=== PATIENT | male | born 1970 | race Caucasian/White ===

== ENCOUNTER 2019-03-11 12:55 | Emergency (ER) | payer SELFPAY ==
[2019-03-11 13:14] VITALS: BP 99/64; RESP 16; TEMP 36.5; O2SAT 99; BMI 22.0
--- NOTE | 2019-03-11 14:22 | ED_ITS ---
Entered by Madelyn Banegas, acting as scribe for Toyin Hernandez MD, [facility] [place] - Extremity Problem General: Chief complaint: Extremity Injury, Lower Stated complaint: leg infection Time Seen by Provider: 03/11/19 14:22 Source: patient Mode of arrival: ambulatory Limitations: no limitations History of Present Illness: HPI Narrative: 48 yo Male presents to ED with complaint of leg infection. Pt states that he has been treated with antibiotics for multiple infections including staph. Pt states that these wounds just keep popping up. Pt states that he was sent to [place] for treatment but he didn't get along with them too well and he ripped out all of his lines and left. Pt states that the staff in [place] was really receptive with him initially but when he told the staff that he had a drug history they stopped coming in to treat him and he wouldn't see anyone for 10 hours. Pt states that his wounds started out as dog bites from a Doberman. Complaint: other (multiple wounds to lower extremities) Onset (ago): month(s) (5) Location: lower extremity Severity scale (1-10): 10 Quality: constant Radiation: none Relieving factors: nothing Exacerbating factors: nothing Associated symptoms: Reports other (multiple wounds to lower extremities) Review of Systems General: Reports: 10 or more systems reviewed and unremarkable except in HPI and below Musc: Reports: extremity pain (multiple wounds to lower extremities) Skin/Breast: Reports: sores and non-healing lesion PFSH ED PFSH: Statuses (acute, chronic, etc) shown below reflect problem list status as previously entered and may not be historically accurate Social History Smoking and tobacco status: current every day smoker Physical Exam Const: COMMON NORMALS: no apparent distress, average body habitus, oriented x3, no limitations, healthy appearing, alert and well nourished HENMT: COMMON NORMALS: normocephalic, head/scalp atraumatic, hearing grossly normal bilaterally, external ears normal, EAC's normal, TM's normal bilaterally, external nose normal, nasal mucous membranes and turbinates normal, moist oral mucous membranes, oropharynx normal, dentition normal and gingiva normal HEAD & SCALP: normocephalic and atraumatic NOSE: external nose normal and nasal mucous membranes and turbinates normal EXTERNAL EAR: Yes external ears normal EXTERNAL AUDITORY CANAL: EAC's normal TYMPANIC MEMBRANE: TM's normal bilaterally Eye: COMMON NORMALS: PERRL, EOMs intact bilaterally, conjunctivae normal, no scleral icterus, no papilledema, normal visual gonzales by confrontation and fundi normal bilaterally CONJUNCTIVA: Yes conjunctivae normal PUPIL: Yes PERRL DIRECT OPHTHALMOSCOPY: Yes no papilledema and Yes fundi normal bilaterally Neck/C-Spine: COMMON NORMALS: full ROM, supple, no meningeal signs, no JVD and no carotid bruits Chest: COMMONS NORMALS: inspection of chest normal and palpation of chest normal Resp: COMMON NORMALS: normal respiratory effort, no retractions, no use of accessory muscles, clear to auscultation bilaterally and percussion normal AUSCULTATION: clear to auscultation bilaterally PERCUSSION: percussion normal Cardio: COMMON NORMALS: no JVD, regular rate, regular rhythm, S1 normal heart sound, S2 normal heart sound, no gallops, no clicks, no murmurs, no rub and peripheral pulses 2+ throughout RATE: regular rate RHYTHM: regular rhythm HEART SOUNDS: S1 normal and S2 normal PERIPHERAL PULSES: pulses 2+ throughout GI: COMMON NORMALS: normal to inspection, nondistended, normoactive bowel sounds, soft to palpation, non-tender, no hepatosplenomegaly, no masses and no bruits PALPATION: Yes soft and Yes no hepatosplenomegaly : COMMON NORMALS: Yes no CVA tenderness BLADDER/KIDNEY EXAM: Yes no CVA tenderness Back/Pelvis: COMMON NORMALS: no CVA tenderness Extremity: COMMON NORMALS: normal to inspection, full ROM, normal capillary refill, no joint enlargement, no clubbing, cyanosis or edema, no calf tenderness and no pedal edema OTHER: Patient has multiple skin ulcers in various stages of healing and of varying sizes. No drainage from any of the wounds. Some of the wounds are scabbed over. Mild erythema surrounding some of the wounds. There is tenderness around some of the wounds. Some wounds are shallow and some a little deeper. Wounds are located in both lower extremities. Neuro: COMMON NORMALS: oriented x3 SENSORIUM/ORIENTATION: Yes alert MENINGEAL SIGNS: Yes no meningeal signs Skin: COMMON NORMALS: no rashes or lesions noted, no wounds, skin turgor normal, no jaundice, no petechiae and no mottling GENERAL SKIN EXAM: no rashes or lesions noted and turgor normal Course Vital Signs: Vital signs: Vital Signs Temperature 97.7 F 03/11/19 13:14 Pulse Rate 90 03/11/19 18:50 Respiratory Rate 18 03/11/19 18:50 Blood Pressure 124/81 03/11/19 18:50 Pulse Oximetry 100 03/11/19 18:50 MDM - Extremity (Nontraumatic) MDM Narrative: Medical decision making narrative: 48-year-old male with chronic nonhealing skin wounds. Wound culture done a couple of weeks ago showed MSSA and he is currently on Bactrim which I believe is appropriate based on the sensitivity report. Evaluation in the emergency department today does not reveal any acute findings with no drainage or discharge from the wound. White c ell count is normal. He is not febrile. He is therefore going to be discharged home to continue his current antibiotics and to follow-up at the wound care clinic. A referral will be made for him to [facility] scheduled to see the wound care providers. The patient voiced understanding and is in agreement with the plan. Lab Data: Labs: Lab Results 03/11/19 03/11/19 03/11/19 Range/Units 16:35 16:35 16:35 WBC 7.2 (4.0-10.0) 10^3/ uL RBC 4.34 (4.1-5.3) 10^6/u L Hgb 12.1 (11.7-16.6) g/dL Hct 38.8 L (42.0-52.0) % MCV 89.4 (80-94) fL MCH 27.9 L (28.0-34.0) pg MCHC 31.2 (30.0-36.0) g/dL RDW 14.4 (12.1-15.1) % Plt Count 190 (130-400) 10^3/c mm MPV 10.1 (7.4-10.4) fL Neut % (Auto) 59.3 % Lymph % (Auto) 29.0 % Merrick % (Auto) 8.2 % Eos % (Auto) 2.8 % Baso % (Auto) 0.4 % Neut # (Auto) 4.3 (1.8-7.7) 10^3/u L Lymph # (Auto) 2.1 (0.8-4.8) 10^3/u L Merrick # (Auto) 0.6 (0.2-0.9) 10^3/u L Eos # (Auto) 0.2 (0.0-0.8) 10^3/u L Baso # (Auto) 0.0 (0.0-0.1) 10^3/u L Nucleated RBC % (a uto) 0 % Nucleated RBCs # 0.0 /100WBC Sodium 138 (136-145) mmol/L Potassium 4.5 (3.5-5.1) mmol/L Chloride 100 (98-107) mmol/L Carbon Dioxide 26 (22-29) mmol/L Anion Gap 16.5 (5-19) BUN 18 (6-20) mg/dL Creatinine 0.8 (0.7-1.2) mg/dL GFR Calculation 104.1 (90-130) mL/min Glucose 95 (74-109) mg/dL Lactate 1.7 (0.5-2.2) mmol/L Calcium 9.7 (8.6-10.0) mg/Dl Total Bilirubin 0.3 (0.15-1.2) mg/dL AST 15 (0-40) U/L ALT 9 (0-41) U/L Alkaline Phosphata se 49 (40-130) IU/L Troponin T Baselin e (0-15) ng/mL C-Reactive Protein 3.5 (0.0-4.9) mg/L Total Protein 8.9 H (6.6-8.7) g/dL Albumin 4.5 (3.5-5.2) g/dL Globulin 4.4 (1.3-4.6) g/dL 03/11/19 Range/Units 16:35 WBC (4.0-10.0) 10^3/ uL RBC (4.1-5.3) 10^6/u L Hgb (11.7-16.6) g/dL Hct (42.0-52.0) % MCV (80-94) fL MCH (28.0-34.0) pg MCHC (30.0-36.0) g/dL RDW (12.1-15.1) % Plt Count (130-400) 10^3/c mm MPV (7.4-10.4) fL Neut % (Auto) % Lymph % (Auto) % Merrick % (Auto) % Eos % (Auto) % Baso % (Auto) % Neut # (Auto) (1.8-7.7) 10^3/u L Lymph # (Auto) (0.8-4.8) 10^3/u L Merrick # (Auto) (0.2-0.9) 10^3/u L Eos # (Auto) (0.0-0.8) 10^3/u L Baso # (Auto) (0.0-0.1) 10^3/u L Nucleated RBC % (a uto) % Nucleated RBCs # /100WBC Sodium (136-145) mmol/L Potassium (3.5-5.1) mmol/L Chloride (98-107) mmol/L Carbon Dioxide (22-29) mmol/L Anion Gap (5-19) BUN (6-20) mg/dL Creatinine (0.7-1.2) mg/dL GFR Calculation (90-130) mL/min Glucose (74-109) mg/dL Lactate (0.5-2.2) mmol/L Calcium (8.6-10.0) mg/Dl Total Bilirubin (0.15-1.2) mg/dL AST (0-40) U/L ALT (0-41) U/L Alkaline Phosphata se (40-130) IU/L Troponin T Baselin e 10 (0-15) ng/mL C-Reactive Protein (0.0-4.9) mg/L Total Protein (6.6-8.7) g/dL Albumin (3.5-5.2) g/dL Globulin (1.3-4.6) g/dL Discharge Plan Discharge Patient Disposition: Home, Self-Care Clinical Impression: Non-healing wound Cellulitis Qualifiers: Site of cellulitis: extremity Site of cellulitis of extremity: lower extremity Laterality: unspecified laterality Qualified Code(s): L03.119 - Cellulitis of unspecified part of limb Condition: Stable Prescriptions: Continued Bactrim DS 800-160 mg Tablet 1 tab PO BID RF: 0 Discharge Orders: Discharge Order (Routine); Ordered 03/11/19 Ordered By: Toyin Hernandez Referrals: WOUND CARE CLINIC, [Staff Physician] - 1-3 days (non healing wounds) Discharge Diet: Usual diet Discharge Activity: Resume usual activity Activity Restrictions/Additional Instructions: Return for any new or worsening symptoms. Continue to take the Bactrim as prescribed by Dr. Munoz. Follow-up with Dr. Munoz on Saturday. You will be contacted by the special education case manager to schedule an appointment with the wound care clinic so you can be evaluated for your nonhealing wounds. Coding Level of Care Code ED Strike On Machine Operator for Chg Fwd Exam Problem Focused The documentation recorded by the Bassam bacon Carmen, accurately reflects the service I personally performed and the decisions made by , Toyin Hernandez MD, [facility] [place] Mar 11, 2019 12:55
[2019-03-11 16:56] LABS: Basophils % 0.4 %; Eosinophils # 0.2 10^3/uL (0.0-0.8); Eosinophils % 2.8 %; Hematocrit 38.8 % (42.0-52.0); Hemoglobin 12.1 g/dL (11.7-16.6); Lymphocytes # 2.1 10^3/uL (0.8-4.8); Mean Corpuscular HGB Conc 31.2 g/dL (30.0-36.0); Mean Corpuscular Hemoglobin 27.9 pg (28.0-34.0); Mean Corpuscular Volume 89.4 fL (80-94); Mean Platelet Volume 10.1 fL (7.4-10.4); Monocytes # 0.6 10^3/uL (0.2-0.9); Monocytes % 8.2 %; Neutrophils # 4.3 10^3/uL (1.8-7.7); Neutrophils % 59.3 %; Nucleated Red Blood Cells % 0 %; Platelet Count 190 10^3/cmm (130-400); Red Blood Count 4.34 10^6/uL (4.1-5.3); Red Cell Distribution Width 14.4 % (12.1-15.1); White Blood Count 7.2 10^3/uL (4.0-10.0)
[2019-03-11 17:02] LABS: Lactate (Lactic Acid level) 1.7 mmol/L (0.5-2.2)
[2019-03-11 17:04] LABS: Alanine Aminotransferase 9 U/L (0-41); Albumin Level 4.5 g/dL (3.5-5.2); Alkaline Phosphatase 49 IU/L (40-130); Anion Gap 16.5 (5-19); Aspartate Amino Transferase 15 U/L (0-40); Blood Urea Nitrogen 18 mg/dL (6-20); C Reactive Protein 3.5 mg/L (0.0-4.9); Calcium 9.7 mg/Dl (8.6-10.0); Carbon Dioxide 26 mmol/L (22-29); Chloride 100 mmol/L (98-107); Globulin 4.4 g/dL (1.3-4.6); Glomerular Filtration Rate 104.1 mL/min (90-130); Glucose 95 mg/dL (74-109); Potassium 4.5 mmol/L (3.5-5.1); Sodium 138 mmol/L (136-145); Total Bilirubin 0.3 mg/dL (0.15-1.2); Total Protein 8.9 g/dL (6.6-8.7)
[2019-03-11 18:25] LABS: Troponin(5th) Baseline 10 ng/mL (0-15)
[2019-03-11] MEDS: cefTRIAXone 1,000 MG in sodium chloride 0.9% (plus) 50 ML 100 MG IV (18:48)
[2019-03-11 18:50] VITALS: BP 124/81; PULSE 90; RESP 18; O2SAT 100
[2019-03-11 20:00] LABS: Amphetamines Screen Urine Negative (Negative); Barbiturates Screen Urine Negative (Negative); Benzodiazepines Screen Urine Negative (Negative); Cocaine Screen Urine Negative (Negative); Opiate Screen Urine Negative (Negative); PCP Screen Urine Negative (Negative); THC Screen Urine Negative (Negative)
[2019-03-11 20:13] VITALS: BP 98/68; PULSE 83; RESP 18; O2SAT 98
--- NOTE | 2019-03-11 20:33 | W.ED.EXTPRO ---
HPI - Extremity Problem General: Chief complaint: Extremity Injury, Lower Stated complaint: leg infection Time Seen by Provider: 03/11/19 14:22 Mode of arrival: ambulatory History of Present Illness: Location: lower extremity Severity scale (1-10): 10 Quality: constant Relieving factors: nothing Exacerbating factors: nothing PFSH ED PFSH: Statuses (acute, chronic, etc) shown below reflect problem list status as previously entered and may not be historically accurate Social History Smoking and tobacco status: current every day smoker Course Vital Signs: Vital signs: Vital Signs Temperature 97.7 F 03/11/19 13:14 Pulse Rate 83 03/11/19 20:13 Respiratory Rate 18 03/11/19 20:13 Blood Pressure 98/68 03/11/19 20:13 Pulse Oximetry 98 03/11/19 20:13 MDM - Extremity (Nontraumatic) Lab Data: Labs: Lab Results 03/11/19 03/11/19 03/11/19 Range/Units 16:35 16:35 16:35 WBC 7.2 (4.0-10.0) 10^3/ uL RBC 4.34 (4.1-5.3) 10^6/u L Hgb 12.1 (11.7-16.6) g/dL Hct 38.8 L (42.0-52.0) % MCV 89.4 (80-94) fL MCH 27.9 L (28.0-34.0) pg MCHC 31.2 (30.0-36.0) g/dL RDW 14.4 (12.1-15.1) % Plt Count 190 (130-400) 10^3/c mm MPV 10.1 (7.4-10.4) fL Neut % (Auto) 59.3 % Lymph % (Auto) 29.0 % Fallon % (Auto) 8.2 % Eos % (Auto) 2.8 % Baso % (Auto) 0.4 % Neut # (Auto) 4.3 (1.8-7.7) 10^3/u L Lymph # (Auto) 2.1 (0.8-4.8) 10^3/u L Fallon # (Auto) 0.6 (0.2-0.9) 10^3/u L Eos # (Auto) 0.2 (0.0-0.8) 10^3/u L Baso # (Auto) 0.0 (0.0-0.1) 10^3/u L Nucleated RBC % (a uto) 0 % Nucleated RBCs # 0.0 /100WBC Sodium 138 (136-145) mmol/L Potassium 4.5 (3.5-5.1) mmol/L Chloride 100 (98-107) mmol/L Carbon Dioxide 26 (22-29) mmol/L Anion Gap 16.5 (5-19) BUN 18 (6-20) mg/dL Creatinine 0.8 (0.7-1.2) mg/dL GFR Calculation 104.1 (90-130) mL/min Glucose 95 (74-109) mg/dL Lactate 1.7 (0.5-2.2) mmol/L Calcium 9.7 (8.6-10.0) mg/Dl Total Bilirubin 0.3 (0.15-1.2) mg/dL AST 15 (0-40) U/L ALT 9 (0-41) U/L Alkaline Phosphata se 49 (40-130) IU/L Troponin T Baselin e (0-15) ng/mL C-Reactive Protein 3.5 (0.0-4.9) mg/L Total Protein 8.9 H (6.6-8.7) g/dL Albumin 4.5 (3.5-5.2) g/dL Globulin 4.4 (1.3-4.6) g/dL Urine Opiates Scre en (Negative) ng/mL Ur Barbiturates Sc reen (Negative) ng/mL Ur Phencyclidine S crn (Negative) ng/mL Ur Amphetamines Sc reen (Negative) ng/mL U Benzodiazepines Scrn (Negative) ng/mL Urine Cocaine Scre en (Negative) ng/mL U Marijuana (THC) Screen (Negative) ng/mL 03/11/19 03/11/19 Range/Units 16:35 18:33 WBC (4.0-10.0) 10^3/ uL RBC (4.1-5.3) 10^6/u L Hgb (11.7-16.6) g/dL Hct (42.0-52.0) % MCV (80-94) fL MCH (28.0-34.0) pg MCHC (30.0-36.0) g/dL RDW (12.1-15.1) % Plt Count (130-400) 10^3/c mm MPV (7.4-10.4) fL Neut % (Auto) % Lymph % (Auto) % Fallon % (Auto) % Eos % (Auto) % Baso % (Auto) % Neut # (Auto) (1.8-7.7) 10^3/u L Lymph # (Auto) (0.8-4.8) 10^3/u L Fallon # (Auto) (0.2-0.9) 10^3/u L Eos # (Auto) (0.0-0.8) 10^3/u L Baso # (Auto) (0.0-0.1) 10^3/u L Nucleated RBC % (a uto) % Nucleated RBCs # /100WBC Sodium (136-145) mmol/L Potassium (3.5-5.1) mmol/L Chloride (98-107) mmol/L Carbon Dioxide (22-29) mmol/L Anion Gap (5-19) BUN (6-20) mg/dL Creatinine (0.7-1.2) mg/dL GFR Calculation (90-130) mL/min Glucose (74-109) mg/dL Lactate (0.5-2.2) mmol/L Calcium (8.6-10.0) mg/Dl Total Bilirubin (0.15-1.2) mg/dL AST (0-40) U/L ALT (0-41) U/L Alkaline Phosphata se (40-130) IU/L Troponin T Baselin e 10 (0-15) ng/mL C-Reactive Protein (0.0-4.9) mg/L Total Protein (6.6-8.7) g/dL Albumin (3.5-5.2) g/dL Globulin (1.3-4.6) g/dL Urine Opiates Scre en Negative (Negative) ng/mL Ur Barbiturates Sc reen Negative (Negative) ng/mL Ur Phencyclidine S crn Negative (Negative) ng/mL Ur Amphetamines Sc reen Negative (Negative) ng/mL U Benzodiazepines Scrn Negative (Negative) ng/mL Urine Cocaine Scre en Negative (Negative) ng/mL U Marijuana (THC) Screen Negative (Negative) ng/mL Discharge Plan Discharge Patient Disposition: Home, Self-Care Clinical Impression: Non-healing wound Cellulitis Qualifiers: Site of cellulitis: extremity Site of cellulitis of extremity: lower extremity Laterality: unspecified laterality Qualified Code(s): L03.119 - Cellulitis of unspecified part of limb Condition: Stable Prescriptions: Continued Bactrim DS 800-160 mg Tablet 1 tab PO BID RF: 0 Discharge Orders: Discharge Order (Routine); Ordered 03/11/19 Ordered By: Toyin Hernandez Referrals: WOUND CARE CLINIC, [Staff Physician] - 1-3 days (non healing wounds) Discharge Diet: Usual diet Discharge Activity: Resume usual activity Activity Restrictions/Additional Instructions: Return for any new or worsening symptoms. Continue to take the Bactrim as prescribed by Dr. Munoz. Follow-up with Dr. Munoz on Saturday. You will be contacted by the telephonic nurse case manager to schedule an appointment with the wound care clinic so you can be evaluated for your nonhealing wounds. Discharge Date/Time: 03/11/19 20:10 Coding Level of Care Code ED Round Cutter Operator for Babatunde Alcantar
--- NOTE | 2019-03-12 10:57 | DCPLANNER ---
route manager had message to schedule a follow up appointment for patient with Wound Care. route manager called Wound Care, spoke with Susan, gave clinic patients information. A follow up appointment is scheduled for Sunday, March 17, 2019 at 10:[address] Saini. route manager called patient and informed patent of the scheduled appointment. Patient stated that he would attend the appointment.
--- NOTE | 2019-03-24 14:17 | DCPLANNER ---
Patient did attend appointment scheduled for 03.17.19 with Wound Care.
== END 2019-03-11 20:10 | disposition home or self-care (01) ==
PROVIDERS: Emergency Provider Family Medicine
DX: L03.119 Cellulitis of unspecified part of limb (principal)
CPT/HCPCS: 36415; 80053; 80307; 83605; 84484; 85025; 86140; 87040; 96365; 99282; A9270; J0696

== ENCOUNTER 2019-03-17 09:53 | Outpatient (RCR) | payer SELFPAY | END 2019-04-03 23:59 | disposition home or self-care (01) | LOC: WOUND 09:53 | PROVIDERS: Visit Provider Thoracic Surgery (Cardiothoracic Vascular Surgery) | DX: I96 Gangrene, not elsewhere classified (principal); L97.522 Non-pressure chronic ulcer of other part of left foot with fat layer exposed; L97.822 Non-pressure chronic ulcer of other part of left lower leg with fat layer exposed; L97.812 Non-pressure chronic ulcer of other part of right lower leg with fat layer exposed | CPT/HCPCS: 11042; 11045; 99203; G0463 ==

== ENCOUNTER 2020-01-11 16:51 | Emergency (ER) | payer MEDICAID, SELFPAY ==
[2020-01-11 16:53] VITALS: BP 144/98; PULSE 96; RESP 18; TEMP 36.7; O2SAT 98; BMI 22.9
--- NOTE | 2020-01-11 17:02 | XR_ITS ---
WS: [id number] XR foot RT min 3V* [id number] REASON FOR EXAM: necrotic toes FINDINGS: Significant decreased bone density for age. 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 No focal bony abnormality in the toes. No significant midfoot or hindfoot abnormality. XR/XR foot RT min 3V* [id number] IMPRESSION: Decreased bony density for age. No focal bony abnormality.
[2020-01-11 21:25] VITALS: BP 149/99; PULSE 95; O2SAT 96
[2020-01-11 21:54] VITALS: BP 125/81; PULSE 89; O2SAT 94
--- NOTE | 2020-01-11 21:54 | CTR_ITS ---
PROCEDURE INFORMATION: Exam: CT Left Lower Extremity Without Contrast, Foot Exam date and time: 01/11/2020 10:56 PM Age: 49 years old Clinical indication: Condition or disease; Other: Open wound with necrotic tissue TECHNIQUE: Imaging protocol: CT of the Left lower extremity without contrast was performed. Exam focused on the foot. Radiation optimization: All CT scans at this facility use at least one of these dose optimization techniques: automated exposure control; mA and/or kV adjustment per patient size (includes targeted exams where dose is matched to clinical indication); or iterative reconstruction. COMPARISON: No relevant prior studies available. RADIATION DOSE METRICS: Total DLP (mGy-cm): 475.93 FINDINGS: Bones/joints: There is no specific bone lesion to suggest active osteomyelitis. Radionuclide bone imaging or MRI would be more sensitive for the detection of early osteomyelitis. There is some oblique lucency through the distal fibula which appears represent old healed injury. Soft tissues: There is a large wound or ulcer in the lateral aspect of the left foot measuring approximately 28 x 35 mm with a depth of approximately 4 mm. There is skin thickening and edema along the lateral aspect of the left foot consistent with cellulitis. No abscess is identified. CT/CT foot LT wo con* [id number] IMPRESSION: 1. Cellulitis and soft tissue ulcer. 2. No abscess is identified. Radiation Dose CTDIVOL = (mGy): DLP = 475.93 (mGy-cm)
--- NOTE | 2020-01-11 21:54 | USCV_ITS ---
Deandra Olivares Age: 49 Gender: M : 1970 Exam Date: 01/11/2020 22:58 Ordering Phys: Sebastian De Jesus Technologist: Exam Location: [facility] [place]_ Indication: DECREASED PULSES RIGHT LEFT Brachial 129.00 mmHg Brachial 127.00 mmHg Pressure (mmHg) Waveform Pressure (mmHg) Waveform 146.00 Above Knee 140.00 154.00 Below Knee 139.00 155.00 QUAL RESEARCH MANAGER 135.00 111.00 DPA 100.00 1.20 Ankle/Brachial Index 1.05 72.00 Pre-Exercise Toe Pressure 62.00 0.56 Pre-Exercise Toe/Brachial Index 0.48 FINDINGS Normal resting ABIs bilaterally Abnormal resting TBI's bilaterally PVR waveforms showing some blunting of the dicrotic notch bilaterally CONCLUSIONS Features suggestive of mild to moderate peripheral artery disease, involving the distal vessels bilaterally Dr Pola Germain MD FACC (Electronically Signed) Final Date: 12 January 2020 17:26 S
--- NOTE | 2020-01-11 21:54 | CTR_ITS ---
PROCEDURE INFORMATION: Exam: CT Right Lower Extremity Without Contrast, Foot Exam date and time: 01/11/2020 10:56 PM Age: 49 years old Clinical indication: Condition or disease; Other: Open wound/necrotic; Additional info: Open wound with necrotic tissue TECHNIQUE: Imaging protocol: CT of the Right lower extremity without contrast was performed. Exam focused on the foot. Radiation optimization: All CT scans at this facility use at least one of these dose optimization techniques: automated exposure control; mA and/or kV adjustment per patient size (includes targeted exams where dose is matched to clinical indication); or iterative reconstruction. COMPARISON: No relevant prior studies available. RADIATION DOSE METRICS: Total DLP (mGy-cm): 267.18 FINDINGS: Bones/joints: There is no evidence of fracture or dislocation. Soft tissues: There is a focal soft tissue ulcer on the dorsum of the midfoot overlying the medial cuneiform. No abscess is identified. The soft tissues overlying the dorsal aspect of the cuneiform or very thin but there is no specific bony lesion to suggest active osteomyelitis. Radionuclide bone imaging or MRI would be more sensitive for the detection of early osteomyelitis. CT/CT foot RT wo con* [id number] IMPRESSION: Soft tissue ulcer. No abscess is identified. Radiation Dose CTDIVOL = (mGy): DLP = 267.18 (mGy-cm)
--- NOTE | 2020-01-11 21:57 | ED_ITS ---
HPI - Skin/Abscess/Foreign Bdy General: Chief complaint: Skin/Abscess/Foreign Body Stated complaint: Toes on Right Foot turning black Time Seen by Provider: 01/11/20 21:30 History of Present Illness: HPI narrative: Patient is a 49-year-old male comes to the ED with wounds on right and left feet. Patient says he has been seen a year ago for same issue and was discharged to wound care clinic, but due to not having insurance he was not able to go to the wound care clinic. He says he has been taking some antibiotics but is not been seen by a doctor for wounds on feet for about a year. He now has necrotic tissue on right foot distal end of the first and second digit. He also has an open wound with necrotic tissue on midfoot as well. Patient's left foot has a wound with necrotic tissue on it around midfoot and ankle region as well. He says feet are painful when touched. Denies any previous history with MRSA or staph. Patient states he currently has insurance now and can go to wound care now. Patient admits that he has a history of IV drug use and nurses have trouble getting blood from him. Associated symptoms: Deny chills, fever(s), nausea or vomiting Review of Systems Const: Denies: fever(s), chills or fatigue Eyes: Denies: change in vision or eye discomfort ENMT: Denies: throat pain, odynophagia, nasal discharge or nasal congestion Card: Denies: chest pain, palpitations, edema, swelling of feet/ankles, dyspnea on exertion or orthopnea Resp: Denies: dyspnea, productive cough or non-productive cough GI: Denies: abdominal pain, nausea, vomiting, diarrhea, constipation or hematochezia : Denies: flank pain, difficulty urinating, dysuria or hematuria Musc: Denies: neck pain, back pain or extremity swelling Skin/Breast: Reports: sores (on left and right foot.) and other (Necrotic skin tissue on first and second digit of right foot.); Denies: rash or new lesions Neuro: Denies: headache(s), numbness in extremities or weakness in extremities PFS ED PFSH: Social History Smoking and tobacco status: current every day smoker Physical Exam Const: COMMON NORMALS: no acute distress, patient oriented x3 and alert GENERAL APPEARANCE: cooperative and comfortable HENMT: COMMON NORMALS: normocephalic HEAD & SCALP: normocephalic MOUTH: Normal oral and palatal mucosa present THROAT: posterior oropharynx normal and uvula midline Neck/C-Spine: COMMON NORMALS: supple GENERAL: Yes normal visual inspection Resp: COMMON NORMALS: normal respiratory effort, No retractions, No use of accessory muscles and clear to auscultation bilaterally AUSCULTATION: clear to auscultation bilaterally Cardio: COMMON NORMALS: regular rate, regular rhythm, S1 normal heart sound present, S2 normal heart sound present, No gallops present (Cardio), No clicks present (Cardio) and No murmurs present (Cardio) RATE: regular rate RHYTHM: regular rhythm HEART SOUNDS: S1 normal heart sound present and S2 normal heart sound present PERIPHERAL PULSES: dorsalis pedis present positive bilateral diminished GI: COMMON NORMALS: Normal to inspection, nondistended, normoactive bowel sounds present, Soft to palpation, non-tender and no masses PALPATION: Yes Soft to palpation : COMMON NORMALS: Yes no CVA tenderness BLADDER/KIDNEY EXAM: Yes no CVA tenderness Back/Pelvis: COMMON NORMALS: no CVA tenderness Extremity: NARRATIVE EXTREMITY EXAM: Right foot?necrotic tissue on tip of first and second digit. Ulcerated sore on midfoot with some necrotic tissue present. Diminished pedal pulses. Full range of motion Left foot-ulcerated sore on foot near ankle. Necrotic tissue present. Diminished pedal pulses. Full range of motion. Neuro: COMMON NORMALS: patient oriented x3 and moves all extremities SENSORIUM/ORIENTATION: Yes alert Skin: NARRATIVE SKIN EXAM: Patient has necrotic skin on first and second digit of right foot. Course Vital Signs: Vital signs: Vital Signs Temperature 98.1 F 01/11/20 16:53 Pulse Rate 87 01/12/20 01:29 Respiratory Rate 16 01/12/20 01:29 Blood Pressure 142/85 01/12/20 01:29 Pulse Oximetry 99 01/12/20 01:29 MDM - Skin/Abscess/Foreign Bdy MDM Narrative: Medical decision making narrative: Patient is a 49-year-old male who comes to the ED with chronic wound. Patient says his wounds been present for about a year now. Labs were ordered but nobody was able to get blood after multiple attempts. X-ray of right foot showed no acute fractures. CT of both right and left lower leg showed no signs of osteomyelitis but did indicate cellulitis without any abscess present. Told patient we would like to have him admitted but there is no beds available throughout all hospitals in the area. Patient was given a dose of IM Rocephin and discharged with Bactrim and [place] 8 tabs. I placed an order with case management to refer patient to wound care clinic and logistics operations director. Patient says he will follow up this time with wound care and logistics operations director as directed. I stressed with patient the importance of following up with wound care help improve wounds. Return to ED precautions given. Patient understood and agreed with plan. Imaging Data^: Xray Ortho: Attestation: I personally reviewed and interpreted this imaging study as follows: My impression: Right foot x-ray?no acute fracture seen. Other CT: Attestation: I personally reviewed and interpreted this imaging study as follows: Radiologist's impression: [place] [address] CT Scan Report Signed Patient: Deandra Olivares Unit #: [id number] : 1970 Age/Sex: 49 / M ADM Date: 01/11/20 Loc: ER Room/Bed: Attending Dr: Ordering Provider/Ordering MD: Sebastian De Jesus Date of Service: 01/11/20 Procedure(s): CT foot LT wo con* [id number] Accession Number(s): [id number] Report Number: [id number] PROCEDURE INFORMATION: Exam: CT Left Lower Extremity Without Contrast, Foot Exam date and time: 01/11/2020 10:56 PM Age: 49 years old Clinical indication: Condition or disease; Other: Open wound with necrotic tissue TECHNIQUE: Imaging protocol: CT of the Left lower extremity without contrast was performed. Exam focused on the foot. Radiation optimization: All CT scans at this facility use at least one of these dose optimization techniques: automated exposure control; mA and/or kV adjustment per patient size (includes targeted exams where dose is matched to clinical indication); or iterative reconstruction. COMPARISON: No relevant prior studies available. RADIATION DOSE METRICS: Total DLP (mGy-cm): 475.93 FINDINGS: Bones/joints: There is no specific bone lesion to suggest active osteomyelitis. Radionuclide bone imaging or MRI would be more sensitive for the detection of early osteomyelitis. There is some oblique lucency through the distal fibula which appears represent old healed injury. Soft tissues: There is a large wound or ulcer in the lateral aspect of the left foot measuring approximately 28 x 35 mm with a depth of approximately 4 mm. There is skin thickening and edema along the lateral aspect of the left foot consistent with cellulitis. No abscess is identified. CT/CT foot LT wo con* [id number] IMPRESSION: 1. Cellulitis and soft tissue ulcer. 2. No abscess is identified. Radiation Dose CTDIVOL = (mGy): DLP = 475.93 (mGy-cm) Dictated By: Gus Shah Signed By: Gus Shah Signed Date/Time: 01/12/2016 DD/ [place] [address] CT Scan Report Signed Patient: Deandra Olivares Unit #: [id number] : 1970 Age/Sex: 49 / M ADM Date: 01/11/20 Loc: ER Room/Bed: Attending Dr: Ordering Provider/Ordering MD: Sebastian De Jesus Date of Service: 01/11/20 Procedure(s): CT foot RT wo con* [id number] Accession Number(s): [id number] Report Number: [id number] PROCEDURE INFORMATION: Exam: CT Right Lower Extremity Without Contrast, Foot Exam date and time: 01/11/2020 10:56 PM Age: 49 years old Clinical indication: Condition or disease; Other: Open wound/necrotic; Additional info: Open wound with necrotic tissue TECHNIQUE: Imaging protocol: CT of the Right lower extremity without contrast was performed. Exam focused on the foot. Radiation optimization: All CT scans at this facility use at least one of these dose optimization techniques: automated exposure control; mA and/or kV adjustment per patient size (includes targeted exams where dose is matched to clinical indication); or iterative reconstruction. COMPARISON: No relevant prior studies available. RADIATION DOSE METRICS: Total DLP (mGy-cm): 267.18 FINDINGS: Bones/joints: There is no evidence of fracture or dislocation. Soft tissues: There is a focal soft tissue ulcer on the dorsum of the midfoot overlying the medial cuneiform. No abscess is identified. The soft tissues overlying the dorsal aspect of the cuneiform or very thin but there is no specific bony lesion to suggest active osteomyelitis. Radionuclide bone imaging or MRI would be more sensitive for the detection of early osteomyelitis. CT/CT foot RT wo con* [id number] IMPRESSION: Soft tissue ulcer. No abscess is identified. Radiation Dose CTDIVOL = (mGy): DLP = 267.18 (mGy-cm) Dictated By: Gus Shah Signed By: Gus Shah Signed Date/Time: 01/12/2010 DD/ Vascular: Attestation: I personally reviewed and interpreted this imaging study as follows: Radiologist's impression: Ultrasound arterial Doppler-bilateral lower extremities. salvage engineering technician said that on right foot first and second digit there was no blood flow seen. The rest of digits on right foot and on the left foot had good arterial flow. Right ankle PT 1.2, ankle DP 0.86 Left ankle PT 1.05, ankle DP 0.78 Discharge Plan Discharge Patient Disposition: Home Clinical Impression: Cellulitis Qualifiers: Site of cellulitis: extremity Site of cellulitis of extremity: lower extremity Laterality: unspecified laterality Qualified Code(s): L03.119 - Cellulitis of unspecified part of limb Ulcer of foot Qualifiers: Laterality: bilateral Non-pressure ulcer stage: unspecified non-pressure ulcer stage Qualified Code(s): L97.519 - Non-pressure chronic ulcer of other part of right foot with unspecified severity Condition: Stable Prescriptions: New Bactrim DS 800-160 mg tablet 1 tab PO BID 10 Days Qty: 20 RF: 0 No Action methadone See Rx Instructions .ROUTE .COMPLEX RF: 0 Discharge Orders: Discharge Order (Routine); Ordered 01/12/20 Ordered By: Sebastian De Jesus Discharge Diet: Regular Discharge Activity: Increase activity as tolerated Patient Instructions: Cellulitis (ED), Chronic Wound Care (ED) Activity Restrictions/Additional Instructions: Follow-up with medical provider as directed. Case management should be contacting you in the next several days to set up an appointment with wound care and podiatry. Take medications as prescribed. Return to the ER or your medical provider if condition worsens. Please read and understand discharge instructions. If any questions, please ask. Coding Level of Care Code ED Ice Bag Assembler for Chg Fwd Exam Comprehensive
[2020-01-11 22:55] VITALS: BP 141/90; PULSE 84; RESP 16; O2SAT 92
[2020-01-12 00:17] VITALS: BP 123/84; PULSE 80; O2SAT 93
[2020-01-12 01:29] VITALS: BP 142/85; PULSE 87; RESP 16; O2SAT 99
--- NOTE | 2020-01-12 10:34 | DCPLANNER ---
territory sales manager medical had message to schedule a follow up appointment for patient with podiatry and wound care. territory sales manager medical called the Wound Care clinic, spoke with Susan, a follow up appointment is scheduled for Wednesday, January 15, 2020 at 8:[address] Davis. territory sales manager medical called patient and gave him the appointment information, he stated that he would attend the appointment. territory sales manager medical also called the ortho clinic, spoke with Ryann, gave clinic patients information. territory sales manager medical was told that patients information would be printed and reviewed. Clinic will call patient with appointment information.
--- NOTE | 2020-01-14 14:34 | DCPLANNER ---
Patient had a follow up appointment scheduled for 01.14.20 with ortho - patient did attend appointment.
--- NOTE | 2020-02-03 13:48 | DCPLANNER ---
Patient had a follow up appointment scheduled for 01.15.20 with Wound Care - patient did attend the appointment.
== END 2020-01-12 01:30 | disposition home or self-care (01) ==
PROVIDERS: Emergency Provider Physician Assistant
DX: L03.116 Cellulitis of left lower limb (principal); L97.521 Non-pressure chronic ulcer of other part of left foot limited to breakdown of skin; L97.511 Non-pressure chronic ulcer of other part of right foot limited to breakdown of skin; Z79.891 Long term (current) use of opiate analgesic; L03.115 Cellulitis of right lower limb; F17.200 Nicotine dependence, unspecified, uncomplicated
CPT/HCPCS: 12345; 73630; 73700; 93923; 96372; 99281; 99283; J0696

== ENCOUNTER 2020-01-15 08:43 | Outpatient (CLI) | payer MEDICAID, SELFPAY | END 2020-01-15 08:44 | disposition home or self-care (01) | LOC: WOUND 08:44 | PROVIDERS: Visit Provider Surgery | DX: I73.9 Peripheral vascular disease, unspecified (principal); L97.522 Non-pressure chronic ulcer of other part of left foot with fat layer exposed; L97.512 Non-pressure chronic ulcer of other part of right foot with fat layer exposed | CPT/HCPCS: 11042; G0463; L3260 ==

== ENCOUNTER 2020-01-20 13:03 | Outpatient (CLI) | payer MEDICAID, SELFPAY ==
[2020-01-20 13:41] LABS: Basophils % 0.4 %; Eosinophils # 0.1 10^3/uL (0.0-0.8); Eosinophils % 0.8 %; Hematocrit 43.5 % (42.0-52.0); Hemoglobin 13.7 g/dL (11.7-16.6); Lymphocytes # 1.9 10^3/uL (0.8-4.8); Lymphocytes % 17.8 %; Mean Corpuscular HGB Conc 31.5 g/dL (30.0-36.0); Mean Corpuscular Hemoglobin 28.4 pg (28.0-34.0); Mean Corpuscular Volume 90.1 fL (80-94); Mean Platelet Volume 10.4 fL (7.4-10.4); Monocytes # 0.7 10^3/uL (0.2-0.9); Monocytes % 6.7 %; Neutrophils # 8.06 10^3/uL (1.8-7.7); Neutrophils % 73.9 %; Nucleated Red Blood Cells % 0 %; Platelet Count 97 10^3/cmm (130-400); Red Blood Count 4.83 10^6/uL (4.1-5.3); Red Cell Distribution Width 12.8 % (12.1-15.1); White Blood Count 10.9 10^3/uL (4.0-10.0)
[2020-01-20 14:10] LABS: Alanine Aminotransferase 11 U/L (0-41); Albumin Level 3.9 g/dL (3.5-5.2); Alkaline Phosphatase 38 IU/L (40-130); Aspartate Amino Transferase 16 U/L (0-40); Blood Urea Nitrogen 16 mg/dL (6-20); Calcium 9.4 mg/dL (8.5-10.5); Carbon Dioxide 21 mmol/L (22-29); Chloride 97 mmol/L (98-107); Chol HDL Ratio 5.91 mg/dL (1.0-5.00); Cholesterol 207 mg/dL (0-200); Globulin 3.9 g/dL (1.3-4.6); Glomerular Filtration Rate 71.8 mL/min (90-130); Glucose 115 mg/dL (65-115); HDL Cholesterol 35 mg/dL (60-100); LDL Cholesterol Calculated 132 mg/dL (50-129); LDL HDL Ratio 3.77 RATIO (0.00-3.22); Osmolality Calculated 276 mOsm/kg (285-295); Sodium 132 mmol/L (136-145); Total Bilirubin 0.3 mg/dL (0.15-1.2); Total Protein 7.8 g/dL (6.6-8.7); Triglycerides 198 mg/dL (0-150)
[2020-01-20 14:50] LABS: Estmated Average Glucose 97
== END 2020-01-20 13:04 | disposition home or self-care (01) ==
LOC: LAB 13:07
PROVIDERS: Visit Provider Surgery
DX: R52 Pain, unspecified (principal); L53.9 Erythematous condition, unspecified; L98.499 Non-pressure chronic ulcer of skin of other sites with unspecified severity
CPT/HCPCS: 36415; 80053; 80061; 83036; 85025

== ENCOUNTER 2020-01-22 10:56 | Outpatient (CLI) | payer MEDICAID, SELFPAY | END 2020-01-22 10:57 | disposition home or self-care (01) | LOC: WOUND 10:57 | PROVIDERS: Visit Provider Surgery | DX: I70.203 Unspecified atherosclerosis of native arteries of extremities, bilateral legs (principal); F17.210 Nicotine dependence, cigarettes, uncomplicated | CPT/HCPCS: 99215 ==

== ENCOUNTER → 2020-02-23 07:48 | Day surgery (SDC) | payer MEDICAID, SELFPAY ==
--- NOTE | 2020-02-23 09:00 | CT_ITS ---
WS: [id number] CT ANGIOGRAPHY OF THE ABDOMINAL AORTA WITH RUNOFF TO THE ANKLES HISTORY: non-pressure chronic ulcer TECHNIQUE: Arterial injection is performed during imaging to evaluate the aorta and runoff vessels to the ankles. MIP and volume rendering imaging has also been performed. All images are reviewed. All C T scans at [facility] use at least one of these dose optimization techniques: automated ex posure control; mA and/or kV adjustment per patient size (includes targeted exams where dose is match ed to clinical indication); or iterative reconstruction. Contrast: Omnipaque 350; 95 mL IV. DLP: 1785.45 mGy.cm COMPARISON: None available. Abdominal aorta: Mild atherosclerotic plaque. Asymmetric intimal thickening along the posterior RIGHT lateral infrarenal aorta measures 4.7 mm. Lumen of the aorta is still patent. Celiac axis and SMA ar e well-opacified. Bilateral renal arteries are well-opacified. Accessory renal artery on the LEFT. IM A still opacified. RIGHT lower extremity arterial system: Mild plaque within the RIGHT common iliac artery. More dense p laque in the internal iliac artery. External iliac artery is patent. Superficial femoral artery and p opliteal artery demonstrate only mild atherosclerotic plaque. Three-vessel runoff to the foot althoug h the vessels are small caliber. LEFT lower extremity arterial system: Intimal thickening and calcified plaque with stenosis less than 40%. More heavily calcified plaque in the internal iliac. External iliac artery is normal. Superfici al femoral artery and the deep profunda are well-opacified. Popliteal artery is mildly compromised by plaque. Three-vessel runoff to the ankle. Emphysema at the lung bases. Small hiatal hernia. Normal size heart. Mild hepatomegaly and hepatic steatosis. Spleen is top normal size at 13 cm in length. Negative gallb ladder and adrenal glands. No bile duct dilatation in the pancreas is negative. Mild thinning of the renal cortex bilaterally, RIGHT greater than LEFT. No obstruction or mass identified. No adenopathy o r ascites. Mild constipation. Urinary bladder is normal. CT/CT angio abd aorta runof 32577 IMPRESSION: 1. No high-grade stenosis or occlusions. 2. Plaque and intimal thickening in the infrarenal aorta but no high-grade rand nosis. 3. Less than 50% stenosis at the LEFT common iliac artery bifurcation. 4. Soft tissue edema below the knees. There is still three-vessel runoff to th e ankles but small caliber vessels.
[2020-02-23] MEDS: iohexol 350 mg/mL 100 mL Btl IV (09:09)
[2020-02-23 09:30] VITALS: BP 134/86; PULSE 94; RESP 16; O2SAT 100
== END ==
PROVIDERS: PCP Family Medicine Adult Medicine; Visit Provider Podiatrist Foot & Ankle Surgery
DX: L97.522 Non-pressure chronic ulcer of other part of left foot with fat layer exposed (principal)
CPT/HCPCS: 36569; 75635; Q9967

== ENCOUNTER 2020-03-01 14:29 | Outpatient (CLI) | payer MEDICAID, SELFPAY | END 2020-03-01 14:30 | disposition home or self-care (01) | LOC: WOUND 14:30 | PROVIDERS: PCP Family Medicine Adult Medicine; Visit Provider Nurse Practitioner Family | DX: L97.322 Non-pressure chronic ulcer of left ankle with fat layer exposed (principal); L97.512 Non-pressure chronic ulcer of other part of right foot with fat layer exposed | CPT/HCPCS: 11042; G0463 ==

== ENCOUNTER 2020-03-07 14:35 | Outpatient (CLI) | payer MEDICAID, SELFPAY | END 2020-03-07 14:36 | disposition home or self-care (01) | LOC: WOUND 14:36 | PROVIDERS: PCP Family Medicine Adult Medicine; Visit Provider Thoracic Surgery (Cardiothoracic Vascular Surgery) | DX: M25.872 Other specified joint disorders, left ankle and foot (principal); M25.871 Other specified joint disorders, right ankle and foot | CPT/HCPCS: 11042 ==

== ENCOUNTER 2020-03-14 13:51 | Outpatient (CLI) | payer MEDICAID, SELFPAY | END 2020-03-14 13:52 | disposition home or self-care (01) | LOC: WOUND 13:52 | PROVIDERS: PCP Family Medicine Adult Medicine; Visit Provider Thoracic Surgery (Cardiothoracic Vascular Surgery) | DX: M25.872 Other specified joint disorders, left ankle and foot (principal); M25.871 Other specified joint disorders, right ankle and foot | CPT/HCPCS: 11042 ==

== ENCOUNTER 2020-03-21 13:06 | Outpatient (CLI) | payer MEDICAID, SELFPAY | END 2020-03-21 13:07 | disposition home or self-care (01) | LOC: WOUND 13:07 | PROVIDERS: PCP Family Medicine Adult Medicine; Visit Provider Nurse Practitioner Family | DX: M25.872 Other specified joint disorders, left ankle and foot (principal); M25.871 Other specified joint disorders, right ankle and foot | CPT/HCPCS: 11042; 11045 ==

== ENCOUNTER → 2020-03-24 15:23 | Outpatient (BNVA) | payer MEDICAID, SELFPAY | PROVIDERS: PCP Family Medicine Adult Medicine; Visit Provider Thoracic Surgery (Cardiothoracic Vascular Surgery) | DX: Z01.812 Encounter for preprocedural laboratory examination (principal) | CPT/HCPCS: 87635 ==

== ENCOUNTER 2020-03-28 05:37 | Day surgery (SDC) | payer MEDICAID, SELFPAY ==
[2020-03-25 11:14] VITALS: BMI 29.0
--- NOTE | 2020-03-25 11:25 | ANES.PREANE2 ---
Pre-Anesthetic Assessment Pre-Anesthetic Assessment: Height/Weight: Height 1.78 m Weight 91.626 kg Preop Diagnosis: necrosis Proposed Procedure: Operation Date: 03/28/20 07:00 Proposed Procedures p right great toe and right second toe amputation 68287 I96(Right) - Mickey Saini MD Familial anesthetic complications: None Social: Social History: No alcohol Comment: nicotine patches now Exam: Pre-Anes Outpt Exam: alert, oriented x 3, clear to auscultation bilaterally and regular rate & rhythm Airway: Cervical ROM: WNL MP: 3 Dentition: Other (no teeth) CV/HEM: Comments: Buerger's disease affecting feet, on plavix, but stopped 2 weeks ago becaues he ran out. He was told by surgeon not to keep holding this before surgery. GI: GI: GERD Anesthetic Plan: ASA status: 3 Anesthesia: MAC Other: Former IVDA, so states he's difficult IV access PFSH Anesthesia PFSH: Medical History Atherosclerotic PVD with ulceration Buerger's disease Chronic foot ulcer, limited to breakdown of skin Smoker unmotivated to quit Surgical History History of surgical amputation of finger of left hand Family History Other CAD (coronary artery disease) Cancer Diabetes Social History (Updated 03/01/20 @ 10:39 by KIRIT Locke) Smoking and tobacco status: current every day smoker cigarettes Packs smoked per day: 1 Alcohol intake: never Household members: family Marital status: Number of children: 1 Current occupational status: unemployed Data Anesthesia Cardiac Studies: No Data to Display
--- NOTE | 2020-03-25 11:54 | SUR.PREOP ---
rx for augmentin 500mg po tid for 1 week called to [facility] to start marcie per dr yousif
[2020-03-25 12:17] LABS: Add Urine Microscopic? NO
[2020-03-25 12:20] LABS: Urine Appearance Clear (CLEAR); Urine Color Yellow (Yellow)
[2020-03-25 12:21] LABS: Bilirubin Urine Neg (Negative); Blood Urine Neg (Negative); Glucose Urine UA Norm (Normal); Ketones Urine Negative (Negative); Leukocyte Esterase Urine Negative (Negative); Nitrate Urine Negative (Negative); Protein Urine Neg (Negative); Urobilinogen Urine Norm (Negative); pH Urine 5 (5-7)
[2020-03-28] VITALS (11 sets, daily range): BP systolic 105–136; BP diastolic 62–97; PULSE 92–103; RESP 12–18; TEMP 36.3–36.6; O2SAT 92–98
--- NOTE | 2020-03-28 06:13 | W.PM.OPSUD ---
Surgery/Procedure H&P Update DATE OF PROCEDURE: March 28, 2020 DATE H&P PERFORMED: 03/21/20 H&P UPDATE INFORMATION: I have reviewed H&P completed within last 30 days, I have examined patient prior to procedure and Changes to prior documentation as noted here CHANGES TO PREVIOUS DOCUMENTATION: There are now some early wound changes to the right calcaneus. This appears to be a progression of his Buerger's disease. He reports he has not smoked since I last visit with him earlier this month. Dry gangrenous changes to the right great toe distal one half and distal one third of the right second toe remain. Given the proximal skin changes, I think a right great toe amputation will be required and at least one half of the second toe. Further debridement surgically will be performed to the other wounds, particular the dorsum of the right foot. He states he has a follow-up woman in wound care services in 2 weeks. I would like to move this to at least no further than 1 week out, perhaps sooner. I will confirm this today. Potential need for further procedures were very frankly discussed with Mr. Espino and his mother. Unfortunately, his microvascular disease appears to have progressed. I again relayed to him the imperative that he avoid all tobacco. Apparently, he has also been on a nicotine supplement, which I think will also need to be discontinued. He did appear to be quite anxious this morning prior to his procedure though he is clearly aware of the extent that certainly may be required. I have asked her anesthesia colleagues to assist with his preop anxiety. PREOP DIAGNOSIS: Nonhealing right foot ulcer PRIMARY INDICATION FOR PROCEDURE: Gangrenous changes right foot PLANNED PROCEDURE: Operation Date: 03/28/20 07:00 Proposed Procedures p right great toe and right second toe amputation 38664 I96(Right) - Mickey Saini MD
[2020-03-28] MEDS: vancomycin 1,000 MG in sodium chloride 0.9% 250 ML 250 MG IV (06:32)
[2020-03-28] MEDS: sodium chloride 0.9% 1,000 ML 30 ML IV (06:32)
[2020-03-28 06:39] LABS: Basophils % 0.4 %; Eosinophils # 0.1 10^3/uL (0.0-0.8); Eosinophils % 1.2 %; Hematocrit 38.5 % (42.0-52.0); Hemoglobin 11.8 g/dL (11.7-16.6); Lymphocytes # 1.5 10^3/uL (0.8-4.8); Lymphocytes % 19.8 %; Mean Corpuscular HGB Conc 30.6 g/dL (30.0-36.0); Mean Corpuscular Hemoglobin 28.1 pg (28.0-34.0); Mean Corpuscular Volume 91.7 fL (80-94); Mean Platelet Volume 10.8 fL (7.4-10.4); Monocytes # 0.6 10^3/uL (0.2-0.9); Monocytes % 7.9 %; Neutrophils # 5.35 10^3/uL (1.8-7.7); Neutrophils % 70.4 %; Nucleated Red Blood Cells % 0 %; Platelet Count 122 10^3/cmm (130-400); Red Cell Distribution Width 13.4 % (12.1-15.1); White Blood Count 7.6 10^3/uL (4.0-10.0)
--- NOTE | 2020-03-28 06:43 | P.ANESUD_ITS ---
Pre-Anesthetic Update Pre-Anesthetic Assessment: Date of Surgery/Procedure: 03/28/20 Preop Iraida gnosis: Nonhealing right foot ulcer Proposed Procedure: Operation Date: 03/28/20 07:00 Proposed Procedures p right great toe and right second toe amputation 22682 I96(Right) - Mickey Saini MD Any changes to Pre-Anesthetic Assessment?: No Last Intake: Intake Last Liquid Date 03/27/20 Last Liquid Time 20:00 Last Solid Date 03/27/20 Last Solid Time 20:00 Labs Last 48hrs: Laboratory Results - last 48 hr 03/28/20 03/28/20 06:24 06:24 WBC 7.6 RBC 4.20 Hgb 11.8 Hct 38.5 L MCV 91.7 MCH 28.1 MCHC 30.6 RDW 13.4 Plt Count 122 L MPV 10.8 H Neut % (Auto) 70.4 Lymph % (Auto) 19.8 [place] % (Auto) 7.9 Eos % (Auto) 1.2 Baso % (Auto) 0.4 Neut # (Auto) 5.35 Lymph # (Auto) 1.5 [place] # (Auto) 0.6 Eos # (Auto) 0.1 Baso # (Auto) 0.0 Nucleated RBC % (a uto) 0 Nucleated RBCs # 0.0 Sodium Cancelled Potassium Cancelled Chloride Cancelled Carbon Dioxide Cancelled Anion Gap Cancelled BUN Cancelled Creatinine Cancelled GFR Calculation Cancelled Glucose Cancelled Calculated Osmolal ity Cancelled Calcium Cancelled Vitals: Temperature 97.3 F L 03/28/20 06:04 Temperature Source Temporal Artery S can 03/28/20 06:04 Pulse Rate 99 03/28/20 06:04 Respiratory Rate 18 03/28/20 06:04 Blood Pressure 131/84 03/28/20 06:04 Blood Pressure Marcela n 99 03/28/20 06:04 Pulse Oximetry 97 03/28/20 06:04 Oxygen Delivery Me thod 03/28/20 06:04 Exam: Pre-Anes Outpt Exam: alert, oriented x 3, clear to auscultation bilaterally and regular rate & rhythm Cardiac Studies: No Data to Display
[2020-03-28] MEDS: ceFAZolin 1,000 mg SDV 1000 MG IRRIGATION (07:32)
--- NOTE | 2020-03-28 08:41 | SUR.PHASEI ---
PT SLEEPS MOSTLY , WITH GOOD RESP EFFORT, VSS RT FOOT WITH LARGE SOFT DRESSING D/I DISTAL TOES PINK WARM, PT ON RA TRIAL.
--- NOTE | 2020-03-28 08:56 | PM.OP ---
Operative Report Date of procedure: March 28, 2020 Pre-op Diagnosis: Nonhealing right foot ulcer/gangrenous right great and second toe Post-op diagnosis: same Procedure Done: 1. Right great toe amputation 2. Amputation of the distal one half of the right second toe 3. Surgical debridement of right foot dorsal wound and right lateral foot wound with placement of wet-to-dry dressings. Implants: None Specimens removed/disposition: Right great toe and right second toe Surgeon: Mickey Saini Anesthesia: Other (Laryngeal mask anesthesia) Complications: None Findings: Bone at amputation levels appeared to be viable Condition: stable Disposition: PACU Brief History: 49-year-old gentleman with Buerger's disease and punctate lesions of the right foot which have progressed since last year. He now has frankly gangrenous distal one half of the right great toe with erythema proximally. Haseeb gangrenous changes to the distal portion of the right second toe. He has nonhealing wounds of the dorsal lateral aspect of the right foot. While he has mostly quit smoking, he is also on nicotine supplementation through transdermal patch. He has longstanding narcotic difficulties and currently is on methadone 130 mg daily. He has been followed in wound care services but due to failure of his wounds and the progressive granular changes of the previously mentioned toes, amputation of these areas and surgical debridement was recommended. Rationale for this was carefully discussed. Potential need for future procedures or possible major potation were also frankly discussed. Proper consents have been reviewed and signed. Procedure: Mr. Olivares was taken to the operating room theater and underwent general laryngeal mask anesthesia after being carefully position. His entire right leg from the knee down was sterilely prepped and draped. Initially, circumferential incision was made just distal to the base of the right great toe and carried down to the proximal phalanx and then dissection further to the metatarsal tarsal phalangeal joint where the toe was amputated at this level. Articular surface of the first metatarsal head was removed with bone rongeur with this bone appeared to be viable. Wound was irrigated with antibiotic solution hemostasis controlled the wound closed with interrupted 3-0 nylon suture. Next, in a similar fashion the distal one half of the right second toe was removed as there was no erythema proximal to the frankly gangrenous areas. This was done at the interphalangeal joint. Again, the articular surface was removed. This wound was then also irrigated with antibiotic solution and closed with interrupted 3-0 nylon suture. Next, #10 scalpel blade was utilized to surgically debride the right lateral foot wound and right dorsal foot wound. Moderate bleeding was controlled with cautery and with pressure. This did extend down to the subtendinous and adipose layer but did not reveal exposed ligament, tendon, or fascia. Once completed, wet-to-dry dressings were applied. And a surgical dressing was then secured. He tolerated procedure well and was awakened from laryngeal mask anesthesia and taken to the postoperative care unit with stable vital signs. I did funeral pre arrangement counselor with his family by phone. We have confirmed follow-up appointment in wound care services in 1 week. He will be discharged on hydrocodone 7.5 mg every 6 hours as needed pain. He will also be adding pentoxifylline. He is already on Plavix. He will also be prescribed Augmentin 500 mg every 8 hours for the next 10 days. Contact information is been provided and he will notify us of any concerns.
--- NOTE | 2020-03-28 08:57 | SUR.PHASEI ---
UNABLE TO AWAKE PT , PT SLEEPS WITH GOOD RESP BUT REMAINS UNRESPONSIVE TO TOUCH, OR VOICE, RT FOOT ELEVATED WITH DISTAL TOES PINK WARM
[2020-03-28] MEDS: HYDROcodone-acetaminophen 7.5-325 mg Tablet 1 TAB PO (09:57)
--- NOTE | 2020-03-28 13:20 | ANE.PACU2 ---
Inpatient post-anesthesia follow up: Airway intact: Yes Vital signs: Temperature 97.9 F Pulse Rate 92 Respiratory Rate 18 Blood Pressure 136/90 Pulse Oximetry 95 Oxygen Delivery Me thod Room Air Oxygen Flow Rate 8 Fraction of Inspir ed Oxygen Hydration adequate: Yes Nausea and vomiting: No Pain level: 1 Mental status: Baseline
== END 2020-03-28 10:29 | disposition home or self-care (01) ==
PROVIDERS: PCP Family Medicine Adult Medicine; Visit Provider Thoracic Surgery (Cardiothoracic Vascular Surgery)
PROC: (CPT 11043; principal; 2020-03-28 07:00)
DX: I96 Gangrene, not elsewhere classified (principal); L97.511 Non-pressure chronic ulcer of other part of right foot limited to breakdown of skin; Z79.02 Long term (current) use of antithrombotics/antiplatelets; K21.9 Gastro-esophageal reflux disease without esophagitis; F17.210 Nicotine dependence, cigarettes, uncomplicated; Z82.49 Family history of ischemic heart disease and other diseases of the circulatory system; Z83.3 Family history of diabetes mellitus
CPT/HCPCS: 11043; 28820 ×2; 12345; 36415; 81003; 85025; 88305; 88307; 96365; J0690; J1100; J1170; J2250; J2704; J2710; J2720; J3010; J3370; J3490; J7030; J7050

== ENCOUNTER 2020-04-04 13:19 | Outpatient (CLI) | payer MEDICAID, SELFPAY | END 2020-04-04 13:20 | disposition home or self-care (01) | LOC: WOUND 13:19 | PROVIDERS: PCP Family Medicine Adult Medicine; Visit Provider Thoracic Surgery (Cardiothoracic Vascular Surgery) | DX: M25.872 Other specified joint disorders, left ankle and foot (principal); M25.871 Other specified joint disorders, right ankle and foot | CPT/HCPCS: 11042; 11045 ==

== ENCOUNTER 2020-05-02 13:34 | Outpatient (CLI) | payer MEDICAID, SELFPAY | END 2020-05-02 13:35 | disposition home or self-care (01) | LOC: WOUND 13:35 | PROVIDERS: PCP Family Medicine Adult Medicine; Visit Provider Nurse Practitioner Family | DX: I73.9 Peripheral vascular disease, unspecified (principal); L97.322 Non-pressure chronic ulcer of left ankle with fat layer exposed; L97.512 Non-pressure chronic ulcer of other part of right foot with fat layer exposed | CPT/HCPCS: 11042; 11045 ==

== ENCOUNTER 2020-05-09 12:58 | Outpatient (CLI) | payer MEDICAID, SELFPAY | END 2020-05-09 12:59 | disposition home or self-care (01) | LOC: WOUND 12:58 | PROVIDERS: PCP Family Medicine Adult Medicine; Visit Provider Thoracic Surgery (Cardiothoracic Vascular Surgery) | DX: I73.9 Peripheral vascular disease, unspecified (principal); L97.422 Non-pressure chronic ulcer of left heel and midfoot with fat layer exposed; L97.512 Non-pressure chronic ulcer of other part of right foot with fat layer exposed | CPT/HCPCS: G0463 ==

== ENCOUNTER → 2020-05-12 14:48 | Outpatient (BNVA) | payer MEDICAID, SELFPAY | PROVIDERS: PCP Family Medicine Adult Medicine; Visit Provider Thoracic Surgery (Cardiothoracic Vascular Surgery) | DX: Z01.818 Encounter for other preprocedural examination (principal) | CPT/HCPCS: 87635 ==

== ENCOUNTER 2020-05-16 14:07 | Day surgery (SDC) | payer MEDICAID, SELFPAY ==
[2020-05-13 10:30] VITALS: BMI 31.5
[2020-05-16] VITALS (8 sets, daily range): BP systolic 109–146; BP diastolic 74–101; PULSE 91–105; RESP 12–18; TEMP 36.3–36.5; O2SAT 93–99
[2020-05-16] MEDS: sodium chloride 0.9% 1,000 ML 30 ML IV (14:53)
[2020-05-16 15:01] LABS: Basophils % 0.3 %; Eosinophils # 0.1 10^3/uL (0.0-0.8); Eosinophils % 0.6 %; Hematocrit 37.9 % (42.0-52.0); Hemoglobin 12.2 g/dL (11.7-16.6); Lymphocytes # 1.6 10^3/uL (0.8-4.8); Lymphocytes % 17.6 %; Mean Corpuscular HGB Conc 32.2 g/dL (30.0-36.0); Mean Corpuscular Hemoglobin 27.7 pg (28.0-34.0); Mean Corpuscular Volume 85.9 fL (80-94); Mean Platelet Volume 10.8 fL (7.4-10.4); Monocytes # 0.6 10^3/uL (0.2-0.9); Monocytes % 6.1 %; Neutrophils # 6.76 10^3/uL (1.8-7.7); Neutrophils % 75.1 %; Nucleated Red Blood Cells % 0 %; Platelet Count 134 10^3/cmm (130-400); Red Blood Count 4.41 10^6/uL (4.1-5.3); Red Cell Distribution Width 12.6 % (12.1-15.1)
[2020-05-16 15:10] LABS: INR 1.23 (0.8-1.2)
[2020-05-16 15:16] LABS: Alanine Aminotransferase 12 U/L (0-41); Albumin Level 3.5 g/dL (3.5-5.2); Alkaline Phosphatase 42 IU/L (40-130); Anion Gap 14.8 (5-19); Aspartate Amino Transferase 18 U/L (0-40); Blood Urea Nitrogen 14 mg/dL (6-20); Calcium 8.5 mg/dL (8.5-10.5); Carbon Dioxide 23 mmol/L (22-29); Chloride 102 mmol/L (98-107); Globulin 4.4 g/dL (1.3-4.6); Glomerular Filtration Rate 71.8 mL/min (90-130); Glucose 78 mg/dL (65-115); Osmolality Calculated 279 mOsm/kg (285-295); Potassium 4.8 mmol/L (3.5-5.1); Sodium 135 mmol/L (136-145); Total Bilirubin 0.4 mg/dL (0.15-1.2); Total Protein 7.9 g/dL (6.6-8.7)
--- NOTE | 2020-05-16 15:56 | W.PM.OPSUD ---
Surgery/Procedure H&P Update DATE OF PROCEDURE: May 16, 2020 DATE H&P PERFORMED: 05/09/20 H&P UPDATE INFORMATION: I have reviewed H&P completed within last 30 days, I have examined patient prior to procedure and No changes to prior documentation PREOP DIAGNOSIS: Gangrene Feet bilaterally PRIMARY INDICATION FOR PROCEDURE: Gangrenous changes to both right and left foot PLANNED PROCEDURE: Operation Date: 05/16/20 15:40 Proposed Procedures p Wound debridement of bilateral feet and amputation of third right toe 53475 [id number] L97.322 L97.512(Bilateral) - Mickey Saini MD s Wound debridement of bilateral feet and amputation of third right toe 33202 [id number] 59698 L97.322 L97.512(Right) - Mickey Saini MD
--- NOTE | 2020-05-16 15:57 | ANES.PREANE2 ---
Pre-Anesthetic Assessment Pre-Anesthetic Assessment: Height/Weight: Height 1.78 m Weight 99.79 kg Temp Pulse Resp BP Pulse Ox 97.3 F L 95 18 141/101 99 05/16/20 14:38 05/16/20 14:38 05/16/20 14:38 05/16/20 14:38 05/16/20 14:38 Preop Diagnosis: Gangrene Feet bilaterally Proposed Procedure: Operation Date: 05/16/20 15:40 Proposed Procedures p Wound debridement of bilateral feet and amputation of third right toe 10241 38526 44759 L97.322 L97.512(Bilateral) - Mickey Saini MD s Wound debridement of bilateral feet and amputation of third right toe 40454 [id number] 05347 L97.322 L97.512(Right) - Mickey Saini MD Was Beta Arthur taken within 24 hours: N/A Was Clonidine taken within 24 hours: N/A Last intake: Intake Last Liquid Date 05/15/20 Last Liquid Time 22:00 Last Solid Date 05/15/20 Last Solid Time 22:00 Social: Social History: Tobacco and No alcohol Exam: Pre-Anes Outpt Exam: alert, oriented x 3 and regular rate & rhythm Airway: Submandibular: WNL Cervical ROM: WNL MP: 2 Dentition: False Pulmonary: Pulmonary: COPD CV/HEM: CV/HEM: HTN and PVD Comments: [place]'s [place] [facility] [place] Comments: Chronic pain/opioid Anesthetic Plan: ASA status: 3 Anesthesia: General Risk of > 500 ml blood loss (7ml/kg in children): No Meds/Allergies Current Medications: Current Medications Generic Name Dose Route Start Last Admin Trade Name Freq PRN Reason Stop Dose Admin Sodium Chloride 1,000 mls @ 30 ml s/hr 05/16/20 14:30 05/16/20 14:53 Sodium Chloride 0.9% IV 05/17/20 14:29 30 mls/hr .Q24H EDGAR Administration PFSH Anesthesia PFSH: Medical History Atherosclerotic PVD with ulceration Buerger's disease Chronic foot ulcer, limited to breakdown of skin Smoker unmotivated to quit Surgical History History of surgical amputation of finger of left hand Family History Other CAD (coronary artery disease) Cancer Diabetes Social History Smoking and tobacco status: current every day smoker cigarettes Packs smoked per day: 1 Alcohol intake: never Household members: family Marital status: Number of children: 1 Current occupational status: unemployed Data Anesthesia CBC & Chem 7: 05/16/20 14:51 05/16/20 14:51 Other Labs: Laboratory Results - last 48 hr 05/16/20 05/16/20 05/16/20 14:51 14:51 14:51 WBC 9.0 RBC 4.41 Hgb 12.2 Hct 37.9 L MCV 85.9 MCH 27.7 L MCHC 32.2 RDW 12.6 Plt Count 134 MPV 10.8 H Neut % (Auto) 75.1 Lymph % (Auto) 17.6 [place] % (Auto) 6.1 Eos % (Auto) 0.6 Baso % (Auto) 0.3 Neut # (Auto) 6.76 Lymph # (Auto) 1.6 [place] # (Auto) 0.6 Eos # (Auto) 0.1 Baso # (Auto) 0.0 Nucleated RBC % (auto) 0 Nucleated RBCs # 0.0 PT 15.90 H INR 1.23 H Sodium 135 L Potassium 4.8 Chloride 102 Carbon Dioxide 23 Anion Gap 14.8 BUN 14 Creatinine 1.1 GFR Calculation 71.8 L Glucose 78 Calculated Osmolality 279 L Calcium 8.5 Total Bilirubin 0.4 AST 18 ALT 12 Alkaline Phosphatase 42 Total Protein 7.9 Albumin 3.5 Globulin 4.4 Cardiac Studies: No Data to Display
[2020-05-16] MEDS: vancomycin 1,000 MG SDV 1000 MG IRRIGATION (16:40)
--- NOTE | 2020-05-16 17:21 | PM.OP ---
Operative Report Date of procedure: May 16, 2020 Pre-op Diagnosis: Nonhealing wounds of feet bilaterally with gangrenous distal right third to Post-op diagnosis: same Procedure Done: Surgical debridement of all wounds of feet bilaterally and amputation of the distal one half of the right third toe Specimens removed/disposition: Distal one half right third toe Surgeon: Mickey Saini Anesthesia: General Condition: stable Disposition: PACU Brief History: 49-year-old gentleman with Buerger's disease and continued tobacco use with poorly healing wounds of the feet bilaterally status post prior debridements and follow-up the wound care services. He is status post right great toe and distal one half of the right second toe amputation back in March. Continues to have further degradation of his wounds and now gangrenous distal right third toe. Prior CTA reveals nonobstructive large vessel disease. Recommendation for surgical debridement and amputation of the distal half of the right third toe was discussed. Proper consents have been reviewed and signed. Procedure: Mr. Olivares was taken operating room theater And positioned in the OR table where he underwent general trach anesthesia by laryngeal mask. Bilateral lower extremities from the knees through the feet were sterilely prepped and draped bilaterally. Initially I performed sharp debridement with a #10 scalpel blade to all the devitalized tissue from the open wounds. There actually was fairly clean bed once all this devitalized material had been removed and peripheral epithelialization with several wounds. Cautery was utilized barely to control bleeding points. Once completed, #15 scalpel was utilized to excise the distal one half of the right third toe through the interphalangeal joint. Articular surfaces were removed with cautery. Flexor tendons were placed on tension and transected. We was carefully irrigated and closed loosely with interrupted 3-0 nylon suture. All the other wounds will be cleaned irrigated and dressed wet-to-dry. Intolerant procedure well waking from original mask anesthesia and talking to postoperative care unit. The following are the wound descriptions and dimensions Right malleolus posterior wound measures 1.5 x 1.5 x 0.3 cm. Right malleolus lateral wound measures 3 x 1.7 x 0.3 cm Right dorsal foot wound measures 6.4 x 3.4 x 0.2 cm Right great toe wound measures 2.5 x 1 x 0.2 cm Right second toe wound measures 1 x 0.5 x 0.1 cm Left great toe wound measures 0.5 x 1 x 0.1 cm Left dorsal foot wound measures 7 x 6.5 x 0.3 cm Surgeon received scalpel laceration to the dorsal distal aspect of the right long finger just proximal to the nail Request to obtain exposure panel will be discussed with patient.
--- NOTE | 2020-05-16 17:41 | P.PCN_ITS ---
PACU note PACU note: VSS, Good respiratory effort, report to DRY PASTE SUPERVISOR Post-Anesthesia Exam: awake
--- NOTE | 2020-05-16 17:41 | PM.PACU ---
PACU note PACU note: VSS, Good respiratory effort, report to SALES AND MARKETING PROFESSIONAL Post-Anesthesia Exam: awake
--- NOTE | 2020-05-16 18:23 | ANE.PACU2 ---
Inpatient post-anesthesia follow up: Airway intact: Yes Vital signs: Temperature 97.7 F Pulse Rate 96 Respiratory Rate 18 Blood Pressure 132/91 Pulse Oximetry 96 Oxygen Delivery Me thod Room Air Oxygen Flow Rate 8 Fraction of Inspir ed Oxygen Hydration adequate: Yes Nausea and vomiting: No Pain level: 5 Mental status: Baseline
[2020-05-16] MEDS: HYDROmorphone 1 mg/mL INJ 1 mL 0.5 MG IVP ×2 (18:29→18:50)
[2020-05-16 20:07] LABS: HIV 1 & 2 Antibody Non-Reactive (Non-Reactiv); HIV 1 & 2 Antigen Non-Reactive (Non-Reactiv)
[2020-05-16 20:18] LABS: Hepatitis A Antibody IgM Non-Reactive (Nonreactive); Hepatitis B Surface AB 3.5 (0-8.5); Hepatitis B Surface Antigen Non-Reactive (Nonreactive)
[2020-05-16 21:03] LABS: Hepatitis B Core AB, Total Reactive (Nonreactive); Hepatitis C Virus Antibody Reactive (Nonreactive)
== END 2020-05-16 19:48 | disposition home or self-care (01) ==
PROVIDERS: PCP Family Medicine Adult Medicine; Visit Provider Thoracic Surgery (Cardiothoracic Vascular Surgery)
PROC: (CPT 11042; principal; 2020-05-16 15:40)
DX: I96 Gangrene, not elsewhere classified (principal); S91.302A Unspecified open wound, left foot, initial encounter; S91.301A Unspecified open wound, right foot, initial encounter; S91.001A Unspecified open wound, right ankle, initial encounter; S91.101A Unspecified open wound of right great toe without damage to nail, initial encounter; S91.104A Unspecified open wound of right lesser toe(s) without damage to nail, initial encounter; S91.102A Unspecified open wound of left great toe without damage to nail, initial encounter; X58.XXXA Exposure to other specified factors, initial encounter; J44.9 Chronic obstructive pulmonary disease, unspecified; I10 Essential (primary) hypertension; G89.29 Other chronic pain; Z79.891 Long term (current) use of opiate analgesic; I73.1 Thromboangiitis obliterans [Buerger's disease]; F17.210 Nicotine dependence, cigarettes, uncomplicated; Z82.49 Family history of ischemic heart disease and other diseases of the circulatory system; Z83.3 Family history of diabetes mellitus
CPT/HCPCS: 11042; 11045 ×3; 28820; 36415; 80053; 85025; 85610; 86705; 86706; 86709; 86803; 87340; 87806; 88305; 96374; 96375; J1100; J1170; J2250; J2405; J2704; J3010; J3370; J3490; J7030

== ENCOUNTER 2020-05-19 15:43 | Outpatient (CLI) | payer MEDICAID, SELFPAY | END 2020-05-19 15:44 | disposition home or self-care (01) | LOC: WOUND 15:44 | PROVIDERS: PCP Family Medicine Adult Medicine; Visit Provider Thoracic Surgery (Cardiothoracic Vascular Surgery) | DX: I73.9 Peripheral vascular disease, unspecified (principal); L97.322 Non-pressure chronic ulcer of left ankle with fat layer exposed; L97.512 Non-pressure chronic ulcer of other part of right foot with fat layer exposed | CPT/HCPCS: 11042; 11045 ==

== ENCOUNTER 2020-05-30 15:16 | Outpatient (CLI) | payer MEDICAID, SELFPAY | END 2020-05-30 15:17 | disposition home or self-care (01) | LOC: WOUND 15:17 | PROVIDERS: PCP Family Medicine Adult Medicine; Visit Provider Thoracic Surgery (Cardiothoracic Vascular Surgery) | DX: I73.9 Peripheral vascular disease, unspecified (principal); L97.322 Non-pressure chronic ulcer of left ankle with fat layer exposed; L97.512 Non-pressure chronic ulcer of other part of right foot with fat layer exposed | CPT/HCPCS: 11042; 11045 ==

== ENCOUNTER 2020-06-06 14:13 | Outpatient (CLI) | payer MEDICAID, SELFPAY | END 2020-06-06 14:14 | disposition home or self-care (01) | LOC: WOUND 14:14 | PROVIDERS: PCP Family Medicine Adult Medicine; Visit Provider Nurse Practitioner Family | DX: I73.9 Peripheral vascular disease, unspecified (principal); L97.322 Non-pressure chronic ulcer of left ankle with fat layer exposed; L97.512 Non-pressure chronic ulcer of other part of right foot with fat layer exposed | CPT/HCPCS: 11042 ==

== ENCOUNTER 2020-06-13 13:41 | Outpatient (CLI) | payer MEDICAID, SELFPAY | END 2020-06-13 13:42 | disposition home or self-care (01) | LOC: WOUND 13:52 | PROVIDERS: PCP Family Medicine Adult Medicine; Visit Provider Nurse Practitioner Family | DX: I73.9 Peripheral vascular disease, unspecified (principal); L97.322 Non-pressure chronic ulcer of left ankle with fat layer exposed; L97.512 Non-pressure chronic ulcer of other part of right foot with fat layer exposed | CPT/HCPCS: 11042; 11045 ==

== ENCOUNTER 2020-06-20 10:53 | Outpatient (CLI) | payer MEDICAID, SELFPAY | END 2020-06-20 10:54 | disposition home or self-care (01) | LOC: WOUND 10:54 | PROVIDERS: PCP Family Medicine Adult Medicine; Visit Provider Nurse Practitioner Family | DX: I73.9 Peripheral vascular disease, unspecified (principal); L97.322 Non-pressure chronic ulcer of left ankle with fat layer exposed; L97.512 Non-pressure chronic ulcer of other part of right foot with fat layer exposed; L97.312 Non-pressure chronic ulcer of right ankle with fat layer exposed | CPT/HCPCS: 11042; 11045 ==

== ENCOUNTER 2020-06-27 13:01 | Outpatient (CLI) | payer MEDICAID, SELFPAY | END 2020-06-27 13:02 | disposition home or self-care (01) | LOC: WOUND 13:02 | PROVIDERS: PCP Family Medicine Adult Medicine; Visit Provider Thoracic Surgery (Cardiothoracic Vascular Surgery) | DX: I73.9 Peripheral vascular disease, unspecified (principal); L97.322 Non-pressure chronic ulcer of left ankle with fat layer exposed; L97.512 Non-pressure chronic ulcer of other part of right foot with fat layer exposed; L97.312 Non-pressure chronic ulcer of right ankle with fat layer exposed | CPT/HCPCS: 11042; 11045 ==

== ENCOUNTER 2020-07-04 13:16 | Outpatient (CLI) | payer MEDICAID, SELFPAY | END 2020-07-04 13:17 | disposition home or self-care (01) | LOC: WOUND 13:16 | PROVIDERS: PCP Family Medicine Adult Medicine; Visit Provider Thoracic Surgery (Cardiothoracic Vascular Surgery) | DX: I73.9 Peripheral vascular disease, unspecified (principal); L97.322 Non-pressure chronic ulcer of left ankle with fat layer exposed; L97.512 Non-pressure chronic ulcer of other part of right foot with fat layer exposed; L97.312 Non-pressure chronic ulcer of right ankle with fat layer exposed | CPT/HCPCS: 11042; 11045 ==

== ENCOUNTER 2020-07-11 13:10 | Outpatient (CLI) | payer MEDICAID, SELFPAY | END 2020-07-11 13:11 | disposition home or self-care (01) | LOC: WOUND 13:10 | PROVIDERS: PCP Family Medicine Adult Medicine; Visit Provider Thoracic Surgery (Cardiothoracic Vascular Surgery) | DX: I73.9 Peripheral vascular disease, unspecified (principal); L97.322 Non-pressure chronic ulcer of left ankle with fat layer exposed; L97.512 Non-pressure chronic ulcer of other part of right foot with fat layer exposed; L97.312 Non-pressure chronic ulcer of right ankle with fat layer exposed | CPT/HCPCS: 11042; 11045 ==

== ENCOUNTER 2020-07-18 13:27 | Outpatient (CLI) | payer MEDICAID, SELFPAY | END 2020-07-18 13:28 | disposition home or self-care (01) | LOC: WOUND 13:28 | PROVIDERS: PCP Family Medicine Adult Medicine; Visit Provider Thoracic Surgery (Cardiothoracic Vascular Surgery) | DX: I73.9 Peripheral vascular disease, unspecified (principal); L97.322 Non-pressure chronic ulcer of left ankle with fat layer exposed; L97.512 Non-pressure chronic ulcer of other part of right foot with fat layer exposed; L97.412 Non-pressure chronic ulcer of right heel and midfoot with fat layer exposed; L97.812 Non-pressure chronic ulcer of other part of right lower leg with fat layer exposed | CPT/HCPCS: 11042; 11045 ==

== ENCOUNTER 2020-07-28 14:47 | Outpatient (CLI) | payer MEDICAID, SELFPAY | END 2020-07-28 14:48 | disposition home or self-care (01) | LOC: WOUND 14:48 | PROVIDERS: PCP Family Medicine Adult Medicine; Visit Provider Thoracic Surgery (Cardiothoracic Vascular Surgery) | DX: I73.9 Peripheral vascular disease, unspecified (principal); L97.322 Non-pressure chronic ulcer of left ankle with fat layer exposed; L97.512 Non-pressure chronic ulcer of other part of right foot with fat layer exposed; L97.312 Non-pressure chronic ulcer of right ankle with fat layer exposed | CPT/HCPCS: 11042; 11045 ==

== ENCOUNTER 2020-08-03 15:14 | Outpatient (CLI) | payer MEDICAID, SELFPAY | END 2020-08-03 15:15 | disposition home or self-care (01) | LOC: WOUND 15:15 | PROVIDERS: PCP Family Medicine Adult Medicine; Visit Provider Thoracic Surgery (Cardiothoracic Vascular Surgery) | DX: I73.9 Peripheral vascular disease, unspecified (principal); L97.322 Non-pressure chronic ulcer of left ankle with fat layer exposed; L97.512 Non-pressure chronic ulcer of other part of right foot with fat layer exposed; L97.312 Non-pressure chronic ulcer of right ankle with fat layer exposed | CPT/HCPCS: 11042; 11045 ==

== ENCOUNTER 2020-08-08 14:14 | Outpatient (CLI) | payer MEDICAID, SELFPAY | END 2020-08-08 14:15 | disposition home or self-care (01) | LOC: WOUND 14:15 | PROVIDERS: PCP Family Medicine Adult Medicine; Visit Provider Thoracic Surgery (Cardiothoracic Vascular Surgery) | DX: I73.9 Peripheral vascular disease, unspecified (principal); L97.322 Non-pressure chronic ulcer of left ankle with fat layer exposed; L97.512 Non-pressure chronic ulcer of other part of right foot with fat layer exposed; L97.312 Non-pressure chronic ulcer of right ankle with fat layer exposed | CPT/HCPCS: 11042; 11045 ==

== ENCOUNTER 2020-08-22 09:04 | Inpatient (IN) | payer MEDICAID, SELFPAY ==
--- NOTE | 2020-08-22 09:13 | USCV_ITS ---
Deandra Olivares Age: 50 Gender: M : 1970 Exam Date: 08/22/2020 09:35 Ordering Phys: Manoj Hernandez DO Technologist: Eri Kuhn [place] [facility] [place]: Swelling HISTORY: Lower extremity swelling. PROCEDURES: Venous duplex imaging was performed in only the right lower extremity.the following venous structures were evaluated: common femoral vein, profunda vein, proximal portion of the greater saphenous vein, superficial femoral vein, and the popliteal vein. In addition, the posterior tibial and peroneal trunk were evaluated. FINDINGS: Normal 2-D Doppler and augmentation and compressibility throughout the lower extremity venous structures. Additional imaging through the proximal calf veins also reveals no thrombus. Limited evaluation of the greater saphenous vein is patent with no thrombus. CONCLUSIONS No DVT right lower extremity. Dr. Jodi Waite DO (Electronically Signed) Final Date: 22 August 2020 10:18 S
[2020-08-22 09:16] VITALS: BP 118/81; PULSE 100; RESP 15; TEMP 36.8; O2SAT 95; BMI 28.7
--- NOTE | 2020-08-22 09:26 | XRR_ITS ---
PROCEDURE INFORMATION: Exam: XR Left Foot Exam date and time: 08/22/2020 9:26 AM Age: 50 years old Clinical indication: Foot; Bilateral; Prior surgery; Surgery type: Toe; Patient HX: Chronic wounds in feet, acutely infected pain, redness; Additional info: Pain selling, open wounds TECHNIQUE: Imaging protocol: XR Left foot. Views: 3 or more views. COMPARISON: CT foot LT w con [id number] 08/22/2020 10:15 AM FINDINGS: Bones/joints: CT detected osteomyelitis involving the 5th metatarsal head is poorly visualized on radiography. Mild degenerative change. Anatomic alignment. Soft tissues: Soft tissue swelling. XR/XR foot LT min 3V* [id number] IMPRESSION: Soft tissue swelling.
--- NOTE | 2020-08-22 09:26 | CT_ITS ---
WS: [id number] CT FOOT WITH CONTRAST. HISTORY: pain open wounds Technique: All CT scans at [facility] use at least one of these dose optimization techniq ues: automated exposure control; mA and/or kV adjustment per patient size (includes targeted exams wh ere dose is matched to clinical indication); or iterative reconstruction. DLP: 241.77 mGy.cm COMPARISON: 01/11/2020 Moderate amount of soft tissue edema surrounding the foot. Mild irregularity over the dorsal surface of foot near the mid to distal first metatarsal. No underlying abscess identified. There is an additi onal soft tissue ulceration measuring 2.2 x 2.0 cm over the dorsal surface of the distal first metata rsal. This soft tissue ulceration extends to the metatarsal head. Cannot confirm osteomyelitis. CT/CT foot RT w con [id number] IMPRESSION: 1. No focal abscess. 2. Moderate diffuse cellulitis. 3. Soft tissue ulceration along the dorsal surface of the distal first metatar tracy measures 2.2 x 2.0 cm and does extend to the first metatarsal head. No defi nite osteomyelitis.
--- NOTE | 2020-08-22 09:26 | XRR_ITS ---
PROCEDURE INFORMATION: Exam: XR Right Foot Exam date and time: 08/22/2020 9:26 AM Age: 50 years old Clinical indication: Pain and condition or disease; Other: Wounds; Foot; Bilateral; Prior surgery; Surgery type: Toe; Additional info: Pain, chronic wounds, acutely infected TECHNIQUE: Imaging protocol: XR Right foot. Views: 3 or more views. COMPARISON: CT foot RT w con [id number] 08/22/2020 10:19 AM FINDINGS: Bones/joints: Osteopenia. Cortical irregularity and osteolysis about the distal aspect of the 1st metatarsal head and phalanges of the 2nd and 3rd toes, suspicious for osteomyelitis. Soft tissues: Soft tissue swelling. XR/XR foot RT min 3V* [id number] IMPRESSION: Cortical irregularity and osteolysis about the distal aspect of the 1st metatarsal head and phalanges of the 2nd and 3rd toes, suspicious for osteomyelitis. The aforementioned findings initiated a critical results communication pathway. An addendum will be issued at the time of clincian notification.
--- NOTE | 2020-08-22 09:26 | CT_ITS ---
WS: [id number] CT LEFT FOOT WITH CONTRAST HISTORY: pain, open wounds Technique: All CT scans at [facility] use at least one of these dose optimization techniq ues: automated exposure control; mA and/or kV adjustment per patient size (includes targeted exams wh ere dose is matched to clinical indication); or iterative reconstruction. DLP: 474.7 mGy.cm COMPARISON: 01/11/2020 Large amount of soft tissue edema surrounding the entire foot and extending into the ankle. Superfici al soft tissue defect extending over a width of 4.9 cm along the lateral foot. This is the area the l argest amount of soft tissue edema. No soft tissue abscess is identified. There is very slight loss o f the cortex involving the fifth metatarsal head. No fractures. IMPRESSION: 1. Large amount of soft tissue edema and cellulitis with no abscess. 2. Possible early changes of osteomyelitis involving the fifth metatarsal head. The extent of cellul itis has progressed since 01/11/2020. The soft tissue ulceration along the lateral foot is actually sl ightly improved.
--- NOTE | 2020-08-22 09:27 | ECG_ITS ---
[facility] Test Date: 2020-08-22 Pat Name: Deandra Olivares Department: Room: Gender: Male Lion Hunter: : 1970 Requested By: Maonj Ford Order Number: [id number] Tyler MD: Pola Germain M.D. Measurements Intervals [place] Rate: 90 P: 44 NJ: 133 QRS: 57 QRSD: 98 T: 1 QT: 399 QTc: 490 Interpretive Statements SINUS RHYTHM No previous ECG available for comparison Electronically Signed On 08-22-2020 18:49:17 CDT by Pola Germain M.D. [email or web address]
--- NOTE | 2020-08-22 09:27 | XRR_ITS ---
PROCEDURE INFORMATION: Exam: XR Chest Exam date and time: 08/22/2020 9:27 AM Age: 50 years old Clinical indication: Cough and dyspnea; Patient HX: Chronic wounds in feet, acutely infected , pain, redness; Additional info: Dyspnea/cough TECHNIQUE: Imaging protocol: XR of the chest. Views: 1 view. COMPARISON: CT angio abd aorta runof [id number] 02/23/2020 8:56 AM FINDINGS: Lungs: Hyperinflation and interstitial prominence. Pleural spaces: No pleural effusion. Heart/Mediastinum: Normal configuration of the heart. Bones/joints: Unremarkable. XR/XR chest 1V portable [id number] IMPRESSION: Hyperinflation and interstitial prominence.
--- NOTE | 2020-08-22 09:30 | W.ED.EXTPRO ---
HPI - Extremity Problem General: Chief complaint: Extremity Problem,Nontraumatic Stated complaint: Poss Blood Clot/R. Thigh Swelling/Trouble Walking Time Seen by Provider: 08/22/20 09:11 History of Present Illness: HPI Narrative: Behavior male presents emergency room with swelling bilaterally of his lower extremities. He states that he got bitten by dog several years ago since and has had problems with chronic ulcers on his legs. He tells me he is not diabetic to the best of his knowledge. He is on methadone. He is also on Plavix. He has a history of peripheral artery disease and continues to smoke. He has a gangrenous fourth right toe which he states began last week he has several full-thickness ulcers on the dorsum of the feet bilaterally. Is been having trouble walking he denies fever. MD Complaint: extremity pain and extremity swelling Onset (ago): month(s) Pain Consistency: constant Location: left, right and lower extremity Quality: aching Radiation: none Relieving factors: nothing Exacerbating factors: nothing Associated symptoms: Reports arthralgias and myalgias; Deny chest pain, fever(s), rash or short of breath Context: other (Chronic ulcers feet and legs) Review of Systems Const: Denies: fever(s) ENMT: Denies: throat pain, ear or mastoid pain, nasal discharge or nasal congestion Card: Denies: chest pain Resp: Denies: dyspnea, productive cough or non-productive cough GI: Denies: abdominal pain, nausea, vomiting, hematemesis, coffee ground emesis, diarrhea, constipation, bloating, hematochezia or melena : Denies: flank pain, dysuria, urinary frequency or urinary urgency Skin/Breast: Denies: rash PFSH ED PFSH: Medical History Atherosclerotic PVD with ulceration Buerger's disease Chronic foot ulcer, limited to breakdown of skin Chronic GERD Hepatitis C antibody test positive Smoker unmotivated to quit Surgical History History of surgical amputation of finger of left hand Family History Other CAD (coronary artery disease) Cancer Diabetes Social History Smoking and tobacco status: current every day smoker cigarettes Packs smoked per day: 1 Alcohol intake: never Household members: family Marital status: Number of children: 1 Current occupational status: unemployed Physical Exam Const: COMMON NORMALS: no acute distress GENERAL APPEARANCE: cooperative and comfortable ORIENTATION/CONSCIOUSNESS: Yes awake, Yes oriented to person, Yes oriented to place and Yes oriented to time HENMT: COMMON NORMALS: normocephalic, atraumatic and hearing grossly normal bilaterally HEAD & SCALP: normocephalic and atraumatic Eye: COMMON NORMALS: Equal, round and reactive pupils present, EOMs intact bilaterally, conjunctivae normal and no scleral icterus CONJUNCTIVA: Yes conjunctivae normal PUPIL: Yes Equal, round and reactive pupils present Neck/C-Spine: COMMON NORMALS: no JVD Resp: COMMON NORMALS: normal respiratory effort, No retractions, No use of accessory muscles and clear to auscultation bilaterally AUSCULTATION: clear to auscultation bilaterally Cardio: COMMON NORMALS: no JVD, regular rate, regular rhythm and No murmurs present (Cardio) RATE: regular rate RHYTHM: regular rhythm GI: COMMON NORMALS: Soft to palpation and No hepatosplenomegaly present AUSCULTATION: Yes normoactive bowel sounds PALPATION: Yes Soft to palpation, No Tenderness to palpation present (GI), No Guarding due to palpation present (GI) and Yes No hepatosplenomegaly present Extremity: NARRATIVE EXTREMITY EXAM: Gangrenous fourth toe with sharp demarcation. There is a full-thickness ulcerations with dry eschars bilaterally on the dorsum of the feet the one on the left spreads a little bit more laterally across the fifth metatarsal head there is a generalized erythema with slight induration and swelling in lower extremities extending proximally to the mid calves. There are old scars extending further up of small what appear to be almost punctate-like lesions patient states these were all dog bites however they do not have a pattern consistent with that. His calves bilaterally are tender to palpation and compression, with a positive Homans' sign. Exam bilaterally consistent with a low-grade cellulitis the right great toe was previously amputated. Neuro: SENSORIUM/ORIENTATION: Yes oriented to person, Yes oriented to place and Yes oriented to time Skin: COMMON NORMALS: no rashes or lesions noted GENERAL SKIN EXAM: no rashes or lesions noted Course Vital Signs: Vital signs: Vital Signs Temperature 98.2 F 08/23/20 04:00 Pulse Rate 88 08/23/20 04:00 Respiratory Rate 16 08/23/20 05:36 Blood Pressure 113/76 08/23/20 04:00 Pulse Oximetry 92 08/23/20 04:00 MDM - Extremity (Nontraumatic) MDM Narrative: Medical decision making narrative: Patient will need to be admitted. CT likely osteomyelitis bilaterally. Clinically appears also to have a cellulitis. His white count is not significantly elevated however. Looking back at his old cultures we will go ahead and start him on linezolid. Discussed with Dr. Gan of also discussed with Dr. Albert will be consulted for the toe. Lab Data: Labs: Lab Results 08/22/20 08/22/20 08/22/20 Range/Units 09:55 09:55 09:55 WBC 9.3 (4.0-10.0) 10^3/ uL RBC 3.56 L (4.1-5.3) 10^6/u L Hgb 9.9 L (11.7-16.6) g/dL Hct 31.2 L (42.0-52.0) % MCV 87.6 (80-94) fL MCH 27.8 L (28.0-34.0) pg MCHC 31.7 (30.0-36.0) g/dL RDW 13.1 (12.1-15.1) % Plt Count 174 (130-400) 10^3/c mm MPV 10.2 (7.4-10.4) fL Neut % (Auto) 80.0 % Lymph % (Auto) 10.2 % [place] % (Auto) 7.8 % Eos % (Auto) 1.2 % Baso % (Auto) 0.3 % Neut # (Auto) 7.47 (1.8-7.7) 10^3/u L Lymph # (Auto) 1.0 (0.8-4.8) 10^3/u L [place] # (Auto) 0.7 (0.2-0.9) 10^3/u L Eos # (Auto) 0.1 (0.0-0.8) 10^3/u L Baso # (Auto) 0.0 (0.0-0.1) 10^3/u L Nucleated RBC % (a uto) 0 % Nucleated RBCs # 0.0 /100WBC Sodium 136 (136-145) mmol/L Potassium 4.0 (3.5-5.1) mmol/L Chloride 98 (98-107) mmol/L Carbon Dioxide 26 (22-29) mmol/L Anion Gap 16.0 (5-19) BUN 11 (6-20) mg/dL Creatinine 1.0 (0.7-1.2) mg/dL GFR Calculation 79.8 L (90-130) mL/min Glucose 106 (65-115) mg/dL Calculated Osmolal ity 282 L (285-295) mOsm/k g Lactic Acid 0.9 (0.5-2.2) mmol/L Calcium 8.6 (8.5-10.5) mg/dL Iron (59-158) ug/dL TIBC mcg/dl % Saturation (20-50) % Unsat Iron Binding (112-347) ug/dL Ferritin (30-400) ng/mL Total Bilirubin 0.5 (0.15-1.2) mg/dL AST 32 (0-40) U/L ALT 26 (0-41) U/L Alkaline Phosphata se 50 (40-130) IU/L C-Reactive Protein 184.2 H (0.0-4.9) mg/L Total Protein 7.6 (6.6-8.7) g/dL Albumin 3.5 (3.5-5.2) g/dL Globulin 4.1 (1.3-4.6) g/dL Urine Color (Yellow) Urine Appearance (CLEAR) Urine pH (5-7) Ur Specific Gravit y (1.005-1.030) Urine Protein (Negative) Urine Glucose (UA) (Normal) Urine Ketones (Negative) Urine Blood (Negative) Urine Nitrate (Negative) Urine Bilirubin (Negative) Urine Urobilinogen (Negative) mg/dL Ur Leukocyte Brianna ase (Negative) Urine RBC (0-2) /hpf Urine WBC (0-5) /hpf Ur Squamous Epith Cells (0-5) /hpf Amorphous Sediment Urine Bacteria (NONE) /hpf 08/22/20 08/22/20 Range/Units 09:55 11:48 WBC (4.0-10.0) 10^3/ uL RBC (4.1-5.3) 10^6/u L Hgb (11.7-16.6) g/dL Hct (42.0-52.0) % MCV (80-94) fL MCH (28.0-34.0) pg MCHC (30.0-36.0) g/dL RDW (12.1-15.1) % Plt Count (130-400) 10^3/c mm MPV (7.4-10.4) fL Neut % (Auto) % Lymph % (Auto) % [place] % (Auto) % Eos % (Auto) % Baso % (Auto) % Neut # (Auto) (1.8-7.7) 10^3/u L Lymph # (Auto) (0.8-4.8) 10^3/u L [place] # (Auto) (0.2-0.9) 10^3/u L Eos # (Auto) (0.0-0.8) 10^3/u L Baso # (Auto) (0.0-0.1) 10^3/u L Nucleated RBC % (a uto) % Nucleated RBCs # /100WBC Sodium (136-145) mmol/L Potassium (3.5-5.1) mmol/L Chloride (98-107) mmol/L Carbon Dioxide (22-29) mmol/L Anion Gap (5-19) BUN (6-20) mg/dL Creatinine (0.7-1.2) mg/dL GFR Calculation (90-130) mL/min Glucose (65-115) mg/dL Calculated Osmolal ity (285-295) mOsm/k g Lactic Acid (0.5-2.2) mmol/L Calcium (8.5-10.5) mg/dL Iron 15 L (59-158) ug/dL TIBC 186 mcg/dl % Saturation 8.0 L (20-50) % Unsat Iron Binding 171 (112-347) ug/dL Ferritin 313 (30-400) ng/mL Total Bilirubin (0.15-1.2) mg/dL AST (0-40) U/L ALT (0-41) U/L Alkaline Phosphata se (40-130) IU/L C-Reactive Protein (0.0-4.9) mg/L Total Protein (6.6-8.7) g/dL Albumin (3.5-5.2) g/dL Globulin (1.3-4.6) g/dL Urine Color Yellow (Yellow) Urine Appearance Clear (CLEAR) Urine pH 6.5 (5-7) Ur Specific Gravit y 1.010 (1.005-1.030) Urine Protein Trace (Negative) Urine Glucose (UA) Norm (Normal) Urine Ketones Negative (Negative) Urine Blood Neg (Negative) Urine Nitrate Negative (Negative) Urine Bilirubin 1+ H (Negative) Urine Urobilinogen 8 H (Negative) mg/dL Ur Leukocyte Brianna ase Negative (Negative) Urine RBC Rare (0-2) /hpf Urine WBC Rare (0-5) /hpf Ur Squamous Epith Cells Rare (0-5) /hpf Amorphous Sediment Not Reportable Urine Bacteria Trace (NONE) /hpf Discharge Plan Discharge Patient Disposition: Admitted As Inpatient Admit Provider: Rosales Carr Clinical Impression: Atherosclerotic PVD with ulceration, Anemia, Dry gangrene, Chronic foot ulcer, limited to breakdown of skin, Smoker unmotivated to quit, Cellulitis and abscess of lower extremity Condition: Stable Coding Level of Care Code ED Critical Power Install Technician for Babatunde Alcantar
[2020-08-22 10:06] LABS: Basophils % 0.3 %; Eosinophils # 0.1 10^3/uL (0.0-0.8); Eosinophils % 1.2 %; Hematocrit 31.2 % (42.0-52.0); Hemoglobin 9.9 g/dL (11.7-16.6); Lymphocytes % 10.2 %; Mean Corpuscular HGB Conc 31.7 g/dL (30.0-36.0); Mean Corpuscular Hemoglobin 27.8 pg (28.0-34.0); Mean Corpuscular Volume 87.6 fL (80-94); Mean Platelet Volume 10.2 fL (7.4-10.4); Monocytes # 0.7 10^3/uL (0.2-0.9); Monocytes % 7.8 %; Neutrophils # 7.47 10^3/uL (1.8-7.7); Nucleated Red Blood Cells % 0 %; Platelet Count 174 10^3/cmm (130-400); Red Blood Count 3.56 10^6/uL (4.1-5.3); Red Cell Distribution Width 13.1 % (12.1-15.1); White Blood Count 9.3 10^3/uL (4.0-10.0)
[2020-08-22] MEDS: iohexol 300 mg/mL 100 mL Btl IV ×2 (10:19→10:21)
[2020-08-22 10:40] LABS: Lactic Sepsis W/Reflex 0.9 mmol/L (0.5-2.2)
[2020-08-22 11:05] LABS: Alanine Aminotransferase 26 U/L (0-41); Albumin Level 3.5 g/dL (3.5-5.2); Alkaline Phosphatase 50 IU/L (40-130); Aspartate Amino Transferase 32 U/L (0-40); Blood Urea Nitrogen 11 mg/dL (6-20); C Reactive Protein 184.2 mg/L (0.0-4.9); Calcium 8.6 mg/dL (8.5-10.5); Carbon Dioxide 26 mmol/L (22-29); Chloride 98 mmol/L (98-107); Creatinine Clr Calc Pharmacy 102.3336; Globulin 4.1 g/dL (1.3-4.6); Glomerular Filtration Rate 79.8 mL/min (90-130); Glucose 106 mg/dL (65-115); Osmolality Calculated 282 mOsm/kg (285-295); Sodium 136 mmol/L (136-145); Total Bilirubin 0.5 mg/dL (0.15-1.2); Total Protein 7.6 g/dL (6.6-8.7)
[2020-08-22 11:41] VITALS: BP 114/72
[2020-08-22] MEDS: levofloxacin-dextrose 5 % 750 MG/150 ML PREMIX 100 MG IV (12:02)
--- NOTE | 2020-08-22 12:30 | PM.HP ---
Providers/Chief Complaint Primary Care Provider: Rogelio Reinoso MD Chief Complaint: Poss Blood Clot/R. Thigh Swelling/Trouble Walking History of Present Illness Deandra Olivares is a 50 year old male with history of Buerger's disease who presents to the hospital with complaints of increased discomfort in his right thigh for about a week. He reports he was concerned he could have a blood clot in that leg. He notes for the last 3 days or so black discoloration on his lower extremity wounds that are being followed in wound clinic. He also has noted that his partially amputated right third toe has turned black. There is been increased pain, and increased erythema. He notes most recently he has been using some type of lidocaine spray to the area after he has boiled off the alcohol in it. He reports wound clinic recommended saline dressings and what sounds like wet to dry at his chronic ulcerative sites. He denies any fevers, or chills. He reports he just has not felt great the last 3 days. No vomiting. He reports no history of Covid, vaccine for Covid, or exposure to it. Review of Systems General: Reports: 10 or more systems reviewed and unremarkable except in HPI and below Const: Denies: fever(s) or chills Eyes: Denies: change in vision ENMT: Denies: throat pain Card: Denies: chest pain Resp: Denies: dyspnea GI: Reports: heartburn; Denies: abdominal pain, nausea, hematochezia or melena : Denies: flank pain Musc: Reports: extremity pain and extremity swelling; Denies: neck pain Skin/Breast: Reports: erythema Neuro: Denies: headache(s) Psych: Denies: anxiety or depression Jose/Lymph: Denies: easy bruising All/Imm: Denies: urticaria Medications/Allergies Home Medications Medication Instructions Recorded Confirmed Last Taken Type methadone 130 mg PO DAILY 01/11/20 06/14/20 05/13/20 History acetaminophen 500 mg capsule 1,500 mg PO QID PRN cap 02/03/20 06/14/20 05/10/20 History Plavix 75 mg PO QAM 08/22/20 08/22/20 08/22/20 08:30 History Protonix 40 mg PO QAM 08/22/20 08/22/20 08/22/20 08:30 History aspirin 81 mg PO QAM 08/22/20 08/22/20 08/21/20 History multivitamin 1 tab PO DAILY 08/22/20 08/22/20 Unknown History nifedipine 30 mg PO QAM 08/22/20 08/22/20 08/22/20 08:30 History pentoxifylline 400 mg PO TID 08/22/20 08/22/20 08/22/20 08:30 History Allergies Allergy/AdvReac Type Severity Reaction Status Date / Time No Known Allergies Allergy Verified 08/22/20 13:08 PFSH Acute PFSH: Medical History Atherosclerotic PVD with ulceration Buerger's disease Chronic foot ulcer, limited to breakdown of skin Chronic GERD Hepatitis C antibody test positive Smoker unmotivated to quit Surgical History History of surgical amputation of finger of left hand Family History Other CAD (coronary artery disease) Cancer Diabetes Social History Smoking and tobacco status: current every day smoker cigarettes Packs smoked per day: 1 Alcohol intake: never Household members: family Marital status: Number of children: 1 Current occupational status: unemployed Vitals/I&O/Wt Last Vital Signs Temp 98.3 F 08/22/20 09:16 Pulse 100 08/22/20 09:16 Resp 15 08/22/20 09:16 BP 114/72 08/22/20 11:41 Pulse Ox 95 08/22/20 09:16 Weight last 48 hrs Weight 90.718 kg Physical Exam Narrative: EXAM NARRATIVE: General exam is a white male, no obvious distress HEENT: Pupils equally round. Oropharynx clear. Neck is supple no lymphadenopathy or thyromegaly Cardiovascular regular rate and rhythm without murmur, no S3 or S4 Lungs clear no wheezing or crackles Abdomen is soft, positive bowel sounds. No obvious organomegaly is deferred Extremities bilateral lower extremities with about 1+ edema. Left demonstrates black eschar dorsum of foot. Cap refill is brisk. Surrounding erythema is noted. Right looks the same with erythema, dorsal eschar that is black. In addition, there is some discoloration at the right great toe amputation site, and significant appearance of necrosis to the right third toe which has been partially amputated in the past. Again cap refill is brisk. Skin multiple punctate scars are noted bilateral lower extremities. Neurologic: No focal deficits Data : 08/22/20 09:55 08/22/20 09:55 Micro: Microbiology 08/22/20 09:55 Blood Culture - Preliminary Blood SPECIMEN COLLECTED 08/22/20 09:55 Blood Culture - Preliminary Blood SPECIMEN COLLECTED Other data: Appointment 3LFTs are within normal limits. Calcium 8.6. Lactic acid 0.9. 0.5. MCV 87.6 Urinalysis negative Chest x-ray no infiltrate Right foot x-ray with question of osteomyelitis first metatarsal head, phalanx of second and third toes. Right foot CT demonstrated no focal abscess, moderate cellulitis, ulceration of the distal first metatarsal with no definite osteomyelitis. Left foot x-ray with soft tissue swelling. CT demonstrates swelling, likely osteomyelitis, possible early changes osteomyelitis fifth metatarsal head Venous duplex right lower extremity negative for DVT CTA with runoff February 2020 demonstrated no high-grade stenosis or occlusion, left common iliac bifurcation 50% stenosis, three-vessel runoff to the ankles EKG demonstrates sinus rhythm, normal axis, no acute changes CRP is 184 A&P Assessment and plan (1) Cellulitis: Initiate vancomycin Close follow-up clinically Status: Acute (2) Gangrene: Orthopedic consult. He may need an amputation of his gangrenous digit. There is also concern of osteomyelitis on CT of left fifth metatarsal head. Multiple areas of skin breakdown noted on dorsal surface of feet which may require aggressive wound care or debridement. Status: Acute (3) Tobacco abuse: Encourage abstinence Status: Acute (4) Buerger's disease: Discussed importance of stopping tobacco products considering his diagnosis and likelihood for more amputations if he continues to smoke. Status: Acute (5) Chronic GERD: Continue Protonix Status: Acute (6) Anemia: Patient denies blood in his stool or black or tarry stools but does has have history of reflux. Continue Protonix. Anemia panel. Stool Hemoccult. Recheck tomorrow. Status: Acute (7) Hepatitis C antibody test positive: Will need to determine if he has had treatment in the past. If not will need to be referred for further testing with viral load to determine need of treatment. Status: Acute Additional A&P Information Full code Heparin for DVT prophylaxis Attestations Medical Necessity Statement*: Will need greater than 2 midnight stay for evaluation and treatment of cellulitis and gangrene Time Spent in Patient Care: Greater than 35 minutes Coding Level of Care Code Acute Metallographic Technician for g [facility] Diagnoses Cellulitis L03.90 Gangrene I96 Tobacco abuse Z72.0 Buerger's disease I73.1 Chronic GERD K21.9 Anemia D64.9 Hepatitis C antibody test positive R76.8
[2020-08-22 12:32] LABS: Urine Appearance Clear (CLEAR); Urine Color Yellow (Yellow)
[2020-08-22 12:33] LABS: Add Urine Microscopic? YES; Bacteria Urine TRACE /hpf; Bilirubin Urine 1+ (Negative); Blood Urine Neg (Negative); Glucose Urine UA Norm (Normal); Ketones Urine Negative (Negative); Leukocyte Esterase Urine Negative (Negative); Nitrate Urine Negative (Negative); Protein Urine Trace (Negative); RBC Urine RARE /hpf (0-2); Squamous Epithelial Cell Urine RARE /hpf (0-5); Urobilinogen Urine 8 mg/dL (Negative); WBC Urine RARE /hpf (0-5); pH Urine 6.5 (5-7)
[2020-08-22 13:27] LABS: Ferritin 313 ng/mL (30-400); Iron 15 ug/dL (59-158); Total Iron Binding Capacity 186 mcg/dl; Unsaturated Iron Binding 171 ug/dL (112-347)
[2020-08-22] MEDS: vancomycin 1,000 MG in sodium chloride 0.9% 250 ML 250 MG IV (13:50)
[2020-08-22 14:58] VITALS: BP 111/74; PULSE 80; RESP 17; TEMP 36.6; O2SAT 96
--- NOTE | 2020-08-22 16:26 | P.CONIM_ITS ---
Providers/Reason For Consult Consulting Physician/Specialty*: Dustin Albert MD orthopedic surgery Reason for Consult*: Gangrene bilateral lower extremities Attending Physician: Rosales Carr MD Primary Care Provider: Rogelio Reinoso MD History of Present Illness History of Present Illness Deandra Olivares is a 50 year old male with a history of Buerger's disease and tobacco use who has been under the care of wound clinic since January. At that time he was noted to have spotty areas of necrosis and of both the feet. He underwent an amputation of his left big toe in March 2020. He described stable wounds over the dorsum of both feet up until this past . He alleges that he covered them with lidocaine gel and had large areas of subsequent necrosis developed over the dorsums of both feet as well as the tip of the right third toe. He states the pain became significant to the point where he is unable to bear weight. He was seen in our emergency room today and is admitted to medicine with presumptive diagnoses of cellulitis and gangrene of the right third toe. I have asked to see the patient possible amputation of the third toe Meds/Allergies Home Medications and Allergies Home Medications Medication Instructions Recorded Confirmed Last Taken Type methadone 130 mg PO QAM 01/11/20 08/22/20 08/22/20 08:30 History acetaminophen 500 mg capsule 1,000 mg PO PRN cap 02/03/20 08/22/20 05/10/20 History Plavix 75 mg PO QAM 08/22/20 08/22/20 08/22/20 08:30 History Protonix 40 mg PO QAM 08/22/20 08/22/20 08/22/20 08:30 History aspirin 81 mg PO QAM 08/22/20 08/22/20 08/21/20 History multivitamin 1 tab PO DAILY 08/22/20 08/22/20 Unknown History nifedipine 30 mg PO QAM 08/22/20 08/22/20 08/22/20 08:30 History pentoxifylline 400 mg PO TID 08/22/20 08/22/20 08/22/20 08:30 History Allergies Allergy/AdvReac Type Severity Reaction Status Date / Time No Known Allergies Allergy Verified 08/22/20 13:08 PFSH Acute PFSH: Medical History Atherosclerotic PVD with ulceration Buerger's disease Chronic foot ulcer, limited to breakdown of skin Chronic GERD Hepatitis C antibody test positive Smoker unmotivated to quit Surgical History History of surgical amputation of finger of left hand Family History Other CAD (coronary artery disease) Cancer Diabetes Social History Smoking and tobacco status: current every day smoker cigarettes Packs smoked per day: 1 Alcohol intake: never Household members: family Marital status: Number of children: 1 Current occupational status: unemployed Vitals/I&O/Wt Last Vital Signs Temp 97.9 F 08/22/20 14:58 Pulse 80 08/22/20 14:58 Resp 17 08/22/20 14:58 BP 111/74 08/22/20 14:58 Pulse Ox 96 08/22/20 14:58 08/22/20 08/22/20 08/22/20 06:59 14:59 22:59 Intake Total 150 / 150 250 / 400 Balance 150 / 150 250 / 400 Weight last 48 hrs Weight 200 lb Physical Exam Narrative: EXAM NARRATIVE: On examination the patient's right lower extremity he has an absent right big toe. There is necrotic tissue over the distal skin overlying it would likely be the metatarsal head as well as necrosis of the third toe. Over the dorsum of the foot there appears to be a large area of full-thickness necrosis extending from forefoot the hindfoot at least 8 or 9 cm in diameter. The right foot reveals tenderness to touch over the toes forefoot and midfoot. On examination the patient's left lower extremity similar area of necrosis on the dorsum of the foot exist over the dorsum of the left forefoot to midfoot. No gangrene is seen of those toes. There is no tenderness over the left foot. Sensation is grossly intact to light touch over the volar aspect of both feet Data Micro: Micro: Microbiology 08/22/20 09:55 Blood Culture - Pr eliminary Blood SPECIMEN [facility] 08/22/20 09:55 Blood Culture - Pr eliminary Blood SPECIMEN [facility] Imaging^: Other CT: Radiologist's impression: CT of both feet are reviewed. Findings are thought to be consistent with early osteomyelitis of the left fifth metatarsal head but no left foot abscesses are identified. No destructive processes of bone are seen on the right foot however again a large soft tissue ulceration is seen dorsally there. Xray Ortho: Radiologist's impression: Radiographs of both feet are reviewed. Radiographs reveal cortical irregularities and osteolysis about the metatarsal head and phalanges of the second and third toes suspicion for osteomyelitis. No destructive processes are identified about the left foot. A&P Assessment and plan (1) Gangrene: The patient has gangrene in both lower extremities he has extensive necrosis across the dorsum of the right foot and right third toe and right metatarsal head. I do not believe this foot is salvageable with simple debridement in my hands. I told him the only option I would really have for him would be below-knee amputation. He was not in favor of amputation. He would like another opinion from those and wound care to see if they feel this is salvageable. Gangrene appears stable and certainly there is nothing requiring emergent debridement at this time. The patient has a similar area of gangrene over the dorsum of his left foot that appears progressive. He does not have a great deal of pain in the foot. I am not optimistic that this foot is salvageable either but if he wishes to consider management and wound clinic for this, it could probably be attempted. Status: Acute Coding Level of Care Code Acute Top Polisher for [facility]at[facility] Diagnoses Gangrene I96
[2020-08-22] MEDS: heparin 5,000 unit/mL INJ 1 mL 5000 UNIT SUBCUT (17:13)
--- NOTE | 2020-08-22 17:15 | PM.CONSULT ---
Providers/Reason For Consult Consulting Physician/Specialty*: Dr. Saini/cardiothoracic surgery Reason for Consult*: Nonhealing wounds right and left lower extremities. Cellulitis. Attending Physician: Rosales Carr MD Primary Care Provider: Rogelio Reinoso MD History of Present Illness History of Present Illness Deandra Olivares is a 50 year old male who has been followed for quite some time in wound care services for bilateral lower extremity leg and foot wounds with skin necrosis. He is status post right great toe amputation and partial amputation of the right third toe which is also now become further gangrenous. He was admitted after presenting with progressive cellulitis and increasing pain. He has been followed in wound care services since weight last year and has been seen previously for the similar wounds. He has a history of Buerger's disease. He is followed by our pain management service for chronic pain. I last saw him August 08 at wound care services where he has been receiving wet-to-dry dressing changes to his wounds with slow peripheral epithelialization and granulation. He has a complaint of right thigh and leg pain and was worried about a blood clot . Venous ultrasound performed earlier today was negative for DVT of the right lower extremity.. Aortic root runoff CTA performed February 22 of last year revealed no high-grade stenosis or occlusions. There was plaque thickening in the infrarenal aorta. Less than 50% stenosis of the left common iliac artery at the bifurcation. He has three-vessel runoff to the ankles but the muscles are of small caliber. Right foot x-ray today reveals cortical irregularity and osteolysis about the distal aspect of the first metatarsal head and phalanges of the second and third toes, suspicious for osteomyelitis. Left foot x-ray revealed soft tissue swelling. CT scan of the left foot with contrast revealed possible early changes of osteomyelitis involving the fifth metatarsal head. Extent of cellulitis has progressed since late last year. Bruno has initiated vancomycin for his cellulitis. When I visited with Mr. Espino he was resting comfortably on the medical surgical brown did not appear to be under substantial distress or in substantial discomfort. I do note that he does have marked sensitivity and pain with the wound debridement when he is seen in our wound care services department. Review of Systems Const: Reports: fatigue; Denies: fever(s), chills, change in appetite or night sweats ENMT: Denies: throat pain Card: Denies: chest pain or palpitations Resp: Denies: dyspnea GI: Denies: abdominal pain Musc: Reports: neck pain, extremity pain and extremity swelling; Denies: muscle cramps Jose/Lymph: Denies: easy bruising Meds/Allergies Home Medications and Allergies Home Medications Medication Instructions Recorded Confirmed Last Taken Type methadone 130 mg PO QAM 01/11/20 08/22/20 08/22/20 08:30 History acetaminophen 500 mg capsule 1,000 mg PO PRN cap 02/03/20 08/22/20 05/10/20 History Plavix 75 mg PO QAM 08/22/20 08/22/20 08/22/20 08:30 History Protonix 40 mg PO QAM 08/22/20 08/22/20 08/22/20 08:30 History aspirin 81 mg PO QAM 08/22/20 08/22/20 08/21/20 History multivitamin 1 tab PO DAILY 08/22/20 08/22/20 Unknown History nifedipine 30 mg PO QAM 08/22/20 08/22/20 08/22/20 08:30 History pentoxifylline 400 mg PO TID 08/22/20 08/22/20 08/22/20 08:30 History Allergies Allergy/AdvReac Type Severity Reaction Status Date / Time No Known Allergies Allergy Verified 08/22/20 13:08 PFSH Acute PFSH: Medical History Atherosclerotic PVD with ulceration Buerger's disease Chronic foot ulcer, limited to breakdown of skin Chronic GERD Hepatitis C antibody test positive Smoker unmotivated to quit Surgical History History of surgical amputation of finger of left hand Family History Other CAD (coronary artery disease) Cancer Diabetes Social History Smoking and tobacco status: current every day smoker cigarettes Packs smoked per day: 1 Alcohol intake: never Household members: family Marital status: Number of children: 1 Current occupational status: unemployed Vitals/I&O/Wt Last Vital Signs Temp 97.9 F 08/22/20 14:58 Pulse 80 08/22/20 14:58 Resp 17 08/22/20 14:58 BP 111/74 08/22/20 14:58 Pulse Ox 96 08/22/20 14:58 08/22/20 08/22/20 08/22/20 06:59 14:59 22:59 Intake Total 150 / 150 250 / 400 Balance 150 / 150 250 / 400 Weight last 48 hrs Weight 200 lb Physical Exam HENMT: COMMON NORMALS: normocephalic, atraumatic and hearing grossly normal bilaterally HEAD & SCALP: normocephalic and atraumatic Neck/C-Spine: COMMON NORMALS: full ROM, no lymphadenopathy and No carotid bruits GENERAL: Yes trachea midline Chest: COMMONS NORMALS: normal palpation of entire chest wall CHEST: Yes Symmetrical chest wall rise Resp: COMMON NORMALS: normal respiratory effort, No use of accessory muscles, clear to auscultation bilaterally and percussion normal EFFORT & INSPECTION: Yes able to speak in complete sentences and Yes symmetric chest movement AUSCULTATION: clear to auscultation bilaterally PERCUSSION: percussion normal Cardio: COMMON NORMALS: regular rate, regular rhythm, S1 normal heart sound present and No murmurs present (Cardio) RATE: regular rate RHYTHM: regular rhythm HEART SOUNDS: S1 normal heart sound present BRUITS: no carotid bruits Extremity: GENERAL: Yes edema and No palpable cord OTHER: Prior right great toe amputation and partial right third toe amputation. Near complete gangrenous changes to the right third toe. I am not certain this is salvageable. He has large cell near full-thickness eschar to the dorsum of both the right foot as well as the right lateral left foot. There is edema up to mid calf region bilaterally. He does have good capillary refill. These eschars appear to be dried and I think would benefit from debridement. Data Micro: Micro: Microbiology 08/22/20 09:55 Blood Culture - Pr eliminary Blood SPECIMEN [facility] 08/22/20 09:55 Blood Culture - Pr eliminary Blood SPECIMEN [facility] A&P Assessment and plan (1) Cellulitis: Ongoing cellulitis with a near full-thickness eschars to the right and left foot as well as gangrenous changes to the right third toe. I believe that surgical debridement under anesthesia would be of substantial benefit and I have recommended that for tomorrow. I discussed this carefully with Mr. Olivares and he is in agreement. He realizes that further procedures may be required at that this may not be definitive in nature and could actually eventually lead to recommendations for major leg amputation. Risk of surgery carefully reviewed. Need for further operations discussed. Postop pain also discussed. Need for continued surveillance long-term follow-up. Need to absolutely stop all tobacco use was again carefully reviewed. He does wish to proceed with plans for surgery. Status: Acute Consult Attestations Medical Necessity Statement: Large wounds right and left leg and feet with gangrene right third toe Time Spent in Patient Care: 16 - 35 minutes Coding Level of Care Code Acute Orthopedic Nurse Practitioner for [facility] Diagnoses Cellulitis L03.90
[2020-08-22 19:21] VITALS: BP 119/78; PULSE 89; RESP 18; TEMP 37; O2SAT 93
[2020-08-22] MEDS: vancomycin 1,500 MG/300 ML PIGGYBACK 200 MG IV (22:05)
[2020-08-22] MEDS: acetaminophen 325 mg Tablet 650 MG PO (22:09)
[2020-08-22 23:47] VITALS: BP 105/70; PULSE 87; RESP 18; TEMP 36.8; O2SAT 93
[2020-08-23] VITALS (20 sets, daily range): BP systolic 93–114; BP diastolic 58–77; PULSE 70–93; RESP 12–20; TEMP 36.1–37.1; O2SAT 91–98
[2020-08-23] MEDS: heparin 5,000 unit/mL INJ 1 mL 5000 UNIT SUBCUT (00:36)
[2020-08-23] MEDS: acetaminophen 325 mg Tablet 650 MG PO ×2 (04:12→21:10)
[2020-08-23 06:41] LABS: Basophils % 0.3 %; Eosinophils # 0.1 10^3/uL (0.0-0.8); Eosinophils % 1.6 %; Hematocrit 29.9 % (42.0-52.0); Hemoglobin 9.1 g/dL (11.7-16.6); Lymphocytes % 12.7 %; Mean Corpuscular HGB Conc 30.4 g/dL (30.0-36.0); Mean Corpuscular Hemoglobin 27.3 pg (28.0-34.0); Mean Corpuscular Volume 89.8 fL (80-94); Mean Platelet Volume 10.9 fL (7.4-10.4); Monocytes # 0.6 10^3/uL (0.2-0.9); Monocytes % 7.2 %; Neutrophils % 77.6 %; Nucleated Red Blood Cells % 0 %; Platelet Count 147 10^3/cmm (130-400); Red Blood Count 3.33 10^6/uL (4.1-5.3); Red Cell Distribution Width 13.2 % (12.1-15.1); White Blood Count 7.7 10^3/uL (4.0-10.0)
--- NOTE | 2020-08-23 06:49 | PC.NURSE ---
SHIFT SUMMARY Has not slept much tonight. c/o burning/itching in both feet. Has received po Tylenol prn for pain. NPO after midnight for OR debridement scheduled for today. Eschar covered wounds to tops of both feet. 3rd toe on right foot is black. Pt was given his own Methadone this am. He had his pill pack of Methadone and it dissolved in water for him to drink. He prefers this to 13 pills would have to take of ours.
--- NOTE | 2020-08-23 07:00 | P.PN_ITS ---
Subjective Subjective: Interval history: Mr. Olivares rested reasonably well last night. No new complaints this morning. White blood cell count 7.7. Chemistries pending. There is been delusional drop in his hemoglobin from 9.9-9.1. He remains afebrile. Vitals/I&O/Wt Last Vital Signs Temp 98.2 F 08/23/20 04:00 Pulse 88 08/23/20 04:00 Resp 16 08/23/20 05:36 BP 113/76 08/23/20 04:00 Pulse Ox 92 08/23/20 04:00 08/22/20 08/23/20 08/23/20 22:59 06:59 14:59 Intake Total 450 / 600 300 / 900 Output Total 600 / 600 Balance 450 / 600 -300 / 300 Weight last 48 hrs Weight 200 lb Physical Exam Resp: COMMON NORMALS: normal respiratory effort, No use of accessory muscles and clear to auscultation bilaterally EFFORT & INSPECTION: Yes symmetric chest movement AUSCULTATION: clear to auscultation bilaterally Cardio: COMMON NORMALS: regular rate, regular rhythm, S1 normal heart sound present and No murmurs present (Cardio) RATE: regular rate RHYTHM: regular rhythm HEART SOUNDS: S1 normal heart sound present Extremity: OTHER: Bilateral feet wounds are essentially the same. He has been receiving vancomycin since admission. Data : 08/23/20 06:20 08/22/20 09:55 Micro: Microbiology 08/22/20 09:55 Blood Culture - Preliminary Blood SPECIMEN COLLECTED 08/22/20 09:55 Blood Culture - Preliminary Blood SPECIMEN COLLECTED A&P Assessment and plan (1) Cellulitis and abscess of lower extremity: We will plan for surgical debridement of his bilateral lower extremities leg and foot wounds later today. He said he may require further procedures in the near future related to what appears to be early osteomyelitis changes noted on radiographic studies. I do believe he would benefit from PICC line placement and consideration for 6-week course of IV antibiotic therapy. I will discuss with our hospitalist colleagues concerning this recommendation. We have generally plan for surgical debridement at around 12 noon today. Status: Acute Attestations Medical Necessity Statement*: Cellulitis of bilateral feet with chronic wounds and Buerger's disease Time Spent in Patient Care: less than 15 minutes Coding Level of Care Code Acute Power Saw Operator for [facility] Diagnoses Cellulitis and abscess of lower extremity L03.119; L02.419
[2020-08-23] MEDS: pantoprazole DR 40 mg Tablet PO (08:41)
[2020-08-23] MEDS: NIFEdipine ER (24 hr) 30 mg Tablet PO (08:41)
[2020-08-23] MEDS: aspirin 81 mg EC Tablet PO (08:41)
[2020-08-23] MEDS: vancomycin 1,500 MG/300 ML PIGGYBACK 200 MG IV ×2 (08:42→21:09)
--- NOTE | 2020-08-23 10:05 | ANES.PREANE2 ---
Pre-Anesthetic Assessment Pre-Anesthetic Assessment: Height/Weight: Height 1.78 m Weight 90.718 kg Temp Pulse Resp BP Pulse Ox 98.4 F 72 18 102/68 93 08/23/20 07:12 08/23/20 07:12 08/23/20 07:12 08/23/20 07:12 08/23/20 07:12 Preop Diagnosis: Nonhealing wounds of feet bilaterally with gangrenous distal right third to Proposed Procedure: Operation Date: 08/23/20 13:00 Proposed Procedures p debridement of bilateral lower extremity wounds(Bilateral) - Mickey Saini MD Familial anesthetic complications: none Was Beta Arthur taken within 24 hours: N/A Was Clonidine taken within 24 hours: N/A Last intake: Intake Last Liquid Date 08/22/20 Last Liquid Time 23:45 Last Solid Date 08/22/20 Last Solid Time 17:00 Social: Social History: Tobacco and No alcohol Exam: Pre-Anes Outpt Exam: alert, oriented x 3, clear to auscultation bilaterally and regular rate & rhythm Airway: Cervical ROM: WNL MP: 2 Dentition: Full CV/HEM: Comments: buerger's disease Hepatic: Hepatic: Hepatitis (C) GI: GI: GERD Metabolic: Metabolic: DM Anesthetic Plan: ASA status: 3 Anesthesia: General Risk of > 500 ml blood loss (7ml/kg in children): No Meds/Allergies Current Medications: Current Medications Generic Name Dose Route Start Last Admin Trade Name Freq PRN Reason Stop Dose Admin Acetaminophen 650 mg 08/22/20 12:25 08/23/20 04:12 Acetaminophen 32 5 Mg Tablet PO 650 mg Q6H PRN Administration Mild/Mod Pain Or Temp >/= 101 Aspirin 81 mg 08/23/20 09:00 08/23/20 08:41 Aspirin 81 Mg Ec Tablet PO 81 mg DAILY EDGAR Administration Heparin Sodium (Be ef Lung) 5,000 unit 08/22/20 12:45 08/23/20 00:36 Heparin 5,000 Un it/Ml Inj 1 Ml SUBCUT 5,000 unit Q12H EDGAR Administration Vancomycin/PEG/NAD A/Lysine/Water 1,500 mg in 300 m ls @ 200 mls/hr 08/22/20 21:00 08/23/20 08:42 Vancocin IV 200 mls/hr Q12H EDGAR Administration Methadone HCl 130 mg 08/23/20 06:00 08/23/20 05:36 Methadone 10 Mg Tablet PO Not Given QAM EDGAR Nifedipine 30 mg 08/23/20 09:00 08/23/20 08:41 Nifedipine Er (2 4 Hr) 30 Mg Tablet PO 30 mg DAILY EDGAR Administration Pantoprazole Sodiu m 40 mg 08/23/20 09:00 08/23/20 08:[address] 40 Mg Tablet PO 40 mg DAILY EDGAR Administration PFSH Anesthesia PFSH: Medical History Atherosclerotic PVD with ulceration Buerger's disease Chronic foot ulcer, limited to breakdown of skin Chronic GERD Hepatitis C antibody test positive Smoker unmotivated to quit Surgical History History of surgical amputation of finger of left hand Family History Other CAD (coronary artery disease) Cancer Diabetes Social History Smoking and tobacco status: current every day smoker cigarettes Packs smoked per day: 1 Alcohol intake: never Household members: family Marital status: Number of children: 1 Current occupational status: unemployed Data Anesthesia CBC & Chem 7: 08/23/20 06:20 08/22/20 09:55 Other Labs: Laboratory Results - last 48 hr 08/22/20 08/22/20 08/22/20 09:55 09:55 09:55 WBC 9.3 RBC 3.56 L Hgb 9.9 L Hct 31.2 L MCV 87.6 MCH 27.8 L MCHC 31.7 RDW 13.1 Plt Count 174 MPV 10.2 Neut % (Auto) 80.0 Lymph % (Auto) 10.2 Mcdonough % (Auto) 7.8 Eos % (Auto) 1.2 Baso % (Auto) 0.3 Neut # (Auto) 7.47 Lymph # (Auto) 1.0 Mcdonough # (Auto) 0.7 Eos # (Auto) 0.1 Baso # (Auto) 0.0 Nucleated RBC % (auto) 0 Nucleated RBCs # 0.0 Sodium 136 Potassium 4.0 Chloride 98 Carbon Dioxide 26 Anion Gap 16.0 BUN 11 Creatinine 1.0 GFR Calculation 79.8 L Glucose 106 Calculated Osmolality 282 L Lactic Acid 0.9 Calcium 8.6 Iron TIBC % Saturation Unsat Iron Binding Ferritin Total Bilirubin 0.5 AST 32 ALT 26 Alkaline Phosphatase 50 C-Reactive Protein 184.2 H Total Protein 7.6 Albumin 3.5 Globulin 4.1 Urine Color Urine Appearance Urine pH Ur Specific [place] Urine Protein Urine Glucose (UA) Urine Ketones Urine Blood Urine Nitrate Urine Bilirubin Urine Urobilinogen Ur Leukocyte Esterase Urine RBC Urine WBC Ur Squamous Epith Cells Amorphous Sediment Urine Bacteria 08/22/20 08/22/20 08/23/20 09:55 11:48 06:20 WBC 7.7 RBC 3.33 L Hgb 9.1 L Hct 29.9 L MCV 89.8 MCH 27.3 L MCHC 30.4 RDW 13.2 Plt Count 147 MPV 10.9 H Neut % (Auto) 77.6 Lymph % (Auto) 12.7 Mcdonough % (Auto) 7.2 Eos % (Auto) 1.6 Baso % (Auto) 0.3 Neut # (Auto) 6.00 Lymph # (Auto) 1.0 Mcdonough # (Auto) 0.6 Eos # (Auto) 0.1 Baso # (Auto) 0.0 Nucleated RBC % (auto) 0 Nucleated RBCs # 0.0 Sodium Potassium Chloride Carbon Dioxide Anion Gap BUN Creatinine GFR Calculation Glucose Calculated Osmolality Lactic Acid Calcium Iron 15 L TIBC 186 % Saturation 8.0 L Unsat Iron Binding 171 Ferritin 313 Total Bilirubin AST ALT Alkaline Phosphatase C-Reactive Protein Total Protein Albumin Globulin Urine Color Yellow Urine Appearance Clear Urine pH 6.5 Ur Specific [place] 1.010 Urine Protein Trace Urine Glucose (UA) Norm Urine Ketones Negative Urine Blood Neg Urine Nitrate Negative Urine Bilirubin 1+ H Urine Urobilinogen 8 H Ur Leukocyte Esterase Negative Urine RBC Rare Urine WBC Rare Ur Squamous Epith Cells Rare Amorphous Sediment Not Reportable Urine Bacteria Trace 08/23/20 08/23/20 06:20 08:00 WBC RBC Hgb Hct MCV MCH MCHC RDW Plt Count MPV Neut % (Auto) Lymph % (Auto) Mcdonough % (Auto) Eos % (Auto) Baso % (Auto) Neut # (Auto) Lymph # (Auto) Mcdonough # (Auto) Eos # (Auto) Baso # (Auto) Nucleated RBC % (auto) Nucleated RBCs # Sodium Cancelled Cancelled Potassium Cancelled Cancelled Chloride Cancelled Cancelled Carbon Dioxide Cancelled Cancelled Anion Gap Cancelled Cancelled BUN Cancelled Cancelled Creatinine Cancelled Cancelled GFR Calculation Cancelled Cancelled Glucose Cancelled Cancelled Calculated Osmolality Cancelled Cancelled Lactic Acid Calcium Cancelled Cancelled Iron TIBC % Saturation Unsat Iron Binding Ferritin Total Bilirubin Cancelled Cancelled AST Cancelled Cancelled ALT Cancelled Cancelled Alkaline Phosphatase Cancelled Cancelled C-Reactive Protein Total Protein Cancelled Cancelled Albumin Cancelled Cancelled Globulin Cancelled Cancelled Urine Color Urine Appearance Urine pH Ur Specific [place] Urine Protein Urine Glucose (UA) Urine Ketones Urine Blood Urine Nitrate Urine Bilirubin Urine Urobilinogen Ur Leukocyte Esterase Urine RBC Urine WBC Ur Squamous Epith Cells Amorphous Sediment Urine Bacteria Micro: Microbiology 08/22/20 09:55 Blood Culture - Preliminary Blood NEGATIVE TO DATE 08/22/20 09:55 Blood Culture - Preliminary Blood NEGATIVE TO DATE Cardiac Studies: No Data to Display
--- NOTE | 2020-08-23 10:22 | P.PN_ITS ---
Subjective Subjective: Interval history: Deandra reports some pain. He is ready to have his debridement today. Redness is better. Medications: Reviewed: Yes Vitals/I&O/Wt Last Vital Signs Temp 98.4 F 08/23/20 07:12 Pulse 72 08/23/20 07:12 Resp 18 08/23/20 07:12 BP 102/68 08/23/20 07:12 Pulse Ox 93 08/23/20 07:12 08/22/20 08/23/20 08/23/20 22:59 06:59 14:59 Intake Total 450 / 600 300 / 900 Output Total 600 / 600 Balance 450 / 600 -300 / 300 Weight last 48 hrs Weight 90.718 kg Physical Exam Narrative: EXAM NARRATIVE: General exam is a white male, no obvious distress. No fever overnight Neck is supple no lymphadenopathy or thyromegaly Cardiovascular regular rate and rhythm without murmur, no S3 or S4 Lungs clear no wheezing or crackles Abdomen is soft, positive bowel sounds. No obvious organomegaly Extremities bilateral lower extremities with about 1+ edema. Left demonstrates black eschar dorsum of foot. Cap refill is brisk. Surrounding erythema bilaterally is markedly better. Right dorsal eschar that is black as well with improved erythema. In addition, there is some discoloration at the right great toe amputation site, and significant appearance of necrosis to the right third toe which has been partially amputated in the past. Again cap refill is brisk. Skin multiple punctate scars are noted bilateral lower extremities. Data : 08/23/20 06:20 08/22/20 09:55 Micro: Microbiology 08/22/20 09:55 Blood Culture - Preliminary Blood NEGATIVE TO DATE 08/22/20 09:55 Blood Culture - Preliminary Blood NEGATIVE TO DATE A&P Assessment and plan (1) Cellulitis: Continue vancomycin Close follow-up clinically Status: Acute (2) Gangrene: Appreciate orthopedic consult. He may need an amputation of his gangrenous digit. There is also concern of osteomyelitis on CT of left fifth metatarsal head, however no skin breakdown is noted in this area and osteomyelitis is not confirmed. Vascular surgery has also been consulted/wound care and he will have a debridement today Status: Acute (3) Tobacco abuse: Encourage abstinence Status: Acute (4) Buerger's disease: Discussed importance of stopping tobacco products considering his diagnosis and likelihood for more amputations if he continues to smoke. Status: Acute (5) Chronic GERD: Continue Protonix Status: Acute (6) Anemia: Patient denies blood in his stool or black or tarry stools but does has have history of reflux. Continue Protonix. Laboratory indicates iron deficiency anemia. Stool Hemoccult pending. Hemoglobin essentially the same as yesterday.. Status: Acute (7) Hepatitis C antibody test positive: Will need to determine if he has had treatment in the past. If not will need to be referred for further testing with viral load to determine need of treatment. Status: Acute Additional A&P Information Full code Heparin for DVT prophylaxis Attestations Medical Necessity Statement*: Needs continued hospitalization for debridement of black eschar, possible amputation in this patient with lower extremity cellulitis. 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
--- NOTE | 2020-08-23 10:30 | PC.CHAP ---
Pastoral Care Encounter/Spiritual Assessment Type of Contact [] Declined rehab therapist visit [] Patient/Family/Request visit [] Outpatient visit [] Follow-up visit [] Physician referral [] Code/Alert [x] Routine visit [] Staff referral [] Actively dying [] Patient sleeping [] Family support [] [] Out of room [] Palliative care [] [] Receiving care in room [] Pre-surgical visit [] Trauma [] Long length of stay [] ICU visit [] Other: Relational/Emotional Strength [x] Patient feels connected with others/family/visitors/staff [] Distress [] Loneliness/isolation [] Abandonment Spirituality of Patient [x] Person of Jennifer [x] Attends Restorationist of their Jennifer []x Believes in Prayer [] Reads Bible or Baptism materials [] There are Spiritual issues to be addressed Compliance And Control Analyst Interventions [x] Prayer [x] Active listening [x] Non-anxious presence []x Spiritual/emotional support [] Crisis/trauma care [] Spiritual counseling [] Bereavement support [] Provided bereavement packet [] Provided Bible/devotional materials [] Provided toy/stuffed animal, coloring book to patient or family member [] Provided Communion [] Anointing/[place] [] Salvation [x] Completed spiritual assessment [] Other: Impact on Illness or Injury [] Angry [] Fearful [] Anxious [] Often cries [] Exhaustion [] Unable to work [] Unable to attend amish [] Unable to walk/stand [] Unable to read [] Unable to drive [] Unable to eat/drink [] Unable to sleep [] Unable to be with family [] Patient intubated [] Other: Summary patient feeling better Time spent with patient 10 min
[2020-08-23 10:38] LABS: Alanine Aminotransferase 19 U/L (0-41); Albumin Level 2.9 g/dL (3.5-5.2); Alkaline Phosphatase 41 IU/L (40-130); Anion Gap 13.7 (5-19); Aspartate Amino Transferase 25 U/L (0-40); Blood Urea Nitrogen 10 mg/dL (6-20); Calcium 8.1 mg/dL (8.5-10.5); Carbon Dioxide 24 mmol/L (22-29); Chloride 102 mmol/L (98-107); Globulin 3.7 g/dL (1.3-4.6); Glomerular Filtration Rate 90.1 mL/min (90-130); Glucose 87 mg/dL (65-115); Osmolality Calculated 280 mOsm/kg (285-295); Potassium 3.7 mmol/L (3.5-5.1); Sodium 136 mmol/L (136-145); Total Bilirubin 0.4 mg/dL (0.15-1.2); Total Protein 6.6 g/dL (6.6-8.7)
[2020-08-23 11:47] LABS: Glucose Point of Care 89 mg/dL (70-110)
[2020-08-23] MEDS: ceFAZolin 1,000 mg SDV 1000 MG IRRIGATION (14:15)
--- NOTE | 2020-08-23 14:31 | PM.OP ---
Operative Report Date of procedure: August 23, 2020 Pre-op Diagnosis: Nonhealing wounds of feet bilaterally with gangrenous distal right third to Post-op diagnosis: same Procedure Done: Debridement of wounds of right and left foot and amputation of right third toe Specimens removed/disposition: Culture of wound of right great toe amputation site. Right third toe to pathology Surgeon: Mickey Saini Anesthesia: General Complications: None Disposition: PACU Brief History: Mr. Olivares is a 50-year-old gentleman who is followed in wound care services for bilateral lower extremity slowly healing foot wounds. He has Buerger's disease and has had chronic wounds for some time. He said prior amputation to digit of his left hand and prior right great toe amputation and partial second toe amputation. He was recently admitted for cellulitis. He is on IV vancomycin. He has dried eschar over his wounds of the right and left foot and gangrenous right third toe. Surgical debridement and amputation of the right third toe were recommended. Details the risk of the procedure were carefully and frankly reviewed. Appropriate consents have been reviewed and signed. Procedure: Mr. Olivares was taken to the operating room theater carefully positioned on the OR table. After confirmation of appropriate IVs he underwent general anesthesia. He was then sterilely prepped and draped. Appropriate timeout was completed and confirmed. Curette debridement and debridement with a #10 scalpel blade was performed at all of the eschared wounds of both the right and left foot. Largest wounds were over the dorsum of the right foot and the dorsal lateral aspect of the left foot. This was taken down to bleeding tissue. Hemostasis was controlled with pressure. Once completed eschar over the amputation site of the right great toe was removed with curette and a small volume of purulent material was encountered. This was appropriately cultured and then cleared and irrigated. This did not appear to extend deep. Right third toe was gangrenous and was separately completely excised with a #15 scalpel blade down to the phalangeal metatarsal joint. Articular surface of the third metatarsal was then removed. Due to the proximity to the eschared wound, I elected not to attempt to close this amputation site. After confirmation of hemostasis with pressure, wet-to-dry dressing was then applied to all the wounds and secured with Kerlix and tape. He tolerated procedure well was awakened from anesthesia and taken to the postoperative care unit. We will continue IV antibiotics and plan for daily wet-to-dry dressing changes. After discharge, he will follow-up with wound care services.
--- NOTE | 2020-08-23 14:34 | PC.NURSE ---
left anterior foot wound measured 9cm x 7cm after debriding eschar
--- NOTE | 2020-08-23 14:41 | SUR.PHASEI ---
1440- ORAL AIRWAY REMOVED, SIMPLE MASK AT 6LPM SAT 95%
--- NOTE | 2020-08-23 15:55 | ANE.PACU2 ---
Inpatient post-anesthesia follow up: Airway intact: Yes Vital signs: Temperature 97.6 F Pulse Rate [Monito r] 100 Pulse Rate 79 Respiratory Rate 18 Blood Pressure [Le ft Arm] 118/81 Blood Pressure 102/68 Pulse Oximetry 92 Oxygen Delivery Me thod Nasal Cannula Oxygen Flow Rate 2 Fraction of Inspir ed Oxygen Hydration adequate: Yes Nausea and vomiting: No Pain level: 2 Mental status: Baseline
[2020-08-23 17:08] LABS: Glucose Point of Care 80 mg/dL (70-110)
[2020-08-24] VITALS (13 sets, daily range): BP systolic 94–148; BP diastolic 56–72; PULSE 78–86; RESP 16–20; TEMP 36.6–36.8; O2SAT 96–98
[2020-08-24] MEDS: heparin 5,000 unit/mL INJ 1 mL 5000 UNIT SUBCUT (00:36)
[2020-08-24] MEDS: ketorolac 30 mg/mL INJ IVP (01:22)
--- NOTE | 2020-08-24 05:53 | PC.NURSE ---
SHIFT NOTE patient rested with eyes closed at the beginning of shift, mostly since 0030. primary focus is roommate
[2020-08-24] MEDS: methadone 10 mg Tablet 130 MG PO (06:14)
--- NOTE | 2020-08-24 06:56 | PM.PN ---
Subjective Subjective: Interval history: POD #1 status post debridement of right and left feet and amputation of right third toe. Postoperative discomfort appears to be under good control this morning. No complaints expressed. Vitals/I&O/Wt Last Vital Signs Temp 98.1 F 08/24/20 04:00 Pulse 83 08/24/20 04:00 Resp 20 H 08/24/20 06:14 BP 148/62 08/24/20 05:36 Pulse Ox 96 08/24/20 04:00 08/23/20 08/23/20 08/24/20 14:59 22:59 06:59 Intake Total 300 / 300 240 / 540 440 / 980 Output Total 20 / 20 0 / 20 0 / 20 Balance 280 / 280 240 / 520 440 / 960 Weight last 48 hrs Weight 200 lb Physical Exam Extremity: OTHER: Surgical dressings remain in place. No strikethrough. Will recommend continuing wet-to-dry dressing changes daily. Data : 08/23/20 06:20 08/23/20 10:09 Micro: Microbiology 08/22/20 09:55 Blood Culture - Preliminary Blood NEGATIVE TO DATE 08/22/20 09:55 Blood Culture - Preliminary Blood NEGATIVE TO DATE A&P Assessment and plan (1) Cellulitis and abscess of lower extremity: POD #1 status post debridement of feet bilaterally along with amputation of right third toe. Plan: Recommend continuing daily wet-to-dry dressing changes. Upon discharge, confirm follow-up appointment in wound care services. Status: Acute Attestations Medical Necessity Statement*: Nonhealing wounds feet bilaterally Time Spent in Patient Care: less than 15 minutes Coding Level of Care Code Acute Manager Wellness for [facility] Diagnoses Cellulitis and abscess of lower extremity L03.119; L02.419
--- NOTE | 2020-08-24 08:36 | P.PN_ITS ---
Subjective Subjective: Interval history: Deandra reports he has some pain. He is glad he got debrided yesterday. Medications: Reviewed: Yes Vitals/I&O/Wt Last Vital Signs Temp 98.1 F 08/24/20 07:13 Pulse 78 08/24/20 07:13 Resp 18 08/24/20 07:13 BP 104/69 08/24/20 07:13 Pulse Ox 97 08/24/20 07:13 08/23/20 08/24/20 08/24/20 22:59 06:59 14:59 Intake Total 240 / 540 440 / 980 Output Total 0 0 20 Balance 240 / 520 440 / 960 Weight last 48 hrs Weight 90.718 kg Physical Exam Narrative: EXAM NARRATIVE: General exam is a white male, no obvious distress. Neck is supple no lymphadenopathy or thyromegaly Cardiovascular regular rate and rhythm without murmur, no S3 or S4 Lungs clear no wheezing or crackles Abdomen is soft, positive bowel sounds. No obvious organomegaly Extremities bilateral lower extremities right not visualized secondary to bulky dressing. Left distal area toes with excellent capillary refill. Data : 08/23/20 06:20 08/23/20 10:09 Micro: Microbiology 08/22/20 09:55 Blood Culture - Preliminary Blood NEGATIVE TO DATE 08/22/20 09:55 Blood Culture - Preliminary Blood NEGATIVE TO DATE Other data: Laboratory pending for today A&P Assessment and plan (1) Cellulitis: Continue vancomycin Cellulitis was improving yesterday Postop day #1 status post debridement Probable discharge tomorrow if continues to improve. Status: Acute (2) Gangrene: Appreciate orthopedic consult. He may need an amputation of his gangrenous digit. There is also concern of osteomyelitis on CT of left fifth metatarsal head, however no skin breakdown is not noted in this area and o steomyelitis is not confirmed. Vascular surgery has also been consulted, and took the patient for debridement and amputation of right third toe yesterday. No complications. Patient will need follow-up in the wound clinic. Dressings currently are wet to dry. Status: Acute (3) Tobacco abuse: Encourage abstinence Status: Acute (4) Buerger's disease: Discussed importance of stopping tobacco products considering his diagnosis and likelihood for more amputations if he continues to smoke. Status: Acute (5) Chronic GERD: Continue Protonix Status: Acute (6) Anemia: Patient denies blood in his stool or black or tarry stools but does has have history of reflux. Continue Protonix. Laboratory indicates iron deficiency anemia. Stool Hemoccult pending. Laboratory from today is pending Status: Acute (7) Hepatitis C antibody test positive: Will need to determine if he has had treatment in the past. If not will need to be referred for further testing with viral load to determine need of treatment. Status: Acute Additional A&P Information Full code Heparin for DVT prophylaxis Attestations Medical Necessity Statement*: Needs continued hospitalization for IV antibiotics secondary to cellulitis as well as close monitoring status post debridement. Possible discharge tomorrow. Coding Level of Care Code Acute Cloud Systems Administrator for [facility] Diagnoses Cellulitis L03.90 Gangrene I96 Tobacco abuse Z72.0 Buerger's disease I73.1 Chronic GERD K21.9 Anemia D64.9 Hepatitis C antibody test positive R76.8
[2020-08-24 09:10] LABS: Basophils % 0.5 %; Eosinophils # 0.2 10^3/uL (0.0-0.8); Eosinophils % 3.2 %; Hematocrit 27.2 % (42.0-52.0); Hemoglobin 8.4 g/dL (11.7-16.6); Lymphocytes # 1.3 10^3/uL (0.8-4.8); Lymphocytes % 20.3 %; Mean Corpuscular HGB Conc 30.9 g/dL (30.0-36.0); Mean Corpuscular Hemoglobin 27.5 pg (28.0-34.0); Mean Corpuscular Volume 89.2 fL (80-94); Mean Platelet Volume 10.9 fL (7.4-10.4); Monocytes # 0.5 10^3/uL (0.2-0.9); Neutrophils # 4.15 10^3/uL (1.8-7.7); Neutrophils % 67.4 %; Nucleated Red Blood Cells % 0 %; Platelet Count 184 10^3/cmm (130-400); Red Blood Count 3.05 10^6/uL (4.1-5.3); Red Cell Distribution Width 13.4 % (12.1-15.1); White Blood Count 6.2 10^3/uL (4.0-10.0)
[2020-08-24 09:29] LABS: Alanine Aminotransferase 17 U/L (0-41); Albumin Level 2.6 g/dL (3.5-5.2); Alkaline Phosphatase 39 IU/L (40-130); Blood Urea Nitrogen 11 mg/dL (6-20); C Reactive Protein 122.4 mg/L (0.0-4.9); Calcium 7.8 mg/dL (8.5-10.5); Carbon Dioxide 23 mmol/L (22-29); Chloride 104 mmol/L (98-107); Globulin 3.8 g/dL (1.3-4.6); Glomerular Filtration Rate 90.1 mL/min (90-130); Glucose 112 mg/dL (65-115); Osmolality Calculated 280 mOsm/kg (285-295); Sodium 135 mmol/L (136-145); Total Bilirubin 0.3 mg/dL (0.15-1.2); Total Protein 6.4 g/dL (6.6-8.7)
[2020-08-24 09:31] LABS: Anion Gap 12.1 (5-19); Aspartate Amino Transferase 25 U/L (0-40); Potassium 4.1 mmol/L (3.5-5.1)
[2020-08-24 09:41] LABS: Vancomycin Trough 17.2 ug/mL (10-15)
[2020-08-24] MEDS: aspirin 81 mg EC Tablet PO (10:09)
[2020-08-24] MEDS: vancomycin 1,500 MG/300 ML PIGGYBACK 200 MG IV ×2 (10:09→21:53)
[2020-08-24] MEDS: pantoprazole DR 40 mg Tablet PO (10:10)
[2020-08-24] MEDS: clopidogrel 75 mg Tablet PO (10:10)
[2020-08-24] MEDS: NIFEdipine ER (24 hr) 30 mg Tablet PO (10:11)
[2020-08-24] MEDS: oxyCODONE-APAP 10-325 mg Tablet PO (11:24)
[2020-08-24 16:40] LABS: Glucose Point of Care 101 mg/dL (70-110)
[2020-08-24] MEDS: iron sucrose 200 MG in sodium chloride 0.9% (100 ml) 100 ML 220 MG IV (18:06)
[2020-08-24] MEDS: acetaminophen 325 mg Tablet 650 MG PO (18:07)
--- NOTE | 2020-08-24 18:40 | PC.NURSE ---
AT APPROX. 1500 PTS DRESSING WAS CHANGED ON PTS R FOOT. HE REQUESTED TO WAIT ON HIS LEFT FOOT DRESSING CHANGE UNTIL LATER.
[2020-08-25] VITALS (8 sets, daily range): BP systolic 94–142; BP diastolic 60–74; PULSE 78–85; RESP 16–18; TEMP 36.3–36.8; O2SAT 93–96
[2020-08-25] MEDS: oxyCODONE-APAP 10-325 mg Tablet PO (01:42)
[2020-08-25] MEDS: heparin 5,000 unit/mL INJ 1 mL 5000 UNIT SUBCUT (01:42)
[2020-08-25] MEDS: methadone 10 mg Tablet 130 MG PO (06:40)
[2020-08-25] MEDS: pantoprazole DR 40 mg Tablet PO (08:17)
[2020-08-25] MEDS: clopidogrel 75 mg Tablet PO (08:17)
[2020-08-25] MEDS: aspirin 81 mg EC Tablet PO (08:17)
[2020-08-25] MEDS: NIFEdipine ER (24 hr) 30 mg Tablet PO (08:17)
[2020-08-25] MEDS: vancomycin 1,500 MG/300 ML PIGGYBACK 200 MG IV (08:18)
--- NOTE | 2020-08-25 09:38 | P.DS_ITS ---
Discharge Providers Date of Admission: 08/22/20 12:29 Date of Discharge: August 25, 2020 Attending Provider at Admission: Rosales Carr MD Attending Provider at Discharge: Rosales Carr MD Primary Care Provider: Rogelio Reinoso MD Diagnoses at Discharge Discharge Diagnosis (1) Cellulitis: Status: Acute (2) Gangrene: Status: Acute (3) Tobacco abuse: Status: Acute (4) Buerger's disease: Status: Acute (5) Chronic GERD: Status: Acute (6) Anemia: Status: Acute (7) Hepatitis C antibody test positive: Status: Acute Reason for Visit Reason for Visit: Poss Blood Clot/R. Thigh Swelling/Trouble Walking Hospital Course Hospital Course Deandra is a 50-year-old white male who presented to the hospital with complaints of worsening condition of his Buerger's disease and discoloration of the toes on his right foot. He was found to have some cellulitis surrounding black eschar on the dorsal surface of both feet and gangrene of the right third digit. He was placed on IV vancomycin. Orthopedic as well as wound care consultations were obtained. He underwent debridement, and amputation of the third toe on the right foot on August 23. He tolerated this well. He was monitored closely postoperatively, and he remained afebrile with resolving cellulitis noted of his lower extremities. It was thought he could be discharged home on Bactrim for 10 days with close follow-up and wound care early next week as well as his primary care provider. Anemia was found during his hospital stay, and he received an iron transfusion and was placed on iron at discharge. Stool Hemoccult will need to be done as an outpatient, and possible further evaluation. While in the hospital he received a CT scan of both lower extremities demonstrating no obvious osteomyelitis other than a possible osteomyelitis site right third toe metatarsal head. On this side there was no evidence of significant skin breakdown around this bone, and osteomyelitis was felt less likely. I did review the CT with radiology. It was read as possible osteomyelitis secondary to significant osteopenia present there increasing difficulty of read. He will follow-up with wound healing clinic regarding this and further evaluation and testing will be done as needed. On August 25 he was stable to be discharged. I discussed with him all the health conditions involved including his anemia, possible although unlikely osteomyelitis right fifth metatarsal head. I discussed with him not smoking and that he would likely continue to have loss of more tissue lower extremities if this continues. He was able to ask questions, and Hospital course was discussed with his mother as well. Physical Exam Narrative: EXAM NARRATIVE: General exam no apparent distress Cardiovascular regular rate and rhythm Lungs clear Abdomen is soft with positive bowel sounds Extremities postsurgical, resolving cellulitis Discharge Data Data Completed and Pending: Completed Studies During Hospitalization Category Date Time Status CT foot LT w con [id number] Stat Cat Scan 08/22/20 09:[address] foot RT w con [id number] Stat Cat Scan 08/22/20 09:26 Completed XR chest 1V arjun ble [id number] Stat Exams 08/22/20 09:27 Completed XR foot LT min 3V * [id number] Stat Exams 08/22/20 09:26 Completed XR foot RT min 3V * [id number] Stat Exams 08/22/20 09:26 [place] [id number] Stat Ultrasound 08/22/20 09:13 Completed Pending at discharge Category Date Time Status Anaerobic Culture Routine Lab 08/23/20 14:00 Results Blood Culture Sta t Lab 08/22/20 09:55 Results Immunochemical Fe suzanne OCB Routine Lab 08/22/20 13:06 Uncollected Wound Culture Rou maria elena Lab 08/23/20 14:00 Results Pathology: Surgic al [PTH] Routine Pth 08/23/20 14:33 Received Labs from last 24 hours 08/24/20 08/24/20 15:31 08:58 POC Glucose 101 Vancomycin Trough 17.2 H Vitals: Last Vital Signs Temp 97.6 F 08/25/20 07:29 Pulse 85 08/25/20 07:29 Resp 16 08/25/20 07:29 BP 113/74 08/25/20 07:29 Pulse Ox 94 08/25/20 07:29 Discharge Plan Discharge Patient Disposition: Home Health Service Condition: Stable Prescriptions: New oxycodone-acetaminophen 10-325 mg Tablet 1 - 2 tab PO Q4H PRN (Reason: Moderate To Severe Pain) Qty: 20 RF: 0 sulfamethoxazole-trimethoprim [Bactrim DS] 800-160 mg tablet 1 tab PO BID 10 Days Qty: 20 RF: 0 ferrous sulfate 325 mg (65 mg iron) tablet 325 mg PO BID Qty: 60 RF: 0 Continued acetaminophen 500 mg capsule 1,000 mg PO PRN RF: 0 multivitamin Tablet 1 tab PO DAILY RF: 0 nifedipine 30 mg tablet extended release 24hr 30 mg PO QAM RF: 0 pentoxifylline 400 mg tablet extended release 400 mg PO TID RF: 0 Plavix 75 mg tablet 75 mg PO QAM RF: 0 aspirin 81 mg tablet,delayed release (DR/EC) 81 mg PO QAM RF: 0 Protonix 40 mg tablet,delayed release (DR/EC) 40 mg PO QAM RF: 0 methadone 130 mg PO QAM RF: 0 Discharge Orders: Discharge Order (Routine); Ordered 08/25/20 Ordered By: Rosales Carr Referrals: Rogelio Reinoso MD [Primary Care Provider] - 4-7 days (CBC on follow-up. Potentially further work-up of anemia.) WOUND CARE CLINIC, [Staff Physician] - 1-3 days Discharge Diet: Regular Discharge Activity: Increase activity as tolerated Patient Instructions: Opioid Safety Activity Restrictions/Additional Instructions: Wet-to-dry dressing changes daily to both feet. Please visit with your primary care provider regarding potentially further work- up of anemia. Return for any concerns Discharge Attestations Time Spent in Discharge Care*: greater than 30 min Quality Metrics Clinical Quality Measures During this hospital stay, did patient experience: None Coding Level of Care Code Acute Chg FW PR note Diagnoses Cellulitis L03.90 Gangrene I96 Tobacco abuse Z72.0 Buerger's disease I73.1 Chronic GERD K21.9 Anemia D64.9 Hepatitis C antibody test positive R76.8
--- NOTE | 2020-08-25 11:26 | PC.RESP ---
SMOKING CESSATION INFORMATION SENT TO PATIENT.
--- NOTE | 2020-08-25 15:54 | PC.NURSE ---
pt verbalized understanding of discharge instructions, home medications, dressing change orders, and follow up appointments. patient refused dressing change on two occasions throughout the day. requested to change dressing to go over instructions and patient stated that he has lots of experience with caring for his wounds, and would change the dressings once he was home.
== END 2020-08-25 15:35 | disposition home health service (06) | DRG 572 ==
LOC: ER 09:12 → MEDSURG 14:15
PROVIDERS: Thoracic Surgery (Cardiothoracic Vascular Surgery); Admitting Provider Internal Medicine; Emergency Provider Family Medicine; PCP Family Medicine Adult Medicine; Visit Provider Internal Medicine
PROC: 0Y6T0Z0 Detachment at Right 3rd Toe, Complete, Open Approach (ICD-10-PCS; principal; 2020-08-23 13:00)
DX: L03.115 Cellulitis of right lower limb (principal); I73.1 Thromboangiitis obliterans [Buerger's disease]; L03.116 Cellulitis of left lower limb; K21.9 Gastro-esophageal reflux disease without esophagitis; D50.9 Iron deficiency anemia, unspecified; R76.8 Other specified abnormal immunological findings in serum; F17.218 Nicotine dependence, cigarettes, with other nicotine-induced disorders; S91.302A Unspecified open wound, left foot, initial encounter; S91.301A Unspecified open wound, right foot, initial encounter; X58.XXXA Exposure to other specified factors, initial encounter; Z79.02 Long term (current) use of antithrombotics/antiplatelets; Z79.82 Long term (current) use of aspirin; Z89.022 Acquired absence of left finger(s); Z89.411 Acquired absence of right great toe
CPT/HCPCS: 36415; 36416; 71045; 73630; 73701; 80053; 80202; 81001; 82728; 82962; 83540; 83550; 83605; 85025; 86140; 87040; 87070; 87075; 87077; 87186; 88305; 88311; 93005; 93971; 96372; 99285; J0690; J1644; J1756; J1885; J1956; J2250; J2405; J2704; J2710; J3010; J3370; J3490; J7050; Q9967

== ENCOUNTER 2020-08-31 10:16 | Emergency (ER) | payer MEDICAID, SELFPAY ==
[2020-08-31 10:30] VITALS: BP 126/84; PULSE 112; RESP 16; TEMP 36.5; O2SAT 99; BMI 28.7
--- NOTE | 2020-08-31 10:43 | W.ED.WOUNDLC ---
HPI - Wound/Laceration General: Chief Complaint: Wound/Laceration Stated Complaint: Foot pain, Post surgery Time Seen by Provider: 08/31/20 10:30 Source: patient Mode of arrival: ambulatory Limitations: no limitations History of Present Illness: HPI narrative: 50 yo male patient presents to ER for dressing change. Pt had a wound debridement and amputation to right foot on 24th of this month. Home health came to his house today for dressing change and it was belligerent with them and would not allow them to do this without pain meds. Pt c/o paint o post surigcal site. pt denies any fever or wound drainage. Extremity Location: Right: foot Associated symptoms: Denies chills, fever(s), nausea or vomiting Review of Systems Const: Denies: fever(s), chills or body aches Card: Denies: chest pain Resp: Denies: dyspnea GI: Denies: abdominal pain, nausea or vomiting : Denies: flank pain or difficulty urinating Musc: Reports: other (post surigcal dressing to right foot/toes. ); Denies: back pain Skin/Breast: Denies: rash or pruritus Neuro: Denies: headache(s), numbness in extremities or weakness in extremities Psych: Denies: anxiety or depression PFSH ED PFSH: Medical History Atherosclerotic PVD with ulceration Buerger's disease Chronic foot ulcer, limited to breakdown of skin Chronic GERD Hepatitis C antibody test positive Smoker unmotivated to quit Surgical History History of surgical amputation of finger of left hand Family History Other CAD (coronary artery disease) Cancer Diabetes Social History Smoking and tobacco status: current every day smoker cigarettes Packs smoked per day: 1 Alcohol intake: never Household members: family Marital status: Number of children: 1 Current occupational status: unemployed Physical Exam Const: COMMON NORMALS: no acute distress HENMT: COMMON NORMALS: normocephalic and atraumatic HEAD & SCALP: normocephalic and atraumatic Eye: COMMON NORMALS: Equal, round and reactive pupils present PUPIL: Yes Equal, round and reactive pupils present Neck/C-Spine: COMMON NORMALS: no JVD Chest: COMMONS NORMALS: normal inspection of the chest Resp: COMMON NORMALS: normal respiratory effort Cardio: COMMON NORMALS: no JVD, regular rate and regular rhythm RATE: regular rate RHYTHM: regular rhythm Extremity: RIGHT LOWER EXTREMITY: Yes foot & digits (post surgical dressing to right foot patient refuses to have removed withou) Course Vital Signs: Vital signs: Vital Signs Temperature 97.7 F 08/31/20 10:30 Pulse Rate 112 H 08/31/20 10:30 Respiratory Rate 16 08/31/20 10:30 Blood Pressure 126/84 08/31/20 10:30 Pulse Oximetry 99 08/31/20 10:30 MDM - Wound/Laceration MDM Narrative: Medical decision making narrative: Pt is well appearing non toxic and in no acute distress. 50 yo male patient presents to ER for dressing change. Pt had a wound debridement and amputation to right foot on 24th of this month. Home health came to his house today for dressing change and it was beligerent with them and would not allow them to do this without pain meds. Pt c/o paint o post surigcal site. pt denies any fever or wound drainage. Pt refuses to allow us to remove dressing without sedation. I called and spoke with wound nurse and Julia Saini who states they will see patient in office for dressing change and wound assessment at 11AM today. They will agree to local lidocaine to wound prior to dressing change I discussed this plan with patient and he agrees. Pt discharged and states he will head straight there. Discharge Plan Discharge Patient Disposition: Home Clinical Impression: Change of dressing Condition: Stable Prescriptions: No Action acetaminophen 500 mg capsule 1,000 mg PO PRN RF: 0 multivitamin Tablet 1 tab PO DAILY RF: 0 nifedipine 30 mg tablet extended release 24hr 30 mg PO QAM RF: 0 pentoxifylline 400 mg tablet extended release 400 mg PO TID RF: 0 Plavix 75 mg tablet 75 mg PO QAM RF: 0 aspirin 81 mg tablet,delayed release (DR/EC) 81 mg PO QAM RF: 0 Protonix 40 mg tablet,delayed release (DR/EC) 40 mg PO QAM RF: 0 oxycodone-acetaminophen 10-325 mg Tablet 1 - 2 tab PO Q4H PRN (Reason: Moderate To Severe Pain) Qty: 20 RF: 0 Bactrim DS 800-160 mg tablet 1 tab PO BID 10 Days Qty: 20 RF: 0 ferrous sulfate 325 mg (65 mg iron) tablet 325 mg PO BID Qty: 60 RF: 0 methadone 130 mg PO QAM RF: 0 Discharge Orders: Discharge ED (Routine); Ordered 08/31/20 Ordered By: Charmaine Beyer Referrals: Rogelio Reinoso MD [Primary Care Provider] - Discharge Diet: Advance as tolerated Discharge Activity: Increase activity as tolerated Patient Instructions: Opioid Safety Activity Restrictions/Additional Instructions: Please go to Dr. Saini's office at 3pm for dressing change and wound assessment Coding Level of Care Code ED Coding Compliance Auditor for Babatunde Alcantar
== END 2020-08-31 10:52 | disposition home or self-care (01) ==
LOC: ER 10:44
PROVIDERS: Emergency Provider Registered Nurse; PCP Family Medicine Adult Medicine
DX: Z48.01 Encounter for change or removal of surgical wound dressing (principal); Z89.431 Acquired absence of right foot; Z79.02 Long term (current) use of antithrombotics/antiplatelets; Z79.82 Long term (current) use of aspirin; Z86.19 Personal history of other infectious and parasitic diseases; F17.210 Nicotine dependence, cigarettes, uncomplicated
CPT/HCPCS: 99281

== ENCOUNTER 2020-08-31 11:03 | Outpatient (CLI) | payer MEDICAID, SELFPAY | END 2020-08-31 11:04 | disposition home or self-care (01) | LOC: WOUND 11:04 | PROVIDERS: PCP Family Medicine Adult Medicine; Visit Provider Thoracic Surgery (Cardiothoracic Vascular Surgery) | DX: I73.9 Peripheral vascular disease, unspecified (principal); L97.322 Non-pressure chronic ulcer of left ankle with fat layer exposed; L97.512 Non-pressure chronic ulcer of other part of right foot with fat layer exposed; L97.312 Non-pressure chronic ulcer of right ankle with fat layer exposed; Z89.421 Acquired absence of other right toe(s) | CPT/HCPCS: 99215 ==

== ENCOUNTER 2020-09-08 14:06 | Outpatient (CLI) | payer MEDICAID, SELFPAY | END 2020-09-08 14:07 | disposition home or self-care (01) | LOC: WOUND 14:07 | PROVIDERS: PCP Family Medicine Adult Medicine; Visit Provider Thoracic Surgery (Cardiothoracic Vascular Surgery) | DX: I73.9 Peripheral vascular disease, unspecified (principal); L97.322 Non-pressure chronic ulcer of left ankle with fat layer exposed; L97.512 Non-pressure chronic ulcer of other part of right foot with fat layer exposed; L97.312 Non-pressure chronic ulcer of right ankle with fat layer exposed; Z89.421 Acquired absence of other right toe(s) | CPT/HCPCS: 11042; 11045 ==

== ENCOUNTER 2020-09-22 14:54 | Outpatient (RCR) | payer MEDICAID, SELFPAY | END 2020-10-01 23:59 | disposition home or self-care (01) | LOC: WOUND 14:54 | PROVIDERS: PCP Family Medicine Adult Medicine; Visit Provider Thoracic Surgery (Cardiothoracic Vascular Surgery) | DX: I73.9 Peripheral vascular disease, unspecified (principal); L97.322 Non-pressure chronic ulcer of left ankle with fat layer exposed; L97.512 Non-pressure chronic ulcer of other part of right foot with fat layer exposed; L97.312 Non-pressure chronic ulcer of right ankle with fat layer exposed; Z89.421 Acquired absence of other right toe(s) | CPT/HCPCS: 99215 ==

== ENCOUNTER 2020-09-29 14:06 | Outpatient (CLI) | payer MEDICAID, SELFPAY | END 2020-09-29 14:07 | disposition home or self-care (01) | LOC: WOUND 14:06 | PROVIDERS: PCP Family Medicine Adult Medicine; Visit Provider Nurse Practitioner Family | DX: I73.9 Peripheral vascular disease, unspecified (principal); L97.322 Non-pressure chronic ulcer of left ankle with fat layer exposed; L97.512 Non-pressure chronic ulcer of other part of right foot with fat layer exposed; L97.312 Non-pressure chronic ulcer of right ankle with fat layer exposed; Z89.421 Acquired absence of other right toe(s) | CPT/HCPCS: 99215 ==

== ENCOUNTER 2020-10-03 08:02 | Emergency (ER) | payer MEDICAID, SELFPAY ==
[2020-10-03 08:30] VITALS: BP 133/90; PULSE 99; RESP 16; TEMP 36.9; O2SAT 98; BMI 28.7
--- NOTE | 2020-10-03 08:40 | ED_ITS ---
HPI - Extremity Problem General: Chief complaint: Extremity Problem,Nontraumatic Stated complaint: L and R foot pain Time Seen by Provider: 10/03/20 08:25 Source: patient Mode of arrival: wheelchair Limitations: no limitations History of Present Illness: HPI Narrative: Patient is a 50-year-old male with a history of Buerger's disease here for concerns of infection to his bilateral feet. Patient has battled with lower extremity cellulitis, osteomyelitis, and multiple toe amputations secondary to his disease. He follows up routinely with Dr. Saini and MAGDA Huang at wound care. He states over the past 3-4 days he has noticed redness and burning to the dorsums of his feet. No fevers. Has appointment with Dr. Saini on . Of note he does state he recently s tarted using Medihoney and wonders if this could have caused the redness/burning. Associated symptoms: Deny fever(s) Review of Systems Const: Denies: fever(s), chills, body aches, fatigue or malaise Musc: Reports: extremity pain (bilateral feet) Skin/Breast: Reports: other (redness bilateral feet) Neuro: Denies: numbness in extremities or sensory changes PFSH ED PFSH: Medical History Atherosclerotic PVD with ulceration Buerger's disease Chronic foot ulcer, limited to breakdown of skin Chronic GERD Hepatitis C antibody test positive Smoker unmotivated to quit Surgical History History of surgical amputation of finger of left hand Family History Other CAD (coronary artery disease) Cancer Diabetes Social History Smoking and tobacco status: current every day smoker cigarettes Packs smoked per day: 1 Alcohol intake: never Household members: family Marital status: Number of children: 1 Current occupational status: unemployed Physical Exam Const: COMMON NORMALS: no acute distress, patient oriented x3, no limitations and alert GENERAL APPEARANCE: cooperative ORIENTATION/CONSCIOUSNESS: Yes awake, Yes oriented to person, Yes oriented to place and Yes oriented to time Extremity: NARRATIVE EXTREMITY EXAM: pt with multiple toe amputations; he has chronic dorsal feet ulcers stage II-III with eschar tissue present; no drainage to any of his wounds; no foul odor; he does have redness/warmth to L lateral foot and mild redness/warmth to dorsal surface of R foot; no lymphangitic streaking Neuro: COMMON NORMALS: patient oriented x3 SENSORIUM/ORIENTATION: Yes alert, Yes oriented to person, Yes oriented to place and Yes oriented to time Course Vital Signs: Vital signs: Vital Signs Temperature 98.5 F 10/03/20 08:30 Pulse Rate 83 10/03/20 10:00 Respiratory Rate 19 H 10/03/20 10:00 Blood Pressure 91/60 10/03/20 10:00 Pulse Oximetry 95 10/03/20 10:00 MDM - Extremity (Nontraumatic) MDM Narrative: Medical decision making narrative: Patient is not tachycardic or febrile. He has normal white count. Patient was given Vancomycin/Zosyn. He will be discharged home on Bactrim as his most recent wound cultures grew MRSA sensitive to Bactrim. He has an appointment with Dr. Saini on for follow-up. Return to ED precautions given. Lab Data: Labs: Lab Results 10/03/20 10/03/20 Range/Units 09:38 09:38 WBC 7.0 (4.0-10.0) 10^3/ uL RBC 4.13 (4.1-5.3) 10^6/u L Hgb 11.3 L (11.7-16.6) g/dL Hct 36.4 L (42.0-52.0) % MCV 88.1 (80-94) fL MCH 27.4 L (28.0-34.0) pg MCHC 31.0 (30.0-36.0) g/dL RDW 14.0 (12.1-15.1) % Plt Count 262 (130-400) 10^3/c mm MPV 10.4 (7.4-10.4) fL Neut % (Auto) 70.0 % Lymph % (Auto) 20.5 % [place] % (Auto) 7.1 % Eos % (Auto) 1.7 % Baso % (Auto) 0.4 % Neut # (Auto) 4.93 (1.8-7.7) 10^3/u L Lymph # (Auto) 1.4 (0.8-4.8) 10^3/u L [place] # (Auto) 0.5 (0.2-0.9) 10^3/u L Eos # (Auto) 0.1 (0.0-0.8) 10^3/u L Baso # (Auto) 0.0 (0.0-0.1) 10^3/u L Nucleated RBC % (a uto) 0 % Nucleated RBCs # 0.0 /100WBC Sodium 140 (136-145) mmol/L Potassium 4.7 (3.5-5.1) mmol/L Chloride 105 (98-107) mmol/L Carbon Dioxide 27 (22-29) mmol/L Anion Gap 13.5 (5-19) BUN 11 (6-20) mg/dL Creatinine 0.9 (0.7-1.2) mg/dL GFR Calculation 90.1 (90-130) mL/min Glucose 93 (65-115) mg/dL Calculated Osmolal ity 287 (285-295) mOsm/k g Calcium 8.9 (8.5-10.5) mg/dL Total Bilirubin 0.4 (0.15-1.2) mg/dL AST 12 (0-40) U/L ALT 7 (0-41) U/L Alkaline Phosphata se 60 (40-130) IU/L C-Reactive Protein 24.3 H (0.0-4.9) mg/L Total Protein 7.9 (6.6-8.7) g/dL Albumin 3.9 (3.5-5.2) g/dL Globulin 4.1 (1.3-4.6) g/dL Discharge Plan Discharge Patient Disposition: Home Clinical Impression: Cellulitis of foot Chronic foot ulcer, limited to breakdown of skin Qualifiers: Laterality: unspecified laterality Qualified Code(s): L97.501 - Non-pressure chronic ulcer of other part of unspecified foot limited to breakdown of skin Condition: Stable Prescriptions: New Bactrim DS 800-160 mg tablet 2 tab PO BID 7 Days Qty: 28 RF: 0 No Action acetaminophen 500 mg capsule 1,000 mg PO PRN RF: 0 multivitamin Tablet 1 tab PO DAILY RF: 0 nifedipine 30 mg tablet extended release 24hr 30 mg PO QAM RF: 0 pentoxifylline 400 mg tablet extended release 400 mg PO TID RF: 0 Plavix 75 mg tablet 75 mg PO QAM RF: 0 aspirin 81 mg tablet,delayed release (DR/EC) 81 mg PO QAM RF: 0 Protonix 40 mg tablet,delayed release (DR/EC) 40 mg PO QAM RF: 0 oxycodone-acetaminophen 10-325 mg Tablet 1 - 2 tab PO Q4H PRN (Reason: Moderate To Severe Pain) Qty: 20 RF: 0 ferrous sulfate 325 mg (65 mg iron) tablet 325 mg PO BID Qty: 60 RF: 0 methadone 130 mg PO QAM RF: 0 Discharge Orders: Discharge ED (Routine); Ordered 10/03/20 Ordered By: Brigitte Marion Referrals: Rogelio Reinoso MD [Primary Care Provider] - Activity Restrictions/Additional Instructions: Please follow up with Dr. Saini on as scheduled. Return to the emergency department sooner for worsening symptoms, fevers of greater than 100.4, red streaking up your leg, or any other concerns you may have. Fill antibiotics and start them immediately. Coding Level of Care Code ED Asset Protection Detective for Babatunde Alcantar
[2020-10-03 09:00] VITALS: PULSE 89
--- NOTE | 2020-10-03 09:05 | PC.NURSE ---
Both feet tight with edema. Open draining necrotic sores on both feet. Tender, throbbing and sharp pains.
[2020-10-03 09:07] VITALS: BP 108/85; PULSE 78; RESP 19; O2SAT 97
[2020-10-03 09:30] VITALS: BP 108/85; PULSE 80; O2SAT 94
[2020-10-03] MEDS: vancomycin 1,000 MG in sodium chloride 0.9% 250 ML 250 MG IV (09:48)
[2020-10-03] MEDS: piperacillin-tazobactam 3.375 GM in sodium chloride 0.9% (plus) 50 ML IV (09:49)
[2020-10-03 09:51] LABS: Basophils % 0.4 %; Eosinophils # 0.1 10^3/uL (0.0-0.8); Eosinophils % 1.7 %; Hematocrit 36.4 % (42.0-52.0); Hemoglobin 11.3 g/dL (11.7-16.6); Lymphocytes # 1.4 10^3/uL (0.8-4.8); Lymphocytes % 20.5 %; Mean Corpuscular Hemoglobin 27.4 pg (28.0-34.0); Mean Corpuscular Volume 88.1 fL (80-94); Mean Platelet Volume 10.4 fL (7.4-10.4); Monocytes # 0.5 10^3/uL (0.2-0.9); Monocytes % 7.1 %; Neutrophils # 4.93 10^3/uL (1.8-7.7); Nucleated Red Blood Cells % 0 %; Platelet Count 262 10^3/cmm (130-400); Red Blood Count 4.13 10^6/uL (4.1-5.3)
[2020-10-03 10:00] VITALS: BP 91/60; PULSE 83; RESP 19; O2SAT 95
[2020-10-03 10:09] LABS: Albumin Level 3.9 g/dL (3.5-5.2); Alkaline Phosphatase 60 IU/L (40-130); Chloride 105 mmol/L (98-107); Potassium 4.7 mmol/L (3.5-5.1); Sodium 140 mmol/L (136-145)
[2020-10-03 10:22] LABS: Alanine Aminotransferase 7 U/L (0-41); Anion Gap 13.5 (5-19); Aspartate Amino Transferase 12 U/L (0-40); Blood Urea Nitrogen 11 mg/dL (6-20); C Reactive Protein 24.3 mg/L (0.0-4.9); Calcium 8.9 mg/dL (8.5-10.5); Carbon Dioxide 27 mmol/L (22-29); Globulin 4.1 g/dL (1.3-4.6); Glomerular Filtration Rate 90.1 mL/min (90-130); Glucose 93 mg/dL (65-115); Osmolality Calculated 287 mOsm/kg (285-295); Total Bilirubin 0.4 mg/dL (0.15-1.2); Total Protein 7.9 g/dL (6.6-8.7)
[2020-10-03 11:57] VITALS: BP 100/68; PULSE 82; O2SAT 97
== END 2020-10-03 12:01 | disposition home or self-care (01) ==
PROVIDERS: Emergency Provider Physician Assistant; PCP Family Medicine Adult Medicine
DX: L97.501 Non-pressure chronic ulcer of other part of unspecified foot limited to breakdown of skin (principal); L03.119 Cellulitis of unspecified part of limb; Z79.82 Long term (current) use of aspirin; Z79.02 Long term (current) use of antithrombotics/antiplatelets; Z86.19 Personal history of other infectious and parasitic diseases; F17.210 Nicotine dependence, cigarettes, uncomplicated
CPT/HCPCS: 80053; 85025; 86140; 87040; 96365; 96367; 99284; A6446; J2543; J3370; J7050

== ENCOUNTER 2020-10-12 10:45 | Outpatient (CLI) | payer MEDICAID, SELFPAY | END 2020-10-12 10:46 | disposition home or self-care (01) | LOC: WOUND 10:45 | PROVIDERS: PCP Family Medicine Adult Medicine; Visit Provider Thoracic Surgery (Cardiothoracic Vascular Surgery) | DX: I73.9 Peripheral vascular disease, unspecified (principal); L97.322 Non-pressure chronic ulcer of left ankle with fat layer exposed; L97.312 Non-pressure chronic ulcer of right ankle with fat layer exposed; L97.512 Non-pressure chronic ulcer of other part of right foot with fat layer exposed; F17.210 Nicotine dependence, cigarettes, uncomplicated; Z89.421 Acquired absence of other right toe(s) | CPT/HCPCS: 11042; 11045 ==

== ENCOUNTER 2020-11-12 09:53 | Inpatient (IN) | payer MEDICAID, SELFPAY ==
[2020-11-12] VITALS (8 sets, daily range): BP systolic 115–131; BP diastolic 76–82; PULSE 75–111; RESP 16–18; TEMP 36.7–37.2; O2SAT 91–97; BMI 28.7
--- NOTE | 2020-11-12 09:55 | W.ED.LOWEXIN ---
HPI - Extremity Injury (Lower) General: Chief Complaint: Extremity Problem,Nontraumatic Stated Complaint: OPEN WOUNDS BILATERAL FEET, PAINFUL Time Seen by Provider: 11/12/20 09:54 History of Present Illness: HPI Narrative: 50-year-old male presents emergency room complaining of painful bilateral open wounds on the lower extremities. Patient presumably has a history of peripheral artery disease he has had several digits amputated from both toes has a traumatic amputation of his left fourth finger from work. He has been seen at wound care for the wounds on his feet but not for a couple of months that progressively worsened he is having increasing pain. Is a foul-smelling odor and significant discoloration particularly of the stumps of the right forefoot. Patient is continuing to smoke. He denies any history of diabetes. MD complaint: foot injury Onset (ago): month(s) Place: home Severity: severe Relieving factors: nothing Exacerbating factors: weight bearing, movement and palpation Associated symptoms: Reports inability to bear weight and swelling; Deny numbness Other symptoms: loss of consciousness, chest pain, diaphoresis, SOB, nausea/vomiting, seizure, syncope and confusion Review of Systems Const: Denies: fever(s), chills, body aches, change in appetite, fatigue or malaise ENMT: Denies: throat pain, ear or mastoid pain, nasal discharge or nasal congestion Card: Denies: chest pain, edema, dyspnea on exertion or orthopnea Resp: Denies: dyspnea, productive cough or non-productive cough GI: Denies: abdominal pain, nausea, vomiting, hematemesis, coffee ground emesis, diarrhea, constipation, bloating, hematochezia or melena : Denies: flank pain, dysuria, urinary frequency or urinary urgency Skin/Breast: Denies: rash or pruritus PFSH ED PFSH: Medical History Amputated toe of right foot Atherosclerotic PVD with ulceration Buerger's disease Chronic foot ulcer, limited to breakdown of skin Chronic GERD Hepatitis C antibody test positive Hypertension Smoker unmotivated to quit Surgical History History of surgical amputation of finger of left hand Family History Other CAD (coronary artery disease) Cancer Diabetes Social History Smoking and tobacco status: current every day smoker cigarettes Packs smoked per day: 1 Alcohol intake: never Household members: family Marital status: Number of children: 1 Current occupational status: unemployed Physical Exam Const: COMMON NORMALS: no acute distress GENERAL APPEARANCE: cooperative and comfortable ORIENTATION/CONSCIOUSNESS: Yes awake, Yes oriented to person, Yes oriented to place and Yes oriented to time HENMT: COMMON NORMALS: normocephalic and atraumatic HEAD & SCALP: normocephalic and atraumatic Neck/C-Spine: COMMON NORMALS: no JVD Resp: COMMON NORMALS: normal respiratory effort, No retractions, No use of accessory muscles and clear to auscultation bilaterally AUSCULTATION: clear to auscultation bilaterally Cardio: COMMON NORMALS: no JVD, regular rate, regular rhythm and No murmurs present (Cardio) RATE: regular rate RHYTHM: regular rhythm GI: COMMON NORMALS: Soft to palpation and No hepatosplenomegaly present AUSCULTATION: Yes normoactive bowel sounds PALPATION: Yes Soft to palpation, No Tenderness to palpation present (GI), No Guarding due to palpation present (GI) and Yes No hepatosplenomegaly present Extremity: OTHER: Significant discoloration and gangrenous changes at the previous incision lines from amputations of toes on the right foot. On the dorsum of the foot there is significant superficial ulceration. Unable to palpate pulses in either lower extremity. Left foot also has superficial ulcerations on the dorsum of the foot as well as some laterally. There is some mild discoloration at the tips of the toes no active drainage. Neuro: SENSORIUM/ORIENTATION: Yes oriented to person, Yes oriented to place and Yes oriented to time Skin: COMMON NORMALS: no rashes or lesions noted GENERAL SKIN EXAM: no rashes or lesions noted Procedures Central Line Placement Right SC: Time Out Performed: Yes Patient Placed on Monitor/Pulse Ox: Yes MD Prep: mask, gown and gloves Central Line Prep: Chlorhexidine scrub Local Anesthetic: lidocaine 1% Amount of anesthesia used (mL): 4 Ultrasound Used for Placement: Yes Central Line Lumen Inserted: triple Post Procedure: sutured in place, good blood return, all ports aspirated, flushed, capped and sterile dressing applied Post Procedure X-Ray: other (See notes below initially catheter is malpositioned into the right IJ) Patient Tolerated Procedure: well Complications: catheter malposition Additional Comments: On initial chest x-ray the catheter is in the right IJ. Several attempts were made using chest x-ray to verify to reposition it. Are unable to get a reposition to continue to track up the IJ we abandon that catheter and swapped out for a new catheter over a guidewire that catheter as well continue to track into the IJ. We attempted to secure the catheter within the left subclavian however the proximal port did not seem to be working well. There seemed to be soft tissue swelling when flushed. The other 2 more distal ports were both drawing blood and flushing. Decision was made to remove the central line and replaced with a right IJ see the note below Right IJ: Time Out Performed: Yes Patient Placed on Monitor/Pulse Ox: Yes MD Prep: mask, gown and gloves Central Line Prep: Chlorhexidine scrub Local Anesthetic: lidocaine 1% Amount of anesthesia used (mL): 5 Ultrasound Used for Placement: Yes Central Line Lumen Inserted: triple Post Procedure: sutured in place, good blood return, all ports aspirated, flushed, capped and sterile dressing applied Post Procedure X-Ray: tip of catheter in good position Patient Tolerated Procedure: well Complications: none Course Vital Signs: Vital signs: Vital Signs Temperature 98.2 F 11/12/20 10:05 Pulse Rate 75 11/12/20 15:14 Respiratory Rate 16 11/12/20 15:14 Blood Pressure 131/81 11/12/20 15:14 Pulse Oximetry 95 11/12/20 15:14 MDM - Extremity Injury (Lower) MDM Narrative: Medical decision making narrative: Significant difficulty with position of the first attempted central line multiple attempts were made including flopping over the new catheter over a guidewire regardless of any interventions the line Tracking into the internal jugular. We was secured in the subclavian however there is concern that it was infiltrating. That line was abandoned and removed and a second central line placed in the right IJ. Patient tolerated well. Discussed with Dr. Arteaga as well as Dr. Davis. Patient admitted for osteomyelitis and initiation of IV antibiotics and surgical evaluation of the wound. Orders written. Lab Data: Labs: Lab Results 11/12/20 11/12/20 11/12/20 Range/Units 11:54 11:54 11:54 WBC 8.6 (4.0-10.0) 10^3/ uL RBC 3.94 L (4.1-5.3) 10^6/u L Hgb 10.7 L (11.7-16.6) g/dL Hct 33.4 L (42.0-52.0) % MCV 84.8 (80-94) fl MCH 27.2 L (28.0-34.0) pg MCHC 32.0 (30.0-36.0) g/dL RDW 13.4 (12.1-15.1) % Plt Count 213 (130-400) 10^3/c mm MPV 10.3 (7.4-10.4) fL Neut % (Auto) 73.0 % Lymph % (Auto) 15.4 % Stephenson % (Auto) 9.3 % Eos % (Auto) 1.4 % Baso % (Auto) 0.3 % Neut # (Auto) 6.29 (1.8-7.7) 10^3/u L Lymph # (Auto) 1.3 (0.8-4.8) 10^3/u L Stephenson # (Auto) 0.8 (0.2-0.9) 10^3/u L Eos # (Auto) 0.1 (0.0-0.8) 10^3/u L Baso # (Auto) 0.0 (0.0-0.1) 10^3/u L Nucleated RBC % (a uto) 0 % Nucleated RBCs # 0.0 /100WBC Sodium 133 L (136-145) mmol/L Potassium 3.8 (3.5-5.1) mmol/L Chloride 98 (98-107) mmol/L Carbon Dioxide 22 (22-29) mmol/L Anion Gap 16.8 (5-19) BUN 7 (6-20) mg/dL Creatinine 0.8 (0.7-1.2) mg/dL GFR Calculation 103.2 (90-130) mL/min Glucose 95 (65-115) mg/dL Calculated Osmolal ity 274 L (285-295) mOsm/k g Lactic Acid 1.1 (0.5-2.2) mmol/L Calcium 8.3 L (8.5-10.5) mg/dL Total Bilirubin 0.4 (0.15-1.2) mg/dL AST 21 (0-40) U/L ALT 14 (0-41) U/L Alkaline Phosphata se 40 (40-130) IU/L Creatine Kinase 124 (39-308) U/L Total Protein 8.0 (6.6-8.7) g/dL Albumin 3.0 L (3.5-5.2) g/dL Globulin 5.0 H (1.3-4.6) g/dL Discharge Plan Discharge Patient Disposition: Admitted As Inpatient Admit Provider: Darian Issa Clinical Impression: Cellulitis, Atherosclerotic PVD with ulceration, Tobacco abuse, Anemia, Cellulitis and abscess of lower extremity, Osteomyelitis of ankle or foot, right, acute Condition: Stable Coding Level of Care Code ED [employer] for g Fwd Exam Detailed
--- NOTE | 2020-11-12 10:22 | CTR_ITS ---
PROCEDURE INFORMATION: Exam: CT Right Lower Extremity With Contrast, Foot Exam date and time: 11/12/2020 10:22 AM Age: 50 years old Clinical indication: Cellulitis. Prior toe amputation. History of Buergers disease and hepatitis C with bilateral foot infections/ulcers. Osteomyelitis. TECHNIQUE: Imaging protocol: CT of the Right lower extremity with intravenous contrast was performed. Exam focused on the foot. Radiation optimization: All CT scans at this facility use at least one of these dose optimization techniques: automated exposure control; mA and/or kV adjustment per patient size (includes targeted exams where dose is matched to clinical indication); or iterative reconstruction. Contrast material: OMNI 300; Contrast volume: 75 ml; Contrast route: INTRAVENOUS (IV); COMPARISON: CT foot RT w con [id number] 08/22/2020 10:19 AM RADIATION DOSE METRICS: Total DLP (mGy-cm): 428.56 FINDINGS: There has been prior disarticulation of the great toe at the metatarsophalangeal joint. There has been prior transphalangeal amputation of the 2nd and 3rd toes. There is possible avascular necrosis involving the distal 2nd and 4th metatarsals. The 5th ray is not included on the current study. There are shallow ulcers involving the visualized foot and ankle with extensive subcutaneous edema/fluid compatible with cellulitis. No tracking soft tissue gas is seen to suggest necrotizing fasciitis. No acute osseous destruction is seen to suggest osteomyelitis. CT/CT foot RT w con [id number] IMPRESSION: 1. There are shallow ulcers involving the visualized foot and ankle with extensive subcutaneous edema/fluid compatible with cellulitis. No tracking soft tissue gas is seen to suggest necrotizing fasciitis. No acute osseous destruction is seen to suggest osteomyelitis. 2. Possible avascular necrosis involving the distal 2nd and 4th metatarsals. 3. The 5th ray is not included on the current study. Radiation Dose CTDIVOL = (mGy): DLP = 428.56 (mGy-cm)
--- NOTE | 2020-11-12 10:22 | XRR_ITS ---
PROCEDURE INFORMATION: Exam: XR Left Foot Exam date and time: 11/12/2020 10:22 AM Age: 50 years old Clinical indication: Pain; Foot; Left; Additional info: Osteomyelitis TECHNIQUE: Imaging protocol: XR Left foot. Views: 3 or more views. COMPARISON: CT foot LT w con [id number] 08/22/2020 10:15 AM FINDINGS: Bones/joints: No significant bone or joint abnormalities are seen. Soft tissues: There is soft tissue swelling around the foot. There is soft tissue irregularity along the lateral aspect of the hindfoot which may represent ulceration. XR/XR foot LT min 3V* [id number] IMPRESSION: No significant bony abnormality.
--- NOTE | 2020-11-12 10:22 | CTR_ITS ---
PROCEDURE INFORMATION: Exam: CT Left Lower Extremity With Contrast, Foot Exam date and time: 11/12/2020 10:22 AM Age: 50 years old Clinical indication: Cellulitis on the left. History of Buergers disease and hepatitis C with bilateral foot infections/ulcers. Osteomyelitis. TECHNIQUE: Imaging protocol: CT of the Left lower extremity with intravenous contrast was performed. Exam focused on the foot. Radiation optimization: All CT scans at this facility use at least one of these dose optimization techniques: automated exposure control; mA and/or kV adjustment per patient size (includes targeted exams where dose is matched to clinical indication); or iterative reconstruction. Contrast material: OMNI 300; Contrast volume: 75 ml; Contrast route: INTRAVENOUS (IV); COMPARISON: CT foot LT w con [id number] 08/22/2020 10:15 AM RADIATION DOSE METRICS: Total DLP (mGy-cm): 219.11 FINDINGS: Age-indeterminate fracture involving the distal and dorsal aspect of the talus. Motion artifact compromises the examination. Cortical surface step-off involving the distal phalanx of the great toe is likely artifactual; correlate for tenderness. There are shallow ulcerations involving the ankle and foot. There is subcutaneous edema compatible with cellulitis. No tracking soft tissue gas is seen to suggest necrotizing fasciitis. No acute osseous destruction is seen to suggest osteomyelitis. CT/CT foot LT w con [id number] IMPRESSION: 1. There are shallow ulcerations involving the ankle and foot. There is subcutaneous edema compatible with cellulitis. No tracking soft tissue gas is seen to suggest necrotizing fasciitis. No acute osseous destruction is seen to suggest osteomyelitis. 2. Motion artifact compromises the examination. Cortical surface step-off involving the distal phalanx of the great toe is likely artifactual; correlate for tenderness. 3. Age-indeterminate fracture involving the distal and dorsal aspect of the talus; correlate for tenderness. Radiation Dose CTDIVOL = (mGy): DLP = 219.11 (mGy-cm)
--- NOTE | 2020-11-12 10:22 | USR_ITS ---
PROCEDURE INFORMATION: Exam: US Duplex Lower Extremity Arteries Exam date and time: 11/12/2020 10:22 AM Age: 50 years old Clinical indication: Other: Non healing ulcers; Additional info: Non-healing ulcers/infection TECHNIQUE: Imaging protocol: Real-time ultrasound scan of the arteries of the bilateral lower extremities with 2-D honeycutt scale, color Doppler flow and spectral waveform analysis. Images documented and saved. COMPARISON: CT foot RT w con [id number] 08/22/2020 10:19 AM FINDINGS: Right common femoral artery: No occlusion or significant stenosis. Normal waveform. Right superficial femoral artery: No occlusion or significant stenosis. Normal waveform. Right popliteal artery: No occlusion or significant stenosis. Normal waveform. Right calf/foot arteries: No occlusion or significant stenosis in the visualized arteries. Normal waveforms. Dorsalis pedis artery is patent. The right ankle brachial index equals 0.89. Left common femoral artery: No occlusion or significant stenosis. Normal waveform. Left superficial femoral artery: No occlusion or significant stenosis. Normal waveform. Left popliteal artery: No occlusion or significant stenosis. Normal waveform. Left calf/foot arteries: No occlusion or significant stenosis in the visualized arteries. Normal waveforms. Dorsalis pedis artery is patent. The left ankle brachial index equals 0.85. US/[place] [id number] IMPRESSION: No stenosis or occlusion.
--- NOTE | 2020-11-12 10:22 | XRR_ITS ---
PROCEDURE INFORMATION: Exam: XR Right Foot Exam date and time: 11/12/2020 10:22 AM Age: 50 years old Clinical indication: Pain; Foot; Right; Prior surgery; Surgery type: Toes; Additional info: Osteomyelitis TECHNIQUE: Imaging protocol: XR Right foot. Views: 3 or more views. COMPARISON: CT foot RT w con [id number] 08/22/2020 10:19 AM FINDINGS: Bones/joints: The right 1st toe has been amputated at the metatarsophalangeal joint. The 2nd and 3rd toes have been amputated through the proximal ends of the proximal phalanxes. There is mild osteolysis along the head of the 1st metatarsal bone along the remaining portion of the proximal phalanx of the 3rd toe. This may represent erosion from osteomyelitis. Soft tissues: There is prominent soft tissue swelling around the foot. XR/XR foot RT min 3V* [id number] IMPRESSION: There is mild osteolysis along the head of the 1st metatarsal bone and the remaining portion of the proximal phalanx of the 3rd toe which may represent osteomyelitis.
--- NOTE | 2020-11-12 10:23 | XRR_ITS ---
PROCEDURE INFORMATION: Exam: XR Chest Exam date and time: 11/12/2020 10:23 AM Age: 50 years old Clinical indication: Cough and dyspnea; Additional info: Dyspnea/cough TECHNIQUE: Imaging protocol: XR of the chest. Views: 1 view. COMPARISON: CR XR chest 1V portable [id number] 08/22/2020 10:33 AM FINDINGS: Lungs: Unremarkable. No consolidation. Pleural spaces: Unremarkable. No pleural effusion. No pneumothorax. Heart/Mediastinum: Unremarkable. No cardiomegaly. Bones/joints: Unremarkable. XR/XR chest 1V portable [id number] IMPRESSION: No acute findings.
[2020-11-12 12:07] LABS: Basophils % 0.3 %; Eosinophils # 0.1 10^3/uL (0.0-0.8); Eosinophils % 1.4 %; Hematocrit 33.4 % (42.0-52.0); Hemoglobin 10.7 g/dL (11.7-16.6); Lymphocytes # 1.3 10^3/uL (0.8-4.8); Lymphocytes % 15.4 %; Mean Corpuscular Hemoglobin 27.2 pg (28.0-34.0); Mean Corpuscular Volume 84.8 fl (80-94); Mean Platelet Volume 10.3 fL (7.4-10.4); Monocytes # 0.8 10^3/uL (0.2-0.9); Monocytes % 9.3 %; Neutrophils # 6.29 10^3/uL (1.8-7.7); Nucleated Red Blood Cells % 0 %; Platelet Count 213 10^3/cmm (130-400); Red Blood Count 3.94 10^6/uL (4.1-5.3); Red Cell Distribution Width 13.4 % (12.1-15.1); White Blood Count 8.6 10^3/uL (4.0-10.0)
[2020-11-12] MEDS: ondansetron 2 mg/ML SDV 2 mL 4 MG IM (12:11)
[2020-11-12] MEDS: LORazepam 2 mg/mL INJ 1 mL IM (12:11)
[2020-11-12 12:24] LABS: Lactic Sepsis W/Reflex 1.1 mmol/L (0.5-2.2)
[2020-11-12 12:25] LABS: Alanine Aminotransferase 14 U/L (0-41); Alkaline Phosphatase 40 IU/L (40-130); Aspartate Amino Transferase 21 U/L (0-40); Blood Urea Nitrogen 7 mg/dL (6-20); Calcium 8.3 mg/dL (8.5-10.5); Carbon Dioxide 22 mmol/L (22-29); Chloride 98 mmol/L (98-107); Creatine Phosphokinase 124 U/L (39-308); Creatinine Clr Calc Pharmacy 127.9171; Glomerular Filtration Rate 103.2 mL/min (90-130); Glucose 95 mg/dL (65-115); Osmolality Calculated 274 mOsm/kg (285-295); Sodium 133 mmol/L (136-145); Total Bilirubin 0.4 mg/dL (0.15-1.2)
[2020-11-12 12:37] LABS: Anion Gap 16.8 (5-19); Potassium 3.8 mmol/L (3.5-5.1)
--- NOTE | 2020-11-12 12:38 | XRR_ITS ---
PROCEDURE INFORMATION: Exam: XR Chest Exam date and time: 11/12/2020 12:38 PM Age: 50 years old Clinical indication: Other vascular access device placement or adjustment; Central line, non-tunnelled; Patient HX: R subclavian triple limen placement; Additional info: Cvc placement TECHNIQUE: Imaging protocol: XR of the chest. Views: 1 view. COMPARISON: CR (CHEST, ) 11/12/2020 11:09 AM FINDINGS: Tubes, catheters and devices: A right subclavian catheter is present with the tip projecting in the right subclavian vein. Lungs: Unremarkable. No consolidation. Pleural spaces: Unremarkable. No pleural effusion. No pneumothorax. Heart/Mediastinum: Unremarkable. No cardiomegaly. Bones/joints: Unremarkable. XR/XR chest 1V portable [id number] IMPRESSION: 1. Tip of a right subclavian catheter projects on the right subclavian vein. 2. No acute cardiopulmonary abnormality.
--- NOTE | 2020-11-12 13:28 | PM.HP ---
Providers/Chief Complaint Primary Care Provider: Rogelio Reinoso MD Chief Complaint: OPEN WOUNDS BILATERAL FEET, PAINFUL History of Present Illness Deandra Olivares is a 50 year old male with past medical history of both breast disease, prophylactic peripheral vascular disease with ulceration, multiple amputations, hepatitis C, chronic smoker who presented to the ER today with his mother. Most of the history taken with chart review and mother at bedside. Patient had received pain medication so was groggy. As per the mother patient follows up with Dr. Saini as an outpatient in wound care clinic for his lower limb wounds and has frequent debridement in the office. As per the mother patient lives by himself but mother helps him with his ADLs. Patient has been having pain in his legs which has been getting worse over last 1 week along with nausea but no vomiting. Mother has also noticed redness of both legs which is been getting worse hence they decided to come to the ER. Blood work in the ER showed a white of 8.6, hemoglobin of 10.7, INR of 1.4, sodium of 133, creatinine of 0.8, lower limb imaging as shown below. Review of Systems General: Reports: ROS unobtainable due to mental status Medications/Allergies Home Medications Medication Instructions Recorded Confirmed Last Taken Type methadone 130 mg PO DAILY #0 01/11/20 11/12/20 11/11/20 History acetaminophen 500 mg capsule 1,000 mg PO DAILY PRN cap 02/03/20 11/12/20 05/10/20 History aspirin 81 mg PO QAM 08/22/20 11/12/20 11/11/20 History clopidogrel [Plavix] 75 mg PO QAM 08/22/20 11/12/20 11/11/20 History nifedipine 30 mg PO QAM 08/22/20 11/12/20 11/11/20 History pentoxifylline 400 mg PO TID 08/22/20 11/12/20 11/11/20 History pantoprazole 40 mg tablet,delayed 40 mg PO QAM 90 Days #90 tab 11/02/20 11/12/20 11/11/20 Rx release Allergies Allergy/AdvReac Type Severity Reaction Status Date / Time No Known Allergies Allergy Verified 11/12/20 14:13 PFSH Acute PFSH: Medical History Amputated toe of right foot Atherosclerotic PVD with ulceration Buerger's disease Chronic foot ulcer, limited to breakdown of skin Chronic GERD Hepatitis C antibody test positive Hypertension Smoker unmotivated to quit Surgical History History of surgical amputation of finger of left hand Family History Other CAD (coronary artery disease) Cancer Diabetes Social History Smoking and tobacco status: current every day smoker cigarettes Packs smoked per day: 1 Alcohol intake: never Household members: family Marital status: Number of children: 1 Current occupational status: unemployed Vitals/I&O/Wt Last Vital Signs Temp 98.2 F 11/12/20 10:05 Pulse 103 H 11/12/20 10:18 Resp 18 11/12/20 10:18 BP 123/77 11/12/20 10:18 Pulse Ox 97 11/12/20 10:18 Weight last 48 hrs Weight 90.718 kg Physical Exam Narrative: EXAM NARRATIVE: General: No acute distress, AO x 1-2, drowsy HEENT: PERRLA, pupils bilaterally equal and reactive Chest: Normal vesicular breath sounds, no added sounds, equal good air entry bilaterally CVS: S1-S2 regular, no murmurs, no tachycardia, no gallops, no rubs Abdomen: Soft, nontender, no organomegaly, bowel sounds present Neuro: No focal deficits, no facial deformity, AO x3, power 5/5 in all limbs Extremities: Bilateral feet multiple amputations present, black eschar present on bilateral dorsal feet, mild fluctuation present below the eschar on the right foot Data : 11/12/20 11:54 11/12/20 11:54 Other Labs: Laboratory Results WBC 8.6 10^3/uL (4.0-10.0) 11/12/20 11:54 RBC 3.94 10^6/uL (4.1-5.3) L 11/12/20 11:54 Hgb 10.7 g/dL (11.7-16.6) L 11/12/20 11:54 Hct 33.4 % (42.0-52.0) L 11/12/20 11:54 MCV 84.8 fl (80-94) 11/12/20 11:54 MCH 27.2 pg (28.0-34.0) L 11/12/20 11:54 MCHC 32.0 g/dL (30.0-36.0) 11/12/20 11:54 RDW 13.4 % (12.1-15.1) 11/12/20 11:54 Plt Count 213 10^3/cmm (130-400) 11/12/20 11:54 MPV 10.3 fL (7.4-10.4) 11/12/20 11:54 Neut % (Auto) 73.0 % 11/12/20 11:54 Lymph % (Auto) 15.4 % 11/12/20 11:54 [place] % (Auto) 9.3 % 11/12/20 11:54 Eos % (Auto) 1.4 % 11/12/20 11:54 Baso % (Auto) 0.3 % 11/12/20 11:54 Neut # (Auto) 6.29 10^3/uL (1.8-7.7) 11/12/20 11:54 Lymph # (Auto) 1.3 10^3/uL (0.8-4.8) 11/12/20 11:54 [place] # (Auto) 0.8 10^3/uL (0.2-0.9) 11/12/20 11:54 Eos # (Auto) 0.1 10^3/uL (0.0-0.8) 11/12/20 11:54 Baso # (Auto) 0.0 10^3/uL (0.0-0.1) 11/12/20 11:54 Nucleated RBC % (auto) 0 % 11/12/20 11:54 Nucleated RBCs # 0.0 /100WBC 11/12/20 11:54 ESR 109 mm/hr (0-10) H 11/12/20 14:09 PT 17.60 SECONDS (12.1-14.9) H 11/12/20 14:09 INR 1.41 (0.8-1.2) H 11/12/20 14:09 D-Dimer 0.81 ug/mIFEU (0-0.59) H 11/12/20 14:09 Sodium 133 mmol/L (136-145) L 11/12/20 11:54 Potassium 3.8 mmol/L (3.5-5.1) 11/12/20 11:54 Chloride 98 mmol/L (98-107) 11/12/20 11:54 Carbon Dioxide 22 mmol/L (22-29) 11/12/20 11:54 Anion Gap 16.8 (5-19) 11/12/20 11:54 BUN 7 mg/dL (6-20) 11/12/20 11:54 Creatinine 0.8 mg/dL (0.7-1.2) 11/12/20 11:54 GFR Calculation 103.2 mL/min (90-130) 11/12/20 11:54 Glucose 95 mg/dL (65-115) 11/12/20 11:54 Calculated Osmolality 274 mOsm/kg (285-295) L 11/12/20 11:54 Lactic Acid 1.1 mmol/L (0.5-2.2) 11/12/20 11:54 Calcium 8.3 mg/dL (8.5-10.5) L 11/12/20 11:54 Iron 11 ug/dL (59-158) L 11/12/20 14:09 TIBC 157 mcg/dl 11/12/20 14:09 % Saturation 7.0 % (20-50) L 11/12/20 14:09 Unsat Iron Binding 146 ug/dL (112-347) 11/12/20 14:09 Ferritin 201 ng/mL (30-400) 11/12/20 14:09 Total Bilirubin 0.4 mg/dL (0.15-1.2) 11/12/20 11:54 AST 21 U/L (0-40) 11/12/20 11:54 ALT 14 U/L (0-41) 11/12/20 11:54 Alkaline Phosphatase 40 IU/L (40-130) 11/12/20 11:54 Creatine Kinase 124 U/L (39-308) 11/12/20 11:54 C-Reactive Protein 117.7 mg/L (0.0-4.9) H 11/12/20 14:09 NT-Pro-B Natriuret Pep 115 pg/mL (0-125) 11/12/20 14:09 Total Protein 8.0 g/dL (6.6-8.7) 11/12/20 11:54 Albumin 3.0 g/dL (3.5-5.2) L 11/12/20 11:54 Globulin 5.0 g/dL (1.3-4.6) H 11/12/20 11:54 Procalcitonin 0.07 ng/mL (0-0.5) 11/12/20 14:09 TSH 4.31 uIU/mL (0.27-4.20) H 11/12/20 14:09 Impressions Duplex Scan Lower Extremity Artery 11/12/20 10:22 IMPRESSION: No stenosis or occlusion. Foot CT 11/12/20 10:22 IMPRESSION: 1. There are shallow ulcers involving the visualized foot and ankle with extensive subcutaneous edema/fluid compatible with cellulitis. No tracking soft tissue gas is seen to suggest necrotizing fasciitis. No acute osseous destruction is seen to suggest osteomyelitis. 2. Possible avascular necrosis involving the distal 2nd and 4th metatarsals. 3. The 5th ray is not included on the current study. Radiation Dose CTDIVOL = (mGy): DLP = 428.56 (mGy-cm) Foot X-Ray 11/12/20 10:22 IMPRESSION: No significant bony abnormality. Chest X-Ray 11/12/20 12:38 IMPRESSION: 1. Tip of a right subclavian catheter projects on the right subclavian vein. 2. No acute cardiopulmonary abnormality. Micro: Microbiology 11/12/20 11:45 Blood Culture - Preliminary Blood SPECIMEN COLLECTED 11/12/20 11:54 Blood Culture - Preliminary Blood SPECIMEN COLLECTED A&P Assessment and plan (1) Cellulitis: Status: Acute (2) Osteomyelitis: Status: Suspected (3) Buerger's disease: Status: Acute (4) Atherosclerotic PVD with ulceration: Status: Acute (5) Hepatitis C antibody test positive: Status: Acute (6) Anemia: Status: Acute (7) Hypertension: Status: Acute Additional A&P Information Cellulitis with possible osteomyelitis: X-ray feet results appreciated. CT foot awaited. No signs of sepsis for now. Patient does not have leukocytosis, normal lactate, no fever on presentation. Surgery consulted for possible debridement or amputation if osteomyelitis present. Dr. Saini and podiatry not available today. Check blood culture, urinalysis, urine drug screen, urine culture, wound culture with debridement, MRSA swab, procalcitonin, ESR, CRP. Bilateral arterial duplex results appreciated. Aortic root runoff CTA performed February 23, 2020 of last year revealed no high-grade stenosis or occlusions. There was plaque thickening in the infrarenal aorta. Less than 50% stenosis of the left common iliac artery at the bifurcation. He has three-vessel runoff to the ankles but the muscles are of small caliber. Methadone at home dose Of 130 mg daily. Continue with home dose of pentoxifylline 3 times daily. Continue with home dose of aspirin, Plavix. Check HbA1c, lipid panel. Discussed in detail regarding smoking cessation. Check Covid rapid antigen. Chest x-ray negative for any signs of infection. Patient currently on room air. Severe Buerger's disease: As above. Anemia:Baseline hemoglobin before May was more than 12. Since then has been ranging 9-10. Check iron panel, vitamin B12, folate, reticulocyte count. Hypertension: Continue with home dose of nifedipine. Goal blood pressure less than 140/90 mmHg. His history of hepatitis C. Full code. Protonix for PUD prophylaxis Heparin for DVT prophylaxis Attestations Medical Necessity Statement*: Admission for more than 2 midnights for management of cellulitis, possible osteomyelitis in setting of severe Buerger's disease Time Spent in Patient Care: Greater than 35 minutes (>than 50% of time spent in counselling and/or direct pt care on unit). Coding Level of Care Code Acute Inspector Outside [employer] for [facility] Diagnoses Cellulitis L03.90 Osteomyelitis M86.9 Buerger's disease I73.1 Atherosclerotic PVD with ulceration I70.209; L98.499 Hepatitis C antibody test positive R76.8 Anemia D64.9 Hypertension I10
[2020-11-12] MEDS: iohexol 300 mg/mL 100 mL Btl IV ×2 (13:46→13:47)
--- NOTE | 2020-11-12 14:10 | PM.CONSULT ---
Providers/Reason For Consult Consulting Physician/Specialty*: Salazar Davis MD Reason for Consult*: Lower extremity wounds Requesting Physician: Dr Hernandez Attending Physician: Dr Barragan Primary Care Provider: Rogelio Reinoso MD History of Present Illness History of Present Illness Chief complaint Feet hurtS HPI Mr. Deandra Olivares is a 50 year old male with well-known history of Buerger's disease with previous right foot toe amputations, hepatitis C, chronic smoker has been seen and evaluated for quite some time at the wound care center and continues to follow the ER with Dr. Saini. Patient presents to the emergency department today because of pain in his legs that has been getting worse associated with nausea but no vomiting.Blood work in the ER showed a WBC of 8.6, hemoglobin of 10.7, INR of 1.4, sodium of 133, creatinine of 0.8, lower limbS imaging as shown below. Unfortunately patient continues to smoke and most of the history was obtained from patient's mother bedside. They have been trying Medihoney gel and according to mom it has not been helping much. Right Foot x ray There is mild osteolysis along the head of the 1st metatarsal bone and the remaining portion of the proximal phalanx of the 3rd toe which may represent osteomyelitis. Left Foot x Ray No significant bony abnormality. Arterial Dupplex 11/12/20 Right common femoral artery: No occlusion or significant stenosis. Normal waveform. Right superficial femoral artery: No occlusion or significant stenosis. Normal waveform. Right popliteal artery: No occlusion or significant stenosis. Normal waveform. Right calf/foot arteries: No occlusion or significant stenosis in the visualized arteries. Normal waveforms. Dorsalis pedis artery is patent. The right ankle brachial index equals 0.89. Left common femoral artery: No occlusion or significant stenosis. Normal waveform. Left superficial femoral artery: No occlusion or significant stenosis. Normal waveform. Left popliteal artery: No occlusion or significant stenosis. Normal waveform. Left calf/foot arteries: No occlusion or significant stenosis in the visualized arteries. Normal waveforms. Dorsalis pedis artery is patent. The left ankle brachial index equals 0.85. US/[place] [id number] IMPRESSION: No stenosis or occlusion. CT scan of the left foot; 1. There are shallow ulcerations involving the ankle and foot. There is subcutaneous edema compatible with cellulitis. No tracking soft tissue gas is seen to suggest necrotizing fasciitis. No acute osseous destruction is seen to suggest osteomyelitis. 2. Motion artifact compromises the examination. Cortical surface step-off involving the distal phalanx of the great toe is likely artifactual; correlate for tenderness. 3. Age-indeterminate fracture involving the distal and dorsal aspect of the talus; correlate for tenderness. CT scan of the right foot 1. There are shallow ulcers involving the visualized foot and ankle with extensive subcutaneous edema/fluid compatible with cellulitis. No tracking soft tissue gas is seen to suggest necrotizing fasciitis. No acute osseous destruction is seen to suggest osteomyelitis. 2. Possible avascular necrosis involving the distal 2nd and 4th metatarsals. 3. The 5th ray is not included on the current study. General surgery was consulted for further evaluation of patient's feet for potential intervention Review of Systems General: Reports: 10 or more systems reviewed and unremarkable except in HPI and below Meds/Allergies Home Medications and Allergies Home Medications Medication Instructions Recorded Confirmed Last Taken Type methadone 130 mg PO DAILY #0 01/11/20 11/12/20 11/11/20 History acetaminophen 500 mg capsule 1,000 mg PO DAILY PRN cap 02/03/20 11/12/20 05/10/20 History aspirin 81 mg PO QAM 08/22/20 11/12/20 11/11/20 History clopidogrel [Plavix] 75 mg PO QAM 08/22/20 11/12/20 11/11/20 History nifedipine 30 mg PO QAM 08/22/20 11/12/20 11/11/20 History pentoxifylline 400 mg PO TID 08/22/20 11/12/20 11/11/20 History pantoprazole 40 mg tablet,delayed 40 mg PO QAM 90 Days #90 tab 11/02/20 11/12/20 11/11/20 Rx release Allergies Allergy/AdvReac Type Severity Reaction Status Date / Time No Known Allergies Allergy Verified 11/12/20 14:13 PFSH Acute PFSH: Medical History Amputated toe of right foot Atherosclerotic PVD with ulceration Buerger's disease Chronic foot ulcer, limited to breakdown of skin Chronic GERD Hepatitis C antibody test positive Hypertension Smoker unmotivated to quit Surgical History History of surgical amputation of finger of left hand Family History Other CAD (coronary artery disease) Cancer Diabetes Social History Smoking and tobacco status: current every day smoker cigarettes Packs smoked per day: 1 Alcohol intake: never Household members: family Marital status: Number of children: 1 Current occupational status: unemployed Vitals/I&O/Wt Last Vital Signs Temp 98.2 F 11/12/20 10:05 Pulse 103 H 11/12/20 10:18 Resp 18 11/12/20 10:18 BP 123/77 11/12/20 10:18 Pulse Ox 97 11/12/20 10:18 Weight last 48 hrs Weight 200 lb Physical Exam Narrative: EXAM NARRATIVE: Patient is conscious alert, nonverbal and in mild distress BMI 28.7 Head and neck examination PERRLA no masses no cervical lymphadenopathy no jaundice Right internal jugular vein central line in place Cardiac examination audible S1-S2 no murmurs no gallops no arrhythmias Chest is clear bilateral,abscence of Rhonchi or wheezes,no surgical emphysema Abdomen nontender nondistended soft no organomegaly guarding or rigidity/no signs of peritonitis Bilateral feet shows eschars occupying different areas on the medial and lateral aspects of both feet with multiple amputee of right foot toes, cellulitic changes are appreciated particularly on the dorsal aspects of both feet more on the right than on the left with appreciated tenderness as well. No evidence of abscess formation or crepitus, clinically I was not able to palpate any of the pedal arteries or posterior tibials. Data Micro: Micro: Microbiology 11/12/20 11:45 Blood Culture - Pr eliminary Blood SPECIMEN [facility] 11/12/20 11:54 Blood Culture - Pr eliminary Blood SPECIMEN [facility] A&P Assessment and plan (1) Cellulitis: After history taking physical examination and reviewing the chart and images with my personal interpretation.Presence of soft tissue infection involving the dorsal aspects of both feet in the form of cellulitis that should require antimicrobial therapy in the form of parenteral form. 1-nutrition optimization with focusing on protein supplements 2-wound care in the form of Betadine paint twice a day and leave eschars open to air 3-management of medical comorbidities 4-physical therapy consultation when needed 5-cessation of smoking 6-assurance and education No acute surgical intervention required at this time All questions have been answered and all concerns have been addressed to patient's satisfaction. Thank you for consulting general surgery to participate taking care of Mr. Olivares Status: Acute Consult Attestations Medical Necessity Statement: Per admitting service Time Spent in Patient Care: (>than 50% of time spent in counselling and/or direct pt care on unit). Coding Level of Care Code Acute Criminal Records Technician for [facility] Diagnoses Cellulitis L03.90
[2020-11-12] MEDS: vancomycin 1,000 MG in sodium chloride 0.9% 250 ML 250 MG IV (14:12)
[2020-11-12 14:46] LABS: INR 1.41 (0.8-1.2)
[2020-11-12 14:50] LABS: NT Pro B Type Natriuretic Pept 115 pg/mL (0-125); Procalcitonin 0.07 ng/mL (0-0.5); Thyroid Stimulating Hormone 4.31 uIU/mL (0.27-4.20)
[2020-11-12 14:52] LABS: D Dimer 0.81 ug/mIFEU (0-0.59)
[2020-11-12 15:01] LABS: C Reactive Protein 117.7 mg/L (0.0-4.9); Ferritin 201 ng/mL (30-400); Iron 11 ug/dL (59-158); Total Iron Binding Capacity 157 mcg/dl; Unsaturated Iron Binding 146 ug/dL (112-347)
[2020-11-12 15:10] LABS: Erythrocyte Sedimentation Rate 109 mm/hr (0-10)
--- NOTE | 2020-11-12 15:55 | XRR_ITS ---
PROCEDURE INFORMATION: Exam: XR Chest Exam date and time: 11/12/2020 3:55 PM Age: 50 years old Clinical indication: Placement of central line TECHNIQUE: Imaging protocol: XR of the chest. Views: 1 view. COMPARISON: CR XR chest 1V portable [id number] 11/12/2020 12:40 PM FINDINGS: Tubes, catheters and devices: Right internal jugular central venous access device with tip high in the right atrium. Lungs: Subsegmental atelectasis or scarring at the left base. Pleural spaces: No pleural effusion.; No pneumothorax. Heart/Mediastinum: Cardiac silhouette is unchanged. No gross evidence of pneumomediastinum. Bones/joints: No gross fracture. XR/XR chest 1V portable [id number] IMPRESSION: Right internal jugular central venous access device with tip high in the right atrium.
[2020-11-12 16:54] LABS: SARS Covid-2 Antigen Negative (Negative)
[2020-11-12] MEDS: piperacillin-tazobactam 3.375 GM in sodium chloride 0.9% (plus) 50 ML IV (18:19)
[2020-11-12] MEDS: heparin 5,000 unit/mL INJ 1 mL 5000 UNIT SUBCUT (18:49)
[2020-11-12] MEDS: sodium chloride 0.9% 1,000 ML 75 ML IV (18:49)
[2020-11-12] MEDS: ferrous gluconate 324 mg Tablet PO (18:50)
[2020-11-12] MEDS: vancomycin 1,250 MG/250 ML PIGGYBACK 250 MG IV (20:25)
[2020-11-13] VITALS (8 sets, daily range): BP systolic 96–117; BP diastolic 59–89; PULSE 86–111; RESP 16–18; TEMP 36.6–37.2; O2SAT 92–98
[2020-11-13] MEDS: vancomycin 1,250 MG/250 ML PIGGYBACK 250 MG IV ×3 (03:36→20:55)
[2020-11-13] MEDS: piperacillin-tazobactam 3.375 GM in sodium chloride 0.9% (plus) 50 ML IV ×3 (03:36→17:52)
--- NOTE | 2020-11-13 04:54 | PC.NURSE ---
Patient vital signs were WNL throughout the night, pt was afebrile and 02 remained in the mid to high 90s on RA, Pt made no complaints of pain during the shift. PT had 1 BM and voided in bedside commode 300 mls urine. PT was able to state his name, , place, and time. Foot wounds left open to air per Dr. Davis.
[2020-11-13] MEDS: heparin 5,000 unit/mL INJ 1 mL 5000 UNIT SUBCUT ×2 (05:16→16:45)
[2020-11-13] MEDS: NIFEdipine ER (24 hr) 30 mg Tablet PO (05:16)
[2020-11-13] MEDS: clopidogrel 75 mg Tablet PO (05:16)
[2020-11-13] MEDS: aspirin 81 mg EC Tablet PO (05:16)
[2020-11-13] MEDS: pantoprazole DR 40 mg Tablet PO (05:17)
[2020-11-13 06:11] LABS: Basophils % 0.2 %; Eosinophils # 0.1 10^3/uL (0.0-0.8); Eosinophils % 0.8 %; Hematocrit 29.9 % (42.0-52.0); Hemoglobin 9.3 g/dL (11.7-16.6); Lymphocytes % 10.7 %; Mean Corpuscular HGB Conc 31.1 g/dL (30.0-36.0); Mean Corpuscular Hemoglobin 27.2 pg (28.0-34.0); Mean Corpuscular Volume 87.4 fl (80-94); Mean Platelet Volume 10.8 fL (7.4-10.4); Monocytes # 0.6 10^3/uL (0.2-0.9); Neutrophils # 7.82 10^3/uL (1.8-7.7); Neutrophils % 81.9 %; Nucleated Red Blood Cells % 0 %; Platelet Count 209 10^3/cmm (130-400); Red Blood Count 3.42 10^6/uL (4.1-5.3); Red Cell Distribution Width 13.5 % (12.1-15.1); White Blood Count 9.6 10^3/uL (4.0-10.0)
[2020-11-13 06:38] LABS: Alanine Aminotransferase 11 U/L (0-41); Albumin Level 2.9 g/dL (3.5-5.2); Alkaline Phosphatase 35 IU/L (40-130); Anion Gap 14.8 (5-19); Aspartate Amino Transferase 17 U/L (0-40); Blood Urea Nitrogen 8 mg/dL (6-20); Calcium 7.9 mg/dL (8.5-10.5); Carbon Dioxide 23 mmol/L (22-29); Chloride 100 mmol/L (98-107); Chol HDL Ratio 5.11 mg/dL (1.0-5.00); Cholesterol 138 mg/dL (0-200); Globulin 3.9 g/dL (1.3-4.6); Glomerular Filtration Rate 120.4 mL/min (90-130); Glucose 85 mg/dL (65-115); HDL Cholesterol 27 mg/dL (60-100); LDL Cholesterol Calculated 94 mg/dL (50-129); Magnesium 1.8 mg/dL (1.7-2.3); Osmolality Calculated 276 mOsm/kg (285-295); Phosphorus 3.2 mg/dL (2.5-4.5); Potassium 3.8 mmol/L (3.5-5.1); Sodium 134 mmol/L (136-145); Total Bilirubin 0.3 mg/dL (0.15-1.2); Total Protein 6.8 g/dL (6.6-8.7); Triglycerides 84 mg/dL (0-150); VLDL Cholestrol Calculation 17 mg/dL (0-30)
[2020-11-13 06:44] LABS: Estmated Average Glucose 91; Hemoglobin A1C 4.8 % (4.0-6.0)
[2020-11-13] MEDS: ferrous gluconate 324 mg Tablet PO ×2 (08:47→17:52)
[2020-11-13] MEDS: sodium chloride 0.9% 1,000 ML 75 ML IV ×2 (08:47→22:35)
[2020-11-13 08:49] LABS: Creatine Phosphokinase 148 U/L (39-308)
[2020-11-13] MEDS: methadone 10 mg Tablet 130 MG PO (10:57)
[2020-11-13 12:16] LABS: Free T4 Free Thyroxine 1.09 ng/dL (0.82-1.77)
[2020-11-13 12:44] LABS: Add Urine Microscopic? NO; Charge for UA Resulting for Rev
[2020-11-13 12:47] LABS: Vancomycin Trough 15.5 ug/mL (10-15)
[2020-11-13 13:10] LABS: Blood Urine Neg (Negative); Glucose Urine UA Norm (Normal); Protein Urine Neg (Negative); Urine Appearance Clear (CLEAR); Urine Color Yellow (Yellow); pH Urine 5 (5-7)
[2020-11-13 13:11] LABS: Bilirubin Urine Neg (Negative); Ketones Urine 1+ (Negative); Leukocyte Esterase Urine Negative (Negative); Nitrate Urine Negative (Negative); Urobilinogen Urine 1 mg/dL (Negative)
[2020-11-13 13:12] LABS: Amphetamines Screen Urine Negative (Negative); Barbiturates Screen Urine Negative (Negative); Benzodiazepines Screen Urine Positive (Negative); Cocaine Screen Urine Negative (Negative); Opiate Screen Urine Negative (Negative); PCP Screen Urine Negative (Negative); THC Screen Urine Negative (Negative)
[2020-11-13 13:22] LABS: Potassium, Radom Urine 45 mmol/L; Urine Random Chloride 70 mmol/L; Urine Random Sodium 111 mmol/L
--- NOTE | 2020-11-13 14:50 | P.PN_ITS ---
Subjective Subjective: Interval history: No acute events overnight. Patient has remained hemodynamically stable and afebrile. Today morning on examination lying comfortably in bed, sleeping but wakes up to physical and verbal stimulus. Denies any nausea, vomiting, headache. Asking to go back to sleep. States still bothered by pain in the leg. Mother reportedly has been asking from the nurse for more pain medications. Vitals/I&O/Wt Last Vital Signs Temp 98.9 F 11/13/20 12:00 Pulse 87 11/13/20 12:00 Resp 18 11/13/20 12:00 BP 108/73 11/13/20 12:00 Pulse Ox 94 11/13/20 12:00 11/12/20 11/13/20 11/13/20 22:59 06:59 14:59 Intake Total 550 / 550 250 / 800 1325.833 / 1325.833 Output Total 0 / 0 302 / 302 Balance 550 / 550 -52 / 498 1325.833 / 1325.833 Weight last 48 hrs Weight 76.612 kg Weight 90.718 kg Physical Exam Narrative: EXAM NARRATIVE: General: No acute distress, AO x 1-2, drowsy HEENT: PERRLA, pupils bilaterally equal and reactive Chest: Normal vesicular breath sounds, no added sounds, equal good air entry bilaterally CVS: S1-S2 regular, no murmurs, no tachycardia, no gallops, no rubs Abdomen: Soft, nontender, no organomegaly, bowel sounds present Neuro: No focal deficits, no facial deformity, AO x3, power 5/5 in all limbs Extremities: Bilateral feet multiple amputations present, black eschar present on bilateral dorsal feet, mild fluctuation present below the eschar on the right foot Data : 11/13/20 05:12 11/13/20 05:12 Micro: Microbiology 11/12/20 18:09 MRSA Culture - Final Nose 11/12/20 11:45 Blood Culture - Preliminary Blood NEGATIVE TO DATE 11/12/20 11:54 Blood Culture - Preliminary Blood NEGATIVE TO DATE A&P Assessment and plan (1) Cellulitis: Status: Acute (2) Osteomyelitis: Status: Ruled-out (3) Buerger's disease: Status: Acute (4) Atherosclerotic PVD with ulceration: Status: Acute (5) Hepatitis C antibody test positive: Status: Acute (6) Anemia: Status: Acute (7) Hypertension: Status: Acute Additional A&P Information Cellulitis: Osteomyelitis ruled out from CT scan. No signs of sepsis for now. Patient does not have leukocytosis, normal lactate, no fever on presentation. Surgical recommendations appreciated. Plan for conservative medical treatment for now. MRSA positive. ESR, CRP elevated, urine drug screen, urinalysis negative for any signs of infection, procalcitonin negative. Bilateral arterial duplex results appreciated. Aortic root runoff CTA performed February 23, 2020 of last year revealed no high-grade stenosis or occlusions. There was plaque thickening in the infrarenal aorta. Less than 50% stenosis of the left common iliac artery at the bifurcation. He has three-vessel runoff to the ankles but the muscles are of small caliber. Methadone at home dose Of 130 mg daily. Continue with home dose of pentoxifylline 3 times daily. Continue with home dose of aspirin, Plavix. For now continue with vancomycin and Zosyn. Discussed in detail regarding smoking cessation. Severe Buerger's disease: As above. Anemia:Baseline hemoglobin before May was more than 12. Since then has been ranging 9-10. Severe iron deficiency. B12, folate, reticulocyte counts awaited. Check stool for occult blood. Most likely secondary to chronic disease. Hypertension: Continue with home dose of nifedipine. Goal blood pressure less than 140/90 mmHg. H/o of hepatitis C. Full code. Protonix for PUD prophylaxis Heparin for DVT prophylaxis Attestations Medical Necessity Statement*: Requires further hospitalization for management of cellulitis in setting of severe Buerger's disease Time Spent in Patient Care: Greater than 35 minutes (>than 50% of time spent in counselling and/or direct pt care on unit) . Coding Level of Care Code Acute Inspector Hot Forgings for [facility] Fwd Diagnoses Cellulitis L03.90 Osteomyelitis M86.9 Buerger's disease I73.1 Atherosclerotic PVD with ulceration I70.209; L98.499 Hepatitis C antibody test positive R76.8 Anemia D64.9 Hypertension I10
[2020-11-13 15:57] LABS: Reticulocyte % 1.3 % (0.5-2.0)
--- NOTE | 2020-11-13 16:06 | USCV_ITS ---
Deandra Olivares Age: 50 Gender: M : 1970 Exam Date: 11/13/2020 10:42 Ordering Phys: Darian Issa MD Technologist: Gena Best [place] [facility] [place] Indication: Beurger's disease, possible CHF BP: 110 / 68 HR: 94 Rhythm: Sinus Technical Quality: Adequate MEASUREMENTS (Male / Female) Normal Values 2D ECHO LV Diastolic Diameter PLAX 4.3 cm 4.2 - 5.9 / 3.9 - 5.3 cm LV Systolic Diameter PLAX 3.5 cm LV Chamber Size 3.7 cm IVS Diastolic Thickness 0.9 cm 0.6 - 1.0 / 0.6 - 0.9 cm IVS Systolic Thickness 1.2 cm LVPW Diastolic Thickness 0.9 cm 0.6 - 1.0 / 0.6 - 0.9 cm LVPW Systolic Thickness 0.9 cm RV Chamber Size 2.4 cm LVOT Diameter 1.8 cm LV Ejection Fraction 2D Teich 39.6 % LV Ejection Fraction MOD 2C 76.9 % LV Ejection Fraction 2C AL 77.6 % LA Diameter 3.2 cm LA Width 2.2 cm LA Height 2.6 cm RA Width 2.4 cm RA Height 3.4 cm Aorta at Sinotubular Diameter 2.9 cm M-MODE LV Diastolic Diameter MM 6.0 cm 4.2 - 5.9 / 3.9 - 5.3 cm LV Systolic Diameter MM 4.4 cm LV Ejection Fraction MM Teich 50.6 % IVS Diastolic Thickness MM 0.8 cm 0.6 - 1.0 / 0.6 - 0.9 cm IVS Systolic Thickness MM 1.1 cm LVPW Diastolic Thickness MM 1.3 cm 0.6 - 1.0 / 0.6 - 0.9 cm LVPW Systolic Thickness MM 1.1 cm Aortic Annulus Diameter 3.8 cm LA Ao Ratio MM 1.0 DOPPLER AV Peak Velocity 123.0 cm/s LVOT Peak Velocity 119.0 cm/s AV Area Cont Eq vti 2.7 cm squared AV Area Cont Eq pk 2.6 cm squared MV Area PHT 5.0 cm squared Mitral E to A Ratio 0.8 MV E' Velocity 60.0 cm/s Mitral E to MV E' Ratio 9.5 Mitral E to LV E' Lateral Ratio 10.1 Mitral E to LV E' Septal Ratio 9.0 TR Peak Velocity 144.0 cm/s TR Peak Gradient 8.3 mmHg TV Peak E Velocity 58.0 cm/s Right Atrial Pressure 8.0 mmHg Pulmonary Artery Systolic Pressu 16.3 mmHg RV Acceleration Time 0.1 s RV Ejection Time 0.2 s RV AcT/ET 0.4 FINDINGS Left Ventricle Normal left ventricular size, systolic function and wall thickness, with no regional wall motion abnormalities. Left ventricular ejection fraction is estimated at 65 %. Normal diastolic function. Right Ventricle Normal right ventricular size and systolic function. Right ventricular systolic pressure 16.3 mmHg. Right Atrium Normal right atrial size. Right atrial pressure estimated at 8 mm Hg. Left Atrium Normal diastolic function. Mitral Valve Milldy thickened mitral valve. Mild prolapse of anterior mitral valve leaflet. No mitral valve stenosis. Mild-moderate somewhat posteriorly directed mitral valve regurgitation. Aortic Valve Aortic valve not well visualized. Probably trileaflet aortic valve. No aortic valve stenosis. No aortic valve regurgitation. Tricuspid Valve Structurally normal tricuspid valve. No tricuspid valve stenosis. Trace to mild tricuspid valve regurgitation. Pulmonic Valve Pulmonic valve not well visualized. Pericardium No pericardial effusion. Aorta Normal sized aortic root. Normal sized inferior vena cava with decreased respiratory variation. CONCLUSIONS 1. Normal left ventricular size, systolic function and wall thickness, with no regional wall motion abnormalities. Left ventricular ejection fraction is estimated at 65 %. Normal diastolic function. 2. Milldy thickened mitral valve. Mild prolapse of anterior mitral valve leaflet. No mitral valve stenosis. Mild-moderate somewhat posteriorly directed mitral valve regurgitation. 3. Normal pulmonary artery pressure. 4. No prior similar studies to compare. Amanda Lee MD (Electronically Signed) Final Date: 13 November 2020 15:29 S
[2020-11-13 17:10] LABS: Folate Level 5.5 ng/mL (4.5-32.2)
[2020-11-13 17:20] LABS: Vitamin B12 473 pg/mL (232-1245)
[2020-11-13 18:36] LABS: Cortisol Random 17.38 ug/dL (2.47-19.5)
[2020-11-14] MEDS: piperacillin-tazobactam 3.375 GM in sodium chloride 0.9% (plus) 50 ML IV ×3 (02:48→17:14)
[2020-11-14 04:00] VITALS: BP 130/81; PULSE 100; RESP 17; TEMP 36.5; O2SAT 94
[2020-11-14] MEDS: vancomycin 1,250 MG/250 ML PIGGYBACK 250 MG IV ×3 (04:21→20:23)
[2020-11-14] MEDS: NIFEdipine ER (24 hr) 30 mg Tablet PO (05:39)
[2020-11-14] MEDS: pantoprazole DR 40 mg Tablet PO (05:39)
[2020-11-14] MEDS: aspirin 81 mg EC Tablet PO (05:39)
[2020-11-14] MEDS: heparin 5,000 unit/mL INJ 1 mL 5000 UNIT SUBCUT ×2 (05:39→17:14)
[2020-11-14] MEDS: clopidogrel 75 mg Tablet PO (05:39)
[2020-11-14 07:36] LABS: Basophils % 0.5 %; Eosinophils # 0.1 10^3/uL (0.0-0.8); Eosinophils % 2.2 %; Hematocrit 27.9 % (42.0-52.0); Hemoglobin 8.4 g/dL (11.7-16.6); Mean Corpuscular HGB Conc 30.1 g/dL (30.0-36.0); Mean Corpuscular Hemoglobin 26.3 pg (28.0-34.0); Mean Corpuscular Volume 87.5 fl (80-94); Mean Platelet Volume 10.7 fL (7.4-10.4); Monocytes # 0.5 10^3/uL (0.2-0.9); Monocytes % 8.2 %; Neutrophils # 4.27 10^3/uL (1.8-7.7); Neutrophils % 71.8 %; Nucleated Red Blood Cells % 0 %; Platelet Count 188 10^3/cmm (130-400); Red Blood Count 3.19 10^6/uL (4.1-5.3); Red Cell Distribution Width 13.4 % (12.1-15.1)
[2020-11-14 07:58] LABS: Alanine Aminotransferase 13 U/L (0-41); Albumin Level 2.6 g/dL (3.5-5.2); Alkaline Phosphatase 34 IU/L (40-130); Anion Gap 13.9 (5-19); Aspartate Amino Transferase 22 U/L (0-40); Blood Urea Nitrogen 7 mg/dL (6-20); Calcium 7.6 mg/dL (8.5-10.5); Carbon Dioxide 23 mmol/L (22-29); Chloride 104 mmol/L (98-107); Globulin 3.7 g/dL (1.3-4.6); Glomerular Filtration Rate 120.4 mL/min (90-130); Glucose 80 mg/dL (65-115); Osmolality Calculated 281 mOsm/kg (285-295); Potassium 3.9 mmol/L (3.5-5.1); Sodium 137 mmol/L (136-145); Total Bilirubin 0.3 mg/dL (0.15-1.2); Total Protein 6.3 g/dL (6.6-8.7)
[2020-11-14 08:00] VITALS: BP 115/71; PULSE 95; RESP 17; TEMP 37; O2SAT 94
[2020-11-14] MEDS: ferrous gluconate 324 mg Tablet PO ×2 (08:16→17:17)
[2020-11-14] MEDS: methadone 10 mg Tablet 130 MG PO (08:20)
[2020-11-14 11:35] VITALS: BP 116/71; PULSE 88; RESP 16; TEMP 36.3; O2SAT 94
[2020-11-14] MEDS: sodium chloride 0.9% 1,000 ML 75 ML IV (12:25)
--- NOTE | 2020-11-14 13:34 | P.PN_ITS ---
Documented by User: Haley Albert, MEGHAN STDNT 11/14/20 13:58 Subjective Subjective: Interval history: Deandra reports that he is feeling okay. He does have some pain greater in his right foot than left. Complains of constant nausea. Denies vomiting and fever. We discussed smoking cessation in detail. Medications: Reviewed: Yes Vitals/I&O/Wt Last Vital Signs Temp 97.4 F L 11/14/20 11:35 Pulse 88 11/14/20 11:35 Resp 16 11/14/20 11:35 BP 116/71 11/14/20 11:35 Pulse Ox 94 11/14/20 11:35 11/13/20 11/14/20 11/14/20 22:59 06:59 14:59 Intake Total 1804.167 / 3250.000 250 / 3500.000 1290 / 1290 Output Total 1150 / 1650 1300 / 1300 Balance 1804.167 / 2750.000 -900 / 1850.000 -10 / -10 Weight last 48 hrs Weight 78.046 kg Weight 76.612 kg Physical Exam Narrative: EXAM NARRATIVE: General: Male no acute distress, AO x3 HEENT: PERRLA, oropharynx clear. Neck supple no JVD or lymphadenopathy. Chest: Normal vesicular breath sounds bilaterally. No wheezes rales or rhonchi. CVS: S1-S2 regular rate and rhythm. No murmurs, gallops, or rubs. Abdomen: Soft, nontender, no organomegaly, bowel sounds present Neuro: No focal deficits, no facial deformity, AO x3, strength 5/5 in all limbs Extremities: Bilateral feet multiple amputations present, black eschar present on bilateral dorsal feet, mild fluctuation present below the eschar on the right foot deferred Data : 11/14/20 06:47 11/14/20 06:47 Micro: Microbiology 11/12/20 18:09 MRSA Culture - Final Nose 11/12/20 11:45 Blood Culture - Preliminary Blood NEGATIVE TO DATE 11/12/20 11:54 Blood Culture - Preliminary Blood NEGATIVE TO DATE Other data: Echo ejection fraction 65%. No regional wall abnormalities. Mildly thickened mitral valve. No mitral valve stenosis. MRSA culture positive. Blood culture negative to date A&P Assessment and plan (1) Cellulitis: Status: Acute (2) Osteomyelitis: Status: Ruled-out (3) Buerger's disease: Status: Acute (4) Atherosclerotic PVD with ulceration: Status: Acute (5) Hepatitis C antibody test positive: Status: Acute (6) Anemia: Status: Acute (7) Hypertension: Status: Acute Additional A&P Information Cellulitis: Osteomyelitis ruled out from CT scan. No signs of sepsis for now. Patient does not have leukocytosis, lactate normal, no fever on presentation. Surgery not recommended at this time. Continue vancomycin and Zosyn. MRSA positive. Blood cultures negative to date. Counseled in detail on smoking cessation. Nicotine patch and lozenges to help with cessation. Bilateral arterial duplex of Lower extremities showed no significant occlusion or stenosis with normal waveforms. Right CARLOS A 0.89. Left CARLOS A 0.85. Aortic root runoff CTA performed February 23, 2020 of last year revealed no high-grade stenosis or occlusions. There was plaque thickening in the infrarenal aorta. Less than 50% stenosis of the left common iliac artery at the bifurcation. He has three-vessel runoff to the ankles but the muscles are of small caliber. Methadone at home dose Of 130 mg daily. Continue with home dose of pentoxifylline 3 times daily. Continue with home dose of aspirin, Plavix. Severe Buerger's disease: As above. smoking cessation. Anemia: Baseline hemoglobin before May was more than 12. Since then has been ranging 9-10. Today 8.4. Severe iron deficiency. B12 and folate in normal range. Reticulocyte count 1.3. Most likely secondary to chronic disease. Hypertension: Continue with home dose of nifedipine. Goal blood pressure less than 140/90 mmHg. H/o of hepatitis C. We will consider discharging home tomorrow. Full code. Protonix for PUD prophylaxis Heparin for DVT prophylaxis Coding Level of Care Code Acute Investment Underwriter for [facility] Fwd Diagnoses Cellulitis L03.90 Osteomyelitis M86.9 Buerger's disease I73.1 Atherosclerotic PVD with ulceration I70.209; L98.499 Hepatitis C antibody test positive R76.8 Anemia D64.9 Hypertension I10 Documented by User: Dennis Gonzalez MD 11/14/20 21:36 Data : 11/14/20 06:47 11/14/20 06:47 Attestations Medical Necessity Statement*: Continue admission for assessment management of severe Buerger's disease, large ulcerations with large amount of eschar, subsiding surrounding cellulitis with multiple prior amputations. Other Attestations: Medical student findings reviewed independently. I have seen spoken to and examined the patient. He is accompanied by his mother at the bedside who was part discussion as well. Discussed with him results of vascular studies so far. Does not appear to have large vessel occlusion. Discussed with him utmost importance of smoking cessation with Buerger's disease otherwise risking loss of further tissue, limb, or complicated infections, and risk to life. He states he intends to quit. He is agreeable to prescription nicotine patches plus lozenges for cravings. States in the past that he has multiple patches and did not know which he used for cravings. Discussed with him also follow-up with primary provider to discuss additional pharmacotherapy to assist with cessation. Overall the wounds appear to be gradually improving. Surrounding erythema is declining. He had small amount of bloody drainage today from a wound on his toe. No drainage currently. At this time given gradual improvement, continue IV antibiotics, will reassess again tomorrow. If continues to improve, Consider continuation of therapy with oral antibiotics and follow-up with wound care. Discussed this with him and his mother, and they verbalized understanding of importance of close follow-up. PE GEN: Sitting up in bed, awake, alert, conversant. HEENT: Pupils round equal, reactive. NC, AT. Poor dentition. Card: RRR, no M/R/G Pulmonary: CTAB Abdo: Soft, NT, ND Ext: Dark eschar over large ulcerations, with partial loss of eschar and several areas over the left dorsal foot, larger area of ulceration and eschar on the right dorsal foot. Subsiding surrounding erythema. Some bruising, dark appearing eschar of amputation site of the first right toe. Previously reported some bloody discharge there, not currently. No fluctuance. Multiple bilateral toe amputations. Coding Level of Care Code Acute Investment Underwriter for [facility] Fwd Diagnoses Cellulitis L03.90 Osteomyelitis M86.9 Buerger's disease I73.1 Atherosclerotic PVD with ulceration I70.209; L98.499 Hepatitis C antibody test positive R76.8 Anemia D64.9 Hypertension I10
[2020-11-14 15:32] VITALS: BP 100/63; PULSE 85; RESP 16; TEMP 36.7; O2SAT 96
[2020-11-14 20:00] VITALS: BP 111/66; PULSE 94; RESP 17; TEMP 37; O2SAT 96
[2020-11-14 23:45] VITALS: BP 111/72; PULSE 99; RESP 16; TEMP 37; O2SAT 92
[2020-11-15] MEDS: sodium chloride 0.9% 1,000 ML 75 ML IV (01:44)
[2020-11-15] MEDS: piperacillin-tazobactam 3.375 GM in sodium chloride 0.9% (plus) 50 ML IV ×2 (01:45→09:17)
--- NOTE | 2020-11-15 01:50 | PC.NURSE ---
While hanging new IV fluids for the patient I noticed both feet were bleeding and the scabs had been pulled up. I asked the pateint if he had been picking at them. He stated They were stuck to the cher pad and when I pulled them off it was like that. There was noticeable blood under fingernails. I informed the patient that the wounds would not heal if he did not leave them alone.
[2020-11-15 03:30] VITALS: BP 100/68; PULSE 94; RESP 17; TEMP 37.1; O2SAT 92
[2020-11-15] MEDS: vancomycin 1,250 MG/250 ML PIGGYBACK 250 MG IV (05:10)
[2020-11-15] MEDS: heparin 5,000 unit/mL INJ 1 mL 5000 UNIT SUBCUT (05:11)
[2020-11-15] MEDS: pantoprazole DR 40 mg Tablet PO (05:11)
[2020-11-15] MEDS: aspirin 81 mg EC Tablet PO (05:11)
[2020-11-15] MEDS: NIFEdipine ER (24 hr) 30 mg Tablet PO (05:11)
[2020-11-15] MEDS: clopidogrel 75 mg Tablet PO (05:11)
[2020-11-15 06:42] LABS: Basophils % 0.7 %; Eosinophils # 0.2 10^3/uL (0.0-0.8); Eosinophils % 3.6 %; Hematocrit 28.3 % (42.0-52.0); Hemoglobin 8.7 g/dL (11.7-16.6); Lymphocytes % 17.8 %; Mean Corpuscular HGB Conc 30.7 g/dL (30.0-36.0); Mean Corpuscular Hemoglobin 26.8 pg (28.0-34.0); Mean Corpuscular Volume 87.1 fl (80-94); Mean Platelet Volume 10.5 fL (7.4-10.4); Monocytes # 0.4 10^3/uL (0.2-0.9); Monocytes % 7.4 %; Neutrophils # 4.07 10^3/uL (1.8-7.7); Neutrophils % 70.2 %; Nucleated Red Blood Cells % 0 %; Platelet Count 236 10^3/cmm (130-400); Red Blood Count 3.25 10^6/uL (4.1-5.3); Red Cell Distribution Width 13.5 % (12.1-15.1); White Blood Count 5.8 10^3/uL (4.0-10.0)
[2020-11-15 07:05] LABS: Anion Gap 12.6 (5-19); Blood Urea Nitrogen 6 mg/dL (6-20); Calcium 7.8 mg/dL (8.5-10.5); Carbon Dioxide 24 mmol/L (22-29); Chloride 102 mmol/L (98-107); Glomerular Filtration Rate 143.8 mL/min (90-130); Glucose 85 mg/dL (65-115); Osmolality Calculated 277 mOsm/kg (285-295); Potassium 3.6 mmol/L (3.5-5.1); Sodium 135 mmol/L (136-145)
[2020-11-15 08:00] VITALS: BP 105/69; PULSE 97; RESP 20; O2SAT 94
[2020-11-15] MEDS: ferrous gluconate 324 mg Tablet PO (09:16)
[2020-11-15] MEDS: nicotine 21 mg Patch 1 PATCH TRANSDERMA (09:17)
[2020-11-15] MEDS: methadone 10 mg Tablet 130 MG PO (09:17)
[2020-11-15 12:00] VITALS: BP 118/81; PULSE 97; RESP 20; TEMP 36.8; O2SAT 97
[2020-11-15 12:06] VITALS: BP 105/69; PULSE 97; RESP 20; O2SAT 94
--- NOTE | 2020-11-15 12:25 | P.DS_ITS ---
Discharge Providers Date of Admission: 11/12/20 13:33 Date of Discharge: November 15, 2020 Attending Provider at Admission: Darian Issa MD Attending Provider at Discharge: Dennis Gonzalez Primary Care Provider: Rogelio Reinoso MD Diagnoses at Discharge Discharge Diagnosis (1) Cellulitis: Status: Acute (2) Osteomyelitis: Status: Ruled-out (3) Buerger's disease: Status: Acute (4) Atherosclerotic PVD with ulceration: Status: Acute (5) Hepatitis C antibody test positive: Status: Acute (6) Anemia: Status: Acute (7) Hypertension: Status: Acute Reason for Visit Reason for Visit: OPEN WOUNDS BILATERAL FEET, PAINFUL Hospital Course Hospital Course Pleasant 50-year-old gentleman current smoker with severe Buerger's disease, with history of multiple digit amputations, other history of PVD, hepatitis C, GERD, HTN, was admitted to the hospital for assessment management of worsening ulcerations with necrotic appearing eschar, as well as surrounding cellulitis. He was treated in the hospital with IV antibiotics with vancomycin, Zosyn. Was counseled extensively on smoking cessation. He was assessed with arterial duplex which did not show any significant stenosis in lower extremities. [facility] aorta CTA with runoff in February 2020 showed no high-grade stenosis or occlusions, plaque and intimal thickening of infrarenal aorta but no high-grade stenosis, less than 50% stenosis in the left common iliac artery bifurcation. No osteomyelitis noted on CT of his feet. No abscess was noted. He was assessed by surgery, not found to be needing surgical debridement at this time. His cellulitis surrounding the ulcerations had resolved. Symptoms continue to improve. The importance of smoking cessation was revisited multiple times, and with concerns for microvascular disease as being the cause. Additionally he does have history of positive hepatitis C antibody. Hepatitis C RNA PCR had been sent during his hospitalization and is pending. We have also requested cryoglobulins to be assessed. Please follow-up both these studies to exclude present chronic otitis C which may need treatment, and exclude possibility of cryoglobulinemia as the cause of his symptoms. Physical Exam Const: COMMON NORMALS: no acute distress and patient oriented x3 OTHER: Reports he is feeling much better. Lower extremity wounds continue to improve. He wants to return home. HENMT: COMMON NORMALS: oropharynx normal Neck/C-Spine: COMMON NORMALS: no JVD Resp: COMMON NORMALS: normal respiratory effort and clear to auscultation bilaterally AUSCULTATION: clear to auscultation bilaterally Cardio: COMMON NORMALS: no JVD, regular rhythm, S1 normal heart sound present, S2 normal heart sound present and No murmurs present (Cardio) RHYTHM: regular rhythm HEART SOUNDS: S1 normal heart sound present and S2 normal heart sound present GI: COMMON NORMALS: Normal to inspection, nondistended, normoactive bowel sounds present, Soft to palpation and non-tender PALPATION: Yes Soft to palpation Extremity: COMMON NORMALS: no joint enlargement and no pedal edema Neuro: COMMON NORMALS: patient oriented x3 and moves all extremities Skin: OTHER: Dark eschar over large ulcerations, with partial loss of eschar and several areas over the left dorsal foot, larger area of ulceration and eschar on the right dorsal foot. Subsiding surrounding erythema. Some bruising, dark appearing eschar of amputation site of the first right toe. Previously reported some bloody discharge there, not currently. No fluctuance. Multiple bilateral toe amputations. Discharge Data Data Completed and Pending: Completed Studies During Hospitalization Category Date Time Status CT foot LT w con [id number] Stat Cat Scan 11/12/20 10:[address] foot RT w con [id number] Stat Cat Scan 11/12/20 10:22 Completed XR chest 1V arjun ble [id number] Routine Exams 11/12/20 15:55 Completed XR chest 1V arjun ble [id number] Stat Exams 11/12/20 10:23 Completed XR chest 1V arjun ble [id number] Stat Exams 11/12/20 12:38 Completed XR foot LT min 3V * [id number] Stat Exams 11/12/20 10:22 Completed XR foot RT min 3V * [id number] Stat Exams 11/12/20 10:22 [place] [id number] Stat Ultrasound 11/12/20 10:22 Completed CV. echo complete * [id number] Routine Ultrasound 11/13/20 16:06 Completed Pending at discharge Category Date Time Status Basic Metabolic P casandra AM LABS Lab 11/16/20 04:00 Ordered Basic Metabolic P casandra AM LABS Lab 11/17/20 04:00 Ordered Blood Culture Sta t Lab 11/12/20 11:45 Results Complete Blood Co unt w/Auto AM LABS Lab 11/16/20 04:00 Ordered Complete Blood Co unt w/Auto AM LABS Lab 11/17/20 04:00 Ordered Cryoglobulins Stef litative Routine Lab 11/15/20 12:02 Ordered Hepatitis C Genot ype RNA Routine Lab 11/13/20 14:50 Received Hepatitis C RNA V iral Load Qnt Rout ine Lab 11/13/20 14:50 Received Urinalysis Stat Lab 11/12/20 10:23 Uncollected Labs from last 24 hours 11/15/20 11/15/20 06:30 06:30 WBC 5.8 RBC 3.25 L Hgb 8.7 L Hct 28.3 L MCV 87.1 MCH 26.8 L MCHC 30.7 RDW 13.5 Plt Count 236 MPV 10.5 H Neut % (Auto) 70.2 Lymph % (Auto) 17.8 [place] % (Auto) 7.4 Eos % (Auto) 3.6 Baso % (Auto) 0.7 Neut # (Auto) 4.07 Lymph # (Auto) 1.0 [place] # (Auto) 0.4 Eos # (Auto) 0.2 Baso # (Auto) 0.0 Nucleated RBC % (a uto) 0 Nucleated RBCs # 0.0 Sodium 135 L Potassium 3.6 Chloride 102 Carbon Dioxide 24 Anion Gap 12.6 BUN 6 Creatinine 0.6 L GFR Calculation 143.8 H Glucose 85 Calculated Osmolal ity 277 L Calcium 7.8 L Vitals: Last Vital Signs Temp 98.8 F 11/15/20 03:30 Pulse 97 11/15/20 12:06 Resp 20 H 11/15/20 12:06 BP 105/69 11/15/20 12:06 Pulse Ox 94 11/15/20 12:06 Discharge Plan Discharge Patient Disposition: Home Condition: Stable Prescriptions: New nicotine (polacrilex) 4 mg Lozenge 4 mg mucous membrane Q15M PRN (Reason: Nicotine Cravings) Qty: 108 RF: 3 nicotine 21 mg/24 hr Patch 24 Hour 1 patch transdermal DAILY Qty: 90 RF: 0 ciprofloxacin HCl 500 mg tablet 500 mg PO BID Qty: 10 RF: 0 doxycycline hyclate 100 mg tablet 100 mg PO BID 5 Days Qty: 10 RF: 0 Betadine 10 % solution 1 applic topical BID Qty: 946 RF: 3 Continued acetaminophen 500 mg capsule 1,000 mg PO DAILY PRN (Reason: Pain) RF: 0 Protonix 40 mg tablet,delayed release (DR/EC) 40 mg PO QAM 90 Days Qty: 90 RF: 3 nifedipine 30 mg tablet extended release 24hr 30 mg PO QAM RF: 0 pentoxifylline 400 mg tablet extended release 400 mg PO TID RF: 0 clopidogrel [Plavix] 75 mg tablet 75 mg PO QAM RF: 0 aspirin 81 mg tablet,delayed release (DR/EC) 81 mg PO QAM RF: 0 methadone 10 mg Tablet 130 mg PO DAILY Qty: 0 RF: 0 Discharge Orders: Discharge Order (Routine); Ordered 11/15/20 Ordered By: Dennis Gonzalez Referrals: Rogelio Reinoso MD [Primary Care Provider] - 11/21/20 11:00 am WOUND CARE CLINIC, [Staff Physician] - Discharge Diet: Cardiac Discharge Activity: Increase activity as tolerated Patient Instructions: Ciprofloxacin (By mouth), Doxycycline (By mouth), How to Stop Smoking (GEN), Cellulitis (DC), Cigarette Smoking and Your Health (GEN), Anemia (DC), Opioid Safety Activity Restrictions/Additional Instructions: Please discuss with your primary doctor regarding severe Buerger's disease. As discussed, please stop smoking as continued smoking will lead to recurrence of tissue ischemia, continued loss of tissue, additional possible loss of digits, limb, or worsening or spreading infection. Please continue wound care as in the hospital, paint wounds with Betadine twice a day. Leave eschars open to air. Please follow-up with wound care clinic. Avoid walking barefoot. Please follow-up with your primary provider regarding helping him quit smoking. In addition to follow-up on your lower extremity wounds, follow-up with your prime provider. Regarding hepatitis C, follow-up regarding pending study of hepatitis C PCR. Please have your primary doctor follow up also the cryoglobulin levels which are pending to exclude hepatitis C related cryoglobulinemia as the cause of the necrotizing skin ulcerations. Discharge Attestations Time Spent in Discharge Care*: greater than 30 min Quality Metrics Clinical Quality Measures During this hospital stay, did patient experience: None Coding Level of Care Code Acute Chg FW DC note Diagnoses Cellulitis L03.90 Osteomyelitis M86.9 Buerger's disease I73.1 Atherosclerotic PVD with ulceration I70.209; L98.499 Hepatitis C antibody test positive R76.8 Anemia D64.9 Hypertension I10
[2020-11-16 01:33] LABS: HEP C RNA Viral Load Quant <1.18 NOT DETECTED Log IU/mL (NOT DETECTED); HEP C RNA Viral Load Quant <15 NOT DETECTED IU/mL (NOT DETECTED)
--- NOTE | 2020-11-16 11:56 | PC.SOCIAL ---
discharge follow up call made. spoke with patient he filled prescriptions new prescriptions and he is taking as prescribed. patient is aware of follow up appointment with Dr. Reinoso. Patients needs follow up with wound care. Farmworker called wound care and they will no longer being seeing patient due to patient being non compliant with appointments and care. patient went 30 plus days without being seen at wound care. Dr. Saini wants pt to get a second opinion at either [facility] or [facility]. Farmworker notified patient of this information. Farmworker let patient know that he will need to get a referral from his pcp for wound care to which ever place he decides to travel to. Farmworker will call Dr. Reinoso office and speak to his nurse.
--- NOTE | 2020-11-18 07:42 | PC.RESP ---
SMOKING CESSATION INFORMATION SENT TO PATIENT.
[2020-11-20 01:38] LABS: Hepatitis C Genotype RNA NOT DETECTED
== END 2020-11-15 13:55 | disposition home or self-care (01) | DRG 603 ==
LOC: ER 10:15 → MEDSURG 14:46
PROVIDERS: Admitting Provider Student in an Organized Health Care Education/Training Program; Emergency Provider Family Medicine; PCP Family Medicine Adult Medicine; Visit Provider Internal Medicine
DX: L03.116 Cellulitis of left lower limb (principal); M86.9 Osteomyelitis, unspecified; L03.115 Cellulitis of right lower limb; I70.202 Unspecified atherosclerosis of native arteries of extremities, left leg; K21.9 Gastro-esophageal reflux disease without esophagitis; I10 Essential (primary) hypertension; F17.210 Nicotine dependence, cigarettes, uncomplicated; I73.1 Thromboangiitis obliterans [Buerger's disease]; D63.8 Anemia in other chronic diseases classified elsewhere; L98.499 Non-pressure chronic ulcer of skin of other sites with unspecified severity; Z20.822 Contact with and (suspected) exposure to COVID-19; Z83.3 Family history of diabetes mellitus; Z80.9 Family history of malignant neoplasm, unspecified; Z82.49 Family history of ischemic heart disease and other diseases of the circulatory system; Z56.0 Unemployment, unspecified; Z89.9 Acquired absence of limb, unspecified; Z86.19 Personal history of other infectious and parasitic diseases
CPT/HCPCS: 36415; 36556; 36592; 71045; 73630; 73701; 80048; 80053; 80061; 80202; 80306; 81003; 82436; 82533; 82550; 82607; 82728; 82746; 83036; 83540; 83550; 83605; 83735; 83880; 84100; 84133; 84145; 84300; 84439; 84443; 84481; 85025; 85045; 85378; 85610; 85651; 86140; 87040; 87426; 87522; 87641; 87902; 93306; 93925; 94664; 96365; 96367; 96372; 99285; J1644; J2060; J2405; J2543; J3370; J7030; J7050; Q9967

== ENCOUNTER 2020-12-15 09:04 | Outpatient (CLI) | payer MEDICAID, SELFPAY ==
[2020-12-15 09:50] LABS: Basophils % 0.5 %; Eosinophils # 0.2 10^3/uL (0.0-0.8); Eosinophils % 2.3 %; Hematocrit 32.5 % (42.0-52.0); Hemoglobin 10.2 g/dL (11.7-16.6); Lymphocytes # 1.7 10^3/uL (0.8-4.8); Lymphocytes % 20.6 %; Mean Corpuscular HGB Conc 31.4 g/dL (30.0-36.0); Mean Corpuscular Volume 82.9 fl (80-94); Mean Platelet Volume 9.6 fL (7.4-10.4); Monocytes # 0.5 10^3/uL (0.2-0.9); Monocytes % 5.8 %; Neutrophils # 5.81 10^3/uL (1.8-7.7); Neutrophils % 70.6 %; Nucleated Red Blood Cells % 0 %; Platelet Count 342 10^3/cmm (130-400); Red Blood Count 3.92 10^6/uL (4.1-5.3); Red Cell Distribution Width 14.4 % (12.1-15.1); White Blood Count 8.2 10^3/uL (4.0-10.0)
[2020-12-15 10:26] LABS: Carbon Dioxide 26 mmol/L (22-29); Chloride 99 mmol/L (98-107); Potassium 4.2 mmol/L (3.5-5.1); Sodium 133 mmol/L (136-145)
[2020-12-15 10:27] LABS: Alanine Aminotransferase 9 U/L (0-41); Albumin Level 3.3 g/dL (3.5-5.2); Alkaline Phosphatase 45 IU/L (40-130); Anion Gap 12.2 (5-19); Aspartate Amino Transferase 13 U/L (0-40); Blood Urea Nitrogen 11 mg/dL (6-20); C Reactive Protein 26.1 mg/L (0.0-4.9); Calcium 8.6 mg/dL (8.5-10.5); Globulin 4.2 g/dL (1.3-4.6); Glomerular Filtration Rate 120.4 mL/min (90-130); Glucose 122 mg/dL (65-115); Osmolality Calculated 277 mOsm/kg (285-295); Total Bilirubin 0.2 mg/dL (0.15-1.2); Total Protein 7.5 g/dL (6.6-8.7)
[2020-12-15 11:17] LABS: Prealbumin 14.3 mg/dL (20-40)
[2020-12-16 13:36] LABS: Erythrocyte Sedimentation Rate 86 mm/hr (0-10)
== END 2020-12-15 09:05 | disposition home or self-care (01) ==
LOC: LAB 09:15
PROVIDERS: PCP Family Medicine Adult Medicine; Visit Provider Nurse Practitioner Family
DX: L97.812 Non-pressure chronic ulcer of other part of right lower leg with fat layer exposed (principal)
CPT/HCPCS: 36415; 80053; 84134; 85025; 85651; 86140

== ENCOUNTER 2021-03-21 11:44 | Outpatient (CLI) | payer MEDICAID, SELFPAY ==
[2021-03-21 12:30] LABS: Basophils % 0.2 %; Eosinophils # 0.1 10^3/uL (0.0-0.8); Eosinophils % 1.2 %; Hematocrit 34.3 % (42.0-52.0); Hemoglobin 10.7 g/dL (11.7-16.6); Lymphocytes # 0.5 10^3/uL (0.8-4.8); Lymphocytes % 7.7 %; Mean Corpuscular HGB Conc 31.2 g/dL (30.0-36.0); Mean Corpuscular Hemoglobin 26.1 pg (28.0-34.0); Mean Corpuscular Volume 83.7 fl (80-94); Monocytes # 0.5 10^3/uL (0.2-0.9); Monocytes % 7.2 %; Neutrophils # 5.54 10^3/uL (1.8-7.7); Neutrophils % 83.4 %; Nucleated Red Blood Cells % 0 %; Platelet Count 241 10^3/cmm (130-400); Red Cell Distribution Width 14.1 % (12.1-15.1); White Blood Count 6.6 10^3/uL (4.0-10.0)
[2021-03-21 12:53] LABS: Anion Gap 16.8 (5-19); Blood Urea Nitrogen 8 mg/dL (6-20); C Reactive Protein 46.2 mg/L (0.0-4.9); Calcium 8.1 mg/dL (8.5-10.5); Carbon Dioxide 23 mmol/L (22-29); Chloride 94 mmol/L (98-107); Glomerular Filtration Rate 103.2 mL/min (90-130); Glucose 88 mg/dL (65-115); Osmolality Calculated 268 mOsm/kg (285-295); Potassium 3.8 mmol/L (3.5-5.1); Sodium 130 mmol/L (136-145)
[2021-03-21 13:49] LABS: Hepatitis B Core AB, Total Reactive (Nonreactive); Hepatitis B Surface AB 4.8 (11.5-1000); Hepatitis B Surface Antigen Non-Reactive (Nonreactive); Hepatitis C Virus Antibody Reactive (Nonreactive)
[2021-03-22 21:31] LABS: HEP C RNA Viral Load Quant <1.18 NOT DETECTED Log IU/mL (NOT DETECTED); HEP C RNA Viral Load Quant <15 NOT DETECTED IU/mL (NOT DETECTED)
== END 2021-03-21 11:45 | disposition home or self-care (01) ==
PROVIDERS: PCP Family Medicine Adult Medicine; Visit Provider Nurse Practitioner Family
DX: L97.812 Non-pressure chronic ulcer of other part of right lower leg with fat layer exposed (principal)
CPT/HCPCS: 36415; 80048; 85025; 86140; 86705; 86706; 86803; 87340; 87522

== ENCOUNTER 2021-03-28 09:24 | Outpatient (CLI) | payer MEDICAID, SELFPAY ==
[2021-03-28 10:45] LABS: Basophils % 0.3 %; Eosinophils % 0.7 %; Hematocrit 36.6 % (42.0-52.0); Hemoglobin 11.5 g/dL (11.7-16.6); Lymphocytes # 1.2 10^3/uL (0.8-4.8); Lymphocytes % 19.3 %; Mean Corpuscular HGB Conc 31.4 g/dL (30.0-36.0); Mean Corpuscular Hemoglobin 26.4 pg (28.0-34.0); Mean Corpuscular Volume 83.9 fl (80-94); Mean Platelet Volume 9.7 fL (7.4-10.4); Monocytes # 0.4 10^3/uL (0.2-0.9); Monocytes % 6.2 %; Neutrophils # 4.41 10^3/uL (1.8-7.7); Neutrophils % 73.3 %; Nucleated Red Blood Cells % 0 %; Platelet Count 279 10^3/cmm (130-400); Red Blood Count 4.36 10^6/uL (4.1-5.3); Red Cell Distribution Width 14.2 % (12.1-15.1)
[2021-03-28 10:53] LABS: Erythrocyte Sedimentation Rate 78 mm/hr (0-10)
[2021-03-28 11:09] LABS: Anion Gap 17.2 (5-19); Blood Urea Nitrogen 8 mg/dL (6-20); Calcium 9.2 mg/dL (8.5-10.5); Carbon Dioxide 23 mmol/L (22-29); Chloride 100 mmol/L (98-107); Glomerular Filtration Rate 120.4 mL/min (90-130); Glucose 81 mg/dL (65-115); Osmolality Calculated 279 mOsm/kg (285-295); Potassium 4.2 mmol/L (3.5-5.1); Sodium 136 mmol/L (136-145)
== END 2021-03-28 09:25 | disposition home or self-care (01) ==
LOC: LAB 09:33
PROVIDERS: PCP Family Medicine Adult Medicine; Visit Provider Nurse Practitioner Family
DX: L97.812 Non-pressure chronic ulcer of other part of right lower leg with fat layer exposed (principal)
CPT/HCPCS: 80048; 85025; 85651; 86140

== ENCOUNTER 2021-05-15 08:32 | Outpatient (CLI) | payer MEDICAID, SELFPAY ==
[2021-05-15 09:06] LABS: Basophils % 0.3 %; Eosinophils # 0.1 10^3/uL (0.0-0.8); Eosinophils % 2.1 %; Hematocrit 36.5 % (42.0-52.0); Hemoglobin 11.3 g/dL (11.7-16.6); Lymphocytes # 1.3 10^3/uL (0.8-4.8); Lymphocytes % 19.4 %; Mean Corpuscular Hemoglobin 25.8 pg (28.0-34.0); Mean Corpuscular Volume 83.3 fl (80-94); Mean Platelet Volume 9.5 fL (7.4-10.4); Monocytes # 0.4 10^3/uL (0.2-0.9); Monocytes % 6.1 %; Neutrophils # 4.68 10^3/uL (1.8-7.7); Neutrophils % 71.8 %; Nucleated Red Blood Cells % 0 %; Platelet Count 187 10^3/cmm (130-400); Red Blood Count 4.38 10^6/uL (4.1-5.3); Red Cell Distribution Width 14.7 % (12.1-15.1); White Blood Count 6.5 10^3/uL (4.0-10.0)
[2021-05-15 09:23] LABS: Erythrocyte Sedimentation Rate 74 mm/hr (0-10)
[2021-05-15 09:31] LABS: Anion Gap 15.2 (5-19); Blood Urea Nitrogen 11 mg/dL (6-20); Calcium 8.8 mg/dL (8.5-10.5); Carbon Dioxide 27 mmol/L (22-29); Chloride 99 mmol/L (98-107); Glomerular Filtration Rate 103.2 mL/min (90-130); Glucose 97 mg/dL (65-115); Osmolality Calculated 283 mOsm/kg (285-295); Potassium 4.2 mmol/L (3.5-5.1); Sodium 137 mmol/L (136-145)
[2021-05-15 10:28] LABS: Prealbumin 16.6 mg/dL (20-40)
== END 2021-05-15 08:33 | disposition home or self-care (01) ==
LOC: LAB 08:39
PROVIDERS: PCP Family Medicine Adult Medicine; Visit Provider Nurse Practitioner Family
DX: L97.512 Non-pressure chronic ulcer of other part of right foot with fat layer exposed (principal)
CPT/HCPCS: 36415; 80048; 84134; 85025; 85651; 86140

== ENCOUNTER 2021-06-08 11:18 | Outpatient (CLI) | payer MEDICAID, SELFPAY ==
[2021-06-08 12:12] LABS: Basophils % 0.5 %; Eosinophils # 0.2 10^3/uL (0.0-0.8); Hematocrit 35.4 % (42.0-52.0); Hemoglobin 10.6 g/dL (11.7-16.6); Lymphocytes # 1.6 10^3/uL (0.8-4.8); Lymphocytes % 21.3 %; Mean Corpuscular HGB Conc 29.9 g/dL (30.0-36.0); Mean Corpuscular Hemoglobin 25.5 pg (28.0-34.0); Mean Corpuscular Volume 85.1 fl (80-94); Mean Platelet Volume 9.7 fL (7.4-10.4); Monocytes # 0.5 10^3/uL (0.2-0.9); Monocytes % 6.7 %; Neutrophils # 5.26 10^3/uL (1.8-7.7); Neutrophils % 69.2 %; Nucleated Red Blood Cells % 0 %; Platelet Count 254 10^3/cmm (130-400); Red Blood Count 4.16 10^6/uL (4.1-5.3); White Blood Count 7.6 10^3/uL (4.0-10.0)
[2021-06-08 12:30] LABS: Alanine Aminotransferase 11 U/L (0-41); Albumin Level 3.5 g/dL (3.5-5.2); Alkaline Phosphatase 66 IU/L (40-130); Anion Gap 14.1 (5-19); Aspartate Amino Transferase 15 U/L (0-40); Blood Urea Nitrogen 14 mg/dL (6-20); C Reactive Protein 6.6 mg/L (0.0-4.9); Calcium 9.3 mg/dL (8.5-10.5); Carbon Dioxide 23 mmol/L (22-29); Chloride 101 mmol/L (98-107); Globulin 4.4 g/dL (1.3-4.6); Glomerular Filtration Rate 103.2 mL/min (90-130); Glucose 91 mg/dL (65-115); Osmolality Calculated 278 mOsm/kg (285-295); Potassium 4.1 mmol/L (3.5-5.1); Sodium 134 mmol/L (136-145); Total Bilirubin 0.2 mg/dL (0.15-1.2); Total Protein 7.9 g/dL (6.6-8.7)
== END 2021-06-08 11:19 | disposition home or self-care (01) ==
LOC: LAB 11:39
PROVIDERS: PCP Family Medicine Adult Medicine; Visit Provider Internal Medicine
DX: Z79.899 Other long term (current) drug therapy (principal); Z79.2 Long term (current) use of antibiotics
CPT/HCPCS: 80053; 85025; 86140

== ENCOUNTER 2021-06-28 08:42 | Outpatient (CLI) | payer MEDICAID, SELFPAY ==
[2021-06-28 09:20] LABS: Basophils % 0.4 %; Eosinophils # 0.1 10^3/uL (0.0-0.8); Eosinophils % 2.8 %; Hematocrit 35.6 % (42.0-52.0); Hemoglobin 10.9 g/dL (11.7-16.6); Lymphocytes # 1.1 10^3/uL (0.8-4.8); Lymphocytes % 22.2 %; Mean Corpuscular HGB Conc 30.6 g/dL (30.0-36.0); Mean Corpuscular Hemoglobin 26.2 pg (28.0-34.0); Mean Corpuscular Volume 85.6 fl (80-94); Mean Platelet Volume 9.5 fL (7.4-10.4); Monocytes # 0.4 10^3/uL (0.2-0.9); Monocytes % 8.3 %; Neutrophils # 3.37 10^3/uL (1.8-7.7); Neutrophils % 66.1 %; Nucleated Red Blood Cells % 0 %; Platelet Count 196 10^3/cmm (130-400); Red Blood Count 4.16 10^6/uL (4.1-5.3); Red Cell Distribution Width 14.6 % (12.1-15.1); White Blood Count 5.1 10^3/uL (4.0-10.0)
[2021-06-28 09:31] LABS: Erythrocyte Sedimentation Rate 21 mm/hr (0-10)
[2021-06-28 09:48] LABS: Blood Urea Nitrogen 13 mg/dL (6-20); C Reactive Protein 11.3 mg/L (0.0-4.9); Calcium 8.2 mg/dL (8.5-10.5); Carbon Dioxide 29 mmol/L (22-29); Chloride 103 mmol/L (98-107); Glomerular Filtration Rate 90.1 mL/min (90-130); Glucose 90 mg/dL (65-115); Osmolality Calculated 288 mOsm/kg (285-295); Sodium 139 mmol/L (136-145)
== END 2021-06-28 08:43 | disposition home or self-care (01) ==
LOC: LAB 08:45
PROVIDERS: PCP Family Medicine Adult Medicine; Visit Provider Surgery Surgical Oncology
DX: L97.522 Non-pressure chronic ulcer of other part of left foot with fat layer exposed (principal); L97.512 Non-pressure chronic ulcer of other part of right foot with fat layer exposed; I73.1 Thromboangiitis obliterans [Buerger's disease]; L97.822 Non-pressure chronic ulcer of other part of left lower leg with fat layer exposed; M79.604 Pain in right leg; M79.605 Pain in left leg; L97.812 Non-pressure chronic ulcer of other part of right lower leg with fat layer exposed
CPT/HCPCS: 36415; 80048; 85025; 85651; 86140

== ENCOUNTER 2021-07-07 11:18 | Outpatient (CLI) | payer MEDICAID, SELFPAY ==
[2021-07-07 12:15] LABS: Basophils % 0.6 %; Eosinophils # 0.1 10^3/uL (0.0-0.8); Eosinophils % 0.9 %; Hematocrit 39.7 % (42.0-52.0); Hemoglobin 12.4 g/dL (11.7-16.6); Lymphocytes % 18.5 %; Mean Corpuscular HGB Conc 31.2 g/dL (30.0-36.0); Mean Corpuscular Hemoglobin 26.3 pg (28.0-34.0); Mean Corpuscular Volume 84.3 fl (80-94); Mean Platelet Volume 9.9 fL (7.4-10.4); Monocytes # 0.5 10^3/uL (0.2-0.9); Neutrophils # 3.76 10^3/uL (1.8-7.7); Neutrophils % 70.8 %; Nucleated Red Blood Cells % 0 %; Platelet Count 178 10^3/cmm (130-400); Red Blood Count 4.71 10^6/uL (4.1-5.3); Red Cell Distribution Width 14.3 % (12.1-15.1); White Blood Count 5.3 10^3/uL (4.0-10.0)
[2021-07-07 12:20] LABS: Erythrocyte Sedimentation Rate 54 mm/hr (0-10)
[2021-07-07 13:04] LABS: Alanine Aminotransferase 14 U/L (0-41); Alkaline Phosphatase 79 IU/L (40-130); Aspartate Amino Transferase 20 U/L (0-40); Blood Urea Nitrogen 15 mg/dL (6-20); C Reactive Protein 12.6 mg/L (0.0-4.9); Calcium 9.2 mg/dL (8.5-10.5); Carbon Dioxide 26 mmol/L (22-29); Chloride 100 mmol/L (98-107); Globulin 4.6 g/dL (1.3-4.6); Glomerular Filtration Rate 103.2 mL/min (90-130); Glucose 93 mg/dL (65-115); Osmolality Calculated 285 mOsm/kg (285-295); Sodium 137 mmol/L (136-145); Total Bilirubin 0.3 mg/dL (0.15-1.2); Total Protein 8.6 g/dL (6.6-8.7)
[2021-07-07 13:06] LABS: Anion Gap 15.3 (5-19); Potassium 4.3 mmol/L (3.5-5.1)
== END 2021-07-07 11:19 | disposition home or self-care (01) ==
LOC: LAB 11:21
PROVIDERS: PCP Family Medicine Adult Medicine; Visit Provider Internal Medicine
DX: L97.512 Non-pressure chronic ulcer of other part of right foot with fat layer exposed (principal); L97.522 Non-pressure chronic ulcer of other part of left foot with fat layer exposed
CPT/HCPCS: 80053; 85025; 85651; 86140

== ENCOUNTER 2021-07-19 09:54 | Outpatient (CLI) | payer MEDICAID, SELFPAY ==
[2021-07-19 11:04] LABS: Basophils % 0.3 %; Eosinophils # 0.1 10^3/uL (0.0-0.8); Eosinophils % 1.7 %; Hematocrit 41.5 % (42.0-52.0); Hemoglobin 13.1 g/dL (11.7-16.6); Lymphocytes # 1.1 10^3/uL (0.8-4.8); Mean Corpuscular HGB Conc 31.6 g/dL (30.0-36.0); Mean Corpuscular Hemoglobin 26.5 pg (28.0-34.0); Mean Platelet Volume 10.2 fL (7.4-10.4); Monocytes # 0.4 10^3/uL (0.2-0.9); Monocytes % 6.8 %; Neutrophils # 4.74 10^3/uL (1.8-7.7); Neutrophils % 73.7 %; Nucleated Red Blood Cells % 0 %; Platelet Count 203 10^3/cmm (130-400); Red Blood Count 4.94 10^6/uL (4.1-5.3); Red Cell Distribution Width 13.6 % (12.1-15.1); White Blood Count 6.4 10^3/uL (4.0-10.0)
[2021-07-19 11:14] LABS: Erythrocyte Sedimentation Rate 65 mm/hr (0-10)
[2021-07-19 11:28] LABS: Alanine Aminotransferase 15 U/L (0-41); Albumin Level 4.3 g/dL (3.5-5.2); Alkaline Phosphatase 70 IU/L (40-130); Anion Gap 15.5 (5-19); Aspartate Amino Transferase 24 U/L (0-40); Blood Urea Nitrogen 15 mg/dL (6-20); C Reactive Protein 15.3 mg/L (0.0-4.9); Calcium 9.3 mg/dL (8.5-10.5); Carbon Dioxide 27 mmol/L (22-29); Chloride 98 mmol/L (98-107); Globulin 4.4 g/dL (1.3-4.6); Glomerular Filtration Rate 90.1 mL/min (90-130); Glucose 100 mg/dL (65-115); Osmolality Calculated 283 mOsm/kg (285-295); Potassium 4.5 mmol/L (3.5-5.1); Sodium 136 mmol/L (136-145); Total Bilirubin 0.3 mg/dL (0.15-1.2); Total Protein 8.7 g/dL (6.6-8.7)
[2021-07-19 11:52] LABS: Hepatitis A Antibody IgM Non-Reactive (Nonreactive); Hepatitis B Core IgM Non-Reactive (Nonreactive); Hepatitis B Surface Antigen Non-Reactive (Nonreactive); Hepatitis C Virus Antibody Reactive (Nonreactive)
[2021-07-19 12:30] LABS: Rapid Plasma Reagin Syphilis Nonreactive (Nonreactive)
[2021-07-20 20:34] LABS: HEP C RNA Viral Load Quant <1.18 NOT DETECTED Log IU/mL (NOT DETECTED); HEP C RNA Viral Load Quant <15 NOT DETECTED IU/mL (NOT DETECTED)
== END 2021-07-19 09:55 | disposition home or self-care (01) ==
LOC: LAB 09:57
PROVIDERS: PCP Family Medicine Adult Medicine; Visit Provider Nurse Practitioner Family
DX: L97.812 Non-pressure chronic ulcer of other part of right lower leg with fat layer exposed (principal); L97.822 Non-pressure chronic ulcer of other part of left lower leg with fat layer exposed; M79.604 Pain in right leg; M79.605 Pain in left leg; I73.1 Thromboangiitis obliterans [Buerger's disease]; L97.512 Non-pressure chronic ulcer of other part of right foot with fat layer exposed; L97.522 Non-pressure chronic ulcer of other part of left foot with fat layer exposed
CPT/HCPCS: 80053; 80074; 85025; 85651; 86140; 86592; 87522

== ENCOUNTER → 2021-09-13 08:30 | Outpatient (BNVA) | payer MEDICAID, SELFPAY | PROVIDERS: PCP Family Medicine Adult Medicine; Visit Provider Surgery | DX: L97.501 Non-pressure chronic ulcer of other part of unspecified foot limited to breakdown of skin (principal); Z78.9 Other specified health status | CPT/HCPCS: 99203 ==

== ENCOUNTER 2021-09-15 10:20 | Day surgery (SDC) | payer MEDICAID, SELFPAY ==
[2021-09-13 15:30] VITALS: BMI 22.9
[2021-09-15] VITALS (11 sets, daily range): BP systolic 127–139; BP diastolic 82–110; PULSE 86–108; RESP 11–20; TEMP 36.6–36.8; O2SAT 90–100
--- NOTE | 2021-09-15 | SCC_ITS ---
Procedure done: 1.? Placement of PowerPort via right subclavian vein 2.? Fluoroscopic guidance and interpretation for placement of catheter 24.9 seconds of fluoroscopic guidance, for a cumulative dose of 4.27 mGy, was provided to Dr. Davis by the radiology department. C-arm images of the chest were saved for the patient's permanent record. [facility]
[2021-09-15] MEDS: sodium chloride 0.9% 1,000 ML 30 ML IV (10:57)
--- NOTE | 2021-09-15 11:22 | ANES.PREANE2 ---
Pre-Anesthetic Assessment Height/Weight: Height 1.78 m Weight 72.575 kg Temp Pulse Resp BP Pulse Ox 98.1 F 98 16 139/91 98 09/15/21 10:38 09/15/21 10:38 09/15/21 10:38 09/15/21 10:38 09/15/21 10:38 Preop Diagnosis: difficult IV access Operation Date: 09/14/21 12:00 Proposed Procedures p Portacath Placement Insertion Portacath 37627,L97.501(Not Applicable) - Salazar Davis MD Operation Date: 09/15/21 12:00 Proposed Procedures p Portacath Placement(Not Applicable) - Salazar Davis MD Familial anesthetic complications: none Was Beta Arthur taken within 24 hours: N/A Was Clonidine taken within 24 hours: N/A Last intake: Intake Last Liquid Date 09/14/21 Last Liquid Time 18:00 Last Solid Date 09/14/21 Last Solid Time 18:00 Social No alcohol and No tobacco Exam alert, oriented x 3, clear to auscultation bilaterally and regular rate & rhythm Airway Submandibular: within normal limits Cervical ROM: within normal limits Mallampati: Class II Dentition: false Pulmonary Chronic Obstructive Pulmonary Disease CV/HEM Hypertension Buerger's disease Hepatic Hepatitis (C) GI Gastroesophageal Reflux Disease Musc/skel S/p to amputation Cellulitis Neuropsych None reported Anesthetic Plan ASA status: 3 Anesthesia: Anesthesia Evaluation and General Other: We discussed risk and benefits of general anesthesia including PONV, sore throat (sometimes severe), corneal abrasion, positioning and peripheral nerve injuries, life threatening allergic reaction, post operative ICU admission requiring prolonged intubation, aspiration, stroke, heart attack, , and rare incidences of recall. Patient consents to proceed with general anesthesia. Risk of > 500 ml blood loss (7ml/kg in children): No Medications/Allergies Home Medications Medication Instructions Recorded Confirmed Last Taken Type methadone 10 mg tablet 130 mg PO DAILY #0 01/11/20 09/15/21 09/15/21 07:30 History pantoprazole 40 mg tablet,delayed 40 mg PO QAM 90 Days #90 tab 07/07/21 09/15/21 09/14/21 Rx release (Protonix) cefdinir 300 mg capsule 300 mg PO BID 09/13/21 09/15/21 09/14/21 History clindamycin HCl 300 mg capsule 600 mg PO TID cap 09/13/21 09/15/21 09/14/21 History clopidogrel 75 mg tablet (Plavix) 75 mg PO DAILY tab 09/13/21 09/13/21 09/12/21 History lidocaine 5 % topical patch 1 patch TOPICAL DAILY PRN 30 Days 09/15/21 Unknown Rx #30 ea Allergies Allergy/AdvReac Type Severity Reaction Status Date / Time No Known Allergies Allergy Verified 09/13/21 17:44 Current Medications Generic Name Dose Route Start Last Admin Trade Name Freq PRN Reason Stop Dose Admin Sodium Chloride 1,000 mls @ 30 mls/hr 09/15/21 10:30 09/15/21 10:57 Sodium Chloride 0.9% IV 09/16/21 10:29 30 mls/hr .Q24H EDGAR Administration PFSH Anesthesia Medical History Amputated toe of right foot Bronchitis Buerger's disease Chronic foot ulcer, limited to breakdown of skin Chronic GERD Chronic pain of both feet Encounter for central line placement Hepatitis C antibody test positive Hypertension Tobacco abuse Quit May 08, 2021 Surgical History History of surgical amputation of finger of left hand Family History Other CAD (coronary artery disease) Cancer Diabetes Social History Smoking and tobacco status: former smoker Alcohol intake: never Household members: family Marital status: Number of children: 1 Current occupational status: unemployed Data Anesthesia Cardiac Studies: Echocardiogram 11/13/20
--- NOTE | 2021-09-15 11:45 | W.PM.OPSUD ---
Surgery/Procedure H&P Update DATE OF PROCEDURE: September 15, 2021 DATE H&P PERFORMED: 09/13/21 H&P UPDATE INFORMATION: I have reviewed H&P completed within last 30 days, I have examined patient prior to procedure and No changes to prior documentation PREOP DIAGNOSIS: difficult IV access PRIMARY INDICATION FOR PROCEDURE: The same PLANNED PROCEDURE: Operation Date: 09/14/21 12:00 Proposed Procedures p Portacath Placement Insertion Portacath [id number],L97.501(Not Applicable) - Salazar Davis MD Operation Date: 09/15/21 12:00 Proposed Procedures p Portacath Placement(Not Applicable) - Salazar Davis MD
[2021-09-15] MEDS: ceFAZolin 2,000 MG in sodium chloride 0.9% (plus) 50 ML 100 MG IV (12:00)
--- NOTE | 2021-09-15 12:03 | SC_ITS ---
WS: [id number] C-arm fluoroscopy for Port-A-Cath placement, 09/15/2021 Clinical Data: port Comparison: None. Findings: Dr. Davis inserted a right Port-A-Cath via the right subclavian vein. It ends in the superior vena cava. SC/C-arm FL for CVA [id number] Impression: Insertion of right Port-A-Cath.
[2021-09-15] MEDS: lidocaine 2% INJ 20 mL INJECTION (12:33)
[2021-09-15] MEDS: heparin, porcine 1,000 unit/mL INJ 10 mL 9000 UNIT INJECTION (12:35)
--- NOTE | 2021-09-15 12:59 | PM.OP ---
Operative Report Date of procedure: September 15, 2021 Pre-op diagnosis: Preop Diagnosis difficult IV access Post-op diagnosis: The same Procedure done: 1.? Placement of PowerPort via right subclavian vein 2.? Fluoroscopic guidance and interpretation for placement of catheter Surgeon: Surgeon: Salazar Davis MD Riveting Machine Operator: Surgical sushma Glover Circulating nurse Anila Sandhu Anesthesia: General (LMA MEDICAL ART THERAPIST Hanh and MEDICAL ART THERAPIST jason Ziegler/MEDICAL ART THERAPIST Tono Gray) Estimated blood loss (mL): 5 Procedure: Patient was identified in the holding area and taken to the operative room and placed in supine position LMA was placed by the anesthesia provider,both arms were tucked noticed that the patient has severe contractures but he was well secured to the bed and all pressure points were padded. Timeout was done verifying the patient's name/date of /planned procedure and destination after the procedure, all were in agreement.? SCDs confirmed to be functioning, preoperative antibiotics administered per protocol, and beta hasmukh protocol was confirmed, appropriate positioning of the patient was done by me and the nursing staff. Medications were reviewed to assess for anticoagulant usage.? Risks and benefits and prevention of central line associated blood stream infection (CLABSI) were discussed with the patient/CPOA, and a consent was obtained.? Monitors were in place and monitored throughout the procedure. All necessary supplies were available prior to start.? Hand hygiene was completed prior to starting.? Maximum barrier technique was utilized including a sterile gown, sterile gloves with a hat and mask.? Site was was prepped with [chlorhexidine] and a full body drape was placed. 5 mL of 2% lidocaine was injected into the skin with a 25 gauge needle. Prep& drape was done under the usual sterile technique, lidocaine 2% was injected at the site of the stick, started by right sub-clavian vein stick that retrieved arterial blood from the first stick so I withdrew the needle and I held pressure for few minutes then reinserted the access needle and this time I did retrieve venous blood was obtained from the first stick, a guide wire was then threaded and under the guidance of fluoroscopy position was confirmed to be in the IVC and my interpretation, there were no PVC changes, at that point the guide wire was secured to the drapes with a hemostat and the needle was taken out, attention was then deviated towards creation of a pocket for the port were lidocaine 2% was injected using an 15 blade knife skin incision was created dissection using the Bovie to create a pocket for the Power Port to be accommodated. Hemostasis was secured, after the port being appropriately flushed it was inserted into the pocket and a tunneler was used to accommodate the catheter of the port catheter to be delivered through the incision first created at the site of the stick, at that point under fluoroscopy an estimated length was measured for the catheter and was cut at the designed level, followed by that a dilator with the sheath introduced onto the guide wire the dilator and the wire were retrieved and the catheter of the port was introduced via the sheath where it was peeled off and the catheter maintained to be in the SVC that was confirmed with fluoroscopy, and the fluoroscopy interpretation was done by me throughout the entire procedure. ?The port was kept in its pocket,3-0 Vicryl deep subdermal interrupted sutures, skin was then closed by 4-0 Monocryl as subcuticular closure.The port was appropriately flushed with heparin and venous blood was withdrawn without difficulty.The stick site was closed by 4-0 Monocryl and Dermabond was used followed by dressing.Count was correct at the end of the procedure.Patient tolerated the procedure well was taken to the recovery area. I was present for the whole entire procedure. Position of the catheter was checked with a postoperative chest x-ray and it was in good position without evidence of pneumothorax
--- NOTE | 2021-09-15 13:05 | XR_ITS ---
WS: [id number] Portable AP semiupright chest, 09/15/2021 Clinical Data: S/p right subclavian vein PowerPort placement Comparison: Portable chest, 11/12/2020. Findings: No nodules, masses or effusions are seen. The heart is normal. The pulmonary vascularity is not increased. No pneumonia or pneumothorax is seen. There is a poor inspiratory effort and there is minimal bibasilar atelectasis. The aortic arch shows tortuosity. The right Port-A-Cath ends in the s uperior vena cava. XR/XR chest 1V portable [id number] Impression: Atherosclerosis.
== END 2021-09-15 14:24 | disposition home or self-care (01) ==
PROVIDERS: PCP Family Medicine Adult Medicine; Visit Provider Surgery
PROC: (CPT 36561; principal; 2021-09-15 12:00)
DX: Z45.2 Encounter for adjustment and management of vascular access device (principal); L97.501 Non-pressure chronic ulcer of other part of unspecified foot limited to breakdown of skin; I10 Essential (primary) hypertension; Z86.19 Personal history of other infectious and parasitic diseases; K21.9 Gastro-esophageal reflux disease without esophagitis
CPT/HCPCS: 36561; 71045; 76000; 77001; C1788; J1100; J1644; J2250; J2405; J3010; J7030

== ENCOUNTER → 2021-09-26 10:22 | Outpatient (BNVA) | payer MEDICAID, SELFPAY | PROVIDERS: PCP Family Medicine Adult Medicine; Visit Provider Surgery | DX: Z48.89 Encounter for other specified surgical aftercare (principal) | CPT/HCPCS: 99213 ==

== ENCOUNTER → 2021-10-23 11:36 | Outpatient (BNVA) | payer MEDICAID, SELFPAY | PROVIDERS: PCP Family Medicine Adult Medicine; Visit Provider Podiatrist Foot & Ankle Surgery | DX: L97.512 Non-pressure chronic ulcer of other part of right foot with fat layer exposed (principal); L97.522 Non-pressure chronic ulcer of other part of left foot with fat layer exposed; I73.9 Peripheral vascular disease, unspecified; I73.1 Thromboangiitis obliterans [Buerger's disease] | CPT/HCPCS: 73630; 99213; 99214 ==

== ENCOUNTER 2021-12-22 14:49 | Outpatient (CLI) | payer MEDICAID, SELFPAY ==
--- NOTE | 2021-12-22 15:15 | MR_ITS ---
WS: [id number] MRI BRAIN WITHOUT CONTRAST HISTORY: Altered mental status COMPARISON: None available. Outside imaging studies and reports have been requested. TECHNIQUE: Diffusion imaging, multiplanar T1, T2 and FLAIR imaging obtained. Examination was terminated early because of claustrophobia and panic attack. Tiny cortical areas of increased signal in the posterior RIGHT frontal lobe. No corresponding ADC map . There is mild atrophy and small vessel ischemic disease. Increased T2 signal surrounds the occipita l horns. No midline shift or mass effect. Ventricles and extra-axial spaces are mildly prominent. No inferior displacement of the cerebellar tonsils. Paranasal sinuses: Clear. Mastoid air cells: Normal. Calvarium and scalp: Intact. MR/MR head wo con* [id number] IMPRESSION: 1. Study terminated early due to patient's panic attack and anxiety. 2. No large territory acute infarct. There are 2 areas in the RIGHT frontal lo be cortex which are indeterminate for possible acute lacunar infarct. These may be artifacts. No corresponding ADC map abnormality. 3. Small vessel ischemic disease. 4. Prior imaging studies have been requested. Addendum can be submitted when t hese studies arrive. This is a very limited examination of the brain.
== END 2021-12-22 14:50 | disposition home or self-care (01) ==
LOC: RAD 14:49
PROVIDERS: PCP Family Medicine Adult Medicine; Visit Provider Family Medicine Adult Medicine
DX: R41.82 Altered mental status, unspecified (principal); I67.82 Cerebral ischemia
CPT/HCPCS: 70551

== ENCOUNTER 2022-05-24 09:29 | Outpatient (CLI) | payer MEDICAID, SELFPAY ==
[2022-05-24 10:48] LABS: Basophils % 0.5 %; Eosinophils # 0.1 10^3/uL (0.0-0.8); Eosinophils % 0.6 %; Hematocrit 32.8 % (42.0-52.0); Hemoglobin 10.1 g/dL (11.7-16.6); Lymphocytes % 11.7 %; Mean Corpuscular HGB Conc 30.8 g/dL (30.0-36.0); Mean Corpuscular Hemoglobin 24.6 pg (28.0-34.0); Mean Corpuscular Volume 79.8 fl (80-94); Mean Platelet Volume 10.6 fL (7.4-10.4); Monocytes # 0.6 10^3/uL (0.2-0.9); Monocytes % 7.6 %; Neutrophils # 6.54 10^3/uL (1.8-7.7); Neutrophils % 78.9 %; Nucleated Red Blood Cells % 0 %; Platelet Count 166 10^3/cmm (130-400); Red Blood Count 4.11 10^6/uL (4.1-5.3); White Blood Count 8.3 10^3/uL (4.0-10.0)
[2022-05-24 10:58] LABS: Erythrocyte Sedimentation Rate 49 mm/hr (0-10)
[2022-05-24 11:07] LABS: Alanine Aminotransferase 24 U/L (0-41); Albumin Level 3.3 g/dL (3.5-5.2); Alkaline Phosphatase 47 U/L (40-130); Anion Gap 17.5 (5-19); Aspartate Amino Transferase 32 U/L (0-40); Blood Urea Nitrogen 15 mg/dL (6-20); C Reactive Protein 76.4 mg/L (0.0-4.9); Calcium 8.7 mg/dL (8.5-10.5); Carbon Dioxide 22 mmol/L (22-29); Chloride 99 mmol/L (98-107); Globulin 4.5 g/dL (1.3-4.6); Glomerular Filtration Rate 71.1 mL/min (90-130); Glucose 97 mg/dL (65-115); Osmolality Calculated 279 mOsm/kg (285-295); Potassium 4.5 mmol/L (3.5-5.1); Sodium 134 mmol/L (136-145); Total Bilirubin 0.3 mg/dL (0.15-1.2); Total Protein 7.8 g/dL (6.6-8.7)
--- NOTE | 2022-05-24 11:07 | XR_ITS ---
WS: [email or web address] EXAMINATION: XR foot RT min 3V* [id number] REASON FOR EXAM: CELLULITIS OF LOWER LIMB COMPARISON: 10/23/2021 ORDER DATE: 05/24/2022 11:13 AM TECHNIQUE: 3 views of the right foot were obtained. X-RAY FINDINGS: Bones/joints: First proximal and distal phalangeal amputation. Amputation at level of the 2nd proximal phalanx distal diaphysis. Amputation at level of the 3rd proximal phalanx proximal metaphysis. Soft tissues: Soft tissue swelling about the foot without acute bony abnormality. XR/XR foot RT min 3V* [id number] IMPRESSION: No significant interval change from the prior study..
--- NOTE | 2022-05-24 11:07 | XR_ITS ---
WS: [email or web address] EXAMINATION: XR foot LT min 3V* [id number] REASON FOR EXAM: CELLULITIS OF LOWER LIMB COMPARISON: 10/23/2021 ORDER DATE: 05/24/2022 11:13 AM TECHNIQUE: 3 views of the left foot were obtained. X-RAY FINDINGS: There are no fractures or dislocations. The left foot is strongly dorsiflexed with irregular attenuat ion throughout the foot giving a patchy appearance to the soft tissues which aren't also demonstratin g somewhat irregular nodular outlines. There is diffuse osteopenia. There is no specific sign of erosion or lytic change in the bony structu res. XR/XR foot LT min 3V* [id number] IMPRESSION: No fractures or dislocations of the left foot. Irregular diffuse soft tissue ch anges as noted.
[2022-05-24 11:17] LABS: Estmated Average Glucose 91; Hemoglobin A1C 4.8 % (4.0-6.0)
== END 2022-05-24 09:30 | disposition home or self-care (01) ==
PROVIDERS: PCP Family Medicine Adult Medicine; Visit Provider Nurse Practitioner Family
DX: L03.115 Cellulitis of right lower limb (principal); Z79.899 Other long term (current) drug therapy
CPT/HCPCS: 73630; 80053; 83036; 84134; 85025; 85651; 86140

== ENCOUNTER 2022-06-11 09:15 | Inpatient (IN) | payer MEDICAID, SELFPAY ==
[2022-06-11] VITALS (31 sets, daily range): BP systolic 110–142; BP diastolic 61–94; PULSE 73–140; RESP 15–71; TEMP 36.9–37.4; O2SAT 76–100; BMI 18.9; BMI 22.9; BMI 21.1
--- NOTE | 2022-06-11 09:25 | XR_ITS ---
WS: [email or web address] EXAMINATION: XR chest 1V portable [id number] REASON FOR EXAM: dyspnea/cough COMPARISON: 09/15/2021. ORDER DATE: 06/11/2022 9:25 AM TECHNIQUE: A single, portable frontal chest x-ray was obtained. FINDINGS: There is an HA rotation to the chest. The heart is normal. Left hilar pulmonary vascular c ongestion or increased hilar density is suggested along with consolidation and effusion obscuring the left diaphragm and left apex and costophrenic angle. No pneumothorax is seen. There is atherosclerot ic aortic change. Possibility of old or possibly a few recent rib fractures involving the left lower ribs not well demonstrated on this study thoracolumbar scoliosis.. The right Port-A-Cath ends in the superior vena cava. XR/XR chest 1V portable [id number] Impression: Consolidative change and effusion in the left base with left perihilar changes recommend a lateral chest view and straight AP or PA view of possible versus CT imaging for further correlation. Possibility of rib fractures involving the left lower ribs.
[2022-06-11 09:53] LABS: Basophils % 0.2 %; Eosinophils % 0.1 %; Hematocrit 30.9 % (42.0-52.0); Hemoglobin 9.4 g/dL (11.7-16.6); Lymphocytes # 0.5 10^3/uL (0.8-4.8); Lymphocytes % 2.9 %; Mean Corpuscular HGB Conc 30.4 g/dL (30.0-36.0); Mean Corpuscular Hemoglobin 24.7 pg (28.0-34.0); Mean Corpuscular Volume 81.1 fl (80-94); Monocytes # 1.5 10^3/uL (0.2-0.9); Monocytes % 7.9 %; Neutrophils # 16.05 10^3/uL (1.8-7.7); Neutrophils % 87.9 %; Nucleated Red Blood Cells % 0 %; Platelet Count 152 10^3/cmm (130-400); Red Blood Count 3.81 10^6/uL (4.1-5.3); White Blood Count 18.3 10^3/uL (4.0-10.0)
[2022-06-11 10:14] LABS: Lactic Sepsis W/Reflex 1.1 mmol/L (0.5-2.2)
[2022-06-11 10:15] LABS: Alanine Aminotransferase 27 U/L (0-41); Albumin Level 2.9 g/dL (3.5-5.2); Alkaline Phosphatase 99 U/L (40-130); Anion Gap 13.9 (5-19); Aspartate Amino Transferase 44 U/L (0-40); Blood Urea Nitrogen 15 mg/dL (6-20); Calcium 8.5 mg/dL (8.5-10.5); Carbon Dioxide 23 mmol/L (22-29); Chloride 91 mmol/L (98-107); Globulin 3.9 g/dL (1.3-4.6); Glomerular Filtration Rate 89.7 mL/min (90-130); Glucose 110 mg/dL (65-115); Osmolality Calculated 259 mOsm/kg (285-295); Potassium 3.9 mmol/L (3.5-5.1); Sodium 124 mmol/L (136-145); Total Bilirubin 0.6 mg/dL (0.15-1.2); Total Protein 6.8 g/dL (6.6-8.7)
--- NOTE | 2022-06-11 10:18 | W.ED.EXTPRO ---
HPI - Extremity Problem General: Chief complaint: Extremity Problem,Nontraumatic Stated complaint: BILATERAL WOUNDS ON FEET/WEAKNESS Time Seen by Provider: 06/11/22 09:24 Source: patient Mode of arrival: EMS History of Present Illness: 51-year-old male who presents to the emergency room has bilateral wounds on his feet that are red and inflamed and indurated. Generalized weakness. Dorsum of feet bilaterally is covered with large stage IV wounds with mucousy eschar in place are bandaged. He has been on Bactrim at home although his: Question how much he has been taking of the medicine. His mother is his main caregiver at home states she is unable to care for him. No fever at home. Patient has drawn up in a position prior he could walk but has not been evidently because of the wounds in his feet which is make his care at home difficult he has chronic back pain for which she is on methadone he relates that he is still in pain. He is on 130 mg of methadone daily. At home patient has been reporting increasing shortness of breath and productive cough as well. MD Complaint: extremity pain Onset (ago): month(s) Pain Consistency: constant Location: left, right and lower extremity Relieving factors: nothing Exacerbating factors: nothing Associated symptoms: Deny chest pain or rash Review of Systems Const: Reports: fatigue and malaise ENMT: Denies: throat pain, ear or mastoid pain, nasal discharge or nasal congestion Card: Reports: dyspnea on exertion; Denies: chest pain, edema or orthopnea Resp: Reports: dyspnea, productive cough and chest congestion; Denies: non-productive cough GI: Reports: nausea; Denies: abdominal pain, vomiting, hematemesis, coffee ground emesis, diarrhea, constipation, bloating, hematochezia or melena : Denies: flank pain, dysuria, urinary frequency or urinary urgency Skin/Breast: Denies: rash or pruritus PFS ED PFSH: Medical History Amputated toe of right foot Bronchitis Buerger's disease Chronic foot ulcer, limited to breakdown of skin Chronic GERD Chronic pain of both feet Encounter for central line placement Episode of change in speech Hepatitis C antibody test positive Hypertension Memory loss due to medical condition Tobacco abuse Quit May 08, 2021 Surgical History History of surgical amputation of finger of left hand Family History Other CAD (coronary artery disease) Cancer Diabetes Social History Smoking and tobacco status: former smoker Alcohol intake: never Household members: family Marital status: Number of children: 1 Current occupational status: unemployed Physical Exam Const: ORIENTATION/CONSCIOUSNESS: Yes awake, Yes oriented to person, Yes oriented to place and Yes oriented to time HENMT: COMMON NORMALS: normocephalic, atraumatic and hearing grossly normal bilaterally HEAD & SCALP: normocephalic and atraumatic Resp: EFFORT & INSPECTION: Yes tachypneic AUSCULTATION: rhonchi and wheezes Cardio: COMMON NORMALS: regular rhythm and No murmurs present (Cardio) RATE: tachycardic RHYTHM: regular rhythm GI: COMMON NORMALS: Soft to palpation and No hepatosplenomegaly present AUSCULTATION: Yes normoactive bowel sounds PALPATION: Yes Soft to palpation, No Tenderness to palpation present (GI), No Guarding due to palpation present (GI) and Yes No hepatosplenomegaly present Extremity: OTHER: Diffuse foot ulcerations stage IV. Reddened indurated mucousy eschar at the base no active bleeding Neuro: SENSORIUM/ORIENTATION: Yes oriented to person, Yes oriented to place and Yes oriented to time Skin: COMMON NORMALS: no rashes or lesions noted GENERAL SKIN EXAM: no rashes or lesions noted Course Vital Signs: Vital signs: Vital Signs Temperature 98.5 F 06/13/22 21:00 Pulse Rate 123 H 06/14/22 06:00 Respiratory Rate 25 H 06/14/22 06:00 Blood Pressure 127/94 06/14/22 05:00 Pulse Oximetry 96 06/14/22 06:00 Oxygen Delivery Me thod BiPAP 06/13/22 21:30 Oxygen Flow Rate 14 06/13/22 07:33 Fraction of Inspir ed Oxygen 30 06/14/22 02:28 MDM - Extremity (Nontraumatic) Medical Decision Making Sepsis from wound is and pneumonia. Significant leukocytosis chronic anemia also hyponatremic. Medications adjusted based on allergy list. Discussed with hospitalist they are planning on a CTA of the chest. No sign of septic shock or endorgan damage at this time. Patient has a history of Buerger's disease. Cultures done. Discussed with hospitalist orders written for admission. Mother is concerned about his overall declining status and states she is unable to care for him at home. Will likely also need disposition planning. Medical Records I reviewed the patient's medical records. Lab Data I reviewed the patient's lab results. 06/14/22 02:40 06/14/22 02:40 Radiology Impressions Chest CTA 06/11/22 13:32 IMPRESSION: 1. Filling defects in the LEFT lower lobe segmental and subsegmental pulmonary artery compatible with pulmonary embolus. 2. LEFT lower lobe pneumonia with patchy airspace infiltrates and partial consolidation. 3. Trace bilateral pleural Fluid. Atelectasis RIGHT lower lobe. 4. Patchy nodular infiltrates in the perihilar regions bilaterally RIGHT greater than LEFT 5. RIGHT upper lobe pulmonary opacities some with feeding vessels can be seen with septic emboli. 6. Masslike opacity measuring 2.2 x 1.4CM RIGHT upper lobe. This may be infectious in etiology versus septic embolus but neoplasm not excluded. Recommend follow-up after treatment. 7. Chronic appearing biconcave compression fracture at T8. No retropulsion. Notified Dennis Gonzalez MD at 06/11/2022 4:06 PM. Chest X-Ray 06/12/22 21:25 IMPRESSION: 1. Patchy bilateral diffuse airspace infiltrates. 2. Cardiomegaly. Chest CT 06/13/22 00:33 IMPRESSION: 1. Bilateral mild to moderate pleural fluid collections. 2. Severe right lung ground-glass opacities and airspace disease consistent with severe COVID-19 pneumonia versus other pneumonia. 3. Moderate geographic ground-glass opacities in the left upper lobe with severe left lower lobe pneumonia. Laboratory Results WBC 18.3 10^3/uL (4.0-10.0) H 06/11/22 09:33 RBC 3.81 10^6/uL (4.1-5.3) L 06/11/22 09:33 Hgb 9.4 g/dL (11.7-16.6) L 06/11/22 09:33 Hct 30.9 % (42.0-52.0) L 06/11/22 09:33 MCV 81.1 fl (80-94) 06/11/22 09:33 MCH 24.7 pg (28.0-34.0) L 06/11/22 09:33 MCHC 30.4 g/dL (30.0-36.0) 06/11/22 09:33 RDW 16.0 % (12.1-15.1) H 06/11/22 09:33 Plt Count 152 10^3/cmm (130-400) 06/11/22 09:33 MPV 11.0 fL (7.4-10.4) H 06/11/22 09:33 Neut % (Auto) 87.9 % 06/11/22 09:33 Lymph % (Auto) 2.9 % 06/11/22 09:33 [place] % (Auto) 7.9 % 06/11/22 09:33 Eos % (Auto) 0.1 % 06/11/22 09:33 Baso % (Auto) 0.2 % 06/11/22 09:33 Neut # (Auto) 16.05 10^3/uL (1.8-7.7) H 06/11/22 09:33 Lymph # (Auto) 0.5 10^3/uL (0.8-4.8) L 06/11/22 09:33 [place] # (Auto) 1.5 10^3/uL (0.2-0.9) H 06/11/22 09:33 Eos # (Auto) 0.0 10^3/uL (0.0-0.8) 06/11/22 09:33 Baso # (Auto) 0.0 10^3/uL (0.0-0.1) 06/11/22 09:33 Nucleated RBC % (auto) 0 % 06/11/22 09: Nucleated RBCs # 0.0 /100WBC 06/11/22 09:33 Sodium 124 mmol/L (136-145) L 06/11/22 09:33 Potassium 3.9 mmol/L (3.5-5.1) 06/11/22 09:33 Chloride 91 mmol/L (98-107) L 06/11/22 09:33 Carbon Dioxide 23 mmol/L (22-29) 06/11/22 09:33 Anion Gap 13.9 (5-19) 06/11/22 09:33 BUN 15 mg/dL (6-20) 06/11/22 09:33 Creatinine 0.9 mg/dL (0.7-1.2) 06/11/22 09:33 GFR Calculation 89.7 mL/min (90-130) L 06/11/22 09:33 Glucose 110 mg/dL (65-115) 06/11/22 09:33 Calculated Osmolality 259 mOsm/kg (285-295) L 06/11/22 09:33 Lactic Acid 1.2 mmol/L (0.5-2.2) 06/11/22 13:09 Calcium 8.5 mg/dL (8.5-10.5) 06/11/22 09:33 Total Bilirubin 0.6 mg/dL (0.15-1.2) 06/11/22 09:33 AST 44 U/L (0-40) H 06/11/22 09:33 ALT 27 U/L (0-41) 06/11/22 09:33 Alkaline Phosphatase 99 U/L (40-130) 06/11/22 09:33 Total Protein 6.8 g/dL (6.6-8.7) 06/11/22 09:33 Albumin 2.9 g/dL (3.5-5.2) L 06/11/22 09:33 Globulin 3.9 g/dL (1.3-4.6) 06/11/22 09:33 Urine Color Yellow (Yellow) 06/11/22 10:50 Urine Appearance Hazy (CLEAR) A 06/11/22 10:50 Urine pH 5 (5-7) 06/11/22 10:50 Ur Specific [place] 1.025 (1.005-1.030) 06/11/22 10:50 Urine Protein 1+ (Negative) H 06/11/22 10:50 Urine Glucose (UA) Norm (Normal) 06/11/22 10:50 Urine Ketones 1+ (Negative) H 06/11/22 10:50 Urine Blood Neg (Negative) 06/11/22 10:50 Urine Nitrate Negative (Negative) 06/11/22 10:50 Urine Bilirubin 1+ (Negative) H 06/11/22 10:50 Urine Urobilinogen 4 mg/dL (Negative) H 06/11/22 10:50 Ur Leukocyte Esterase Trace (Negative) H 06/11/22 10:50 Urine RBC Rare /hpf (0-2) 06/11/22 10:50 Urine WBC Rare /hpf (0-5) 06/11/22 10:50 Ur Squamous Epith Cells 0-4 /hpf (0-5) H 06/11/22 10:50 Calcium Oxalate Crystal 25-40 /hpf H 06/11/22 10:50 Amorphous Sediment 2+ /hpf 06/11/22 10:50 Urine Bacteria None /hpf (NONE) 06/11/22 10:50 Hyaline Casts 0-4 /lpf H 06/11/22 10:50 Urine Mucus 1+ /hpf 06/11/22 10:50 Discharge Plan Discharge Patient Disposition: Admitted As Inpatient Admit Provider: Dennis Gonzalez Clinical Impression: Buerger's disease, Pneumonia, Wound infection, Sepsis, Hyponatremia, PE (pulmonary thromboembolism), Anemia Condition: Stable Coding Level of Care Code ED Non Linear Editor for Babatunde Alcantar
--- NOTE | 2022-06-11 10:23 | ECG_ITS ---
[facility] Test Date: 2022-06-11 Pat Name: Deandra Olivares Department: Room: Gender: Male Java Analyst: : 1970 Requested By: Manoj Ford Order Number: [id number] Tyler MD: Pola Germain M.D. Measurements Intervals [place] Rate: 120 P: 54 WA: 132 QRS: 26 QRSD: 90 T: 62 QT: 332 QTc: 470 Interpretive Statements SINUS TACHYCARDIA VOLTAGE CRITERIA FOR LVH [MEETS CRITERIA IN ONE OF: R(aVL), S(V1), R(V5), R(V5/V6)+S(V1)] NONSPECIFIC ST & T-WAVE ABNORMALITY Compared to ECG 08/22/2020 10:10:01 Left ventricular hypertrophy now present T-wave abnormality now present Sinus rhythm no longer present Electronically Signed On 06-11-2022 23:40:13 CDT by Pola Germain M.D. [id number]
--- NOTE | 2022-06-11 11:06 | PC.NURSE ---
PT PLACED ON CONTINUOUS NIBP, SPO2, AND CM
--- NOTE | 2022-06-11 11:26 | PC.PHAR ---
pts family verified pts medications-states the pt hasnt taken aspirin 81mg daily for 3 weeks or so-states the pt hasnt had protonix 40mg qam for a week-pts family states the pt has been taking his plavix 75mg daily and methadone 140mg qam (gets from [facility] and gets to carry 27 doses at once)pts family states pt hasnt had any medications today
[2022-06-11 11:52] LABS: Add Urine Microscopic? YES; Bilirubin Urine 1+ (Negative); Blood Urine Neg (Negative); Calcium Oxalate Crystals Urine 25-40 /hpf; Glucose Urine UA Norm (Normal); Ketones Urine 1+ (Negative); Leukocyte Esterase Urine Trace (Negative); Mucus Urine 1+ /hpf; Nitrate Urine Negative (Negative); Protein Urine 1+ (Negative); RBC Urine RARE /hpf (0-2); Specific Gravity, Urine 1.025 (1.005-1.030); Squamous Epithelial Cell Urine 0-4 /hpf (0-5); Urine Appearance Hazy (CLEAR); Urine Color Yellow (Yellow); Urobilinogen Urine 4 mg/dL (Negative); WBC Urine RARE /hpf (0-5); pH Urine 5 (5-7)
[2022-06-11 11:53] LABS: Add Urine Culture? No; Amorphous Sediment Urine 2+ /hpf; Hyaline Casts Urine 0-4 /lpf
--- NOTE | 2022-06-11 11:54 | PC.NURSE ---
PT HAS PRESSURE ULCER ON LEFT HIP. PT POSITIONED TO RIGHT SIDE LYING
[2022-06-11] MEDS: sodium chloride 0.9% 2,177.25 ML 2177.25 ML IV (12:43)
[2022-06-11] MEDS: vancomycin 1,000 MG in sodium chloride 0.9% 250 ML 250 MG IV (12:44)
--- NOTE | 2022-06-11 13:32 | CT_ITS ---
WS: [email or web address] CTA OF THE CHEST WITH PULMONARY EMBOLISM PROTOCOL TECHNIQUE: Noncontrast chest CT followed by High-resolution contrast enhanced CTA of the chest with c oronal and sagittal reformatted images with pulmonary embolism protocol. MIP images are also reviewed . CLINICAL INFORMATION: assess for pe COMPARISON: None. DLP: 999.[address] scans at [facility] use at least one of these dose optimization techniques: automated e xposure control; mA and/or kV adjustment per patient size (includes targeted exams where dose is matc hed to clinical indication); or iterative reconstruction. FINDINGS: Proximal main pulmonary arteries are normal. Filling defects in the LEFT lower lobe segment al and subsegmental pulmonary arteries compatible with pulmonary emboli. No other visualized pulmonar y emboli. Normal caliber thoracic aorta. Tiny bilateral pleural effusions. Patchy airspace infiltrates with partial consolidation LEFT lower l obe compatible with pneumonia. Small amount of patchy infiltrates and atelectasis RIGHT lower lobe. P atchy bilateral RIGHT greater than LEFT perihilar infiltrates. Nodular densities in the RIGHT upper l obe with the largest measuring 2.3 x 1.4 CCM. Findings are nonspecific and recommend follow-up to res olution. Neoplasm not excluded. Some of the nodular densities demonstrate feeding vessels which can be seen with septic emboli. No cavitation. Aortic calcification. No mediastinal or hilar lymphadenopathy. No axillary lymphadenopathy.Moderate t horacic kyphosis. Chronic appearing biconcave compression fracture at T8. No retropulsion. CT/CT angio chest PE protcl [id number] IMPRESSION: 1. Filling defects in the LEFT lower lobe segmental and subsegmental pulmonary artery compatible with pulmonary embolus. 2. LEFT lower lobe pneumonia with patchy airspace infiltrates and partial cons olidation. 3. Trace bilateral pleural Fluid. Atelectasis RIGHT lower lobe. 4. Patchy nodular infiltrates in the perihilar regions bilaterally RIGHT great er than LEFT 5. RIGHT upper lobe pulmonary opacities some with feeding vessels can be seen with septic emboli. 6. Masslike opacity measuring 2.2 x 1.4CM RIGHT upper lobe. This may be infect ious in etiology versus septic embolus but neoplasm not excluded. Recommend fol low-up after treatment. 7. Chronic appearing biconcave compression fracture at T8. No retropulsion. Notified Dennis Gonzalez MD at 06/11/2022 4:06 PM.
[2022-06-11 13:37] LABS: Lactic Sepsis W/Reflex 1.2 mmol/L (0.5-2.2)
[2022-06-11] MEDS: ciprofloxacin 400 MG/200 ML PREMIX 200 MG IV (14:36)
--- NOTE | 2022-06-11 14:42 | PM.HP ---
Providers/Chief Complaint Primary Care Provider: Rogelio Reinoso MD Chief Complaint: BILATERAL WOUNDS ON FEET/WEAKNESS History of Present Illness Pleasant 51-year-old gentleman with history of microangiopathic disease, Buerger's disease, has quit smoking since last hospitalization, chronic wounds of bilateral dorsal feet, normally nonambulatory, mostly staying in bed, cared for at home by his mother who also tends to his wounds, has been following with wound care as well. He is brought in for evaluation to ER with his condition worsening, his mother a difficult time keeping up with his needs at home as well. Decub wound reported on his bottom. In ER he reports that he has also been coughing, bringing up phlegm, but also with pain on inspiration. He is noted to have sinus tachycardia, leukocytosis. With concern for wound infection of lower extremities, possible sepsis, blood cultures obtained, vancomycin, ciprofloxacin ordered in ER. Lactate is normal. Chest x-ray also with noted consolidative change and effusion in the left base with left perihilar changes recommending additional imaging assessment. Possibility of rib fractures involving left lower ribs. He denies current chronic antibiotic. Used to be on Bactrim in the past, but was not tolerant of it. He is not a very good historian. Review of Systems Const: Denies: fever(s) ENMT: Denies: throat pain, oral sores or ear or mastoid pain Card: Denies: chest pain, edema, pre-syncope or dyspnea on exertion Resp: Reports: dyspnea, productive cough and pain on inspiration; Denies: hemoptysis GI: Denies: abdominal pain, nausea, vomiting, diarrhea, constipation, hematochezia or melena : Denies: flank pain, difficulty urinating, urinary frequency or hematuria Musc: Denies: back pain, joint swelling or joint redness Skin/Breast: Reports: changing lesions and non-healing lesions Neuro: Denies: headache(s), numbness in extremities, weakness in extremities, dizziness, confusion or seizure-like activity Medications/Allergies Home Medications Medication Instructions Recorded Confirmed Last Taken Type pantoprazole 40 mg tablet,delayed 40 mg PO QAM 90 days #90 tabs 07/07/21 06/11/22 1 Week Ago Rx release (Protonix) ~06/04/22 Kerlix gauge wrap #5 ea 11/29/21 06/11/22 Unknown Rx alginate bandage #30 ea 11/29/21 06/11/22 Unknown Rx aspirin 81 mg tablet,delayed 81 mg PO DAILY 11/29/21 06/11/22 3 Weeks Ago History release (Adult Low Dose Aspirin) ~05/21/22 family states not ta cyclobenzaprine 10 mg tablet 10 mg PO TID PRN muscle spasm #90 11/29/21 06/11/22 Unknown Rx tabs clopidogrel 75 mg tablet (Plavix) 75 mg PO QAM 06/11/22 06/11/22 06/10/22 History gentamicin 0.1 % topical cream 1 applic topical DAILY 06/11/22 06/11/22 Unknown History methadone 40 mg soluble tablet 140 mg PO QAM 06/11/22 06/11/22 06/10/22 History Allergies Allergy/AdvReac Type Severity Reaction Status Date / Time amoxicillin Allergy Intermediate ADR/ALGY-Pa Verified 06/11/22 09:24 leness sulfamethoxazole Allergy Intermediate ADR/ALGY-Pa Verified 06/11/22 09:24 [From leness Sulfamethoxazole-Trimethoprim] trimethoprim Allergy Intermediate ADR/ALGY-Pa Verified 06/11/22 09:24 [From leness Sulfamethoxazole-Trimethoprim] PFSH Acute PFSH: Medical History Amputated toe of right foot Bronchitis Buerger's disease Chronic foot ulcer, limited to breakdown of skin Chronic GERD Chronic pain of both feet Encounter for central line placement Episode of change in speech Hepatitis C antibody test positive Hypertension Memory loss due to medical condition Tobacco abuse Quit May 08, 2021 Surgical History History of surgical amputation of finger of left hand Family History Other CAD (coronary artery disease) Cancer Diabetes Social History Smoking and tobacco status: former smoker Alcohol intake: never Household members: family Marital status: Number of children: 1 Current occupational status: unemployed Vitals/I&O/Wt Last Vital Signs Temp 98.5 F 06/11/22 09:17 Pulse 119 H 06/11/22 10:54 Resp 18 06/11/22 10:54 BP 119/77 06/11/22 10:54 Pulse Ox 91 06/11/22 10:54 O2 Del Method 06/11/22 09:25 O2 Flow Rate 2 06/11/22 09:25 Weight last 48 hrs Weight 72.575 kg Weight 72.575 kg Physical Exam Const: COMMON NORMALS: patient oriented x3 and alert GENERAL APPEARANCE: cooperative and ill appearing ORIENTATION/CONSCIOUSNESS: Yes awake HENMT: COMMON NORMALS: oropharynx normal OTHER: Dry tongue. Neck/C-Spine: COMMON NORMALS: no JVD Resp: COMMON NORMALS: normal respiratory effort and clear to auscultation bilaterally AUSCULTATION: clear to auscultation bilaterally Cardio: COMMON NORMALS: no JVD, regular rhythm, S1 normal heart sound present, S2 normal heart sound present and No murmurs present (Cardio) RHYTHM: regular rhythm HEART SOUNDS: S1 normal heart sound present and S2 normal heart sound present GI: COMMON NORMALS: Normal to inspection, nondistended, normoactive bowel sounds present, Soft to palpation and non-tender PALPATION: Yes Soft to palpation Extremity: COMMON NORMALS: no joint enlargement OTHER: Contractures BLLE, knees up in the air, feet of bed Neuro: COMMON NORMALS: patient oriented x3 and moves all extremities SENSORIUM/ORIENTATION: Yes alert Skin: OTHER: BL dorsal feet ulcerations with crusting with fissures extending to R ankle. No superficial necrosis, foul odor. Surrounding erythema, induration, no significant drainage. R side post inf gluteal erythema. Urinary Catheter Management: David: Cath Placed During This Visit: yes Urinary Catheter Date of Insertion: 06/11/22 Urinary Catheter Time of Insertion: 11:05 Data 06/11/22 09:33 06/11/22 09:33 Micro: Microbiology 06/11/22 09:43 Blood Culture - Preliminary Blood SPECIMEN COLLECTED 06/11/22 09:33 Blood Culture - Preliminary Blood SPECIMEN COLLECTED A&P Assessment and plan (1) Sepsis: Discussed with ER physician, possible sepsis, with leukocytosis 18,000, sinus tachycardia 120-130s. Source from wounds as well as pulmonary with pneumonia. Without shock or endorgan damage. Blood cultures collected. Received vancomycin, ciprofloxacin, however, on review of prior CT also some aortic ectasia noted, well avoid continuing quinolones. Discussed with his mother, she does not remember amoxicillin allergy. Is not aware of him ever having anaphylaxis, shock or respiratory arrest with antibiotic. Has had intolerance with the Bactrim she states has been making him nauseated. We discussed continuation with trial of cefepime and continue vancomycin. Discussed with podiatry for assessment for source control, appreciate consultation. Additionally possible pneumonia as below. With multifocal sources, sepsis, at risk of life-threatening deterioration due to septic shock, admit for assessment and management. Monitor vital signs, monitor telemetry. Repeat CBC, chemistry requested. (2) Wound infection: As above. Wound care with Santyl pending further assessment and recommendations by podiatry. (3) Pneumonia: Cough, productive of phlegm, leukocytosis, sinus tachycardia, suspected sepsis. Continue cefepime, vancomycin. Follow-up blood cultures. Obtain sputum culture, bacterial antigens. Has history of MRSA, continue MRSA empiric coverage. Has been requiring 2 L of oxygen in ER. Not normally on oxygen. Additionally with sinus tachycardia, cough, inspiratory chest discomfort, CT attempted, but difficult due to significant contractures. Empirically started on anticoagulation for now. Repeat CBC requested for monitoring of blood counts due to anemia. Tonight and in the morning. (4) Buerger's disease: Has quit smoking since last hospitalization. Antiplatelet agents. (5) Declining functional status: Unable to care for self. Mother has been caring for him as well as his wounds. She is unable to keep up. We will obtain consultation with case management, OT and PT evaluation. (6) Hyponatremia: Sodium 124. Hypovolemic hyponatremia suspected as he has had poor oral intake/appetite. Gentle hydration with LR. Follow-up chemistry at intervals requested. Plan Sacral decubitus ulcer: Reported sacral ulcer, I do not see a clear ulcer, but I was only able to rotate him to the right side, some erythema on posterior right lower buttock. Will need additional reassessment once able to rotate him the other direction. Continue to reposition. Regular diet. Anemia: Mother reports history of anemia and he was supposed to be on a medication but she does not remember if it was iron or something else. Noted normocytic anemia. Follow-up CBC requested. HTN Attestations Medical Necessity Statement*: Admission of over 2 midnights anticipated for assessment management of sepsis with wound infection, pneumonia, hyponatremia, functional decline. Diagnoses Sepsis A41.9 Wound infection T14.8XXA; L08.9 Pneumonia J18.9 Buerger's disease I73.1 Declining functional status R53.81 Hyponatremia E87.1
[2022-06-11] MEDS: iohexol 350 mg/mL 500 mL Btl (per mL) IV (15:54)
--- NOTE | 2022-06-11 16:08 | P.CONIM_ITS ---
Providers/Reason For Consult Consulting Physician/Specialty*: Dr. Monster Vieira, Clement.P.M./podiatry Reason for Consult*: Bilateral foot ulcers, concern for infection Primary Care Provider: Rogelio Reinoso MD History of Present Illness History of Present Illness Deandra Olivares is a 51 year old male with history of Buerger's disease, PAD who presented to the emergency department with chief complaint of coughing bringing up phlegm and pain on inspiration. During work-up in the emergency department he was found to be tachycardic, leukocytotic. Further exam revealed chronic wounds to bilateral dorsal feet. Out of concern for bilateral foot wounds being source of infection podiatry was consulted to evaluate. Patient has been following with wound care for bilateral foot wounds. However, patient has not seen wound care since March 2022. The patient lives at home with his mother who has been tending to his wounds. She states that they have been dressing them daily with Hydrofera Blue, dry sterile dressing. They have not noticed any drainage coming from the wound and they have been compliant with daily dressing changes. Patient also reports a sacral decubitus ulcer that was not directly visualized on physical exam in the emergency department due to patient's inability to turn and contracture. Review of Systems General: Reports: 10 or more systems reviewed and unremarkable except in HPI and below Const: Denies: fever(s), chills, body aches or change in appetite Eyes: Denies: change in vision or blurry vision Card: Denies: chest pain, palpitations or irregular heart rhythm Resp: Denies: dyspnea GI: Denies: abdominal pain, nausea, vomiting or diarrhea Musc: Reports: joint stiffness Skin/Breast: Reports: non-healing lesions and lesions Neuro: Reports: numbness in extremities Medications/Allergies Home Medications Medication Instructions Recorded Confirmed Last Taken Type pantoprazole 40 mg tablet,delayed 40 mg PO QAM 90 days #90 tabs 07/07/21 06/11/22 1 Week Ago Rx release (Protonix) ~06/04/22 Kerlix gauge wrap #5 ea 11/29/21 06/11/22 Unknown Rx alginate bandage #30 ea 11/29/21 06/11/22 Unknown Rx aspirin 81 mg tablet,delayed 81 mg PO DAILY 11/29/21 06/11/22 3 Weeks Ago History release (Adult Low Dose Aspirin) ~05/21/22 family states not ta cyclobenzaprine 10 mg tablet 10 mg PO TID PRN muscle spasm #90 11/29/21 06/11/22 Unknown Rx tabs clopidogrel 75 mg tablet (Plavix) 75 mg PO QAM 06/11/22 06/11/22 06/10/22 History gentamicin 0.1 % topical cream 1 applic topical DAILY 06/11/22 06/11/22 Unknown History methadone 40 mg soluble tablet 140 mg PO QAM 06/11/22 06/11/22 06/10/22 History Allergies Allergy/AdvReac Type Severity Reaction Status Date / Time amoxicillin Allergy Intermediate ADR/ALGY-Pa Verified 06/11/22 09:24 leness sulfamethoxazole Allergy Intermediate ADR/ALGY-Pa Verified 06/11/22 09:24 [From leness Sulfamethoxazole-Trimethoprim] trimethoprim Allergy Intermediate ADR/ALGY-Pa Verified 06/11/22 09:24 [From leness Sulfamethoxazole-Trimethoprim] PFSH Acute PFSH: Medical History Amputated toe of right foot Bronchitis Buerger's disease Chronic foot ulcer, limited to breakdown of skin Chronic GERD Chronic pain of both feet Encounter for central line placement Episode of change in speech Hepatitis C antibody test positive Hypertension Memory loss due to medical condition Tobacco abuse Quit May 08, 2021 Surgical History History of surgical amputation of finger of left hand Family History Other CAD (coronary artery disease) Cancer Diabetes Social History Smoking and tobacco status: former smoker Alcohol intake: never Household members: family Marital status: Number of children: 1 Current occupational status: unemployed Vitals/I&O/Wt Last Vital Signs Temp 98.5 F 06/11/22 09:17 Pulse 119 H 06/11/22 10:54 Resp 18 06/11/22 10:54 BP 119/77 06/11/22 10:54 Pulse Ox 91 06/11/22 10:54 O2 Del Method 06/11/22 09:25 O2 Flow Rate 2 06/11/22 09:25 Weight last 48 hrs Weight 160 lb Weight 160 lb Physical Exam Narrative: BELOW IS A FOCUSED LOWER EXTREMITY EXAM GENERAL: A&O x 3 VASCULAR: DP/PT pulses nonpalpable, strong monophasic on hand-held Doppler DERMATOLOGICAL: Diffuse full-thickness ulcerations to dorsal aspects of bilateral feet covering the entirety of the feet with 100% fibrotic base. No active drainage. No purulence. No underlying fluctuance or signs of deep space abscess fibrotic base appears well adhered and dry and stable. Negative probe to bone. Extensor tendons visualized on right foot dorsally on edges of wound. Wound edges are rolled and punched out. No proximal streaking or periwound erythema noted MUSCULOSKELETAL: Exquisite tenderness with palpation of bilateral lower extremities. Patient is contracted in position and rigid NEUROLOGICAL: Neurological sensation to the affected foot and ankle is present through L4-S1 dermatomes with no hyper/hypoesthesias, negative Tinel or Valleix's sign Urinary Catheter Management: David: Cath Placed During This Visit: yes Urinary Catheter Date of Insertion: 06/11/22 Urinary Catheter Time of Insertion: 11:05 Data 06/11/22 09:33 06/11/22 09:33 Micro: Microbiology 06/11/22 09:43 Blood Culture - Preliminary Blood SPECIMEN COLLECTED 06/11/22 09:33 Blood Culture - Preliminary Blood SPECIMEN COLLECTED A&P Assessment and plan (1) Peripheral arterial disease: (2) Dry gangrene: (3) Ulcer of foot: Qualifiers: Laterality: bilateral Non-pressure ulcer stage: unspecified non- pressure ulcer stage Qualified Code(s): L97.519 - Non-pressure chronic ulcer of other part of right foot with unspecified severity; L97.529 - Non-pressure chronic ulcer of other part of left foot with unspecified severity (4) SIRS (systemic inflammatory response syndrome): Plan CLINICAL AND LAB FINDINGS: WBC 18.3 Temp 99.4 Heart rate 118 Respirations 23 IMAGING: - (06/11/22) Chest CTA shows left lower lobe segmental and subsegmental pulmonary artery compatible with pulmonary embolus. Left lower lobe pneumonia, bilateral pleural fluid, atelectasis right lower lobe - (11/12/20) duplex scan lower extremity artery showed right CARLOS A 0.89, left CARLOS A 0.85 with no stenosis or occlusion Progressed PAD as pulses are strong monophasic at bedside today CULTURES: pending PLAN: -Okay for diet from podiatry standpoint -Although extensive fibrotic wound base noted to bilateral foot wounds, they appear stable on exam. They are dry with no active drainage no underlying fluctuance with well adhered fibrotic base. I do not believe foot wounds are source of sepsis. No acute/emergent surgical intervention per podiatry at this time -Recommend local wound care with Santyl collagenase for heavy fibrotic wound bed burden. Due to patient's neurologic status and full sensation to bilateral lower extremities I do not believe bedside debridement would be tolerated. We will continue to round on patient while inpatient and provide recommendations. I believe that his wound debridement would be better served in the outpatient setting after vascular optimization has been achieved -WOUND CARE: Daily dressing change with santyl to doral foot wounds -We will obtain segmental pressures during admission to have baseline on patient and determine appropriate referral to cardiology/vascular surgery from there -Continue antibiotics -Consider case management to help coordinate wound care at [facility] wound care here in [place]. Mother states that they have been going to wound care in [place] and it has been extremely difficult for them to make the drive down there due to the distance. She expresses interest in coming to [place] wound care as it is much closer and would be much easier to be compliant with. -Podiatry following and will continue to round on patient and provide recommendations as needed Coding Level of Care Code Acute Code for Chg Fwd Diagnoses Peripheral arterial disease I73.9 Dry gangrene I96 Ulcer of foot L97.519; L97.529 Laterality: bilateral Non-pressure ulcer stage: unspecified non-pressure ulcer stage SIRS (systemic inflammatory response syndrome) R65.10
--- NOTE | 2022-06-11 17:15 | PC.PHAR ---
PHARMACY TO DOSE VANCOMYCIN Pharmacy was consulted to dose Vancomycin. With the patient's current vitals and CrCl, his calculated dose is 1250mg every 12 hours with a predicted peak of 35.9 mcg/ml and a trough of 13.49 mcg/ml. We will continue to monitor the patient's renal function and make adjustments as necessary. Please let us know if we can help with anything else Thanks, Javad Lofton, Pharm.D
[2022-06-11] MEDS: vancomycin 1,250 MG/250 ML PIGGYBACK 250 MG IV (18:04)
[2022-06-11] MEDS: enoxaparin 100 mg/mL Syringe 70 MG SUBCUT (18:04)
[2022-06-11] MEDS: lactated ringers 1,000 ML 30 ML IV (18:05)
[2022-06-11] MEDS: cefepime 1,000 MG in sodium chloride 0.9% (plus) 50 ML 100 MG IV (18:05)
[2022-06-11] MEDS: collagenase oint 30 gm 1 APPLIC TOPICAL (18:05)
[2022-06-11 18:36] LABS: Sodium 127 mmol/L (136-145)
--- NOTE | 2022-06-11 18:54 | PC.NURSE ---
Admit Pt brought to ICU by ER staff via AWID. Pt moved to ICU bed. Pt is alert to self and place. Pt did state his mother is his primary caregiver. When pt was asked who his PCP was he answered, his Mom was and that he didn't go to the doctor. Admit questions were then held until the mother was present. When his mother presented at bedside she began to answer questions. When she was asked who his PCP was, she stated she wasn't able to get him in the car due to his disabilities. When asked about his pain control at home, the mother stated the patient goes to the Methadone clinic every other week and that he ran out today. Wounds Pt has chronic pressure injuries to his feet. The wounds are in various stages ranging from unstageable to necrotic. Parts of the wounds look fuzzy and some appear to have dried purulent yellow areas. The edges are not well defined and have eschar.
[2022-06-11 20:32] LABS: Basophils % 0.1 %; Hematocrit 28.3 % (42.0-52.0); Hemoglobin 8.3 g/dL (11.7-16.6); Lymphocytes # 0.6 10^3/uL (0.8-4.8); Lymphocytes % 3.6 %; Mean Corpuscular HGB Conc 29.3 g/dL (30.0-36.0); Mean Corpuscular Hemoglobin 24.3 pg (28.0-34.0); Mean Platelet Volume 10.9 fL (7.4-10.4); Monocytes % 6.4 %; Neutrophils # 13.72 10^3/uL (1.8-7.7); Neutrophils % 89.1 %; Nucleated Red Blood Cells % 0 %; Platelet Count 125 10^3/cmm (130-400); Red Blood Count 3.41 10^6/uL (4.1-5.3); Red Cell Distribution Width 16.2 % (12.1-15.1); White Blood Count 15.4 10^3/uL (4.0-10.0)
[2022-06-11 20:48] LABS: Anion Gap 12.4 (5-19); Blood Urea Nitrogen 12 mg/dL (6-20); Calcium 7.6 mg/dL (8.5-10.5); Carbon Dioxide 20 mmol/L (22-29); Chloride 96 mmol/L (98-107); Glomerular Filtration Rate 119.9 mL/min (90-130); Glucose 104 mg/dL (65-115); Osmolality Calculated 260 mOsm/kg (285-295); Potassium 3.4 mmol/L (3.5-5.1); Sodium 125 mmol/L (136-145)
[2022-06-11] MEDS: potassium chloride ER 20 mEq Tablet 40 MEQ PO (21:18)
[2022-06-11 21:25] LABS: Adenovirus Not Detected (NOT DETECT); Chlamydia Pneumoniae Not Detected (NOT DETECT); Coronavirus 229E,HKU1,NL63,OC4 Not Detected (NOT DETECT); Human Metapneumovirus Not Detected (NOT DETECT); Human Rhinovirus/Enterovirus Not Detected (NOT DETECT); Influenza A Not Detected (NOT DETECT); Influenza A H1 Not Detected (NOT DETECT); Influenza A H1-2009 Not Detected (NOT DETECT); Influenza A H3 Not Detected (NOT DETECT); Influenza B Not Detected (NOT DETECT); Mycoplasma Pneumoniae Not Detected (NOT DETECT); Parainfluenza Virus Type 1 Not Detected (NOT DETECT); Parainfluenza Virus Type 2 Not Detected (NOT DETECT); Parainfluenza Virus Type 3 Not Detected (NOT DETECT); Parainfluenza Virus Type 4 Not Detected (NOT DETECT); Respiratory Syncytial Virus A Not Detected (NOT DETECT); Respiratory Syncytial Virus B Not Detected (NOT DETECT); SARS-COV-2 Not Detected (NOT DETECT)
--- NOTE | 2022-06-11 21:25 | PC.NURSE ---
Potassium noted to be 3.[address] Notified Dr. Franco, 40meq K given PO as ordered. Patient noted to have some difficulty swallowing the pills, upon further questioning it appears that mother crushes his medications at home for him to take.
[2022-06-11] MEDS: cyclobenzaprine 10 mg Tablet PO (22:51)
[2022-06-11] MEDS: oxyCODONE-APAP 5-325 mg Tablet 1 TAB PO (22:51)
[2022-06-12] VITALS (35 sets, daily range): BP systolic 100–175; BP diastolic 68–116; PULSE 100–139; RESP 9–46; TEMP 36.5–38.8; O2SAT 85–100
[2022-06-12] MEDS: acetaminophen 325 mg Tablet 650 MG PO (00:13)
[2022-06-12] MEDS: cefepime 1,000 MG in sodium chloride 0.9% (plus) 50 ML 100 MG IV ×3 (00:52→23:04)
[2022-06-12 02:42] LABS: Basophils % 0.1 %; Hemoglobin 8.6 g/dL (11.7-16.6); Lymphocytes # 0.5 10^3/uL (0.8-4.8); Lymphocytes % 3.6 %; Mean Corpuscular HGB Conc 29.7 g/dL (30.0-36.0); Mean Corpuscular Hemoglobin 24.5 pg (28.0-34.0); Mean Corpuscular Volume 82.6 fl (80-94); Mean Platelet Volume 10.9 fL (7.4-10.4); Monocytes # 0.9 10^3/uL (0.2-0.9); Monocytes % 5.9 %; Neutrophils # 13.53 10^3/uL (1.8-7.7); Neutrophils % 89.6 %; Nucleated Red Blood Cells % 0 %; Platelet Count 136 10^3/cmm (130-400); Red Blood Count 3.51 10^6/uL (4.1-5.3); Red Cell Distribution Width 16.1 % (12.1-15.1); White Blood Count 15.1 10^3/uL (4.0-10.0)
[2022-06-12 02:58] LABS: Alanine Aminotransferase 33 U/L (0-41); Albumin Level 2.3 g/dL (3.5-5.2); Alkaline Phosphatase 98 U/L (40-130); Anion Gap 14.9 (5-19); Aspartate Amino Transferase 59 U/L (0-40); Blood Urea Nitrogen 13 mg/dL (6-20); Calcium 7.9 mg/dL (8.5-10.5); Carbon Dioxide 20 mmol/L (22-29); Chloride 103 mmol/L (98-107); Globulin 3.8 g/dL (1.3-4.6); Glomerular Filtration Rate 102.7 mL/min (90-130); Glucose 117 mg/dL (65-115); Osmolality Calculated 279 mOsm/kg (285-295); Potassium 3.9 mmol/L (3.5-5.1); Sodium 134 mmol/L (136-145); Total Bilirubin 0.9 mg/dL (0.15-1.2); Total Protein 6.1 g/dL (6.6-8.7)
[2022-06-12] MEDS: enoxaparin 100 mg/mL Syringe 70 MG SUBCUT ×2 (04:11→18:24)
[2022-06-12] MEDS: vancomycin 1,250 MG/250 ML PIGGYBACK 250 MG IV ×2 (05:09→18:25)
[2022-06-12] MEDS: clopidogrel 75 mg Tablet PO (05:42)
[2022-06-12] MEDS: pantoprazole DR 40 mg Tablet PO (05:42)
[2022-06-12] MEDS: collagenase oint 30 gm 1 APPLIC TOPICAL (08:19)
[2022-06-12] MEDS: aspirin 81 mg EC Tablet PO (08:19)
[2022-06-12] MEDS: oxyCODONE-APAP 5-325 mg Tablet 1 TAB PO (08:19)
--- NOTE | 2022-06-12 08:20 | PC.NURSE ---
Dressing Change Dr. Vieira at bedside, changed dressings on bilateral feet.
[2022-06-12] MEDS: methadone 10 mg Tablet 140 MG PO (09:01)
--- NOTE | 2022-06-12 10:10 | PM.PN ---
Subjective Subjective: Patient seen at bedside in the ICU this morning. Patient states that his feet are extremely painful. No overnight events Vitals/I&O/Wt Last Vital Signs Temp 97.8 F 06/12/22 08:00 Pulse 132 H 06/12/22 08:35 Resp 30 H 06/12/22 09:01 BP 167/115 06/12/22 08:00 Pulse Ox 90 06/12/22 09:01 O2 Del Method 06/12/22 08:35 O2 Flow Rate 4 06/12/22 08:35 06/11/22 06/12/22 06/12/22 22:59 06:59 14:59 Intake Total 3027.25 / 3027.25 300 / 3327.25 50 / 50 Output Total 1000 / 1000 350 / 1350 Balance / -50 / 1976. 50 / 50 Weight last 48 hrs Weight 146 lb 4.8 oz Weight 147 lb Weight 160 lb Weight 160 lb Physical Exam Narrative: BELOW IS A FOCUSED LOWER EXTREMITY EXAM GENERAL: A&O x 3 VASCULAR: DP/PT pulses nonpalpable, strong monophasic on hand-held Doppler DERMATOLOGICAL: Diffuse full-thickness ulcerations to dorsal aspects of bilateral feet covering the entirety of the feet with 100% fibrotic base. Right foot shows active serous drainage with to be fibrotic base no underlying fluctuance or signs of deep space abscess fibrotic base appears well adhered and dry and stable. Negative probe to bone. Extensor tendons visualized on right foot dorsally on edges of wound. Wound edges are rolled and punched out. No proximal streaking or periwound erythema noted MUSCULOSKELETAL: Exquisite tenderness with palpation of bilateral lower extremities. Patient is contracted in position and rigid NEUROLOGICAL: Neurological sensation to the affected foot and ankle is present through L4-S1 dermatomes with no hyper/hypoesthesias, negative Tinel or Valleix's sign Urinary Catheter Management: David: Cath Placed During This Visit: yes Reason for Continuing Indwelling Catheter: Accurate Measurement of Urinary Output in Critically Ill Patients Urinary Catheter Date of Insertion: 06/11/22 Urinary Catheter Time of Insertion: 11:05 Data 06/12/22 02:04 06/12/22 02:04 Micro: Microbiology 06/11/22 09:43 Blood Culture - Preliminary Blood NEGATIVE TO DATE 06/11/22 09:33 Blood Culture - Preliminary Blood NEGATIVE TO DATE 06/11/22 18:01 Legionella Urinary Antigen - Final Urine Catheterized A&P Assessment and plan (1) Peripheral arterial disease: (2) Dry gangrene: (3) Ulcer of foot: Qualifiers: Laterality: bilateral Non-pressure ulcer stage: unspecified non-pressure ulcer stage Qualified Code(s): L97.519 - Non-pressure chronic ulcer of other part of right foot with unspecified severity; L97.529 - Non-pressure chronic ulcer of other part of left foot with unspecified severity (4) SIRS (systemic inflammatory response syndrome): Plan CLINICAL AND LAB FINDINGS: WBC 18.3 Temp 99.4 Heart rate 118 Respirations 23 IMAGING: - (06/11/22) Chest CTA shows left lower lobe segmental and subsegmental pulmonary artery compatible with pulmonary embolus. Left lower lobe pneumonia, bilateral pleural fluid, atelectasis right lower lobe - (11/12/20) duplex scan lower extremity artery showed right CARLOS A 0.89, left CARLOS A 0.85 with no stenosis or occlusion Progressed PAD as pulses are strong monophasic at bedside today CULTURES: pending PLAN: -N.p.o. at midnight for procedure at noon (06/13/2022) -Due to patient's sensation he will not tolerate bedside wound debridement. Given the heavy fibrotic burden of bilateral wounds and drastic change to a wet gangrene the patient will be taken to the operating room for bilateral foot wound excisional debridement tomorrow (06/13/2022) at noon for source control -WOUND CARE: Daily dressing change with santyl to doral foot wounds. Change this morning. -We will obtain segmental pressures during admission to have baseline on patient and determine appropriate referral to cardiology/vascular surgery from there -Continue antibiotics -Consider case management to help coordinate wound care at [facility] wound care here in [place]. Mother states that they have been going to wound care in [place] and it has been extremely difficult for them to make the drive down there due to the distance. She expresses interest in coming to [place] wound care as it is much closer and would be much easier to be compliant with. -Podiatry following and will continue to round on patient and provide recommendations as needed Attestations Medical Necessity Statement*: Admission of over 2 midnights anticipated for assessment management of sepsis with wound infection, pneumonia, hyponatremia, functional decline. Coding Level of Care Code Acute Code for Chg Fwd Diagnoses Peripheral arterial disease I73.9 Dry gangrene I96 Ulcer of foot L97.519; L97.529 Laterality: bilateral Non-pressure ulcer stage: unspecified non-pressure ulcer stage SIRS (systemic inflammatory response syndrome) R65.10
--- NOTE | 2022-06-12 12:01 | PM.PN ---
Subjective Subjective: Pain with foot wounds. Vitals/I&O/Wt Last Vital Signs Temp 97.8 F 06/12/22 08:00 Pulse 107 H 06/12/22 11:00 Resp 14 06/12/22 11:00 BP 123/82 06/12/22 11:00 Pulse Ox 99 06/12/22 11:00 O2 Del Method 06/12/22 08:35 O2 Flow Rate 4 06/12/22 08:35 06/11/22 06/12/22 06/12/22 22:59 06:59 14:59 Intake Total 3027.25 / 3027.25 300 / 3327.25 50 / 50 Output Total 1000 / 1000 350 / 1350 Balance / -50 / 50 / 50 Weight last 48 hrs Weight 66.361 kg Weight 66.678 kg Weight 72.575 kg Weight 72.575 kg Physical Exam Const: COMMON NORMALS: patient oriented x3 and alert GENERAL APPEARANCE: cooperative and ill appearing ORIENTATION/CONSCIOUSNESS: Yes awake HENMT: COMMON NORMALS: oropharynx normal Neck/C-Spine: COMMON NORMALS: no JVD Resp: COMMON NORMALS: normal respiratory effort and clear to auscultation bilaterally AUSCULTATION: clear to auscultation bilaterally Cardio: COMMON NORMALS: no JVD, regular rhythm, S1 normal heart sound present, S2 normal heart sound present and No murmurs present (Cardio) RHYTHM: regular rhythm HEART SOUNDS: S1 normal heart sound present and S2 normal heart sound present GI: COMMON NORMALS: Normal to inspection, nondistended, normoactive bowel sounds present, Soft to palpation and non-tender PALPATION: Yes Soft to palpation Extremity: COMMON NORMALS: no joint enlargement and no pedal edema OTHER: Contractures BLLE, knees up in the air, feet off bed Neuro: COMMON NORMALS: patient oriented x3 and moves all extremities SENSORIUM/ORIENTATION: Yes alert Skin: OTHER: BL dorsal feet ulcerations with maceration, tendon exposure. Deeper ulceration L lat foot. No superficial necrosis, foul odor. Surrounding erythema, induration, no significant drainage. L hip oblong pressure ulcer with black eschar base about 4 x 12 cm. No tunneling or undermining. No drainage. R side post inf gluteal erythema. Urinary Catheter Management: David: Cath Placed During This Visit: yes Reason for Continuing Indwelling Catheter: Accurate Measurement of Urinary Output in Critically Ill Patients Urinary Catheter Date of Insertion: 06/11/22 Urinary Catheter Time of Insertion: 11:05 Data 06/12/22 02:04 06/12/22 02:04 Micro: Microbiology 06/11/22 09:43 Blood Culture - Preliminary Blood NEGATIVE TO DATE 06/11/22 09:33 Blood Culture - Preliminary Blood NEGATIVE TO DATE 06/11/22 18:01 Legionella Urinary Antigen - Final Urine Catheterized A&P Assessment and plan (1) Sepsis: He is visited by his mother today. Continue to better coverage for pneumonia, suspected wound infection. Discussed with him and his mother, they have also discussed with podiatry and we spoke as well. Today wounds appear worse. Quite a bit of maceration and necrotic slough and would benefit from debridement which is being planned for tomorrow. Patient and mother in agreement. We discussed regarding PE, need to hold anticoagulation after last dose tonight. Leukocytosis with improvement at 15,000. Tachycardia persists, perhaps slightly better this afternoon. With concerning lung nodule on CTA, will need additional follow-up, but also cannot exclude septic embolic etiology. Blood cultures were collected in ER, however, were not labeled as to the source. Collect repeat cultures from port as well as peripherally. Continue vancomycin. Tolerating cefepime. With multifocal sources, sepsis, at risk of life-threatening deterioration due to septic shock, admit for assessment and management. Continue assessment and treatment in the hospital. Monitor vital signs, monitor telemetry. Requested repeat CBC, chemistry. (2) Wound infection: As above. Discussed with podiatry. It has also been discussed with patient and his mother that amputation may become inevitable given chronicity and severity of the wounds, current worsening, depending on response to treatment. Wound care with Santyl pending surgical debridement. Podiatry documentation appreciated. (3) Lung nodule: Concerning lung nodule on CTA, will need additional follow-up for assessment, but also cannot exclude septic embolic etiology at current time so needs additional work-up. Blood cultures were collected in ER, however, were not labeled as to the source. Collect repeat cultures from port and periphery. (4) Pneumonia: Continue empiric antibiotic coverage with vancomycin, cefepime. Oxygen support, requiring 4 L of oxygen today. Sputum culture if able to provide. Follow-up blood cultures. Pending bacterial antigens. Noted presumptive negative Legionella antigen. Has history of MRSA, continue MRSA empiric coverage. Additionally with sinus tachycardia, cough, inspiratory chest discomfort, CT attempted, but difficult due to significant contractures. Empirically started on anticoagulation for now. Repeat CBC requested for monitoring of blood counts due to anemia. Tonight and in the morning. Flutter valve, I-S (5) Buerger's disease: Has quit smoking since last hospitalization. Antiplatelet agents. (6) Declining functional status: Unable to care for self. Mother has been caring for him as well as his wounds. She is unable to keep up. We will obtain consultation with case management, OT and PT evaluation. (7) Hyponatremia: Improved. Stop LR. Follow-up chemistry requested. (8) PE (pulmonary thromboembolism): Therapeutic Lovenox Plan Sacral decubitus ulcer: L hip oblong pressure ulcer with black eschar base about 4 x 12 cm. No tunneling or undermining. No drainage. Foam dressing. Continue to reposition. Regular diet. Add protein supplements. Anemia: Mother reports history of anemia and he was supposed to be on a medication but she does not remember if it was iron or something else. Noted normocytic anemia. At home not on PPI, continue. Follow-up CBC requested. HTN Attestations Medical Necessity Statement*: Continue admission for assessment and management of sepsis, pneumonia, extensive lower extremity wounds with wound infection, possible septic embolism. Diagnoses Sepsis A41.9 Wound infection T14.8XXA; L08.9 Lung nodule R91.1 Pneumonia J18.9 Buerger's disease I73.1 Declining functional status R53.81 Hyponatremia E87.1 PE (pulmonary thromboembolism) I26.99
--- NOTE | 2022-06-12 12:31 | USCV_ITS ---
Marshall Deandra Age: 51 Gender: M : 1970 Exam Date: 06/12/2022 14:58 Ordering Phys: Dennis Gonzalez MD Technologist: Joseph Gonzalez Exam Location: [facility] [place] Indication: NONHEALING SORES RIGHT LEFT Brachial 123.00 mmHg Brachial 105.00 mmHg Pressure (mmHg) Waveform Pressure (mmHg) Waveform 115.00 DPA 122.00 0.93 Ankle/Brachial Index 0.99 Pre-Exercise Toe Pressure 0.00 Pre-Exercise Toe/Brachial Index 0.00 FINDINGS Resting CARLOS A on the right side was 0.93 and on the left was 0.99 Resting TBI was 0 on the left side Toes were missing on the right side CONCLUSIONS Minimally diminished resting CARLOS A on the right side, may suggest a mild PAD Normal resting CARLOS A on the left side The toe pressures were could not be recorded on the left side, may suggest a severe occlusion of the distal vessels. Clinical correlation is recommended Technically difficult study Clinical correlation is recommended Dr Pola Germain MD [facility] (Electronically Signed) Final Date: 12 June 2022 16:55 S
--- NOTE | 2022-06-12 16:40 | PC.NURSE ---
Transfer Note Patient transferred to med-surg 276-2 from ICU via bed. Handoff report given to JOE Ramirez. Patient oriented to environment and equipment. Covering service notified. Orders reviewed and will continue to monitor. Patient on 5LNC and is alert but confused at time of transfer. Several wounds noted, please see wound assessment for detail.
--- NOTE | 2022-06-12 21:25 | XRR_ITS ---
PROCEDURE INFORMATION: Exam: XR Chest Exam date and time: 06/12/2022 8:47 PM Age: 51 years old Clinical indication: Shortness of breath; Additional info: Increase in oxygen requirements TECHNIQUE: Imaging protocol: Radiologic exam of the chest. Views: 1 view. COMPARISON: CT angio chest PE protcl [id number] 06/11/2022 3:22 PM FINDINGS: Tubes, catheters and devices: Right-sided Port-A-Cath. Lungs: Patchy bilateral diffuse airspace infiltrates. Pleural spaces: Unremarkable. No pleural effusion. No pneumothorax. Heart/Mediastinum: Cardiomegaly. Bones/joints: Unremarkable. XR/XR chest 1V portable [id number] IMPRESSION: 1. Patchy bilateral diffuse airspace infiltrates. 2. Cardiomegaly.
[2022-06-12 23:00] LABS: NT Pro B Type Natriuretic Pept 11326 pg/mL (0-125)
[2022-06-13] VITALS (48 sets, daily range): BP systolic 86–170; BP diastolic 55–103; PULSE 88–144; RESP 19–37; TEMP 36.7–37.2; O2SAT 87–100
[2022-06-13 00:29] LABS: Glucose Point of Care 128 mg/dL (70-110)
--- NOTE | 2022-06-13 00:32 | PC.NURSE ---
report called to JOE Gaspar in ICU
--- NOTE | 2022-06-13 00:33 | CTR_ITS ---
PROCEDURE INFORMATION: Exam: CT Chest Without Contrast; Diagnostic Exam date and time: 06/13/2022 2:53 AM Age: 51 years old Clinical indication: Shortness of breath; Patient HX: Worsening SOB with hypoxia and tachycardia. Requiring bipap. Bilateral infiltrates noted on cxr from 06/12/2022. ; Additional info: Hypoxia. New infiltrates TECHNIQUE: Imaging protocol: Diagnostic computed tomography of the chest without contrast. Radiation optimization: All CT scans at this facility use at least one of these dose optimization techniques: automated exposure control; mA and/or kV adjustment per patient size (includes targeted exams where dose is matched to clinical indication); or iterative reconstruction. REPORTING DATA: Count of CT and Cardiac NM exams in prior 12 months: This patient has received [address] and 0 known cardiac nuclear medicine studies in the 12 months prior to the current study. COMPARISON: CT angio chest PE protcl [id number] 06/11/2022 3:22 PM RADIATION DOSE METRICS: Total DLP (mGy-cm): 613.19 FINDINGS: Lungs: Severe right lung ground-glass opacities and airspace disease consistent with severe COVID-19 pneumonia versus other pneumonia. Moderate geographic ground-glass opacities in the left upper lobe with severe left lower lobe pneumonia. Pleural spaces: Bilateral mild to moderate pleural fluid collections. Heart: Mild calcified coronary artery disease. No cardiomegaly. No pericardial effusion. Lymph nodes: Unremarkable. No enlarged lymph nodes. Vasculature: Calcification of the abdominal aorta and/or iliac arteries consistent with atherosclerotic vessel disease. Bones/joints: Unremarkable. No acute fracture. Soft tissues: Examination is limited by artifact from one or both arms by the patient's side. CT/CT chest [facility] [id number] IMPRESSION: 1. Bilateral mild to moderate pleural fluid collections. 2. Severe right lung ground-glass opacities and airspace disease consistent with severe COVID-19 pneumonia versus other pneumonia. 3. Moderate geographic ground-glass opacities in the left upper lobe with severe left lower lobe pneumonia.
[2022-06-13 01:02] LABS: ABG PCO2 32.9 mmHg (35-45); ABG PH Result 7.41 (7.35-7.45); Alveolar-Arterial Oxygen Gradi 78.4 mmHg (5-10); Base Excess ABG -3.2 mmol/L (-2.0-2.0); Blood Gas Allen Test Pos; Blood Gas Sample Site Radial, right; Blood Gas Sample Type Arterial; Carboxyhemoglobin 1.4 %THgb (0.4-20.1); HCO3 ABG 20.9 mmol/L (22-26); HGB O2 Sat 93.2 % (95-100); Ionized Calcium Level - ABG 1.2 mmol/L (1.1-1.4); Methemoglobin 0.5 % (0.4-1.5); Oxygen Device BIPAP; PO2 ABG 70.4 mmHg (80.0-100.0); Total Hemoglobin 10.1 g/dL (14-18)
--- NOTE | 2022-06-13 01:03 | ECG_ITS ---
[facility] Test Date: 2022-06-13 Pat Name: Deandra Olivares Department: Room: ICU10 Gender: Male Co Founder: : 1970 Requested By: Reanna Franco Order Number: [id number] Tyler MD: Pola Germain M.D. Measurements Intervals Onida Rate: 148 P: 44 ID: [id number] QRS: 57 QRSD: 80 T: 44 QT: 286 QTc: 450 Interpretive Statements Possible SINUS TACHYCARDIA, POSSIBLE ATRIAL FLUTTER NONSPECIFIC T-WAVE ABNORMALITY ABNORMAL RHYTHM ECG Compared to ECG 06/11/2022 10:23:50 Left ventricular hypertrophy no longer present T-wave abnormality still present Heavy baseline artifacts. Need to repeat the study Electronically Signed On 06-13-2022 2:23:23 CDT by Pola Germain M.D. [id number]
--- NOTE | 2022-06-13 01:14 | PC.NURSE ---
Upon shift report, patient was resting comfortably in bed in the semi-fowlers position on 4L NC. Patient only oriented to name and birthday. At approxiamately 2100, respiratory reported the patient was in the 70s% on the 4L NC and respiratory increased pateint to 10L HFNC. Patient does not appear to be in any respiratory distress at this time. Dr. Franco was notified of patient's increase in oxygen requirements and a stat xray and BNP lab draw was ordered. At approximately 2335, patient was placed on a continuous pulse oximeter and was saturating 83% via pulse oximeter with finger probe and 85% on forehead oximeter probe. Patient was placed on an oxymask due to mouth breathing. Patient slowly increased to 87-89% on 10L oxymask. Patient appeared short of breath and respirations were 34. Oxygen was increased to 14L oxymask and patient continued to saturate 89-90%. Dr. Franco was again notified and orders were given to transfer patient to ICU for potential intubation. Patient was transferred to ICU via [facility] bed on 14L oxymask, patient only saturating 88%.
[2022-06-13] MEDS: FUROsemide 10 mg/mL SDV 4mL 40 MG IVP ×2 (01:20→22:19)
--- NOTE | 2022-06-13 01:46 | PM.MISC ---
Miscellaneous Note Note: RN called patient requiring 10 L oxymask. CXR ordered, BNP ordered. BNP 51063, CXR shows gross patchy infiltrates throughout lung gonzales with almost white out on right side. Placed on bipap. He is tachypneac into 40's, tachycardic. EKG shows sinus tachycardia. Discussed with patient and he refuses intubation at this time and wanted me to talk to his mom. Discussed with his mom over the phone Ms. Sharona Bean. She states she would like for him to be DNR/DNI and supports his decision. Talked with patient again, who now answers Yes to every question being asked. I question his capacity at this time. He knows he is in the hospital however does not know what year it is. He says its year two thousand something. I asked him why he is in the hospital and he says because i am short of breath . I asked patient about his foot wounds and he said oh yea that too . Patient seems to be confused. Also states he does not like his mask. I re-called his mom on the phone and explained patient seems to be confused. She states she will be coming in to the hospital soon to see him and we should have him as DNR/DNI. She states he has had poor quality of life and has stopped eating and has been losing weight. She states he does not want to go to a long term. She very clearly stated multiple times that his code status should be DNR/DNI. I did explain to her that he has been full code last 5 admissions to which she was surprised. Patient denies chest pain at this time. Appears slightly tachypneac on bipap. Lungs auscultation has gross ronchi and crackles. Discussed with ER doctor Dr. Mckinney who also saw the patient at bedside and agrees that he is confused at this time. We will honour mom's wishes at this time. He will be DNR/DNI. We will continue bipap for now. Administer lasix 4o IV x1 Order cardiac echo Monitor in ICU Continue bipap Check Chest CT RN present at bedside. Critical care time: 45 min
[2022-06-13 01:55] LABS: Basophils # 0.1 10^3/uL (0.0-0.1); Basophils % 0.3 %; Eosinophils % 0.1 %; Hematocrit 30.9 % (42.0-52.0); Hemoglobin 9.4 g/dL (11.7-16.6); Lymphocytes # 0.8 10^3/uL (0.8-4.8); Lymphocytes % 4.3 %; Mean Corpuscular HGB Conc 30.4 g/dL (30.0-36.0); Mean Corpuscular Hemoglobin 24.7 pg (28.0-34.0); Mean Corpuscular Volume 81.3 fl (80-94); Mean Platelet Volume 10.2 fL (7.4-10.4); Monocytes % 5.7 %; Neutrophils # 15.94 10^3/uL (1.8-7.7); Neutrophils % 88.9 %; Nucleated Red Blood Cells % 0 %; Platelet Count 187 10^3/cmm (130-400); Red Cell Distribution Width 16.3 % (12.1-15.1)
[2022-06-13] MEDS: LORazepam 2 mg/mL INJ 1 mL 0.25 MG IVP (01:59)
--- NOTE | 2022-06-13 02:00 | USCV_ITS ---
Deandra Olivares Age: 51 Gender: M : 1970 Exam Date: 06/13/2022 03:35 Ordering Phys: Reanna Franco MD Technologist: Alec Munoz Exam Location: [facility] [place] Indication: CHF BP: 89 / 59 HR: 96 Rhythm: Sinus Technical Quality: Adequate MEASUREMENTS (Male / Female) Normal Values 2D ECHO LV Diastolic Diameter PLAX 4.3 cm 4.2 - 5.9 / 3.9 - 5.3 cm LV Systolic Diameter PLAX 3.4 cm IVS Diastolic Thickness 0.7 cm 0.6 - 1.0 / 0.6 - 0.9 cm IVS Systolic Thickness 1.2 cm LVPW Diastolic Thickness 1.2 cm 0.6 - 1.0 / 0.6 - 0.9 cm LVPW Systolic Thickness 1.4 cm LVOT Diameter 2.2 cm LV Ejection Fraction 2D Teich 41.2 % LV Ejection Fraction MOD 2C 46.0 % LV Ejection Fraction 2C AL 47.5 % LA Diameter 3.1 cm LA Width 3.4 cm LA Height 5.1 cm RA Width 3.5 cm RA Height 3.8 cm Aorta at Sinotubular Diameter 2.9 cm M-MODE Aortic Annulus Diameter 2.5 cm DOPPLER AV Peak Velocity 108.0 cm/s LVOT Peak Velocity 87.0 cm/s AV Area Cont Eq vti 2.5 cm squared AV Area Cont Eq pk 3.0 cm squared MV Peak Velocity 152.0 cm/s MV Area PHT 7.1 cm squared Mitral E to A Ratio 0.7 MV E' Velocity 52.0 cm/s Mitral E to MV E' Ratio 9.2 Mitral E to LV E' Lateral Ratio 7.0 Mitral E to LV E' Septal Ratio 13.3 Right Atrial Pressure 8.0 mmHg FINDINGS Left Ventricle Severe diffuse hypokinesia of the septum and the anteroseptal segments. Moderate hypokinesia of the apical inferolateral segment. Overall LV ejection fraction around 46%.Grade I/IV diastolic dysfunction (abnormal relaxation filling pattern), normal to mildly elevated filling pressures. Right Ventricle The right ventricle is normal in size and function. Right Atrium The right atrium is normal in size. Left Atrium Mildly increased left atrial size. Mitral Valve Thickened mitral valve. Moderate mitral valve regurgitation. Aortic Valve Thickened aortic valve. Tricuspid Valve Trace tricuspid valve regurgitation. Pulmonic Valve Pulmonic valve not well visualized. Pericardium Normal pericardium without effusion. Aorta Normal aortic annulus size. IVC Inferior vena cava not visualized. CONCLUSIONS Multiple wall motion abnormalities with a diminished LV ejection fraction of 46%. Grade I/IV diastolic dysfunction (abnormal relaxation filling pattern), normal to mildly elevated filling pressures. Mildly increased left atrial size. Thickened mitral valve. Moderate mitral valve regurgitation. Thickened aortic valve. Trace tricuspid valve regurgitation. PA pressure could not be calculated. There is no pericardial effusion. There are no intracardiac masses. Compared to the study from 11/13/2020, the LV ejection fraction appears to have decreased from 65% to 46% Dr Pola Germain MD [facility] (Electronically Signed) Final Date: 13 June 2022 20:09 S
--- NOTE | 2022-06-13 02:10 | PC.NURSE ---
Pt arrived to ICU via hospital bed @0045. Pt continuos cardiac monitoring continued. SpO2 72% on 15L oxy-mask. RT called. Pt placed on BIPAP. SpO2 increased to 90's. Dr. Franco and Dr. Mckinney @bedside to see pt. Pt stated that he did not want to be intubated. physician's questioned pts decision making ability. Pt later stated multiple times to help me breath , that hes wants guaranteed breathing , and yes when asked if he wants to be intubated. At this time no orders to intubate. Dr. Franco spoke to pts mother on phone, mother states that she will be coming in.
[2022-06-13 02:19] LABS: Anion Gap 12.8 (5-19); Blood Urea Nitrogen 16 mg/dL (6-20); Calcium 7.9 mg/dL (8.5-10.5); Carbon Dioxide 21 mmol/L (22-29); Chloride 105 mmol/L (98-107); Ferritin 433 ng/mL (30-400); Glomerular Filtration Rate 119.9 mL/min (90-130); Glucose 137 mg/dL (65-115); Iron 17 ug/dL (59-158); Osmolality Calculated 283 mOsm/kg (285-295); Percent Saturation 13.3 % (20-50); Potassium 3.8 mmol/L (3.5-5.1); Sodium 135 mmol/L (136-145); Total Iron Binding Capacity 127 mcg/dl; Unsaturated Iron Binding 110 ug/dL (112-347)
--- NOTE | 2022-06-13 02:32 | PC.NURSE ---
See Paper chart for Vitals [id number] 06/13/22
[2022-06-13] MEDS: morphine 4 mg/mL SDV 1 mL 1 MG IVP ×2 (02:35→05:30)
[2022-06-13] MEDS: cefepime 1,000 MG in sodium chloride 0.9% (plus) 50 ML 100 MG IV ×3 (05:00→21:08)
[2022-06-13] MEDS: dexmedetomidine 400 MCG in sodium chloride 0.9% (100 ml) 100 ML 8.63 MCG IV (05:30)
[2022-06-13 05:42] LABS: Basophils % 0.2 %; Eosinophils % 0.1 %; Hemoglobin 9.7 g/dL (11.7-16.6); Lymphocytes # 0.7 10^3/uL (0.8-4.8); Lymphocytes % 3.8 %; Mean Corpuscular HGB Conc 29.4 g/dL (30.0-36.0); Mean Corpuscular Hemoglobin 24.3 pg (28.0-34.0); Mean Corpuscular Volume 82.7 fl (80-94); Mean Platelet Volume 10.6 fL (7.4-10.4); Monocytes # 1.1 10^3/uL (0.2-0.9); Monocytes % 5.6 %; Neutrophils # 17.44 10^3/uL (1.8-7.7); Neutrophils % 89.4 %; Nucleated Red Blood Cells % 0 %; Platelet Count 203 10^3/cmm (130-400); Red Blood Count 3.99 10^6/uL (4.1-5.3); Red Cell Distribution Width 16.3 % (12.1-15.1); White Blood Count 19.5 10^3/uL (4.0-10.0)
[2022-06-13 05:50] LABS: Vancomycin Trough 19.5 ug/mL (10-15)
[2022-06-13 06:06] LABS: Alanine Aminotransferase 48 U/L (0-41); Albumin Level 2.1 g/dL (3.5-5.2); Alkaline Phosphatase 124 U/L (40-130); Anion Gap 14.6 (5-19); Aspartate Amino Transferase 75 U/L (0-40); Blood Urea Nitrogen 17 mg/dL (6-20); Calcium 8.2 mg/dL (8.5-10.5); Carbon Dioxide 21 mmol/L (22-29); Chloride 103 mmol/L (98-107); Globulin 4.7 g/dL (1.3-4.6); Glomerular Filtration Rate 89.7 mL/min (90-130); Glucose 141 mg/dL (65-115); Osmolality Calculated 284 mOsm/kg (285-295); Potassium 3.6 mmol/L (3.5-5.1); Sodium 135 mmol/L (136-145); Total Bilirubin 0.7 mg/dL (0.15-1.2); Total Protein 6.8 g/dL (6.6-8.7)
--- NOTE | 2022-06-13 06:23 | PC.NURSE ---
Ambulance Dispatcher down part of night. See paper chart for additional notes and orders from shift.
[2022-06-13] MEDS: vancomycin 1,250 MG/250 ML PIGGYBACK 250 MG IV (06:55)
[2022-06-13] MEDS: ipratropium-albuterol 3 mL Neb INHALATION ×3 (08:13→20:25)
--- NOTE | 2022-06-13 08:21 | PM.PN ---
Subjective Subjective: Patient seen at bedside this morning. On BiPAP. Overnight patient went into respiratory failure requiring 10 L oxygen. Chest x-ray ordered which showed gross patchy infiltrates throughout lung gonzales with almost white out on right side. BNP showed 11,000. He refused intubation. Patient is NPO. Plan is for bilateral foot wound debridement today at noon Vitals/I&O/Wt Last Vital Signs Temp 98.9 F 06/13/22 02:00 Pulse 111 H 06/13/22 08:21 Resp 23 H 06/13/22 08:18 BP 106/78 06/13/22 08:00 Pulse Ox 95 06/13/22 08:18 O2 Del Method BiPAP 06/13/22 08:18 O2 Flow Rate 14 06/13/22 07:33 FiO2 100 06/13/22 08:17 06/12/22 06/13/22 06/13/22 22:59 06:59 14:59 Intake Total 1023 / 1073 109.490 / 1182.490 Output Total 650 / 650 1000 / 1650 Balance 373 / 423 -890.510 / -467.510 Weight last 48 hrs Weight 146 lb 4.8 oz Weight 147 lb Weight 160 lb Weight 160 lb Physical Exam Narrative: BELOW IS A FOCUSED LOWER EXTREMITY EXAM GENERAL: A&O x 3 VASCULAR: DP/PT pulses nonpalpable, strong monophasic on hand-held Doppler DERMATOLOGICAL: Diffuse full-thickness ulcerations to dorsal aspects of bilateral feet covering the entirety of the feet with 100% fibrotic base. Right foot shows active serous drainage with fibrotic base no underlying fluctuance or signs of deep space abscess fibrotic base appears well adhered and dry and stable. Negative probe to bone. Extensor tendons visualized on right foot dorsally on edges of wound. Wound edges are rolled and punched out. No proximal streaking or periwound erythema noted MUSCULOSKELETAL: Exquisite tenderness with palpation of bilateral lower extremities. Patient is contracted in position and rigid NEUROLOGICAL: Neurological sensation to the affected foot and ankle is present through L4-S1 dermatomes with no hyper/hypoesthesias, negative Tinel or Valleix's sign Urinary Catheter Management: David: Cath Placed During This Visit: yes Reason for Continuing Indwelling Catheter: Accurate Measurement of Urinary Output in Critically Ill Patients Urinary Catheter Date of Insertion: 06/11/22 Urinary Catheter Time of Insertion: 11:05 Data 06/13/22 04:30 06/13/22 04:30 Micro: Microbiology 06/12/22 12:43 Blood Culture - Preliminary Blood SPECIMEN COLLECTED 06/11/22 09:43 Blood Culture - Preliminary Blood NEGATIVE TO DATE 06/11/22 09:33 Blood Culture - Preliminary Blood NEGATIVE TO DATE A&P Assessment and plan (1) Peripheral arterial disease: (2) Dry gangrene: (3) Ulcer of foot: Qualifiers: Laterality: bilateral Non-pressure ulcer stage: unspecified non-pressure ulcer stage Qualified Code(s): L97.519 - Non-pressure chronic ulcer of other part of right foot with unspecified severity; L97.529 - Non-pressure chronic ulcer of other part of left foot with unspecified severity (4) SIRS (systemic inflammatory response syndrome): Plan CLINICAL AND LAB FINDINGS: WBC 19.5 Temp 98.9 Heart rate 123 Respirations 28 IMAGING: - (06/11/22) Chest CTA shows left lower lobe segmental and subsegmental pulmonary artery compatible with pulmonary embolus. Left lower lobe pneumonia, bilateral pleural fluid, atelectasis right lower lobe - (11/12/20) duplex scan lower extremity artery showed right CARLOS A 0.89, left CARLOS A 0.85 with no stenosis or occlusion Progressed PAD as pulses are strong monophasic at bedside today CULTURES: pending PLAN: -N.p.o. at midnight for procedure at noon (06/13/2022) -Due to patient's sensation he will not tolerate bedside wound debridement. Given the heavy fibrotic burden of bilateral wounds and drastic change to a wet gangrene the patient will be taken to the operating room for bilateral foot wound excisional debridement tomorrow (06/13/2022) at noon for source control -As mentioned before, bilateral foot wounds are extensively fibrotic but there is no proximal streaking or evidence of deep space abscess. I will take patient to operating room today for debridement and evaluation. I do recommend further evaluation of patient including pulmonology consult and infectious disease to rule out other sources of infection. -WOUND CARE: Daily dressing change with santyl to doral foot wounds. Change this morning. -We will obtain segmental pressures during admission to have baseline on patient and determine appropriate referral to cardiology/vascular surgery from there -Continue antibiotics -Consider case management to help coordinate wound care at [facility] wound care here in [place]. Mother states that they have been going to wound care in [place] and it has been extremely difficult for them to make the drive down there due to the distance. She expresses interest in coming to [place] wound care as it is much closer and would be much easier to be compliant with. -Podiatry following and will continue to round on patient and provide recommendations as needed Attestations Medical Necessity Statement*: Continue admission for assessment and management of sepsis, pneumonia, extensive lower extremity wounds. Coding Level of Care Code Acute Code for Chg Fwd Diagnoses Peripheral arterial disease I73.9 Dry gangrene I96 Ulcer of foot L97.519; L97.529 Laterality: bilateral Non-pressure ulcer stage: unspecified non-pressure ulcer stage SIRS (systemic inflammatory response syndrome) R65.10
--- NOTE | 2022-06-13 10:31 | PC.PHAR ---
PHARMACY TO DOSE CONSULT With the patient's slight decrease in renal function and their most recent trough of 19.5, I made the decision to reduce the frequency to every 18 hours. Order has been entered.
[2022-06-13] MEDS: dexmedetomidine 400 MCG in sodium chloride 0.9% (100 ml) 100 ML IV (11:14)
--- NOTE | 2022-06-13 11:36 | P.PN_ITS ---
Subjective Subjective: Earlier restless, uncomfortable, bothered by BiPAP. Precedex had to be increased. At time of my visit he is just finally started to get some rest, sleeping. Tolerates BiPAP, on 100% FiO2. Saturation in high 90s. Vitals/I&O/Wt Last Vital Signs Temp 98.9 F 06/13/22 02:00 Pulse 90 06/13/22 11:18 Resp 23 H 06/13/22 08:18 BP 89/59 06/13/22 10:00 Pulse Ox 94 06/13/22 11:18 O2 Del Method BiPAP 06/13/22 08:18 O2 Flow Rate 14 06/13/22 07:33 FiO2 60 06/13/22 11:18 06/12/22 06/13/22 06/13/22 22:59 06:59 14:59 Intake Total 1023 / 1073 109.490 / 1182.490 57.179 / 57.179 Output Total 650 / 650 1000 / 1650 Balance 373 / 423 -890.510 / -467.510 57.179 / 57.179 Weight last 48 hrs Weight 66.361 kg Weight 66.678 kg Physical Exam Narrative: Mother at bedside. Const: GENERAL APPEARANCE: cooperative and ill appearing OTHER: Sleeping. HENMT: COMMON NORMALS: oropharynx normal Neck/C-Spine: COMMON NORMALS: no JVD Resp: COMMON NORMALS: normal respiratory effort AUSCULTATION: other (Coarse breath sounds.) OTHER: BiPAP on. Now that he is resting tolerating mask. Cardio: COMMON NORMALS: no JVD, regular rhythm, S1 normal heart sound present, S2 normal heart sound present and No murmurs present (Cardio) RHYTHM: regular rhythm HEART SOUNDS: S1 normal heart sound present and S2 normal heart sound present GI: COMMON NORMALS: Normal to inspection, nondistended, normoactive bowel sounds present, Soft to palpation and non-tender PALPATION: Yes Soft to palpation Extremity: COMMON NORMALS: no joint enlargement and no pedal edema OTHER: Contractures BLLE, knees up in the air, feet off bed Neuro: COMMON NORMALS: moves all extremities Skin: OTHER: Wounds on feet covered by dressing. Malodorous. L hip oblong pressure ulcer with black eschar base about 4 x 12 cm. No tunneling or undermining. No drainage. Urinary Catheter Management: David: Cath Placed During This Visit: yes Reason for Continuing Indwelling Catheter: Accurate Measurement of Urinary Output in Critically Ill Patients Urinary Catheter Date of Insertion: 06/11/22 Urinary Catheter Time of Insertion: 11:05 Data 06/13/22 04:30 06/13/22 04:30 Micro: Microbiology 06/12/22 12:43 Blood Culture - Preliminary Blood SPECIMEN COLLECTED 06/11/22 09:43 Blood Culture - Preliminary Blood NEGATIVE TO DATE 06/11/22 09:33 Blood Culture - Preliminary Blood NEGATIVE TO DATE A&P Assessment and plan (1) Respiratory failure: Overnight deteriorated respiratory status, had to be placed on BiPAP for support. Up to 100% FiO2. ABG last night noted 7.41/32.9/20.4. Chest CT noted with bilateral mild to moderate pleural fluid collections, severe right lung groundglass opacities and airspace disease consistent with severe COVID versus other pneumonia. Moderate geographic groundglass opacities and left upper lobe with severe left lower lobe pneumonia. Received Lasix. This morning restless, not tolerating BiPAP well, Precedex started earlier was increased. Finally getting some rest this morning. Consideration of intubation but saturation high 90s on 100% FiO2 but appears comfortable. Later in the morning BiPAP adjusted with FiO2 requirement down to 60%. For now continue BiPAP support, wean down as tolerating. Continue broad- spectrum antibiotic, may consider repeating Lasix depending on condition. He is currently -460 mL, but hemoglobin still positive about 1.5 L. Echo noted taken, pending read. Anticoagulation was held after last night's dose anticipation of surgical debridement today, currently with respiratory difficulties, for now delay of surgery until more clarity in terms of both CODE STATUS/goals of care and respiratory condition. Resume Lovenox in case not proceeding to surgery. Discussed with his mother COVID-19 PCR panel was negative on 06/11. Mother states he does not get out of the house and so his interactions are very limited. Overnight apparently intubation was considered, however, seems like there has been discussion regarding CODE STATUS with his mother. At admission he had noted CODE STATUS as full code. His mother points out that overall he is healthy has been poor, quality of life poor, and he originally did not want to come to the hospital. Discussed that certainly de-escalation of care, more supportive care focus, and/or down the road hospice may be a consideration, however, we would want to be sure it was congruent with his wishes as he did agree to come to the hospital and at the time of admission was wanting aggressive interventions including cardiopulmonary resuscitation. Yesterday as per our discussion also was agreeable for surgical debridement of his feet, possibly consideration of amputation. As he is now more calm, tolerating BiPAP, Precedex being weaned down once he wakes up hopefully will be able to further clarify goals of care. (2) Sepsis: He is visited by his mother today. Continue broad-spectrum antibiotic for coverage of pneumonia, wound infection, follow-up TANIKA with concerns for possibility of septic embolic disease. Broaden antimicrobial coverage with Flagyl, Diflucan. Wound debridement when possible, for now delayed due to respiratory decompensation. Also CODE STATUS/goals of care needing additional clarification. Discussed with podiatry. Discussed with him and his mother, they have also discussed with podiatry and we spoke as well. Today wounds appear worse. Quite a bit of maceration and necrotic slough and would benefit from debridement which is being planned for tomorrow. Patient and mother in agreement. We discussed regarding PE, need to hold anticoagulation after last dose tonight. Leukocytosis with improvement at 15,000. Tachycardia persists, perhaps slightly better this afternoon. With concerning lung nodule on CTA, will need additional follow-up, but also ca nnot exclude septic embolic etiology. Blood cultures were collected in ER, however, were not labeled as to the source. Collect repeat cultures from port as well as peripherally. Continue vancomycin. Tolerating cefepime. With multifocal sources, sepsis, at risk of life-threatening deterioration due to septic shock, admit for assessment and management. Continue assessment and treatment in the hospital. Monitor vital signs, monitor telemetry. Requested repeat CBC, chemistry. (3) Wound infection: As above. Discussed with podiatry. It has also been discussed with patient and his mother that amputation may become inevitable given chronicity and severity of the wounds, current worsening, depending on response to treatment. Wound care with Santyl pending surgical debridement. Podiatry documentation appreciated. (4) Lung nodule: Concerning lung nodule on CTA, will need additional follow-up for assessment, but also cannot exclude septic embolic etiology at current time so needs additional work-up. Blood cultures were collected in ER, however, were not labeled as to the source. Collect repeat cultures from port and periphery. (5) Pneumonia: Continue empiric antibiotic coverage with vancomycin, cefepime. Broaden with Diflucan. Echocardiogram pending. Requiring BiPAP support. Intubation considered. Noted presumptive negative Legionella antigen. Has history of MRSA, continue MRSA empiric coverage. Additionally with sinus tachycardia, cough, inspiratory chest discomfort, CT attempted, but difficult due to significant contractures. Empirically started on anticoagulation for now. Repeat CBC requested for monitoring of blood counts due to anemia. Tonight and in the morning. Flutter valve, I-S (6) Buerger's disease: Has quit smoking since last hospitalization. Antiplatelet agents. (7) Declining functional status: Unable to care for self. Mother has been caring for him as well as his wounds. She is unable to keep up. We will obtain consultation with case management, OT and PT evaluation. (8) Hyponatremia: Improved. Stop LR. Follow-up chemistry requested. (9) PE (pulmonary thromboembolism): Therapeutic Lovenox held this morning as suspicion of surgery. Will need to be resumed. (10) Goals of care, counseling/discussion: Overnight apparently intubation was considered, however, seems like there has been discussion regarding CODE STATUS with his mother. At admission he had noted CODE STATUS as full code. His mother points out that overall he is health y has been poor, quality of life poor, and he originally did not want to come to the hospital. Discussed that certainly de-escalation of care, more supportive care focus, and/or down the road hospice may be a consideration, however, we would want to be sure it was congruent with his wishes as he did agree to come to the hospital and at the time of admission was wanting aggressive interventions including cardiopulmonary resuscitation. Yesterday as per our discussion also was agreeable for surgical debridement of his feet, possibly consideration of amputation. As he is now more calm, tolerating BiPAP, Precedex being weaned down once he wakes up hopefully will be able to further clarify goals of care. Plan Sacral decubitus ulcer: L hip oblong pressure ulcer with black eschar base about 4 x 12 cm. No tunneling or undermining. No drainage. Foam dressing. Continue to reposition. Regular diet. Protein supplements. Anemia: Mother reports history of anemia and he was supposed to be on a medication but she does not remember if it was iron or something else. Noted normocytic anemia. At home not on PPI, continue. Follow-up CBC requested. HTN Attestations Medical Necessity Statement*: Continue admission for assessment management of respiratory sepsis, pneumonia, wound infection with severe nonhealing wounds BL LE. Coding Level of Care Code Critical Care >/= 30 minutes Critical care time (in minutes): 40 The high probability of a clinically significant, sudden or life threatening deterioration, as referenced in this documentation, required my full and direct attention, intervention and personal management. The critical care time shown is in addition to time spent performing any reported separately billable procedures and includes the following: [x] Data and vital sign review and interpretation [x ] Patient assessment, examination and intervention [x] Medication orders and management [x] Patient/Family updates as able [x] Care Coordination and Documentation. Diagnoses Respiratory failure J96.90 Sepsis A41.9 Wound infection T14.8XXA; L08.9 Lung nodule R91.1 Pneumonia J18.9 Buerger's disease I73.1 Declining functional status R53.81 Hyponatremia E87.1 PE (pulmonary thromboembolism) I26.99 Goals of care, counseling/discussion Z71.89
[2022-06-13] MEDS: metroNIDAZOLE IV 500 MG/100 ML PREMIX 100 MG IV ×2 (13:30→21:16)
[2022-06-13] MEDS: fluconazole premix 200 MG/100 ML PREMIX 100 MG IV (13:30)
[2022-06-13] MEDS: collagenase oint 30 gm 1 APPLIC TOPICAL (17:17)
--- NOTE | 2022-06-13 17:43 | PC.NURSE ---
Dressing change Dressing to both feet changed. Santnyl applied, then telfa, then abd with Kerlix wrap. Wound is sloughing in large amounts with white/yellow drainage.
--- NOTE | 2022-06-13 17:45 | NUR.SHIFT ---
Shift assessment Pt titrated off precedex by 1100. Dr Vieira visited with Pt's mom Sharona on surgery. Upon assessment of both physicians, it was determined to wait until tomorrow for debridement of pt's feet. Pt was able to wake up and answer simple questions this afternoon. Dr Gonzalez spoke with pt on being a DNR versus Full code. Pt did agree to be placed on mech. vent and chest compressions if he were to start to quickly decline. Pt's mom was at bedside also during this talk with the doctor. Pt remained sleepy but arousable throughout the rest of the shift. He is on bipap that has been tirtrated down today.
--- NOTE | 2022-06-13 20:42 | ECG_ITS ---
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 Measurements Intervals [place] Rate: 123 P: 53 NH: 151 QRS: 64 QRSD: 95 T: 53 QT: 344 QTc: 493 Interpretive Statements SINUS TACHYCARDIA MODERATE VOLTAGE CRITERIA FOR LVH, CONSIDER NORMAL VARIANT [MEETS CRITERIA IN ONE OF: R(aVL), S(V1), R(V5), R(V5/V6)+S(V1)] NONSPECIFIC ST & T-WAVE ABNORMALITY ABNORMAL RHYTHM ECG Compared to ECG 06/13/2022 01:03:01 No significant changes Electronically Signed On 06-13-2022 21:07:16 CDT by Jose Luis Smith M.D. [id number]
--- NOTE | 2022-06-13 20:44 | P.CONIM_ITS ---
Providers/Reason For Consult Consulting Physician/Specialty*: EDA Germain MD/cardiology Reason for Consult*: Patient has features of acute heart failure and LV dysfunction by echocardiogram Requesting Physician: Dr. Franco Attending Physician: Dennis Gonzalez Primary Care Provider: Rogelio Reinoso MD History of Present Illness History of Present Illness Deandra Olivares is a 51 year old male is admitted to the hospital through the emergency room, where he presented with complaints of increasing shortness of breath, cough and possible pneumonia. This patient is known to have thromboangiitis obliterans and nonhealing ulcers of the lower extremities. He is being followed by the wound clinic. He has severe kyphoscoliosis and flexion deformity and contractures of the lower extremities. He is being taken care of by his mother at home. This patient is a very poor historian. He may have some cognitive impairment. According to him, his main complaint is the shortness of breath. He was found to have elevated white cell count and chest x-ray evidence of possible pneumonia with heart failure. While being on the telemetry floor, his respiratory status became acutely worse. For that reason, he was brought down to the ICU. He had an echocardiogram done which revealed LV ejection fraction of around 46%. This is a significant drop from the previous echocardiogram done couple of years ago. Patient denies any chest pain. He has no previous history for coronary artery disease, myocardial infarction or congestive heart failure. He had resting ABIs - CARLOS A of 0.93 on the right and 0.99 on the left. Could not obtain toe pressures on the right side. He had amputation of the right big toe and the distal half of the second toe in 2020 4? Osteomyelitis. She apparently has involvement of the small vessels of the feet and hand. Currently has no fever or chills. Review of Systems Narrative: CONSTITUTIONAL: No fever or chills. EYES: No blurring of vision or other visual disturbances lately. ENT: No hoarseness of voice, auditory disturbances or sore throat. CARDIOVASCULAR: As mentioned above. RESPIRATORY: Has been having shortness of breath for a while. Acute worsening as mentioned above. GASTROINTESTINAL: No hematemesis or melena. GENITOURINARY: No dysuria or hematuria. INTEGUMENTARY: Patient still states in the dorsum of both feet and also in the toes. Also has some cyanotic nailbeds in the left and right hand NEURO: No transient ischemic attacks or amaurosis. PSYCHIATRIC: No history of psychosis or major depression. HEMATOLOGIC: No bleeding disorders or significant anemia. ENDOCRINE: No history of polyuria or polydipsia. MUSCULOSKELETAL: Kyphoscoliosis, flexion deformity of both left anterior descending artery and contractures ALLERGY/IMMUNOLOGY: As mentioned above. Medications/Allergies Home Medications Medication Instructions Recorded Confirmed Last Taken Type pantoprazole 40 mg tablet,delayed 40 mg PO QAM 90 days #90 tabs 07/07/21 06/11/22 1 Week Ago Rx release (Protonix) ~06/04/22 Kerlix gauge wrap #5 ea 11/29/21 06/11/22 Unknown Rx alginate bandage #30 ea 11/29/21 06/11/22 Unknown Rx aspirin 81 mg tablet,delayed 81 mg PO DAILY 11/29/21 06/11/22 3 Weeks Ago History release (Adult Low Dose Aspirin) ~05/21/22 family states not ta cyclobenzaprine 10 mg tablet 10 mg PO TID PRN muscle spasm #90 11/29/21 06/11/22 Unknown Rx tabs clopidogrel 75 mg tablet (Plavix) 75 mg PO QAM 06/11/22 06/11/22 06/10/22 History gentamicin 0.1 % topical cream 1 applic topical DAILY 06/11/22 06/11/22 Unknown History methadone 40 mg soluble tablet 140 mg PO QAM 06/11/22 06/11/22 06/10/22 History Allergies Allergy/AdvReac Type Severity Reaction Status Date / Time amoxicillin Allergy Intermediate ADR/ALGY-Pa Verified 06/11/22 09:24 leness sulfamethoxazole Allergy Intermediate ADR/ALGY-Pa Verified 06/11/22 09:24 [From leness Sulfamethoxazole-Trimethoprim] trimethoprim Allergy Intermediate ADR/ALGY-Pa Verified 06/11/22 09:24 [From [facility] Sulfamethoxazole-Trimethoprim] Current Medications Generic Name Dose Route Start Last Admin Trade Name Freq PRN Reason Stop Dose Admin Acetaminophen 650 mg 06/11/22 16:51 06/12/22 00:13 Acetaminophen 325 Mg Tablet PO 650 mg Q6H PRN Administration Mild/Mod Pain Or Temp >/= 101 Albuterol/Ipratropium 3 ml 06/11/22 18:06 06/13/22 20:25 Ipratropium-Albuterol 3 Ml Neb INHALATION 3 ml Q6H.RESP PRN Administration SHORTNESS OF BREATH Aspirin 81 mg 06/12/22 09:00 06/13/22 11:20 Aspirin 81 Mg Ec Tablet PO Not Given DAILY [facility] Clopidogrel Bisulfate 75 mg 06/12/22 06:00 06/13/22 06:19 Clopidogrel 75 Mg Tablet PO Not Given QAM EDGAR Collagenase 1 applic 06/11/22 18:00 06/13/22 17:17 Collagenase Oint 30 Gm TOPICAL 1 applic BID EDGAR Administration Cyclobenzaprine HCl 10 mg 06/11/22 16:51 06/11/22 22:51 Cyclobenzaprine 10 Mg Tablet PO 10 mg TID PRN Administration muscle spasm Cefepime HCl 1,000 mg/ Sodium 50 mls @ 100 mls/hr 06/11/22 16:51 06/13/22 14:30 Chloride IV Infused Q8H EDGAR Infusion Protocol Dexmedetomidine HCl 400 mcg/ 104 mls @ 0 mls/hr 06/13/22 05:15 06/13/22 11:14 Sodium Chloride IV 0.2 mcg/kg/hr .Q0M EDGAR 3.45 mls/hr Administration Protocol Per Protocol Metronidazole 500 mg in 100 mls @ 100 mls/hr 06/13/22 13:00 06/13/22 14:30 Flagyl Iv IV Infused Q8H EDGAR Infusion Protocol Fluconazole 200 mg in 100 mls @ 100 mls/hr 06/13/22 13:30 06/13/22 14:30 Diflucan Premix IV Infused Q24H EDGAR Infusion Methadone HCl 140 mg 06/12/22 09:00 06/13/22 06:19 Methadone 10 Mg Tablet PO Not Given QAM [facility] Oxycodone/Acetaminophen 1 tab 06/11/22 16:51 06/12/22 08:19 Oxycodone-Apap 5-325 Mg Tablet PO 1 tab Q4H PRN Administration SEVERE PAIN Pantoprazole Sodium 40 mg 06/12/22 06:00 06/13/22 06:[address] 40 Mg Tablet PO Not Given QAM EDGAR PFSH Acute PFSH: Medical History Amputated toe of right foot Bronchitis Buerger's disease Chronic foot ulcer, limited to breakdown of skin Chronic GERD Chronic pain of both feet Encounter for central line placement Episode of change in speech Hepatitis C antibody test positive Hypertension Memory loss due to medical condition Tobacco abuse Quit May 08, 2021 Surgical History History of surgical amputation of finger of left hand Family History Other CAD (coronary artery disease) Cancer Diabetes Social History Smoking and tobacco status: former smoker Alcohol intake: never Household members: family Marital status: Number of children: 1 Current occupational status: unemployed Vitals/I&O/Wt Last Vital Signs Temp 98.9 F 06/13/22 02:00 Pulse 115 H 06/13/22 20:00 Resp 25 H 06/13/22 20:00 BP 121/81 06/13/22 16:00 Pulse Ox 94 06/13/22 20:00 O2 Del Method BiPAP 06/13/22 20:00 O2 Flow Rate 14 06/13/22 07:33 FiO2 30 06/13/22 20:00 06/13/22 06/13/22 06/13/22 06:59 14:59 22:59 Intake Total 109.490 / 1182.490 557.179 / 557.179 Output Total 1000 / 1650 0 / 0 400 / 400 Balance -890.510 / -467.510 557.179 / 557.179 -400 / 157.179 Weight last 48 hrs Weight 146 lb 4.8 oz Physical Exam Narrative: GENERAL: The patient is alert. He is unable to tell me where he is-thought he is at the [facility]. Answers are brief mostly yes or no HEENT: Minimal pallor with no icterus or lymphadenopathy.Oral cavity: There are no mucous membrane lesions. NECK: Trachea appears to be central. No masses noted. No JVD or thyromegaly appreciated. RESPIRATORY: Chest is symmetrical. No intercostals muscle retraction or any accessory muscle activation. There is no chest wall tenderness. Breath sounds are heard bilaterally. Occasional fine and coarse crackles in the bases. BREASTS: Deferred. HEART: The heart sounds are normal. No S3 or S4. Short systolic murmur at the left sternal border. No diastolic murmurs. No pericardial rub. ABDOMEN: No vessel pulsations or distention. No tenderness. No organomegaly a ppreciated. Bowel sounds are normally heard. : Deferred. RECTAL: Deferred. LYMPHATIC: No lymphadenopathy noted in the neck. EXTREMITIES: Hypertrophy and ulceration of the toes bilaterally. Most of the ulcers are healed. Has extensive ulcerations on the dorsal both feet. They are currently bandaged. Partially cyanotic nailbeds in both hands. Radial pulses are palpable on both sides but somewhat weak. MUSCULOSKELETAL: Kyphoscoliosis, flexion deformities of both lower extremities with contractures. Eschar over the left hip. SKIN: Ulcers as mentioned above NEUROPSYCHIATRIC: No focal motor deficit noted Urinary Catheter Management: David: Cath Placed During This Visit: yes Reason for Continuing Indwelling Catheter: Accurate Measurement of Urinary Output in Critically Ill Patients Urinary Catheter Date of Insertion: 06/11/22 Urinary Catheter Time of Insertion: 11:05 Data 06/13/22 04:30 06/13/22 04:30 Other Labs: Laboratory Last Values WBC 19.5 10^3/uL (4.0-10.0) H 06/13/22 04:30 RBC 3.99 10^6/uL (4.1-5.3) L 06/13/22 04:30 Hgb 9.7 g/dL (11.7-16.6) L 06/13/22 04:30 Hct 33.0 % (42.0-52.0) L 06/13/22 04:30 MCV 82.7 fl (80-94) 06/13/22 04:30 MCH 24.3 pg (28.0-34.0) L 06/13/22 04:30 MCHC 29.4 g/dL (30.0-36.0) L 06/13/22 04:30 RDW 16.3 % (12.1-15.1) H 06/13/22 04:30 Plt Count 203 10^3/cmm (130-400) 06/13/22 04:30 MPV 10.6 fL (7.4-10.4) H 06/13/22 04:30 Neut % (Auto) 89.4 % 06/13/22 04:30 Lymph % (Auto) 3.8 % 06/13/22 04:30 [place] % (Auto) 5.6 % 04/12/23 04:30 Eos % (Auto) 0.1 % 06/13/22 04:30 Baso % (Auto) 0.2 % 06/13/22 04:30 Neut # (Auto) 17.44 10^3/uL (1.8-7.7) H 06/13/22 04:30 Lymph # (Auto) 0.7 10^3/uL (0.8-4.8) L 06/13/22 04:30 [place] # (Auto) 1.1 10^3/uL (0.2-0.9) H 06/13/22 04:30 Eos # (Auto) 0.0 10^3/uL (0.0-0.8) 06/13/22 04:30 Baso # (Auto) 0.0 10^3/uL (0.0-0.1) 06/13/22 04:30 Nucleated RBC % (auto) 0 % 06/13/22 04:30 Nucleated RBCs # 0.0 /100WBC 06/13/22 04:30 Specimen Type Arterial 06/13/22 00:33 Sample Site Radial, right 06/13/22 00:33 ABG pH 7.41 (7.35-7.45) 06/13/22 00:33 ABG pCO2 32.9 mmHg (35-45) L 06/13/22 00:33 ABG pO2 70.4 mmHg (80.0-100.0) L 06/13/22 00:33 ABG HCO3 20.9 mmol/L (22-26) L 06/13/22 00:33 ABG O2 Saturation 95.0 06/13/22 00:33 ABG Base Excess -3.2 mmol/L (-2.0-2.0) L 06/13/22 00:33 Mert Test Pos 06/13/22 00:33 A-a O2 Gradient 78.4 mmHg (5-10) H 06/13/22 00:33 Hematocrit 31.0 % (42-52) L 06/13/22 00:33 Hgb O2 Saturation 93.2 % (95-100) L 06/13/22 00:33 Carboxyhemoglobin 1.4 %THgb (0.4-20.1) 06/13/22 00:33 Methemoglobin 0.5 % (0.4-1.5) 06/13/22 00:33 Total Hemoglobin 10.1 g/dL (14-18) L 06/13/22 00:33 Sodium 135.0 mmol/L (131-143) 06/13/22 00:33 Potassium 4.0 mmol/L (3.5-5.0) 06/13/22 00:33 Glucose 139.0 mg/dL (70-115) H 06/13/22 00:33 Ionized Calcium 1.2 mmol/L (1.1-1.4) 06/13/22 00:33 O2 Delivery Device Bipap 06/13/22 00:33 FiO2 100.0 % 06/13/22 00:33 Magnetic Locater ID ellpe 06/13/22 00:33 Sodium 135 mmol/L (136-145) L 06/13/22 04:30 Potassium 3.6 mmol/L (3.5-5.1) 06/13/22 04:30 Chloride 103 mmol/L (98-107) 06/13/22 04:30 Carbon Dioxide 21 mmol/L (22-29) L 06/13/22 04:30 Anion Gap 14.6 (5-19) 06/13/22 04:30 BUN 17 mg/dL (6-20) 06/13/22 04:30 Creatinine 0.9 mg/dL (0.7-1.2) 06/13/22 04:30 GFR Calculation 89.7 mL/min (90-130) L 06/13/22 04:30 Glucose 141 mg/dL (65-115) H 06/13/22 04:30 POC Glucose 128 mg/dL (70-110) H 06/13/22 00:24 Calculated Osmolality 284 mOsm/kg (285-295) L 06/13/22 04:30 Lactic Acid 1.2 mmol/L (0.5-2.2) 06/11/22 13:09 Calcium 8.2 mg/dL (8.5-10.5) L 06/13/22 04:30 Iron 17 ug/dL (59-158) L 06/13/22 01:29 TIBC 127 mcg/dl 06/13/22 01:29 % Saturation 13.3 % (20-50) L 06/13/22 01:29 Unsat Iron Binding 110 ug/dL (112-347) L 06/13/22 01:29 Ferritin 433 ng/mL (30-400) H 06/13/22 01:29 Total Bilirubin 0.7 mg/dL (0.15-1.2) 06/13/22 04:30 AST 75 U/L (0-40) H 06/13/22 04:30 ALT 48 U/L (0-41) H 06/13/22 04:30 Alkaline Phosphatase 124 U/L (40-130) 06/13/22 04:30 Troponin T Baseline 295 ng/L (0-15) H* 06/13/22 20:42 Troponin T 120 Minute 304.7 ng/L (0-15) H 06/13/22 22:15 Delta Troponin T 9.7 ABS# (0-10) 06/13/22 22:15 NT-Pro-B Natriuret Pep 26852 pg/mL (0-125) H 06/12/22 02:04 Total Protein 6.8 g/dL (6.6-8.7) 06/13/22 04:30 Albumin 2.1 g/dL (3.5-5.2) L 06/13/22 04:30 Globulin 4.7 g/dL (1.3-4.6) H 06/13/22 04:30 Urine Color Yellow (Yellow) 06/11/22 10:50 Urine Appearance Hazy (CLEAR) A 06/11/22 10:50 Urine pH 5 (5-7) 06/11/22 10:50 Ur Specific [place] 1.025 (1.005-1.030) 06/11/22 10:50 Urine Protein 1+ (Negative) H 06/11/22 10:50 Urine Glucose (UA) Norm (Normal) 06/11/22 10:50 Urine Ketones 1+ (Negative) H 06/11/22 10:50 Urine Blood Neg (Negative) 06/11/22 10:50 Urine Nitrate Negative (Negative) 06/11/22 10:50 Urine Bilirubin 1+ (Negative) H 06/11/22 10:50 Urine Urobilinogen 4 mg/dL (Negative) H 06/11/22 10:50 Ur Leukocyte Esterase Trace (Negative) H 06/11/22 10:50 Urine RBC Rare /hpf (0-2) 06/11/22 10:50 Urine WBC Rare /hpf (0-5) 06/11/22 10:50 Ur Squamous Epith Cells 0-4 /hpf (0-5) H 06/11/22 10:50 Calcium Oxalate Crystal 25-40 /hpf H 06/11/22 10:50 Amorphous Sediment 2+ /hpf 06/11/22 10:50 Urine Bacteria None /hpf (NONE) 06/11/22 10:50 Hyaline Casts 0-4 /lpf H 06/11/22 10:50 Urine Mucus 1+ /hpf 06/11/22 10:50 Nasal Influ A H1 2009 PCR Not detected (NOT DETECT) 06/13/22 20:30 Vancomycin Trough 19.5 ug/mL (10-15) H 06/13/22 04:30 Adenovirus (PCR) Not detected (NOT DETECT) 06/13/22 20:30 C. pneumoniae DNA (PCR) Not detected (NOT DETECT) 06/13/22 20:30 Coronavirus 229E (PCR) Not detected (NOT DETECT) 06/13/22 20:30 Human Metapneumovir PCR Not detected (NOT DETECT) 06/13/22 20:30 Influenza A (H1) PCR Not detected (NOT DETECT) 06/13/22 20:30 Influenza A (H3) PCR Not detected (NOT DETECT) 06/13/22 20:30 Influenza Type A (PCR) Not detected (NOT DETECT) 06/13/22 20:30 Influenza Type B (PCR) Not detected (NOT DETECT) 06/13/22 20:30 M. pneumoniae (PCR) Not detected (NOT DETECT) 06/13/22 20:30 Parainfluenza 1 (PCR) Not detected (NOT DETECT) 06/13/22 20:30 Parainfluenza 2 (PCR) Not detected (NOT DETECT) 06/13/22 20:30 Parainfluenza 3 (PCR) Not detected (NOT DETECT) 06/13/22 20:30 Parainfluenza 4 (PCR) Not detected (NOT DETECT) 06/13/22 20:30 RSV Type A (PCR) Not detected (NOT DETECT) 06/13/22 20:30 RSV Type B (PCR) Not detected (NOT DETECT) 06/13/22 20:30 Entero/Rhino (PCR) Not detected (NOT DETECT) 06/13/22 20:30 SARS-CoV-2 (PCR) Not detected (NOT DETECT) 06/13/22 20:30 Micro: Microbiology 06/12/22 12:43 Blood Culture - Preliminary Blood NEGATIVE TO DATE Echo: My impression: Echocardiogram from today multiple wall motion abnormalities with a diminished LV ejection ?fraction of 46%. ? Grade I/IV diastolic dysfunction (abnormal relaxation filling ?pattern), normal to mildly elevated filling pressures. ?Mildly increased left atrial size. ?Thickened mitral valve. Moderate mitral valve regurgitation. ?Thickened aortic valve. ?Trace tricuspid valve regurgitation. ?PA pressure could not be calculated. ?There is no pericardial effusion. ?There are no intracardiac masses. ?Compared to the study from 11/13/2020, the LV ejection fraction ?appears to have decreased from 65% to 46% EKG 1: My Interpretation: The EKG showed sinus tachycardia with a short MT interval. Some nonspecific T wave changes. Other data: CARLOS A /arterial duplex minimally diminished resting CARLOS A on the right side, may suggest ?a mild PAD ?Normal resting CARLOS A on the left side ?The toe pressures were could not be recorded on the left side, ?may suggest a severe occlusion of the distal vessels.? Clinical ?correlation is recommended ?Technically difficult study ?Clinical correlation is recommended A&P Assessment and plan (1) Congestive heart failure due to cardiomyopathy: The etiology of the LV dysfunction is not clear at this time. It is possible that the patient may have underlying coronary disease causing the LV dys function. This may need to be further evaluated. Once the heart failure and the pneumonia is properly treated, we may consider doing an angiogram to further evaluate the coronary status. (2) Buerger's disease: Patient having extensive ulcerations on both feet on the dorsum. The cyanosis in the peripheral but most likely related to this disease condition. He is on antiplatelet drugs. This may be continued. (3) Chronic foot ulcer, limited to breakdown of skin: It seems to me that the patient has mostly involvement of the small vessels of the feet. Apparently has not had any peripheral angiogram in this hospital. May have to consider this sometime down the line. Qualifiers: Laterality: unspecified laterality Qualified Code(s): L97.501 - Non- pressure chronic ulcer of other part of unspecified foot limited to breakdown of skin (4) Respiratory failure: Patient is on intermittent BiPAP. The respiratory status seems to be improving. (5) Hypertension: Currently he is normotensive. May continue on the current medications. Plan I may start him on IV Lasix 40 mg now. Also may you to the milligram potassium p.o. Because of the tachycardia, I may start him on metoprolol 12.5 mg p.o. twice daily. Based on his clinical progress, further recommendations will be made. Consider further cardiac work-up, once the heart failure and the infection are properly treated. Thank you for the opportunity to evaluate this patient and make these recommendations Consult Attestations 2 Medical Necessity Statement: Patient requires continued hospital stay for close monitoring and further management Coding Level of Care Code 07274 Diagnoses Congestive heart failure due to cardiomyopathy I50.9; I42.9 Buerger's disease I73.1 Chronic foot ulcer, limited to breakdown of skin L97.501 Laterality: unspecified laterality Respiratory failure J96.90 Hypertension I10
[2022-06-13] MEDS: cyclobenzaprine 10 mg Tablet PO (20:52)
[2022-06-13] MEDS: oxyCODONE-APAP 5-325 mg Tablet 1 TAB PO (20:52)
[2022-06-13] MEDS: acetaminophen 325 mg Tablet 650 MG PO (20:54)
[2022-06-13 21:09] LABS: Troponin(5th) Baseline 295 ng/L (0-15)
[2022-06-13] MEDS: potassium chloride ER 20 mEq Tablet PO (22:15)
--- NOTE | 2022-06-13 22:16 | ECG_ITS ---
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 Measurements Intervals [place] Rate: 120 P: 47 RI: 100 QRS: 66 QRSD: 93 T: 63 QT: 333 QTc: 472 Interpretive Statements SINUS TACHYCARDIA WITH SHORT RI INTERVAL NONSPECIFIC T-WAVE ABNORMALITY Compared to ECG 06/13/2022 20:42:55 Short RI interval now present T-wave abnormality still present Electronically Signed On 06-14-2022 7:37:10 CDT by Jose Luis Smith M.D. [email or web address] Labsmerit health river regionHireIQ Solutionspaulding county hospital.How do you roll?/store/[id number]
[2022-06-13] MEDS: alteplase 1 mg/mL SDV 2 mL 2 MG INTRACATH (22:27)
[2022-06-13 22:36] LABS: Troponin 5 2HR Delta 9.7 ABS# (0-10)
[2022-06-13 22:38] LABS: Troponin 5 2HR 304.7 ng/L (0-15)
[2022-06-13 22:51] LABS: Adenovirus Not Detected (NOT DETECT); Chlamydia Pneumoniae Not Detected (NOT DETECT); Coronavirus 229E,HKU1,NL63,OC4 Not Detected (NOT DETECT); Human Metapneumovirus Not Detected (NOT DETECT); Human Rhinovirus/Enterovirus Not Detected (NOT DETECT); Influenza A Not Detected (NOT DETECT); Influenza A H1 Not Detected (NOT DETECT); Influenza A H1-2009 Not Detected (NOT DETECT); Influenza A H3 Not Detected (NOT DETECT); Influenza B Not Detected (NOT DETECT); Mycoplasma Pneumoniae Not Detected (NOT DETECT); Parainfluenza Virus Type 1 Not Detected (NOT DETECT); Parainfluenza Virus Type 2 Not Detected (NOT DETECT); Parainfluenza Virus Type 3 Not Detected (NOT DETECT); Parainfluenza Virus Type 4 Not Detected (NOT DETECT); Respiratory Syncytial Virus A Not Detected (NOT DETECT); Respiratory Syncytial Virus B Not Detected (NOT DETECT); SARS-COV-2 Not Detected (NOT DETECT)
[2022-06-14] VITALS (28 sets, daily range): BP systolic 98–130; BP diastolic 66–96; PULSE 98–125; RESP 14–29; O2SAT 87–100
[2022-06-14] MEDS: vancomycin 1,250 MG/250 ML PIGGYBACK 250 MG IV ×2 (01:29→18:26)
[2022-06-14] MEDS: ipratropium-albuterol 3 mL Neb INHALATION (02:28)
--- NOTE | 2022-06-14 02:37 | ECG_ITS ---
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 Measurements Intervals [place] Rate: 121 P: 62 TX: 136 QRS: 61 QRSD: 96 T: 58 QT: 362 QTc: 515 Interpretive Statements SINUS TACHYCARDIA MODERATE VOLTAGE CRITERIA FOR LVH, CONSIDER NORMAL VARIANT [MEETS CRITERIA IN ONE OF: R(aVL), S(V1), R(V5), R(V5/V6)+S(V1)] NONSPECIFIC T-WAVE ABNORMALITY ABNORMAL RHYTHM ECG Compared to ECG 06/13/2022 22:57:59 Short [place] interval no longer present T-wave abnormality still present Electronically Signed On 06-14-2022 21:11:03 CDT by Pola Germain M.D. [email or web address] [email or web address] general hospitalSolstice [email or web address]/store/[id number]
[2022-06-14 03:10] LABS: Basophils % 0.2 %; Eosinophils % 0.2 %; Hematocrit 28.6 % (42.0-52.0); Hemoglobin 8.5 g/dL (11.7-16.6); Lymphocytes # 0.8 10^3/uL (0.8-4.8); Lymphocytes % 6.2 %; Mean Corpuscular HGB Conc 29.7 g/dL (30.0-36.0); Mean Corpuscular Hemoglobin 24.6 pg (28.0-34.0); Mean Corpuscular Volume 82.7 fl (80-94); Mean Platelet Volume 10.1 fL (7.4-10.4); Monocytes # 0.8 10^3/uL (0.2-0.9); Neutrophils # 11.39 10^3/uL (1.8-7.7); Neutrophils % 86.8 %; Nucleated Red Blood Cells % 0 %; Platelet Count 131 10^3/cmm (130-400); Red Blood Count 3.46 10^6/uL (4.1-5.3); Red Cell Distribution Width 16.4 % (12.1-15.1); White Blood Count 13.1 10^3/uL (4.0-10.0)
[2022-06-14 03:26] LABS: Alanine Aminotransferase 39 U/L (0-41); Albumin Level 2.4 g/dL (3.5-5.2); Alkaline Phosphatase 106 U/L (40-130); Anion Gap 17.1 (5-19); Aspartate Amino Transferase 55 U/L (0-40); Blood Urea Nitrogen 21 mg/dL (6-20); Calcium 8.1 mg/dL (8.5-10.5); Carbon Dioxide 25 mmol/L (22-29); Chloride 98 mmol/L (98-107); Glomerular Filtration Rate 102.7 mL/min (90-130); Glucose 117 mg/dL (65-115); Osmolality Calculated 288 mOsm/kg (285-295); Potassium 3.1 mmol/L (3.5-5.1); Sodium 137 mmol/L (136-145); Total Bilirubin 0.7 mg/dL (0.15-1.2); Total Protein 6.4 g/dL (6.6-8.7)
[2022-06-14 03:34] LABS: Troponin 5 6HR 343.8 ng/L (0-15); Troponin 5 6HR Delta 48.8 ng/L (0-12)
[2022-06-14] MEDS: cefepime 1,000 MG in sodium chloride 0.9% (plus) 50 ML 100 MG IV ×3 (04:46→20:28)
[2022-06-14] MEDS: metroNIDAZOLE IV 500 MG/100 ML PREMIX 100 MG IV ×3 (04:50→20:30)
--- NOTE | 2022-06-14 05:12 | PC.NURSE ---
Notified Dr. Franco of NPO diet for surgery today and PO meds due for 0600. Dr. Franco responded to hold off on giving the meds and consult w/ dayshift in the morning because pt may not be going for surgery.
[2022-06-14] MEDS: pantoprazole DR 40 mg Tablet PO (07:04)
[2022-06-14] MEDS: clopidogrel 75 mg Tablet PO (07:04)
[2022-06-14] MEDS: methadone 10 mg Tablet 140 MG PO (07:05)
--- NOTE | 2022-06-14 08:01 | P.PN_ITS ---
Subjective Subjective: The breathing seems to be getting better. He is seems to be confused and with a poor mentation. Denies any chest pain. No fever or chills. The vital signs are stable. Heart rate is slowly coming down. So far he is tolerating the metoprolol well. Medications: Medication Review Details: Current Medications Acetaminophen (Acetaminophen 325 Mg Tablet) 650 mg PO Q6H PRN PRN Reason: Mild/Mod Pain Or Temp >/= 101 Last Admin: 06/13/22 20:54 Dose: 650 mg Albuterol/Ipratropium (Ipratropium-Albuterol 3 Ml Neb) 3 ml INHALATION Q6H.RESP PRN PRN Reason: SHORTNESS OF BREATH Last Admin: 06/14/22 02:28 Dose: 3 ml Aspirin (Aspirin 81 Mg Ec Tablet) 81 mg PO DAILY [facility] Last Admin: 06/13/22 11:20 Dose: Not Given Clopidogrel Bisulfate (Clopidogrel 75 Mg Tablet) 75 mg PO QAM [facility] Last Admin: 06/14/22 07:04 Dose: 75 mg Collagenase (Collagenase Oint 30 Gm) 1 applic TOPICAL BID [facility] Last Admin: 06/13/22 17:17 Dose: 1 applic Cyclobenzaprine HCl (Cyclobenzaprine 10 Mg Tablet) 10 mg PO TID PRN PRN Reason: muscle spasm Last Admin: 06/13/22 20:52 Dose: 10 mg Cefepime HCl 1,000 mg/ Sodium (Chloride) 50 mls @ 100 mls/hr IV Q8H [facility]; Protocol Last Infusion: 06/14/22 06:33 Dose: Infused Dexmedetomidine HCl 400 mcg/ (Sodium Chloride) 104 mls @ 0 mls/hr IV .Q0M [facility]; Protocol Last Titration: 06/13/22 19:00 Dose: 0 mcg/kg/hr, 0 mls/hr Vancomycin/PEG/NADA/Lysine/Water (Vancocin) 1,250 mg in 250 mls @ 250 mls/hr IV Q18H [place] Last Infusion: 06/14/22 02:45 Dose: Infused Metronidazole (Flagyl Iv) 500 mg in 100 mls @ 100 mls/hr IV Q8H [facility]; Protocol Last Infusion: 06/14/22 06:33 Dose: Infused Fluconazole (Diflucan Premix) 200 mg in 100 mls @ 100 mls/hr IV Q24H [place] Last Infusion: 06/13/22 14:30 Dose: Infused Lorazepam (Lorazepam 2 Mg/Ml Inj 1 Ml) 0.5 mg IVP Q4H PRN PRN Reason: ANXIETY Methadone HCl (Methadone 10 Mg Tablet) 140 mg PO QAM [facility] Last Admin: 06/14/22 07:05 Dose: 140 mg Metoprolol Tartrate (Metoprolol Tartrate 25 Mg Tablet) 12.5 mg PO BID@0900,2100 [facility] Ondansetron HCl (Ondansetron 2 Mg/Ml Sdv 2 Ml) 4 mg IVP Q8H PRN PRN Reason: vomiting, or N/V if npo Oxycodone/Acetaminophen (Oxycodone-Apap 5-325 Mg Tablet) 1 tab PO Q4H PRN PRN Reason: SEVERE PAIN Last Admin: 06/13/22 20:52 Dose: 1 tab Pantoprazole Sodium (Pantoprazole Dr 40 Mg Tablet) 40 mg PO [facility] Last Admin: 06/14/22 07:04 Dose: 40 mg Vitals/I&O/Wt Last Vital Signs Temp 98.5 F 06/13/22 21:00 Pulse 123 H 06/14/22 06:00 Resp 20 H 06/14/22 07:05 BP 127/94 06/14/22 05:00 Pulse Ox 96 06/14/22 07:05 O2 Del Method BiPAP 06/13/22 21:30 O2 Flow Rate 14 06/13/22 07:33 FiO2 30 06/14/22 02:28 06/13/22 06/14/22 06/14/22 22:59 06:59 14:59 Intake Total 176.795 / 733.974 400 / 1133.974 Output Total 400 / 400 2850 / 3250 Balance -223.205 / 333.974 -2450 / -2116.026 Weight last 48 hrs Weight 138 lb Physical Exam Narrative: GENERAL: The patient is alert. He is unable to tell me where he is-thought he is at the [facility]. Answers are brief mostly yes or no HEENT: Minimal pallor with no icterus or lymphadenopathy.Oral cavity: There are no mucous membrane lesions. NECK: Trachea appears to be central. No masses noted. No JVD or thyromegaly appreciated. RESPIRATORY: Severe kyphoscoliosis. No intercostals muscle retraction or any accessory muscle activation. There is no chest wall tenderness. Breath sounds are heard bilaterally. Occasional fine and coarse crackles in the bases. BREASTS: Deferred. HEART: The heart sounds are normal. No S3 or S4. Short systolic murmur at the left sternal border. No diastolic murmurs. No pericardial rub. ABDOMEN: No vessel pulsations or distention. No tenderness. No organomegaly ap preciated. Bowel sounds are normally heard. : Deferred. RECTAL: Deferred. LYMPHATIC: No lymphadenopathy noted in the neck. EXTREMITIES: Hypertrophy and ulceration of the toes bilaterally. Most of the ulcers are healed. Has extensive ulcerations on the dorsal both feet. They are currently bandaged. Partially cyanotic nailbeds in both hands. Radial pulses are palpable on both sides but somewhat weak. MUSCULOSKELETAL: Kyphoscoliosis, flexion deformities of both lower extremities with contractures. Eschar over the left hip. SKIN: Ulcers as mentioned above NEUROPSYCHIATRIC: No focal motor deficit noted Urinary Catheter Management: David: Cath Placed During This Visit: yes Reason for Continuing Indwelling Catheter: Accurate Measurement of Urinary Output in Critically Ill Patients Urinary Catheter Date of Insertion: 06/11/22 Urinary Catheter Time of Insertion: 11:05 Data 06/14/22 02:40 06/14/22 02:40 Other Labs: Laboratory Last Values WBC 13.1 10^3/uL (4.0-10.0) H 06/14/22 02:40 RBC 3.46 10^6/uL (4.1-5.3) L 06/14/22 02:40 Hgb 8.5 g/dL (11.7-16.6) L 06/14/22 02:40 Hct 28.6 % (42.0-52.0) L 06/14/22 02:40 MCV 82.7 fl (80-94) 06/14/22 02:40 MCH 24.6 pg (28.0-34.0) L 06/14/22 02:40 MCHC 29.7 g/dL (30.0-36.0) L 06/14/22 02:40 RDW 16.4 % (12.1-15.1) H 06/14/22 02:40 Plt Count 131 10^3/cmm (130-400) D 06/14/22 02:40 MPV 10.1 fL (7.4-10.4) 06/14/22 02:40 Neut % (Auto) 86.8 % 06/14/22 02:40 Lymph % (Auto) 6.2 % 06/14/22 02:40 [place] % (Auto) 6.0 % 06/14/22 02:40 Eos % (Auto) 0.2 % 06/14/22 02:40 Baso % (Auto) 0.2 % 06/14/22 02:40 Neut # (Auto) 11.39 10^3/uL (1.8-7.7) H 06/14/22 02:40 Lymph # (Auto) 0.8 10^3/uL (0.8-4.8) 06/14/22 02:40 [place] # (Auto) 0.8 10^3/uL (0.2-0.9) 06/14/22 02:40 Eos # (Auto) 0.0 10^3/uL (0.0-0.8) 06/14/22 02:40 Baso # (Auto) 0.0 10^3/uL (0.0-0.1) 06/14/22 02:40 Nucleated RBC % (auto) 0 % 06/14/22 02:40 Nucleated RBCs # 0.0 /100WBC 06/14/22 02:40 Specimen Type Arterial 06/13/22 00:33 Sample Site Radial, right 04 00:33 ABG pH 7.41 (7.35-7.45) 06/13/22 00:33 ABG pCO2 32.9 mmHg (35-45) L 06/13/22 00:33 ABG pO2 70.4 mmHg (80.0-100.0) L 06/13/22 00:33 ABG HCO3 20.9 mmol/L (22-26) L 06/13/22 00:33 ABG O2 Saturation 95.0 06/13/22 00:33 ABG Base Excess -3.2 mmol/L (-2.0-2.0) L 06/13/22 00:33 Mert Test Pos 06/13/22 00:33 A-a O2 Gradient 78.4 mmHg (5-10) H 06/13/22 00:33 Hematocrit 31.0 % (42-52) L 06/13/22 00:33 Hgb O2 Saturation 93.2 % (95-100) L 06/13/22 00:33 Carboxyhemoglobin 1.4 %THgb (0.4-20.1) 06/13/22 00:33 Methemoglobin 0.5 % (0.4-1.5) 06/13/22 00:33 Total Hemoglobin 10.1 g/dL (14-18) L 06/13/22 00:33 Sodium 135.0 mmol/L (131-143) 06/13/22 00:33 Potassium 4.0 mmol/L (3.5-5.0) 06/13/22 00:33 Glucose 139.0 mg/dL (70-115) H 06/13/22 00:33 Ionized Calcium 1.2 mmol/L (1.1-1.4) 06/13/22 00:33 O2 Delivery Device Bipap 06/13/22 00:33 FiO2 100.0 % 06/13/22 00:33 Chef & Owner ID [email or web address] 06/13/22 00:33 Sodium 137 mmol/L (136-145) 06/14/22 02:40 Potassium 3.1 mmol/L (3.5-5.1) L 06/14/22 02:40 Chloride 98 mmol/L (98-107) 06/14/22 02:40 Carbon Dioxide 25 mmol/L (22-29) 06/14/22 02:40 Anion Gap 17.1 (5-19) 06/14/22 02:40 BUN 21 mg/dL (6-20) H 06/14/22 02:40 Creatinine 0.8 mg/dL (0.7-1.2) 06/14/22 02:40 GFR Calculation 102.7 mL/min (90-130) 06/14/22 02:40 Glucose 117 mg/dL (65-115) H 06/14/22 02:40 POC Glucose 128 mg/dL (70-110) H 06/13/22 00:24 Calculated Osmolality 288 mOsm/kg (285-295) 06/14/22 02:40 Lactic Acid 1.2 mmol/L (0.5-2.2) 06/11/22 13:09 Calcium 8.1 mg/dL (8.5-10.5) L 06/14/22 02:40 Iron 17 ug/dL (59-158) L 06/13/22 01:29 TIBC 127 mcg/dl 06/13/22 01:29 % Saturation 13.3 % (20-50) L 06/13/22 01:29 Unsat Iron Binding 110 ug/dL (112-347) L 06/13/22 01:29 Ferritin 433 ng/mL (30-400) H 06/13/22 01:29 Total Bilirubin 0.7 mg/dL (0.15-1.2) 06/14/22 02:40 AST 55 U/L (0-40) H 06/14/22 02:40 ALT 39 U/L (0-41) 06/14/22 02:40 Alkaline Phosphatase 106 U/L (40-130) 06/14/22 02:40 Troponin T Baseline 295 ng/L (0-15) H* 06/13/22 20:42 Troponin T 120 Minute 304.7 ng/L (0-15) H 06/13/22 22:15 Delta Troponin T 9.7 ABS# (0-10) 06/13/22 22:15 Troponin T Hi Sens 6Hr 343.8 ng/L (0-15) H 06/14/22 02:40 Troponin T Hi Sens 6Hr Delta 48.8 ng/L (0-12) H* 06/14/22 02:40 NT-Pro-B Natriuret Pep 20777 pg/mL (0-125) H 06/12/22 02:04 Total Protein 6.4 g/dL (6.6-8.7) L 06/14/22 02:40 Albumin 2.4 g/dL (3.5-5.2) L 06/14/22 02:40 Globulin 4.0 g/dL (1.3-4.6) 06/14/22 02:40 Urine Color Yellow (Yellow) 06/11/22 10:50 Urine Appearance Hazy (CLEAR) A 06/11/22 10:50 Urine pH 5 (5-7) 06/11/22 10:50 Ur Specific [place] 1.025 (1.005-1.030) 06/11/22 10:50 Urine Protein 1+ (Negative) H 06/11/22 10:50 Urine Glucose (UA) Norm (Normal) 06/11/22 10:50 Urine Ketones 1+ (Negative) H 06/11/22 10:50 Urine Blood Neg (Negative) 06/11/22 10:50 Urine Nitrate Negative (Negative) 06/11/22 10:50 Urine Bilirubin 1+ (Negative) H 06/11/22 10:50 Urine Urobilinogen 4 mg/dL (Negative) H 06/11/22 10:50 Ur Leukocyte Esterase Trace (Negative) H 06/11/22 10:50 Urine RBC Rare /hpf (0-2) 06/11/22 10:50 Urine WBC Rare /hpf (0-5) 06/11/22 10:50 Ur Squamous Epith Cells 0-4 /hpf (0-5) H 06/11/22 10:50 Calcium Oxalate Crystal 25-40 /hpf H 06/11/22 10:50 Amorphous Sediment 2+ /hpf 06/11/22 10:50 Urine Bacteria None /hpf (NONE) 06/11/22 10:50 Hyaline Casts 0-4 /lpf H 06/11/22 10:50 Urine Mucus 1+ /hpf 06/11/22 10:50 Nasal Influ A H1 2008 PCR Not detected (NOT DETECT) 06/13/22 20:30 Vancomycin Trough 19.5 ug/mL (10-15) H 06/13/22 04:30 Adenovirus (PCR) Not detected (NOT DETECT) 06/13/22 20:30 C. pneumoniae DNA (PCR) Not detected (NOT DETECT) 06/13/22 20:30 Coronavirus 229E (PCR) Not detected (NOT DETECT) 06/13/22 20:30 Human Metapneumovir PCR Not detected (NOT DETECT) 06/13/22 20:30 Influenza A (H1) PCR Not detected (NOT DETECT) 06/13/22 20:30 Influenza A (H3) PCR Not detected (NOT DETECT) 06/13/22 20:30 Influenza Type A (PCR) Not detected (NOT DETECT) 06/13/22 20:30 Influenza Type B (PCR) Not detected (NOT DETECT) 06/13/22 20:30 M. pneumoniae (PCR) Not detected (NOT DETECT) 06/13/22 20:30 Parainfluenza 1 (PCR) Not detected (NOT DETECT) 06/13/22 20:30 Parainfluenza 2 (PCR) Not detected (NOT DETECT) 06/13/22 20:30 Parainfluenza 3 (PCR) Not detected (NOT DETECT) 06/13/22 20:30 Parainfluenza 4 (PCR) Not detected (NOT DETECT) 06/13/22 20:30 RSV Type A (PCR) Not detected (NOT DETECT) 06/13/22 20:30 RSV Type B (PCR) Not detected (NOT DETECT) 06/13/22 20:30 Entero/Rhino (PCR) Not detected (NOT DETECT) 06/13/22 20:30 SARS-CoV-2 (PCR) Not detected (NOT DETECT) 06/13/22 20:30 Micro: Microbiology 06/12/22 12:43 Blood Culture - Preliminary Blood NEGATIVE TO DATE A&P Assessment and plan (1) Elevated troponin: Has elevated troponin T at the baseline with a significant delta at 6 hours. This could be related to a non-ST elevation myocardial infarction. He continue on the aspirin and Plavix. Because of the anemia we may have to hold off on the heparin for the time being. Apparently the patient never had any chest pain. (2) Congestive heart failure due to cardiomyopathy: Heart failure seems to be getting compensated clinically. Patient may be treated with IV Lasix 20 mg every 12 hours and potassium 80 mg p.o. twice daily. Also may give Lasix on a as needed basis. (3) Buerger's disease: Patient having extensive ulcerations on both feet on the dorsum. The cyanosis in the peripheral but most likely related to this disease condition. He is on antiplatelet drugs. This may be continued. (4) Chronic foot ulcer, limited to breakdown of skin: It seems to me that the patient has mostly involvement of the small vessels of the feet. Because of his severe contractures, doing peripheral angiogram is going to be extremely difficult. Qualifiers: Laterality: unspecified laterality Qualified Code(s): L97.501 - Non- pressure chronic ulcer of other part of unspecified foot limited to breakdown of skin (5) Respiratory failure: Patient is on intermittent BiPAP. The respiratory status seems to be improving. (6) Hypertension: Currently he is normotensive. May continue on the current medications. Plan The Lasix 20 mg every 12 hours. Potassium is 8 mg p.o. twice daily. I had a long discussion with the patient's mother in the ICU about his further management option. According to the mother, patient has significant decline in his cognitive functions over the last couple of years. Ideally he requires a cardiac catheterization to further evaluate his coronary arteries and decide on further management. But performing an angiogram will be extremely difficult in this patient since he has extreme contractures of both lower extremities with flexion deformities. 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 The risk of developing vascular complications with the angiogram is going to be high and technically very challenging on this patient. The best option for him would be to optimize his medical treatment. The mother would prefer not to subject him through any invasive procedures, if it carries a high risk of complications. So for the time being, it would be appropriate to optimize medical treatment. Attestations Medical Necessity Statement*: Deferred to the primary Coding Level of Care Code 55320 Diagnoses Elevated troponin R77.8 Congestive heart failure due to cardiomyopathy I50.9; I42.9 Buerger's disease I73.1 Chronic foot ulcer, limited to breakdown of skin L97.501 Laterality: unspecified laterality Respiratory failure J96.90 Hypertension I10
[2022-06-14] MEDS: collagenase oint 30 gm 1 APPLIC TOPICAL (09:49)
[2022-06-14] MEDS: metoprolol tartrate 25 mg Tablet 12.5 MG PO ×2 (09:49→20:29)
[2022-06-14] MEDS: aspirin 81 mg EC Tablet PO (09:49)
--- NOTE | 2022-06-14 11:44 | PM.PN ---
Subjective Subjective: This morning he is doing slightly better. He states he is breathing somewhat easier. Currently not in pain. Vitals/I&O/Wt Last Vital Signs Temp 98.5 F 06/13/22 21:00 Pulse 106 H 06/14/22 11:00 Resp 20 H 06/14/22 11:00 BP 100/73 06/14/22 11:00 Pulse Ox 94 06/14/22 11:00 O2 Del Method Nasal Cannula 06/14/22 11:00 O2 Flow Rate 2 06/14/22 11:00 FiO2 30 06/14/22 02:28 06/13/22 06/14/22 06/14/22 22:59 06:59 14:59 Intake Total 176.795 / 733.974 400 / 1133.974 0 / 0 Output Total 400 / 400 2850 / 3250 Balance -223.205 / 333.974 -2450 / -2116.026 0 / 0 Weight last 48 hrs Weight 62.596 kg Physical Exam Const: COMMON NORMALS: patient oriented x3 and alert GENERAL APPEARANCE: cooperative and ill appearing ORIENTATION/CONSCIOUSNESS: Yes awake OTHER: Sleeping, wakes up to voice HENMT: COMMON NORMALS: oropharynx normal Neck/C-Spine: COMMON NORMALS: no JVD Resp: COMMON NORMALS: normal respiratory effort and clear to auscultation bilaterally AUSCULTATION: clear to auscultation bilaterally and other (Coarse breath sounds.) OTHER: NC Cardio: COMMON NORMALS: no JVD, regular rhythm, S1 normal heart sound present, S2 normal heart sound present and No murmurs present (Cardio) RHYTHM: regular rhythm HEART SOUNDS: S1 normal heart sound present and S2 normal heart sound present GI: COMMON NORMALS: Normal to inspection, nondistended, normoactive bowel sounds present, Soft to palpation and non-tender PALPATION: Yes Soft to palpation Extremity: COMMON NORMALS: no joint enlargement and no pedal edema OTHER: Contractures BLLE, knees up in the air, feet off bed Neuro: COMMON NORMALS: patient oriented x3 and moves all extremities SENSORIUM/ORIENTATION: Yes alert Skin: OTHER: Clean dressing BL feet L hip oblong pressure ulcer with black eschar base about 4 x 12 cm. No tunneling or undermining. No drainage. Urinary Catheter Management: David: Cath Placed During This Visit: yes Reason for Continuing Indwelling Catheter: Accurate Measurement of Urinary Output in Critically Ill Patients Urinary Catheter Date of Insertion: 06/11/22 Urinary Catheter Time of Insertion: 11:05 Data 06/14/22 02:40 06/14/22 02:40 Micro: Microbiology 06/12/22 12:43 Blood Culture - Preliminary Blood NEGATIVE TO DATE A&P Assessment and plan (1) Congestive heart failure due to cardiomyopathy: Cardiomyopathy with new decrease in ejection fraction, RWMA noted on echocardiogram. Troponins obtained overnight with elevation. He does not have chest pain. However, concern for underlying coronary disease. Cardiology considering coronary angiogram. Discussed with cardiology, discussed with podiatry. Surgery for now deferred. Cardiology documentation reviewed. He received additional Lasix, started on metoprolol. Continue aspirin, Plavix. Continue care on CSU (2) Respiratory failure: Gradually improving. With additionally acute systolic congestive heart failure with cardiomyopathy, possible underlying CAD. Received additional Lasix. Noted in negative balance. Continue to monitor I&O, monitor electrolytes. Potassium noted low at 3.1 this morning. Received replacement last night, will give additional potassium. Check magnesium. Keep n.p.o. sips and chips until assessed by speech therapy. Continue treatment for pneumonia. Sputum cultures not collected. MRSA PCR received, pending. Respiratory viral panel appreciated, negative. Resume therapeutic Lovenox for PE. CODE STATUS discussed again with him last night when he was more awake and he confirms his initial wishes as on presentation would want intubation in case of respiratory deterioration if needed, attempted CPR in case of cardiopulmonary arrest. Weaned off Precedex yesterday morning. (3) Sepsis: Blood cultures so far remaining negative. Follow-up with consideration of possibility of septic embolization given initial finding on CT chest. Otherwise treat pneumonia, continue wound care antibiotics for bilateral lower extremity wounds until he is in better shape to undergo surgical debridement. For now continue Flagyl, Diflucan. Leukocytosis slightly better, tachycardia with some improvement. With concerning lung nodule on CTA, will need additional follow-up, but also cannot exclude septic embolic etiology. Blood cultures were collected in ER, however, were not labeled as to the source. Collect repeat cultures from port as well as peripherally. Continue vancomycin. Cefepime. With multifocal sources, sepsis, at risk of life-threatening deterioration due to septic shock, admit for assessment and management. Continue assessment and treatment in the hospital. Monitor vital signs, monitor telemetry. Requested repeat CBC, chemistry. (4) Wound infection: As above. Discussed with podiatry. It has also been discussed with patient and his mother that amputation may become inevitable given chronicity and severity of the wounds, current worsening, depending on response to treatment. Wound care with Santyl pending surgical debridement. Podiatry documentation appreciated. (5) Lung nodule: Concerning lung nodule on CTA, will need additional follow-up for assessment, but also cannot exclude septic embolic etiology at current time so needs additional work-up. Blood cultures were collected in ER, however, were not labeled as to the source. Follow-up repeat cultures from port and periphery. (6) Pneumonia: Continue empiric antibiotic coverage with vancomycin, cefepime. Broaden with Diflucan. Echocardiogram pending. Requiring BiPAP support. Intubation considered. Noted presumptive negative Legionella antigen. Has history of MRSA, continue MRSA empiric coverage. Additionally with sinus tachycardia, cough, inspiratory chest discomfort, CT attempted, but difficult due to significant contractures. Empirically started on anticoagulation for now. Repeat CBC requested for monitoring of blood counts due to anemia. Tonight and in the morning. Flutter valve, I-S (7) Buerger's disease: Has quit smoking since last hospitalization. Antiplatelet agents. (8) Declining functional status: Unable to care for self. Mother has been caring for him as well as his wounds. She is unable to keep up. We will obtain consultation with case management, OT and PT evaluation. (9) Hyponatremia: Resolved (10) PE (pulmonary thromboembolism): Therapeutic Lovenox restarted (11) Goals of care, counseling/discussion: Confirmed his admission wishes he would want intubation if line was needed, would want attempted cardiopulmonary resuscitation in case of arrest. Plan Sacral decubitus ulcer: L hip oblong pressure ulcer with black eschar base about 4 x 12 cm. No tunneling or undermining. No drainage. Foam dressing. Continue to reposition. Regular diet. Protein supplements. Anemia: Hemoglobin noteddown to 8.5. Mother reports history of anemia and he was supposed to be on a medication but she does not remember if it was iron or something else. Noted normocytic anemia. At home not on PPI, continue. Follow-up CBC requested. Hemoccult. HTN: Currently blood pressure soft Attestations Medical Necessity Statement*: Continue admission for assessment event of new cardiomyopathy, RWMA, troponin ovation, possible underlying CAD, CHF exacerbation, treatment of pneumonia, lower extremity wounds, improving sepsis, further evaluation for possibility of septic embolization, PE, anemia. Diagnoses Congestive heart failure due to cardiomyopathy I50.9; I42.9 Respiratory failure J96.90 Sepsis A41.9 Wound infection T14.8XXA; L08.9 Lung nodule R91.1 Pneumonia J18.9 Buerger's disease I73.1 Declining functional status R53.81 Hyponatremia E87.1 PE (pulmonary thromboembolism) I26.99 Goals of care, counseling/discussion Z71.89
[2022-06-14 12:28] LABS: Magnesium 1.4 mg/dL (1.7-2.3)
[2022-06-14] MEDS: potassium chloride ER 20 mEq Tablet 40 MEQ PO (12:39)
[2022-06-14] MEDS: enoxaparin 60 mg/0.6 mL Syringe SUBCUT ×2 (12:48→23:36)
[2022-06-14] MEDS: fluconazole premix 200 MG/100 ML PREMIX 100 MG IV (15:23)
[2022-06-14] MEDS: FUROsemide 10 mg/mL SDV 2mL 20 MG IVP (18:26)
[2022-06-14] MEDS: magnesium sulfate premix 2 GM/50 ML PIGGYBACK IV (20:28)
[2022-06-15] VITALS (28 sets, daily range): BP systolic 84–126; BP diastolic 57–93; PULSE 101–124; RESP 14–26; TEMP 37.4; O2SAT 3–100
[2022-06-15 04:55] LABS: Basophils % 0.1 %; Eosinophils % 0.2 %; Hematocrit 30.3 % (42.0-52.0); Hemoglobin 9.1 g/dL (11.7-16.6); Lymphocytes # 1.1 10^3/uL (0.8-4.8); Lymphocytes % 7.4 %; Mean Corpuscular Hemoglobin 24.8 pg (28.0-34.0); Mean Corpuscular Volume 82.6 fl (80-94); Mean Platelet Volume 10.9 fL (7.4-10.4); Monocytes % 6.4 %; Neutrophils # 12.79 10^3/uL (1.8-7.7); Nucleated Red Blood Cells % 0 %; Platelet Count 158 10^3/cmm (130-400); Red Blood Count 3.67 10^6/uL (4.1-5.3); Red Cell Distribution Width 16.7 % (12.1-15.1); White Blood Count 15.1 10^3/uL (4.0-10.0)
[2022-06-15] MEDS: metroNIDAZOLE IV 500 MG/100 ML PREMIX 100 MG IV ×3 (05:18→20:26)
[2022-06-15] MEDS: FUROsemide 10 mg/mL SDV 2mL 20 MG IVP ×2 (05:18→17:09)
[2022-06-15] MEDS: cefepime 1,000 MG in sodium chloride 0.9% (plus) 50 ML 100 MG IV ×3 (05:18→21:38)
[2022-06-15] MEDS: pantoprazole DR 40 mg Tablet PO (05:19)
[2022-06-15] MEDS: clopidogrel 75 mg Tablet PO (05:19)
[2022-06-15] MEDS: methadone 10 mg Tablet 140 MG PO (05:19)
[2022-06-15 05:38] LABS: Alanine Aminotransferase 35 U/L (0-41); Albumin Level 2.5 g/dL (3.5-5.2); Alkaline Phosphatase 111 U/L (40-130); Aspartate Amino Transferase 72 U/L (0-40); Blood Urea Nitrogen 22 mg/dL (6-20); Carbon Dioxide 26 mmol/L (22-29); Chloride 99 mmol/L (98-107); Glomerular Filtration Rate 119.9 mL/min (90-130); Glucose 96 mg/dL (65-115); Osmolality Calculated 291 mOsm/kg (285-295); Sodium 139 mmol/L (136-145); Total Bilirubin 0.4 mg/dL (0.15-1.2); Total Protein 6.5 g/dL (6.6-8.7)
--- NOTE | 2022-06-15 07:41 | P.PN_ITS ---
Subjective Subjective: Patient is feeling better. Breathing is improved. Still is tachycardic. Vitals/I&O/Wt Last Vital Signs Temp 98.5 F 06/13/22 21:00 Pulse 116 H 06/15/22 06:00 Resp 26 H 06/15/22 06:00 BP 126/93 06/15/22 06:00 Pulse Ox 99 06/15/22 06:00 O2 Del Method Nasal Cannula 06/14/22 18:00 O2 Flow Rate 4 06/14/22 19:41 FiO2 30 06/14/22 02:28 06/14/22 06/15/22 06/15/22 22:59 06:59 14:59 Intake Total 650 / 700 50 / 750 Output Total 1750 / 1750 250 / 2000 850 / 850 Balance -1100 / -1050 -200 / -1250 -850 / -850 Weight last 48 hrs Weight 137 lb Weight 138 lb Physical Exam Narrative: GENERAL: Patient is alert, awake and oriented x3. [] NECK: No jugular vein distension. [] HEENT: No cyanosis. No icterus. No pallor. [] HEART: Tachycardic LUNGS: Clear to auscultate bilaterally. [] ABDOMEN: Soft EXTREMITIES: Lower extremities with 1+ edema bilaterally. Pulses palpable in the lower extremities, both dorsalis pedis and posterior tibial. [] Urinary Catheter Management: David: Cath Placed During This Visit: yes Reason for Continuing Indwelling Catheter: Accurate Measurement of Urinary Output in Critically Ill Patients Urinary Catheter Date of Insertion: 06/11/22 Urinary Catheter Time of Insertion: 11:05 Data 06/16/22 04:30 06/16/22 04:30 Micro: Microbiology 06/13/22 20:30 MRSA Culture - Final Nose A&P Assessment and plan (1) Elevated troponin: Significant troponin elevation. NSTEMI cannot be ruled out. Continue aspirin and Plavix. Monitor hemoglobin given his anemia. Decision was made to medically treat him given his significant contractures. (2) Congestive heart failure due to cardiomyopathy: Continue IV diuresis. (3) Buerger's disease: Features consistent with small vessel disease. Podiatry following (4) Chronic foot ulcer, limited to breakdown of skin: Medical therapy. Podiatry is following. Qualifiers: Laterality: unspecified laterality Qualified Code(s): L97.501 - Non- pressure chronic ulcer of other part of unspecified foot limited to breakdown of skin (5) Respiratory failure: Respiratory status appears to be improving. (6) Hypertension: Currently he is normotensive. May continue on the current medications. Plan Discussion with family regarding continued medical therapy. They agreed with it. We will continue dual antiplatelet therapy if patient tolerates it. Attestations Medical Necessity Statement*: Care expected to cross 2 midnights. Coding Level of Care Code Acute Code for g Fwd Diagnoses Elevated troponin R77.8 Congestive heart failure due to cardiomyopathy I50.9; I42.9 Buerger's disease I73.1 Chronic foot ulcer, limited to breakdown of skin L97.501 Laterality: unspecified laterality Respiratory failure J96.90 Hypertension I10
--- NOTE | 2022-06-15 07:48 | P.PN_ITS ---
Subjective Subjective: Patient seen at bedside this morning. Improved mentation over yesterday. However, still unable to converse at bedside. States that he has no pain in his feet. Spoke with nurse. Fibrotic tissue on dorsal feet continues to slough with use of Santyl with no apparent worsening of feet wounds. It has been made note that the mother would prefer not to subject patient to any invasive procedures if possible. Vitals/I&O/Wt Last Vital Signs Temp 98.5 F 06/13/22 21:00 Pulse 116 H 06/15/22 06:00 Resp 26 H 06/15/22 06:00 BP 126/93 06/15/22 06:00 Pulse Ox 99 06/15/22 06:00 O2 Del Method Nasal Cannula 06/14/22 18:00 O2 Flow Rate 4 06/14/22 19:41 FiO2 30 06/14/22 02:28 06/14/22 06/15/22 06/15/22 22:59 06:59 14:59 Intake Total 650 / 700 50 / 750 Output Total 1750 / 1750 250 / 2000 850 / 850 Balance -1100 / -1050 -200 / -1250 -850 / -850 Weight last 48 hrs Weight 137 lb Weight 138 lb Physical Exam Narrative: BELOW IS A FOCUSED LOWER EXTREMITY EXAM GENERAL: A&O x 3 VASCULAR: DP/PT pulses nonpalpable, strong monophasic on hand-held Doppler DERMATOLOGICAL: Bilateral foot wounds have fresh bandages in place with no strik ethrough MUSCULOSKELETAL: Exquisite tenderness with palpation of bilateral lower extremities. Patient is contracted in position and rigid NEUROLOGICAL: Neurological sensation to the affected foot and ankle is present through L4-S1 dermatomes with no hyper/hypoesthesias, negative Tinel or Va lleix's sign Urinary Catheter Management: David: Cath Placed During This Visit: yes Reason for Continuing Indwelling Catheter: Accurate Measurement of Urinary Output in Critically Ill Patients Urinary Catheter Date of Insertion: 06/11/22 Urinary Catheter Time of Insertion: 11:05 Data 06/15/22 02:25 06/15/22 02:25 Micro: Microbiology 06/13/22 20:30 MRSA Culture - Final Nose A&P Assessment and plan (1) Peripheral arterial disease: (2) Non-healing wound: Plan CLINICAL AND LAB FINDINGS: WBC 15.1 Temp 98.9 Heart rate 114 Respirations 20 IMAGING: - (06/11/22) Chest CTA shows left lower lobe segmental and subsegmental pulmonary artery compatible with pulmonary embolus. Left lower lobe pneumonia, bilateral pleural fluid, atelectasis right lower lobe - (11/12/20) duplex scan lower extremity artery showed right CARLOS A 0.89, left CARLOS A 0.85 with no stenosis or occlusion Progressed PAD as pulses are strong monophasic at bedside today CULTURES: pending PLAN: -No acute surgical intervention by podiatry at this time -Medical optimization. Mother has expressed that she does not want any invasive procedures at this time that would put the patient at risk. Patient has been responding well in regards to his chronic foot wounds and daily santyl application. We will hold off on surgical debridement of foot wounds and continue with daily santyl. If the condition of the foot wounds begins to deteriorate we will have a discussion with the mother at that time regarding surgical debridement. As for now we will continue with local wound care -WOUND CARE: Daily dressing change with santyl to dorsal foot wounds. -Continue antibiotics -case management to help coordinate wound care at [facility] wound care here in [place]. Mother states that they have been going to wound care in [place] and it has been extremely difficult for them to make the drive down there due to the distance. She expresses interest in coming to [place] wound care as it is much closer and would be much easier to be compliant with. -Podiatry following and will continue to round on patient and provide recommendations as needed Attestations Medical Necessity Statement*: Continue admission for assessment event of new cardiomyopathy, RWMA, troponin ovation, possible underlying CAD, CHF exacerbation, treatment of pneumonia, lower extremity wounds, improving sepsis, further evaluation for possibility of septic embolization, PE, anemia. Coding Level of Care Code Acute Code for [facility] Fwd Diagnoses Peripheral arterial disease I73.9 Non-healing wound
[2022-06-15] MEDS: lidocaine 1% 5 ML in potassium chloride premix 100 ML 52.5 ML IV (09:25)
[2022-06-15] MEDS: metoprolol tartrate 25 mg Tablet 12.5 MG PO ×2 (09:25→21:15)
[2022-06-15] MEDS: aspirin 81 mg EC Tablet PO (09:25)
[2022-06-15] MEDS: oxyCODONE-APAP 5-325 mg Tablet 1 TAB PO ×2 (09:25→17:20)
[2022-06-15] MEDS: potassium chloride ER 10 mEq Tablet PO ×2 (09:25→17:11)
[2022-06-15] MEDS: collagenase oint 30 gm 1 APPLIC TOPICAL (09:26)
[2022-06-15] MEDS: enoxaparin 60 mg/0.6 mL Syringe SUBCUT (12:12)
[2022-06-15] MEDS: fluconazole premix 200 MG/100 ML PREMIX 100 MG IV (12:58)
[2022-06-15] MEDS: vancomycin 1,250 MG/250 ML PIGGYBACK 250 MG IV (12:58)
--- NOTE | 2022-06-15 13:45 | P.PN_ITS ---
Subjective Subjective: He feels that he is improving. Breathing easier. Currently not in pain or discomfort. No chest pain or pressure. Being visited by cardiology discussing with him and his mother. Vitals/I&O/Wt Last Vital Signs Temp 98.5 F 06/13/22 21:00 Pulse 102 H 06/15/22 11:00 Resp 17 06/15/22 11:00 BP 93/67 06/15/22 11:00 Pulse Ox 99 06/15/22 11:00 O2 Del Method Nasal Cannula 06/15/22 11:00 O2 Flow Rate 3 06/15/22 11:00 FiO2 30 06/14/22 02:28 06/14/22 06/15/22 06/15/22 22:59 06:59 14:59 Intake Total 650 / 700 50 / 750 100 / 100 Output Total 1750 / 1750 250 / 2000 850 / 850 Balance -1100 / -1050 -200 / -1250 -750 / -750 Weight last 48 hrs Weight 62.142 kg Weight 62.596 kg Physical Exam Narrative: Mother at bedside. Const: COMMON NORMALS: patient oriented x3 and alert GENERAL APPEARANCE: cooperative and ill appearing ORIENTATION/CONSCIOUSNESS: Yes awake OTHER: Sleeping, wakes up to voice HENMT: COMMON NORMALS: oropharynx normal Neck/C-Spine: COMMON NORMALS: no JVD Resp: COMMON NORMALS: normal respiratory effort and clear to auscultation bilaterally AUSCULTATION: clear to auscultation bilaterally and other (Coarse breath sounds.) OTHER: NC Cardio: COMMON NORMALS: no JVD, regular rhythm, S1 normal heart sound present, S2 normal heart sound present and No murmurs present (Cardio) RHYTHM: regular rhythm HEART SOUNDS: S1 normal heart sound present and S2 normal heart sound present GI: COMMON NORMALS: Normal to inspection, nondistended, normoactive bowel sounds present, Soft to palpation and non-tender PALPATION: Yes Soft to palpation Extremity: COMMON NORMALS: no joint enlargement and no pedal edema OTHER: Contractures BLLE, knees up in the air, feet off bed Neuro: COMMON NORMALS: patient oriented x3 and moves all extremities SENSORIUM/ORIENTATION: Yes alert Skin: OTHER: Clean dressing BL feet L hip oblong pressure ulcer with black eschar base about 4 x 12 cm. No tunneling or undermining. No drainage. Urinary Catheter Management: David: Cath Placed During This Visit: yes Reason for Continuing Indwelling Catheter: Accurate Measurement of Urinary Output in Critically Ill Patients Urinary Catheter Date of Insertion: 06/11/22 Urinary Catheter Time of Insertion: 11:05 Data 06/15/22 02:25 06/15/22 02:25 Micro: Microbiology 06/13/22 20:30 MRSA Culture - Final Nose A&P Assessment and plan (1) Congestive heart failure due to cardiomyopathy: He is diuresing well. He is in negative balance. Cardiology discussed with him as well as his mother unfortunately no possibility for coronary angiography given severity of his contractures. He remains without any chest pain. Continue with medical treatment at the current time. Continue furosemide. Monitor I&O. Continue to optimize volume status. Monitor renal function. Follow-up electrolytes as he is at risk of electrolyte efficiency. Currently hypokalemic, replace hypokalemia. Hypomagnesemia replaced yesterday. We will check magnesium in the morning. Cardiomyopathy with new decrease in ejection fraction, RWMA noted on echocar diogram. Troponins obtained overnight with elevation. He does not have chest pain. However, concern for underlying coronary disease. Cardiology considering coronary angiogram. Cardiology documentation reviewed. He received additional Lasix, started on metoprolol. Continue aspirin, Plavix. Continue care on CSU Discussed with cardiology. Cardiology documentation reviewed. (2) Respiratory failure: Gradually improving. With additionally acute systolic congestive heart failure with cardiomyopathy, possible underlying CAD. Improving. Continue diuretic for acute CHF. Noted in negative balance. Continue to monitor I&O, monitor electrolytes. Keep n.p.o. sips and chips until assessed by speech therapy. Discussed consideration of assessment for any component of aspiration. Both in agreement. Continue treatment for pneumonia. Sputum cultures not collected. MRSA PCR received, pending. Respiratory viral panel appreciated, negative. Therapeutic Lovenox for PE. (3) Sepsis: Follow-up with consideration of possibility of septic embolization given initial finding on CT chest. Rather lower likelihood of septic embolization, blood cultures remain negative. Otherwise treat pneumonia, continue wound care antibiotics for bilateral lower extremity wounds until he is in better shape to undergo surgical debridement if still needed once further volume optimized and depending on further goals of care at the time, no further issues following medical treatment of CAD with possible recent MS. For now continue Flagyl, Diflucan. Leukocytosis noted somewhat worse today 15.1. Still persistent sinus tachycardia 102. Last night fever one 1.8, so far without further fever. Additional assessment by speech therapy for any degree of aspiration. With concerning lung nodule on CTA, will need additional follow-up, but also cannot exclude septic embolic etiology. Blood cultures were collected in ER, however, were not labeled as to the source. Collect repeat cultures from port as well as peripherally. Continue vancomycin. Cefepime. With multifocal sources, sepsis, at risk of life-threatening deterioration due to septic shock, admit for assessment and management. Continue assessment and treatment in the hospital. Monitor vital signs, monitor telemetry. Requested CBC, chemistry. (4) Wound infection: As above. Continue IV antibiotics. Wound care with Santyl Surgery for now has been deferred. (5) Lung nodule: Concerning lung nodule on CTA, will need additional follow-up for assessment, but also cannot exclude septic embolic etiology at current time so needs add itional work-up. Blood cultures were collected in ER, however, were not labeled as to the source. Follow-up repeat cultures from port and periphery. (6) Pneumonia: Continue empiric antibiotic coverage with vancomycin, cefepime. Diflucan. ST assessment for possibility of aspiration. Noted presumptive negative Legionella antigen. Discussed with lab urine bacterial antigens have been ordered, not resulted. They are looking into it. Has history of MRSA, continue MRSA empiric coverage. Additionally with sinus tachycardia, cough, inspiratory chest discomfort, CT att empted, but difficult due to significant contractures. Empirically started on anticoagulation for now. Repeat CBC requested for monitoring of blood counts due to anemia. Tonight and in the morning. Flutter valve, I-S (7) Buerger's disease: Has quit smoking since last hospitalization. Antiplatelet agents. (8) Declining functional status: Unable to care for self. Mother has been caring for him as well as his wounds. She is unable to keep up. We will obtain consultation with case management, OT and PT evaluation. (9) Hyponatremia: Resolved (10) PE (pulmonary thromboembolism): Therapeutic Lovenox (11) Goals of care, counseling/discussion: Discussing care options with him and his mother again today as well as goals of care, including consideration of full aggressive management, partial aggressive management with continued medical therapy, more emphasis on comfort, full comfort, regarding his overall condition, he states that he would consider possibly hospice care. They are okay with continuing current care. Continue to revisit goals of care. Confirmed his admission wishes he would want intubation if line was needed, would want attempted cardiopulmonary resuscitation in case of arrest. (12) Poor appetite: Mother states poor oral intake at home also before coming here which she did not seem to remember. Whenever he is asked if he wants to eat states normal. He cannot really give a reason as to why. Discussing with him and his mother, currently we are awaiting ST evaluation, once able to resume oral intake, discussed addition of nutritional supplements. He states he does like ice cream, possibly [employer] Jell-O or ice cream with protein. Plan Hypomagnesemia: Replaced today. Additional magnesium requested for the morning. Hypokalemia: Replace. Recheck chemistry requested. Sacral decubitus ulcer: L hip oblong pressure ulcer with black eschar base about 4 x 12 cm. Some slough around the central necrotic eschar, no tunneling or undermining. Add Santyl. Foam dressing. Continue to reposition. Regular diet. Protein supplements. Anemia: Hemoglobin fluctuating, today up to 9.1. Mother reports history of anemia and he was supposed to be on a medication but she does not remember if it was iron or something else. Noted normocytic anemia. At home not on PPI, continue. Follow-up CBC requested. Hemoccult so for not collected. HTN: Currently blood pressure soft Attestations Medical Necessity Statement*: Continue admission for assessment management of pneumonia, possible aspiration, CHF, sepsis, nonhealing lower extremity wounds with suspected wound infection, microvascular arterial disease, possible recent MS, PE, and additional comorbidities as above. Diagnoses Congestive heart failure due to cardiomyopathy I50.9; I42.9 Respiratory failure J96.90 Sepsis A41.9 Wound infection T14.8XXA; L08.9 Lung nodule R91.1 Pneumonia J18.9 Buerger's disease I73.1 Declining functional status R53.81 Hyponatremia E87.1 PE (pulmonary thromboembolism) I26.99 Goals of care, counseling/discussion Z71.89 Poor appetite R63.0
--- NOTE | 2022-06-15 15:14 | PC.NURSE ---
Report called to JOE Cuadra, No questions. Discussed goals of care including wounds and wound care. Patient and belongings taken via bed to CSU 107-1. Mother at bedside.
[2022-06-16] VITALS (24 sets, daily range): BP systolic 111–122; BP diastolic 70–80; PULSE 106–132; RESP 14–37; TEMP 36.8–39.4; O2SAT 96–99
[2022-06-16] MEDS: enoxaparin 60 mg/0.6 mL Syringe SUBCUT ×3 (00:11→21:50)
[2022-06-16] MEDS: cefepime 1,000 MG in sodium chloride 0.9% (plus) 50 ML 100 MG IV ×3 (04:24→21:49)
[2022-06-16] MEDS: pantoprazole DR 40 mg Tablet PO (04:54)
[2022-06-16] MEDS: FUROsemide 10 mg/mL SDV 2mL 20 MG IVP ×2 (04:55→18:33)
[2022-06-16] MEDS: clopidogrel 75 mg Tablet PO (04:55)
[2022-06-16 05:13] LABS: Basophils % 0.2 %; Eosinophils % 0.3 %; Hematocrit 33.1 % (42.0-52.0); Hemoglobin 9.6 g/dL (11.7-16.6); Lymphocytes # 1.2 10^3/uL (0.8-4.8); Lymphocytes % 8.4 %; Mean Corpuscular Hemoglobin 24.3 pg (28.0-34.0); Mean Corpuscular Volume 83.8 fl (80-94); Mean Platelet Volume 10.5 fL (7.4-10.4); Monocytes # 0.8 10^3/uL (0.2-0.9); Monocytes % 5.9 %; Neutrophils # 11.85 10^3/uL (1.8-7.7); Neutrophils % 84.1 %; Nucleated Red Blood Cells % 0 %; Platelet Count 209 10^3/cmm (130-400); Red Blood Count 3.95 10^6/uL (4.1-5.3); Red Cell Distribution Width 16.8 % (12.1-15.1); White Blood Count 14.1 10^3/uL (4.0-10.0)
[2022-06-16 05:30] LABS: Alanine Aminotransferase 35 U/L (0-41); Albumin Level 2.6 g/dL (3.5-5.2); Alkaline Phosphatase 94 U/L (40-130); Anion Gap 15.7 (5-19); Aspartate Amino Transferase 56 U/L (0-40); Blood Urea Nitrogen 24 mg/dL (6-20); Calcium 8.2 mg/dL (8.5-10.5); Carbon Dioxide 28 mmol/L (22-29); Chloride 99 mmol/L (98-107); Globulin 4.4 g/dL (1.3-4.6); Glomerular Filtration Rate 89.7 mL/min (90-130); Glucose 99 mg/dL (65-115); Magnesium 1.6 mg/dL (1.7-2.3); Osmolality Calculated 292 mOsm/kg (285-295); Potassium 3.7 mmol/L (3.5-5.1); Sodium 139 mmol/L (136-145); Total Bilirubin 0.4 mg/dL (0.15-1.2)
[2022-06-16] MEDS: metroNIDAZOLE IV 500 MG/100 ML PREMIX 100 MG IV ×3 (05:30→20:43)
[2022-06-16] MEDS: methadone 10 mg Tablet 140 MG PO (05:31)
[2022-06-16] MEDS: vancomycin 1,250 MG/250 ML PIGGYBACK 250 MG IV (06:25)
[2022-06-16] MEDS: metoprolol tartrate 25 mg Tablet 12.5 MG PO ×2 (08:18→21:49)
[2022-06-16] MEDS: potassium chloride ER 10 mEq Tablet PO ×2 (08:18→18:33)
[2022-06-16] MEDS: aspirin 81 mg EC Tablet PO (08:19)
[2022-06-16] MEDS: magnesium sulfate premix 4 GM/100 ML PREMIX IV (09:19)
--- NOTE | 2022-06-16 13:15 | PM.PN ---
Subjective Subjective: Patient is feeling better. Diuresing well. Breathing is improved. Vitals/I&O/Wt Last Vital Signs Temp 98.7 F 06/16/22 06:04 Pulse 114 H 06/16/22 09:00 Resp 19 H 06/16/22 09:00 BP 120/79 06/16/22 09:00 Pulse Ox 97 06/16/22 09:00 O2 Del Method Nasal Cannula 06/16/22 08:00 O2 Flow Rate 2 06/16/22 08:00 FiO2 30 06/14/22 02:28 06/15/22 06/16/22 06/16/22 22:59 06:59 14:59 Intake Total 832.205 / 992.205 60 / 1052.205 350 / 350 Output Total 600 / 1450 700 / 2150 Balance 232.205 / -457.795 -640 / -1097.795 350 / 350 Weight last 48 hrs Weight 135 lb 9.6 oz Weight 135 lb Weight 137 lb Physical Exam Narrative: GENERAL: Patient is alert, awake and oriented x3. [] NECK: No jugular vein distension. [] HEENT: No cyanosis. No icterus. No pallor. [] HEART: Tachycardic LUNGS: Clear to auscultate bilaterally. [] ABDOMEN: Soft EXTREMITIES: Lower extremities with 1+ edema bilaterally. Pulses palpable in the lower extremities, both dorsalis pedis and posterior tibial. [] Urinary Catheter Management: David: Cath Placed During This Visit: yes Reason for Continuing Indwelling Catheter: Assist Healing of Perineal & Sacral Wounds- Incontinent Patients Urinary Catheter Date of Insertion: 06/11/22 Urinary Catheter Time of Insertion: 11:05 Data 06/17/22 00:45 06/17/22 00:45 Micro: Microbiology 06/11/22 09:43 Blood Culture - Final Blood NO GROWTH AFTER 5 DAYS 06/11/22 09:33 Blood Culture - Final Blood NO GROWTH AFTER 5 DAYS 06/11/22 18:01 Bacterial Antigens - Final Urine,Clean Catch A&P Assessment and plan (1) Elevated troponin: Significant troponin elevation. NSTEMI cannot be ruled out. Continue aspirin and Plavix. Monitor hemoglobin given his anemia. Decision was made to medically treat him given his significant contractures and anemia. No chest pain (2) Congestive heart failure due to cardiomyopathy: Continue IV diuresis. Renal function is stable. (3) Buerger's disease: Features consistent with small vessel disease. Podiatry following (4) Chronic foot ulcer, limited to breakdown of skin: Medical therapy. Podiatry is following. Qualifiers: Laterality: unspecified laterality Qualified Code(s): L97.501 - Non-pressure chronic ulcer of other part of unspecified foot limited to breakdown of skin (5) Respiratory failure: Respiratory status appears to be improving. (6) Hypertension: Currently he is normotensive. May continue on the current medications. Plan Continued medical therapy. Patient is tachycardic. We can uptitrate metoprolol, given tachycardia. However underlying infection likely triggering the tachycardic response Attestations Medical Necessity Statement*: Care expected to cross 2 midnights. Coding Level of Care Code Acute Code for [facility] Fwd Diagnoses Elevated troponin R77.8 Congestive heart failure due to cardiomyopathy I50.9; I42.9 Buerger's disease I73.1 Chronic foot ulcer, limited to breakdown of skin L97.501 Laterality: unspecified laterality Respiratory failure J96.90 Hypertension I10
[2022-06-16] MEDS: fluconazole premix 200 MG/100 ML PREMIX 100 MG IV (13:53)
[2022-06-16] MEDS: collagenase oint 30 gm 1 APPLIC TOPICAL (16:56)
[2022-06-16] MEDS: acetaminophen 325 mg Tablet 650 MG PO (20:30)
[2022-06-16] MEDS: oxyCODONE-APAP 5-325 mg Tablet 1 TAB PO (20:30)
--- NOTE | 2022-06-16 21:26 | PM.PN ---
Subjective Subjective: Denies pain or discomfort currently. Denies difficulty breathing at the moment. Not oriented. Vitals/I&O/Wt Last Vital Signs Temp 98.2 F 06/16/22 10:00 Pulse 126 H 06/16/22 16:00 Resp 25 H 06/16/22 20:30 BP 120/79 06/16/22 16:00 Pulse Ox 97 06/16/22 16:00 O2 Del Method Nasal Cannula 06/16/22 16:00 O2 Flow Rate 3 06/16/22 16:00 FiO2 30 06/14/22 02:28 06/16/22 06/16/22 06/16/22 06:59 14:59 22:59 Intake Total 60 / 1052.205 700 / 700 Output Total 700 / 2150 2700 / 2700 Balance -640 / -1097.795 700 / 700 -2700 / -2000 Weight last 48 hrs Weight 61.507 kg Weight 61.235 kg Weight 62.142 kg Physical Exam Const: COMMON NORMALS: patient oriented x3 and alert GENERAL APPEARANCE: cooperative and ill appearing ORIENTATION/CONSCIOUSNESS: Yes awake HENMT: COMMON NORMALS: oropharynx normal Neck/C-Spine: COMMON NORMALS: no JVD Resp: COMMON NORMALS: normal respiratory effort and clear to auscultation bilaterally AUSCULTATION: clear to auscultation bilaterally and other (Coarse breath sounds.) OTHER: NC Cardio: COMMON NORMALS: no JVD, regular rhythm, S1 normal heart sound present, S2 normal heart sound present and No murmurs present (Cardio) RHYTHM: regular rhythm HEART SOUNDS: S1 normal heart sound present and S2 normal heart sound present GI: COMMON NORMALS: Normal to inspection, nondistended, normoactive bowel sounds present, Soft to palpation and non-tender PALPATION: Yes Soft to palpation Extremity: COMMON NORMALS: no joint enlargement and no pedal edema OTHER: Contractures BLLE, knees up in the air, feet off bed Neuro: COMMON NORMALS: patient oriented x3 and moves all extremities SENSORIUM/ORIENTATION: Yes alert Skin: OTHER: Slough covering wounds bilateral dorsal feet. L hip oblong pressure ulcer with black eschar base about 4 x 12 cm. Prosthetic Technician appearing base around the central dark eschar. No tunneling or undermining. No drainage. Urinary Catheter Management: David: Cath Placed During This Visit: yes Reason for Continuing Indwelling Catheter: Accurate Measurement of Urinary Output in Critically Ill Patients Urinary Catheter Date of Insertion: 06/11/22 Urinary Catheter Time of Insertion: 11:05 Data 06/16/22 04:30 06/16/22 04:30 Micro: Microbiology 06/16/22 21:00 Blood Culture - Preliminary Blood SPECIMEN COLLECTED 06/16/22 20:51 Blood Culture - Preliminary Blood SPECIMEN COLLECTED 06/11/22 09:43 Blood Culture - Final Blood NO GROWTH AFTER 5 DAYS 06/11/22 09:33 Blood Culture - Final Blood NO GROWTH AFTER 5 DAYS A&P Assessment and plan (1) Sepsis: Persistent sepsis suspected with persistent leukocytosis 14,000, although at least some of it is with hemoconcentration with rising platelets and hemoglobin as well. Does have some worsening of sinus tachycardia, again may be secondary to now being on the long goods drier side. Further Lasix held. Continue Santyl. Does have a great deal of slough on his feet. We will repeat chest x-ray tomorrow, will reach out to podiatry again to see if debridement is a possibility. Follow-up with consideration of possibility of septic embolization given initial finding on CT chest. Rather lower likelihood of septic embolization, blood cultures remain negative. Otherwise treat pneumonia, continue wound care antibiotics for bilateral lower extremity wounds until he is in better shape to undergo surgical debridement if still needed once further volume optimized and depending on further goals of care at the time, no further issues following medical treatment of CAD with possible recent KS. For now continue Flagyl, Diflucan. Leukocytosis noted somewhat worse today 15.1. Still persistent sinus tachycardia 102. Last night fever one 1.8, so far without further fever. Additional assessment by speech therapy for any degree of aspiration. With concerning lung nodule on CTA, will need additional follow-up, but also cannot exclude septic embolic etiology. Blood cultures were collected in ER, however, were not labeled as to the source. Collect repeat cultures from port as well as peripherally. Continue vancomycin. Cefepime. With multifocal sources, sepsis, at risk of life-threatening deterioration due to septic shock, admit for assessment and management. Continue assessment and treatment in the hospital. Monitor vital signs, monitor telemetry. Requested CBC, chemistry. (2) Congestive heart failure due to cardiomyopathy: He is very well in negative balance. I do not appreciate any edema, he does not sound wet. No JVD. Sinus tachycardia slightly worse. BUN up to 24. Hold additional Lasix. Follow-up renal function, electrolytes, chemistry requested. Magnesium low, replaced, recheck magnesium. Cardiomyopathy with new decrease in ejection fraction, RWMA noted on echocardiogram. Troponins obtained overnight with elevation. He does not have chest pain. However, concern for underlying coronary disease. Cardiology considering coronary angiogram. Cardiology documentation reviewed. He received additional Lasix, started on metoprolol. Continue aspirin, Plavix. Continue care on CSU Discussed with cardiology. Cardiology documentation reviewed. (3) Respiratory failure: Continues on 3 L of oxygen, saturating in high 90s. Hold further Lasix. Reassess volume status, hemodynamics. Chest x-ray. Dysphagia diet. Continue treatment for pneumonia. Sputum cultures not collected. MRSA PCR received, pending. Respiratory viral panel appreciated, negative. Therapeutic Lovenox for PE. (4) Wound infection: As above. Continue IV antibiotics. Wound care with Santyl Surgery for now has been deferred. (5) Lung nodule: Concerning lung nodule on CTA, will need additional follow-up for assessment, but also cannot exclude septic embolic etiology at current time so needs additional work-up. Blood cultures were collected in ER, however, were not labeled as to the source. Follow-up repeat cultures from port and periphery. (6) Pneumonia: Continue empiric antibiotic coverage with vancomycin, cefepime. Diflucan. ST assessment for possibility of aspiration. Noted presumptive negative Legionella antigen. Discussed with lab urine bacterial antigens have been ordered, not resulted. They are looking into it. Has history of MRSA, continue MRSA empiric coverage. Additionally with sinus tachycardia, cough, inspiratory chest discomfort, CT attempted, but difficult due to significant contractures. Empirically started on anticoagulation for now. Repeat CBC requested for monitoring of blood counts due to anemia. Tonight and in the morning. Flutter valve, I-S (7) Buerger's disease: Has quit smoking since last hospitalization. Antiplatelet agents. (8) Declining functional status: Unable to care for self. Mother has been caring for him as well as his wounds. She is unable to keep up. We will obtain consultation with case management, OT and PT evaluation. (9) Hyponatremia: Resolved (10) PE (pulmonary thromboembolism): Therapeutic Lovenox (11) Goals of care, counseling/discussion: Discussing care options with him and his mother again today as well as goals of care, including consideration of full aggressive management, partial aggressive management with continued medical therapy, more emphasis on comfort, full comfort, regarding his overall condition, he states that he would consider possibly hospice care. They are okay with continuing current care. Continue to revisit goals of care. Confirmed his admission wishes he would want intubation if line was needed, would want attempted cardiopulmonary resuscitation in case of arrest. (12) Poor appetite: Mother states poor oral intake at home also before coming here which she did not seem to remember. Whenever he is asked if he wants to eat states normal. He cannot really give a reason as to why. Discussing with him and his mother, currently we are awaiting ST evaluation, once able to resume oral intake, discussed addition of nutritional supplements. He states he does like ice cream, possibly [employer] Jell-O or ice cream with protein. Plan Hypomagnesemia: Additional replacement with 4 g today, recheck magnesium. Hypokalemia: 3.7. Follow-up. Sacral decubitus ulcer: L hip oblong pressure ulcer with black eschar base about 4 x 12 cm. Some slough around the central necrotic eschar, no tunneling or undermining. Add Santyl. Foam dressing. Continue to reposition. Regular diet. Protein supplements. Anemia: Hemoglobin fluctuating, today up to 9.1. Mother reports history of anemia and he was supposed to be on a medication but she does not remember if it was iron or something else. Noted normocytic anemia. At home not on PPI, continue. Follow-up CBC requested. Hemoccult so for not collected. HTN: Currently blood pressure soft Attestations Medical Necessity Statement*: Continue admission for assessment and management of sepsis Diagnoses Sepsis A41.9 Congestive heart failure due to cardiomyopathy I50.9; I42.9 Respiratory failure J96.90 Wound infection T14.8XXA; L08.9 Lung nodule R91.1 Pneumonia J18.9 Buerger's disease I73.1 Declining functional status R53.81 Hyponatremia E87.1 PE (pulmonary thromboembolism) I26.99 Goals of care, counseling/discussion Z71.89 Poor appetite R63.0
[2022-06-17] VITALS (30 sets, daily range): BP systolic 77–126; BP diastolic 54–89; PULSE 115–142; RESP 7–34; TEMP 37.9–41; O2SAT 82–100
--- NOTE | 2022-06-17 00:23 | PC.NURSE ---
06/16/221999 - Pt noted to have fever of 102. MD Franco called. New orders noted.
[2022-06-17 01:45] LABS: Basophils % 0.2 %; Hematocrit 36.7 % (42.0-52.0); Hemoglobin 10.6 g/dL (11.7-16.6); Lymphocytes # 1.2 10^3/uL (0.8-4.8); Lymphocytes % 6.7 %; Mean Corpuscular HGB Conc 28.9 g/dL (30.0-36.0); Mean Corpuscular Hemoglobin 24.6 pg (28.0-34.0); Mean Corpuscular Volume 85.2 fl (80-94); Mean Platelet Volume 10.9 fL (7.4-10.4); Monocytes # 0.9 10^3/uL (0.2-0.9); Monocytes % 5.1 %; Neutrophils # 15.78 10^3/uL (1.8-7.7); Neutrophils % 86.8 %; Nucleated Red Blood Cells % 0 %; Platelet Count 278 10^3/cmm (130-400); Red Blood Count 4.31 10^6/uL (4.1-5.3); White Blood Count 18.2 10^3/uL (4.0-10.0)
[2022-06-17 01:57] LABS: Alanine Aminotransferase 37 U/L (0-41); Albumin Level 2.6 g/dL (3.5-5.2); Alkaline Phosphatase 83 U/L (40-130); Anion Gap 15.2 (5-19); Aspartate Amino Transferase 64 U/L (0-40); Blood Urea Nitrogen 30 mg/dL (6-20); Carbon Dioxide 29 mmol/L (22-29); Chloride 99 mmol/L (98-107); Globulin 4.8 g/dL (1.3-4.6); Glomerular Filtration Rate 79.4 mL/min (90-130); Glucose 127 mg/dL (65-115); Magnesium 2.2 mg/dL (1.7-2.3); Osmolality Calculated 298 mOsm/kg (285-295); Potassium 3.2 mmol/L (3.5-5.1); Sodium 140 mmol/L (136-145); Total Bilirubin 0.3 mg/dL (0.15-1.2); Total Protein 7.4 g/dL (6.6-8.7)
[2022-06-17 02:25] LABS: Vancomycin Trough 13.7 ug/mL (10-15)
[2022-06-17] MEDS: vancomycin 1,250 MG/250 ML PIGGYBACK 250 MG IV ×2 (02:31→18:18)
[2022-06-17] MEDS: cefepime 1,000 MG in sodium chloride 0.9% (plus) 50 ML 100 MG IV ×3 (04:30→21:28)
[2022-06-17] MEDS: metroNIDAZOLE IV 500 MG/100 ML PREMIX 100 MG IV ×3 (05:40→21:29)
[2022-06-17] MEDS: pantoprazole DR 40 mg Tablet PO (05:41)
[2022-06-17] MEDS: methadone 10 mg Tablet 140 MG PO (05:41)
[2022-06-17] MEDS: clopidogrel 75 mg Tablet PO (05:42)
--- NOTE | 2022-06-17 06:00 | XRR_ITS ---
PROCEDURE INFORMATION: Exam: XR Chest Exam date and time: 06/17/2022 5:44 AM Age: 51 years old Clinical indication: Other: Pna; Additional info: Pna, foot wounds, peristent sirs TECHNIQUE: Imaging protocol: Radiologic exam of the chest. Views: 1 view. COMPARISON: CT chest con [id number] 06/13/2022 2:53 AM FINDINGS: Tubes, catheters and devices: Right subclavian approach MediPort is in satisfactory position, with distal tip in the SVC, approximately 3 cm above the SVC/RA junction. Lungs: Patchy airspace opacities are again seen in both lungs, right greater than left. Small right pleural effusion noted. Pleural spaces: See Lungs finding. Heart/Mediastinum: Unremarkable. No cardiomegaly. Bones/joints: Unremarkable. XR/XR chest 1V portable [id number] IMPRESSION: Persistent multifocal pneumonia with parapneumonic effusion on the right.
--- NOTE | 2022-06-17 08:28 | PM.PN ---
Subjective Subjective: Patient is drowsy and confused today. Febrile and has tahcycardia Vitals/I&O/Wt Last Vital Signs Temp 102.8 F H 06/17/22 07:43 Pulse 135 H 06/17/22 07:43 Resp 26 H 06/17/22 07:43 BP 110/82 06/17/22 07:43 Pulse Ox 95 06/17/22 07:43 O2 Del Method Nasal Cannula 06/17/22 07:43 O2 Flow Rate 2 06/17/22 07:43 FiO2 30 06/14/22 02:28 06/16/22 06/17/22 06/17/22 22:59 06:59 14:59 Intake Total 150 / 850 630 / 1480 Output Total 2700 / 2700 350 / 3050 Balance -2550 / -1850 280 / -1570 Weight last 48 hrs Weight 133 lb 8 oz Weight 135 lb 9.6 oz Weight 135 lb Physical Exam Narrative: GENERAL: Patient is confused. NECK: No jugular vein distension. [] HEENT: No cyanosis. No icterus. No pallor. [] HEART: Tachycardic LUNGS: Clear to auscultate bilaterally. [] ABDOMEN: Soft EXTREMITIES: Lower extremities with 1+ edema bilaterally. Pulses palpable in the lower extremities, both dorsalis pedis and posterior tibial. [] Urinary Catheter Management: David: Cath Placed During This Visit: yes Reason for Continuing Indwelling Catheter: Assist Healing of Perineal & Sacral Wounds- Incontinent Patients Urinary Catheter Date of Insertion: 06/11/22 Urinary Catheter Time of Insertion: 11:05 Data 06/18/22 03:43 06/18/22 03:43 Micro: Microbiology 06/16/22 21:00 Blood Culture - Preliminary Blood SPECIMEN COLLECTED 06/16/22 20:51 Blood Culture - Preliminary Blood SPECIMEN COLLECTED 06/11/22 09:43 Blood Culture - Final Blood NO GROWTH AFTER 5 DAYS 06/11/22 09:33 Blood Culture - Final Blood NO GROWTH AFTER 5 DAYS A&P Assessment and plan (1) Elevated troponin: Significant troponin elevation. NSTEMI cannot be ruled out. Continue aspirin and Plavix. Monitor hemoglobin given his anemia. Decision was made to medically treat him given his significant contractures and anemia. No chest pain (2) Congestive heart failure due to cardiomyopathy: Continue IV diuresis. Renal function is stable. Patient has sepsis and has been having fever, elevated WBC count and is confused. (3) Buerger's disease: Features consistent with small vessel disease. Podiatry following (4) Chronic foot ulcer, limited to breakdown of skin: Medical therapy. Podiatry is following. Qualifiers: Laterality: unspecified laterality Qualified Code(s): L97.501 - Non-pressure chronic ulcer of other part of unspecified foot limited to breakdown of skin (5) Respiratory failure: Patient confused today and is septic. Being transferred to ICU. Hold diuresis (6) Hypertension: Currently he is normotensive. May continue on the current medications. Plan Continued medical therapy.Patient has sepsis. Management per primary team Attestations Medical Necessity Statement*: Care expected to cross 2 midnights. Coding Level of Care Code Acute Code for [facility] Diagnoses Elevated troponin R77.8 Congestive heart failure due to cardiomyopathy I50.9; I42.9 Buerger's disease I73.1 Chronic foot ulcer, limited to breakdown of skin L97.501 Laterality: unspecified laterality Respiratory failure J96.90 Hypertension I10
[2022-06-17] MEDS: potassium chloride ER 10 mEq Tablet PO (08:32)
[2022-06-17] MEDS: acetaminophen 325 mg Tablet 650 MG PO ×2 (08:32→11:18)
[2022-06-17] MEDS: metoprolol tartrate 25 mg Tablet 12.5 MG PO (08:33)
[2022-06-17] MEDS: aspirin 81 mg EC Tablet PO (08:33)
[2022-06-17 08:52] LABS: Glucose Point of Care 131 mg/dL (70-110)
[2022-06-17] MEDS: lidocaine 1% 5 ML in potassium chloride premix 100 ML 52.5 ML IV (10:30)
[2022-06-17] MEDS: collagenase oint 30 gm 1 APPLIC TOPICAL (10:31)
[2022-06-17] MEDS: enoxaparin 60 mg/0.6 mL Syringe SUBCUT ×2 (11:18→23:59)
--- NOTE | 2022-06-17 12:17 | P.PN_ITS ---
Subjective Subjective: Patient seen at bedside this morning. Nursing staff present. Discussed care with nursing staff. Patient not oriented at bedside this AM. Vitals/I&O/Wt Last Vital Signs Temp 104.9 F H 06/17/22 11:57 Pulse 116 H 06/17/22 11:57 Resp 25 H 06/17/22 11:57 BP 94/65 06/17/22 11:57 Pulse Ox 100 06/17/22 11:57 O2 Del Method Nasal Cannula 06/17/22 11:57 O2 Flow Rate 2 06/17/22 08:00 FiO2 30 06/14/22 02:28 06/16/22 06/17/22 06/17/22 22:59 06:59 14:59 Intake Total 150 / 850 630 / 1480 60 / 60 Output Total 2700 / 2700 350 / 3050 Balance -2550 / -1850 280 / -1570 60 / 60 Weight last 48 hrs Weight 133 lb 8 oz Weight 135 lb 9.6 oz Weight 135 lb Physical Exam Narrative: BELOW IS A FOCUSED LOWER EXTREMITY EXAM GENERAL: A&O x 3 VASCULAR: DP/PT pulses nonpalpable, strong monophasic on hand-held Doppler DERMATOLOGICAL: Bilateral foot wounds have fresh bandages in place with no strikethrough. No proximal streaking of erythema, no lower extremity lymphangitis. MUSCULOSKELETAL: Exquisite tenderness with palpation of bilateral lower extremities. Patient is contracted in position and rigid NEUROLOGICAL: Neurological sensation to the affected foot and ankle is present through L4-S1 dermatomes with no hyper/hypoesthesias, negative Tinel or Valleix's sign Urinary Catheter Management: David: Cath Placed During This Visit: yes Reason for Continuing Indwelling Catheter: Assist Healing of Perineal & Sacral Wounds- Incontinent Patients Urinary Catheter Date of Insertion: 06/11/22 Urinary Catheter Time of Insertion: 11:05 Data 06/17/22 00:45 06/17/22 00:45 Micro: Microbiology 06/16/22 21:00 Blood Culture - Preliminary Blood SPECIMEN COLLECTED 06/16/22 20:51 Blood Culture - Preliminary Blood SPECIMEN COLLECTED 06/11/22 09:43 Blood Culture - Final Blood NO GROWTH AFTER 5 DAYS 06/11/22 09:33 Blood Culture - Final Blood NO GROWTH AFTER 5 DAYS A&P Assessment and plan (1) Peripheral arterial disease: (2) Non-healing wound: Plan COURSE: Patient presented to the ED with mother for declining status from baseline, shortness of breath with productive cough and bilateral lower extremity wounds. Significant amount of fibrotic slough to wounds was initially noted. Patient was admitted and further workup was conducted. Chest CTA findings showed left lower lobe segmental and subsegmental pulmonary artery compatible with pulmonary embolus. Left lower lobe pneumonia, bilateral pleural fluid, atelectasis right lower lobe. Chest CT obtained which showed mild to moderate pleural fluid collections, severe right lung ground glass opacities and airspace disease consistent with pneumonia. Additionally it showed severe left lower lobe pneumonia. Discussion was had with hospitalist and patient's mother that debridement of the bilateral foot wounds would be beneficial during this a dmission to decrease the bioburden of the wounds and prevent further infection. I believe that the patient would benefit from this debridement but I do not believe that his foot wounds are the source of his sepsis despite the severely fibrotic nature of the wounds. Regardless, two attempts were made to take the patient to surgery. The patient declined and was unable to confirm his code status. The night prior to the procedure he was refusing intubation and multiple comments were made that he wanted to be DNR/DNI. During this time the patient was not alert and oriented and was only answering yes to questions asked to him. Because of the unsure code status and the high risk with anesthesia, the case was cancelled. The patient became more coherent later in the day and stated that he wished to be full code. The second time the case was scheduled for debridement it was advised against due to patient declining cardiac status. At this point the mother stated that she did not want to subject her son to invasive procedures that would be high risk or subject him to unneccessary pain. I discussed with the hospitalist that surgical debridement remains an option if the wounds rapidly decline and become acutely infected. We will await medical/cardiac stabilization before proceeding with surgical intervention as the foot wound debridement is not deemed emergent at this time. CLINICAL AND LAB FINDINGS: WBC 18.2 Temp 104.9 Heart rate 116 Respirations 25 IMAGING: - (06/11/22) Chest CTA shows left lower lobe segmental and subsegmental pulmonary artery compatible with pulmonary embolus. Left lower lobe pneumonia, bilateral pleural fluid, atelectasis right lower lobe - (11/12/20) duplex scan lower extremity artery showed right CARLOS A 0.89, left CARLOS A 0.85 with no stenosis or occlusion Progressed PAD as pulses are strong monophasic at bedside today CULTURES: blood NGTD PLAN: -No acute surgical intervention by podiatry at this time. Will continue to monitor wounds and await medical/cardiac stabilization before discussing possibility of foot wound debridement. -Significant slough of dorsal foot wounds but responding to santyl dressings. No proximal streaking or lower extremity edema. -Medical optimization. Mother has expressed that she does not want any invasive procedures at this time that would put the patient at risk. Patient has been responding well in regards to his chronic foot wounds and daily santyl application. We will hold off on surgical debridement of foot wounds and continue with daily santyl. If the condition of the foot wounds begins to deteriorate we will have a discussion with the mother at that time regarding surgical debridement. As for now we will continue with local wound care. I will discuss case further with hospitalist. No surgical intervention planned at this time. -WOUND CARE:Once Daily dressing change with santyl to dorsal foot wounds -Continue antibiotics -case management to help coordinate wound care at [facility] wound care here in [place]. Mother states that they have been going to wound care in [place] and it has been extremely difficult for them to make the drive down there due to the distance. She expresses interest in coming to [place] wound care as it is much closer and would be much easier to be compliant with. -Podiatry following and will continue to round on patient and provide recommendations as needed Attestations Medical Necessity Statement*: management of sepsis Coding Level of Care Code Acute Code for [facility] Fwd Diagnoses Peripheral arterial disease I73.9 Non-healing wound
[2022-06-17] MEDS: oxyCODONE-APAP 5-325 mg Tablet 1 TAB PO (13:29)
[2022-06-17] MEDS: cyclobenzaprine 10 mg Tablet PO (13:29)
[2022-06-17] MEDS: fluconazole premix 200 MG/100 ML PREMIX 100 MG IV (13:42)
[2022-06-17] MEDS: lactated ringers 500 ML 999 ML IV (14:59)
--- NOTE | 2022-06-17 15:09 | PC.NURSE ---
the nurse was notified about all the elevated temps today
--- NOTE | 2022-06-17 16:20 | PC.NURSE ---
Pt to icu via bed. Mother at bedside. Dr. Gonzalez at bedside discussing plan of care with the mother.
--- NOTE | 2022-06-17 17:03 | PM.PN ---
Subjective Subjective: During earlier visit today he is tremulous, uncomfortable, generally weak, moaning, grunting and slowly writhing. Appears in discomfort/pain. Unable to answer questions or follow directions. Vitals/I&O/Wt Last Vital Signs Temp 105.3 F H 06/17/22 15:06 Pulse 128 H 06/17/22 15:06 Resp 16 06/17/22 15:06 BP 94/67 06/17/22 15:06 Pulse Ox 96 06/17/22 15:06 O2 Del Method Nasal Cannula 06/17/22 15:06 O2 Flow Rate 2 06/17/22 15:00 FiO2 30 06/14/22 02:28 06/17/22 06/17/22 06/17/22 06:59 14:59 22:59 Intake Total 630 / 1480 535 / 535 500 / 1035 Output Total 350 / 3050 350 / 350 Balance 280 / -1570 535 / 535 150 / 685 Weight last 48 hrs Weight 60.555 kg Weight 61.507 kg Weight 61.235 kg Physical Exam Narrative: During earlier visit today he is tremulous, uncomfortable, generally weak, moaning, grunting and slowly writhing. Appears in discomfort/pain. Unable to answer questions or follow directions. Const: GENERAL APPEARANCE: ill appearing ORIENTATION/CONSCIOUSNESS: Yes awake and Yes confused HENMT: COMMON NORMALS: oropharynx normal Neck/C-Spine: COMMON NORMALS: no JVD Resp: COMMON NORMALS: normal respiratory effort and clear to auscultation bilaterally AUSCULTATION: clear to auscultation bilaterally OTHER: NC Cardio: COMMON NORMALS: no JVD, regular rhythm, S1 normal heart sound present, S2 normal heart sound present and No murmurs present (Cardio) RATE: tachycardic RHYTHM: regular rhythm HEART SOUNDS: S1 normal heart sound present and S2 normal heart sound present GI: COMMON NORMALS: Normal to inspection, nondistended, normoactive bowel sounds present, Soft to palpation and non-tender PALPATION: Yes Soft to palpation Extremity: COMMON NORMALS: no joint enlargement and no pedal edema OTHER: Contractures Mottling of lower extremities Neuro: COMMON NORMALS: moves all extremities Skin: OTHER: Slough covering wounds bilateral dorsal feet. L hip oblong pressure ulcer with black eschar base about 4 x 12 cm. Chlorinator Operator appearing base around the central dark eschar. No tunneling or undermining. No drainage. Urinary Catheter Management: David: Cath Placed During This Visit: yes Reason for Continuing Indwelling Catheter: Assist Healing of Perineal & Sacral Wounds- Incontinent Patients Urinary Catheter Date of Insertion: 06/11/22 Urinary Catheter Time of Insertion: 11:05 Data 06/17/22 00:45 06/17/22 00:45 Micro: Microbiology 06/12/22 12:43 Blood Culture - Final Blood NO GROWTH AFTER 5 DAYS 06/16/22 21:00 Blood Culture - Preliminary Blood SPECIMEN COLLECTED 06/16/22 20:51 Blood Culture - Preliminary Blood SPECIMEN COLLECTED A&P Assessment and plan (1) Sepsis: Took a turn for much worse today. Worsening leukocytosis, tachycardia, spiking high fever, and as high as 105.8 on one of the measurements. 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 Worsening sepsis, likely impending septic shock. Made n.p.o. with concern for possible additional aspiration. Moved to ICU. Given fluid bolus. Additional discussion took place with his mother. Ethics committee convened. Input sought from his primary provider. Consideration given to management options, including further escalation of care versus continuation of medical care with addition of comfort measures or transition to comfort measures alone, as well as goals of care according to the mother which appeared to contradict what he was recently agreeable to, although given finding of recently diagnosed memory decline and waxing and waning mental status, in retrospect it is questionable that he was understanding the nature of his condition and treatment options and their benefits and risks. His mother does not think that aggressive interventions are appropriate. She states his health has been in gradual decline for a while, that for a while now he has given up, including wanted limited if any interaction with healthcare, did not want to go to the hospital, recently refusing food as well, completely dependent for care. This seems to have been accompanied by both physical and cognitive decline. She feels that further aggressive care would lead to unnecessary suffering. The statements seem to be supported by evidence of his recent condition and no obvious indication found of the mother against his best interest. As such consensus history uphold request to avoid additional escalation of care, invasive procedures. Mother is okay with him continuing medical care with addition of pain control and other measures which otherwise could shorten his longevity, and avoidance of cardiopulmonary resuscitation in case of arrest. Tylenol IV for fever, pain. Dilaudid IV as needed for severe pain. Ativan as needed for anxiety. Continue broad-spectrum IV to encourage for now including Flagyl, continue Diflucan. With multifocal sources, sepsis, at risk of life-threatening deterioration due to septic shock, admit for assessment and management. Continue assessment and treatment in the hospital. Monitor vital signs, monitor telemetry. Discussed with podiatry, ER physician, nursing staff. (2) Congestive heart failure due to cardiomyopathy: Lasix held 06/16 close to euvolemia. Change aspirin to CO. Follow-up renal function, electrolytes, chemistry requested. Magnesium low, replaced, recheck magnesium. Cardiomyopathy with new decrease in ejection fraction, RWMA noted on echocardiogram. Troponins obtained overnight with elevation. He does not have chest pain. However, concern for underlying coronary disease. Cardiology considering coronary angiogram. Cardiology documentation reviewed. He received additional Lasix, started on metoprolol. Continue aspirin, Plavix. Continue care on CSU Discussed with cardiology. Cardiology documentation reviewed. (3) Respiratory failure: Continues on 3 L of oxygen, saturating in high 90s. Hold further Lasix. Reassess volume status, hemodynamics. Chest x-ray. Dysphagia diet. Continue treatment for pneumonia. Sputum cultures not collected. MRSA PCR received, pending. Respiratory viral panel appreciated, negative. Therapeutic Lovenox for PE. (4) Wound infection: As above. Continue IV antibiotics. Wound care with Santyl Surgery for now has been deferred. (5) Lung nodule: Concerning lung nodule on CTA, will need additional follow-up for assessment, but also cannot exclude septic embolic etiology at current time so needs additional work-up. Blood cultures were collected in ER, however, were not labeled as to the source. Follow-up repeat cultures from port and periphery. (6) Pneumonia: Continue empiric antibiotic coverage with vancomycin, cefepime. Diflucan. ST assessment for possibility of aspiration. Noted presumptive negative Legionella antigen. Discussed with lab urine bacterial antigens have been ordered, not resulted. They are looking into it. Has history of MRSA, continue MRSA empiric coverage. Additionally with sinus tachycardia, cough, inspiratory chest discomfort, CT attempted, but difficult due to significant contractures. Empirically started on anticoagulation for now. Repeat CBC requested for monitoring of blood counts due to anemia. Tonight and in the morning. Flutter valve, I-S (7) Buerger's disease: Has quit smoking since last hospitalization. Antiplatelet agents. (8) Declining functional status: Unable to care for self. Mother has been caring for him as well as his wounds. She is unable to keep up. We will obtain consultation with case management, OT and PT evaluation. (9) Hyponatremia: Resolved (10) PE (pulmonary thromboembolism): Therapeutic Lovenox (11) Goals of care, counseling/discussion: As above. (12) Poor appetite: Currently NPO. Mother states poor oral intake at home also before coming here which she did not seem to remember. Whenever he is asked if he wants to eat states normal. He cannot really give a reason as to why. Discussing with him and his mother, currently we are awaiting ST evaluation, once able to resume oral intake, discussed addition of nutritional supplements. He states he does like ice cream, possibly [employer] Jell-O or ice cream with protein. Plan Hypomagnesemia: Additional replacement with 4 g today, recheck magnesium. Hypokalemia: Replaced Sacral decubitus ulcer: L hip oblong pressure ulcer with black eschar base about 4 x 12 cm. Some slough around the central necrotic eschar, no tunneling or undermining. Add Santyl. Foam dressing. Continue to reposition. Regular diet. Protein supplements. Anemia: Hemoglobin fluctuating, today up to 9.1. Mother reports history of anemia and he was supposed to be on a medication but she does not remember if it was iron or something else. Noted normocytic anemia. At home not on PPI, continue. Follow-up CBC requested. Hemoccult so for not collected. HTN: Currently blood pressure soft Attestations Medical Necessity Statement*: Continue admission for assessment and management of sepsis, pneumonia, wound infection, gentleman with new cardiomyopathy and CHF, suspected CAD and additional comorbidities as above. and High Time for a total of 140 minutes, includes reviewing past or interval history, examining/interviewing patient, placing orders, counseling patient/family/other support, updating patient/family/other support, discussing plan of care with staff, communicating with other healthcare providers, documenting encounter and coordinating care Diagnoses Sepsis A41.9 Congestive heart failure due to cardiomyopathy I50.9; I42.9 Respiratory failure J96.90 Wound infection T14.8XXA; L08.9 Lung nodule R91.1 Pneumonia J18.9 Buerger's disease I73.1 Declining functional status R53.81 Hyponatremia E87.1 PE (pulmonary thromboembolism) I26.99 Goals of care, counseling/discussion Z71.89 Poor appetite R63.0
[2022-06-17] MEDS: acetaminophen 1,000 MG/100 ML PIGGYBACK 400 MG IV (18:18)
[2022-06-17] MEDS: HYDROmorphone 1 mg/mL INJ 1 mL 0.5 MG IVP ×2 (21:27→22:27)
[2022-06-17] MEDS: LORazepam 2 mg/mL INJ 1 mL 0.5 MG IVP (21:40)
[2022-06-17] MEDS: sodium chloride 0.9% 250 ML IV (22:25)
[2022-06-17] MEDS: ketorolac 30 mg/mL INJ 15 MG IVP (22:30)
[2022-06-18] VITALS (28 sets, daily range): BP systolic 87–118; BP diastolic 54–79; PULSE 107–157; RESP 15–27; TEMP 40.4–40.7; O2SAT 94–100; BMI 19.1
[2022-06-18] MEDS: HYDROmorphone 1 mg/mL INJ 1 mL 0.5 MG IVP ×4 (00:43→22:45)
[2022-06-18] MEDS: acetaminophen 1,000 MG/100 ML PIGGYBACK 400 MG IV ×2 (02:17→09:17)
[2022-06-18] MEDS: LORazepam 2 mg/mL INJ 1 mL 0.5 MG IVP ×2 (04:04→20:04)
[2022-06-18 04:14] LABS: Basophils % 0.2 %; Hematocrit 35.5 % (42.0-52.0); Hemoglobin 9.9 g/dL (11.7-16.6); Lymphocytes # 1.9 10^3/uL (0.8-4.8); Mean Corpuscular HGB Conc 27.9 g/dL (30.0-36.0); Mean Corpuscular Hemoglobin 24.6 pg (28.0-34.0); Mean Corpuscular Volume 88.1 fl (80-94); Mean Platelet Volume 11.1 fL (7.4-10.4); Monocytes # 1.2 10^3/uL (0.2-0.9); Monocytes % 6.8 %; Neutrophils # 14.17 10^3/uL (1.8-7.7); Neutrophils % 81.1 %; Nucleated Red Blood Cells % 0 %; Platelet Count 246 10^3/cmm (130-400); Red Blood Count 4.03 10^6/uL (4.1-5.3); Red Cell Distribution Width 17.3 % (12.1-15.1); White Blood Count 17.5 10^3/uL (4.0-10.0)
[2022-06-18 04:32] LABS: Alanine Aminotransferase 40 U/L (0-41); Albumin Level 2.5 g/dL (3.5-5.2); Alkaline Phosphatase 58 U/L (40-130); Anion Gap 14.4 (5-19); Aspartate Amino Transferase 86 U/L (0-40); Blood Urea Nitrogen 47 mg/dL (6-20); Calcium 7.8 mg/dL (8.5-10.5); Carbon Dioxide 29 mmol/L (22-29); Chloride 106 mmol/L (98-107); Globulin 4.1 g/dL (1.3-4.6); Glomerular Filtration Rate 46.2 mL/min (90-130); Glucose 104 mg/dL (65-115); Osmolality Calculated 315 mOsm/kg (285-295); Potassium 3.4 mmol/L (3.5-5.1); Sodium 146 mmol/L (136-145); Total Bilirubin 0.3 mg/dL (0.15-1.2); Total Protein 6.6 g/dL (6.6-8.7)
[2022-06-18] MEDS: cefepime 1,000 MG in sodium chloride 0.9% (plus) 50 ML 100 MG IV ×2 (05:52→15:47)
[2022-06-18] MEDS: metroNIDAZOLE IV 500 MG/100 ML PREMIX 100 MG IV ×2 (05:52→15:48)
--- NOTE | 2022-06-18 06:01 | PC.NURSE ---
Patient has been unable to follow commands or swallow safely throughout shift. approved to hold PO meds for Dayshift hospitalist to recommend alternative routes if necessary.
[2022-06-18] MEDS: sodium chloride 0.9% 1,000 ML 30 ML IV (12:38)
[2022-06-18] MEDS: enoxaparin 60 mg/0.6 mL Syringe SUBCUT (12:40)
[2022-06-18] MEDS: fluconazole premix 200 MG/100 ML PREMIX 100 MG IV (15:46)
--- NOTE | 2022-06-18 18:01 | P.PN_ITS ---
Subjective Subjective: Does not appear in pain or distress. Not responding or following commands. Vitals/I&O/Wt Last Vital Signs Temp 104.8 F H 06/18/22 16:00 Pulse 135 H 06/18/22 16:00 Resp 21 H 06/18/22 16:00 BP 92/66 06/18/22 16:00 Pulse Ox 100 06/18/22 16:00 O2 Del Method Nasal Cannula 06/18/22 10:47 O2 Flow Rate 2 06/18/22 10:47 FiO2 30 06/14/22 02:28 06/18/22 06/18/22 06/18/22 06:59 14:59 22:59 Intake Total 100 / 1385 750 / 750 Output Total 320 / 670 Balance -220 / 715 750 / 750 Weight last 48 hrs Weight 60.237 kg Weight 60.555 kg Physical Exam Const: GENERAL APPEARANCE: cooperative and ill appearing ORIENTATIO N/CONSCIOUSNESS: Yes confused OTHER: Sleeping, wakes up to voice HENMT: COMMON NORMALS: oropharynx normal OTHER: Dry tongue. Neck/C-Spine: COMMON NORMALS: no JVD Resp: COMMON NORMALS: normal respiratory effort and clear to auscultation bilaterally AUSCULTATION: clear to auscultation bilaterally and other (Coarse breath sounds.) OTHER: NC Cardio: COMMON NORMALS: no JVD, regular rhythm, S1 normal heart sound present, S2 normal heart sound present and No murmurs present (Cardio) RATE: tachycardic RHYTHM: regular rhythm HEART SOUNDS: S1 normal heart sound present and S2 normal heart sound present GI: COMMON NORMALS: Normal to inspection, nondistended, normoactive bowel sounds present, Soft to palpation and non-tender PALPATION: Yes Soft to palpation Extremity: COMMON NORMALS: no joint enlargement and no pedal edema OTHER: Contractures Mottling of lower extremities Neuro: COMMON NORMALS: moves all extremities Skin: OTHER: Slough covering wounds bilateral dorsal feet. L hip oblong pressure ulcer with black eschar base about 4 x 12 cm. Manhole Builder appearing base around the central dark eschar. No tunneling or undermining. No drainage. Urinary Catheter Management: David: Cath Placed During This Visit: yes Reason for Continuing Indwelling Catheter: Accurate Measurement of Urinary Output in Critically Ill Patients Urinary Catheter Date of Insertion: 06/11/22 Urinary Catheter Time of Insertion: 11:05 Data 06/18/22 03:43 06/18/22 03:43 Micro: Microbiology 06/16/22 21:00 Blood Culture - Preliminary Blood NEGATIVE TO DATE 06/16/22 20:51 Blood Culture - Preliminary Blood NEGATIVE TO DATE 06/12/22 12:43 Blood Culture - Final Blood NO GROWTH AFTER 5 DAYS A&P Assessment and plan (1) Sepsis: Persistent WBC elevation, neutrophilia, monocytosis, no eosinophilia, sinus tachycardia, continue spiking fever/hyperthermic. Blood pressure soft today. High fevers partially knocked down with cold saline infusion, Tylenol, ice packs are avoided with underlying Buerger's disease. As he has not been improving may visit with his family again, discussed considerations with ongoing high fevers, additional considerations including septic embolic disease, possibly with STEEL DIVISION SUPERVISOR infection, or possibly be related to medication/antibiotics themselves. Reviewed blood cultures, still negative to date. Discussed further management options, alteration of medical treatment, alternatively transition to comfort measures alone. His family are certain would not want to pursue any additional investigation including imaging or lumbar puncture and feel that switching antibiotics will be rather prolonging the inevitable. They favor instead regarding additional options, consideration of either changing antimicrobial agents. Continue with comfort measures. Discontinue medication infusions, blood draws, telemetry and continuous temperature monitoring, vitals every shift. Tylenol IV for fever, pain. Dilaudid IV as needed for severe pain. Ativan as needed for anxiety. (2) Congestive heart failure due to cardiomyopathy: (3) Respiratory failure: (4) Wound infection: Wound care with Santyl (5) Lung nodule: (6) Pneumonia: (7) Buerger's disease: (8) Declining functional status: (9) Hyponatremia: (10) PE (pulmonary thromboembolism): (11) Goals of care, counseling/discussion: (12) Poor appetite: Plan JOSUE: Noted on chemistry, creatinine up to 1.6 likely prerenal Hypomagnesemia Hypokalemia Sacral decubitus ulcer: Santyl. Foam dressing. Continue to reposition. Anemia HTN Attestations Medical Necessity Statement*: Transitioning to comfort measures. Diagnoses Sepsis A41.9 Congestive heart failure due to cardiomyopathy I50.9; I42.9 Respiratory failure J96.90 Wound infection T14.8XXA; L08.9 Lung nodule R91.1 Pneumonia J18.9 Buerger's disease I73.1 Declining functional status R53.81 Hyponatremia E87.1 PE (pulmonary thromboembolism) I26.99 Goals of care, counseling/discussion Z71.89 Poor appetite R63.0
--- NOTE | 2022-06-18 20:19 | PM.PN ---
Subjective Subjective: Patient will be back to the ICU because of the high-grade fever. He is on IV antibiotics. Mental status seems to be fluctuating. Medications: Medication Review Details: Current Medications Acetaminophen (Acetaminophen 325 Mg Tablet) 650 mg PO Q6H PRN PRN Reason: Mild/Mod Pain Or Temp >/= 101 Last Admin: 06/17/22 11:18 Dose: 650 mg Albuterol/Ipratropium (Ipratropium-Albuterol 3 Ml Neb) 3 ml INHALATION Q6H.RESP PRN PRN Reason: SHORTNESS OF BREATH Last Admin: 06/14/22 02:28 Dose: 3 ml Aspirin (Aspirin 300 Mg Supp) 300 mg TX DAILY [facility] Last Admin: 06/18/22 08:35 Dose: Not Given Clopidogrel Bisulfate (Clopidogrel 75 Mg Tablet) 75 mg PO QAM [facility] Last Admin: 06/18/22 08:35 Dose: Not Given Collagenase (Collagenase Oint 30 Gm) 1 applic TOPICAL BID [facility] Last Admin: 06/18/22 18:38 Dose: Not Given Cyclobenzaprine HCl (Cyclobenzaprine 10 Mg Tablet) 10 mg PO TID PRN PRN Reason: muscle spasm Last Admin: 06/17/22 13:29 Dose: 10 mg Enoxaparin Sodium (Enoxaparin 60 Mg/0.6 Ml Syringe) 60 mg SUBCUT Q12H [facility] Last Admin: 06/18/22 12:40 Dose: 60 mg Hydromorphone HCl (Hydromorphone 1 Mg/Ml Inj 1 Ml) 0.5 mg IVP Q2H PRN PRN Reason: SEVERE PAIN Last Admin: 06/18/22 20:03 Dose: 0.5 mg Sodium Chloride (Sodium Chloride 0.9%) 1,000 mls @ 30 mls/hr IV .Q24H [facility] Last Admin: 06/18/22 12:38 Dose: 30 mls/hr Lorazepam (Lorazepam 2 Mg/Ml Inj 1 Ml) 0.5 mg IVP Q4H PRN PRN Reason: ANXIETY Last Admin: 06/18/22 20:04 Dose: 0.5 mg Methadone HCl (Methadone 10 Mg Tablet) 140 mg PO QAM [facility] Last Admin: 06/18/22 08:35 Dose: Not Given Metoprolol Tartrate (Metoprolol Tartrate 25 Mg Tablet) 12.5 mg PO BID@0900,2100 [facility] Last Admin: 06/18/22 08:35 Dose: Not Given Ondansetron HCl (Ondansetron 2 Mg/Ml Sdv 2 Ml) 4 mg IVP Q8H PRN PRN Reason: vomiting, or N/V if npo Oxycodone/Acetaminophen (Oxycodone-Apap 5-325 Mg Tablet) 1 tab PO Q4H PRN PRN Reason: SEVERE PAIN Last Admin: 06/17/22 13:29 Dose: 1 tab Pantoprazole Sodium (Pantoprazole Dr 40 Mg Tablet) 40 mg PO QAM [facility] Last Admin: 06/18/22 08:35 Dose: Not Given Potassium Chloride (Potassium Chloride Er 10 Meq Tablet) 10 meq PO BID [facility] Last Admin: 06/18/22 17:24 Dose: Not Given Vitals/I&O/Wt Last Vital Signs Temp 104.8 F H 06/18/22 16:00 Pulse 135 H 06/18/22 16:00 Resp 21 H 06/18/22 20:03 BP 92/66 06/18/22 16:00 Pulse Ox 100 06/18/22 20:03 O2 Del Method Nasal Cannula 06/18/22 10:47 O2 Flow Rate 2 06/18/22 10:47 FiO2 30 06/14/22 02:28 06/18/22 06/18/22 06/18/22 06:59 14:59 22:59 Intake Total 100 / 1385 750 / 750 Output Total 320 / 670 400 / 400 Balance -220 / 715 750 / 750 -400 / 350 Weight last 48 hrs Weight 132 lb 12.8 oz Weight 133 lb 8 oz Physical Exam Narrative: GENERAL: The patient is very drowsy. HEENT: Moderate pallor, no icterus or lymphadenopathy.Oral cavity: There are no mucous membrane lesions. NECK: Trachea appears to be central. No masses noted. No JVD or thyromegaly appreciated. RESPIRATORY: Chest is symmetrical. No intercostals muscle retraction or any accessory muscle activation. There is no chest wall tenderness. Breath sounds are heard bilaterally. No rales or rhonchi heard. No evidence of any consolidation. BREASTS: Deferred. HEART: The heart sounds are normal. No S3 or S4. No significant murmurs. No pericardial rub ABDOMEN: No vessel pulsations or distention. No tenderness. No organomegaly appreciated. Bowel sounds are normally heard. : Deferred. RECTAL: Deferred. LYMPHATIC: No lymphadenopathy noted in the neck. EXTREMITIES: No edema or cyanosis. No clubbing. MUSCULOSKELETAL: Severe kyphoscoliosis; flexion deformity and contractures of the extremities. SKIN: There are no significant rashes or ecchymosis NEUROPSYCHIATRIC: Patient seems very drowsy. No focal motor deficits. Urinary Catheter Management: David: Cath Placed During This Visit: yes Reason for Continuing Indwelling Catheter: Accurate Measurement of Urinary Output in Critically Ill Patients Urinary Catheter Date of Insertion: 06/11/22 Urinary Catheter Time of Insertion: 11:05 Data 06/18/22 03:43 06/18/22 03:43 Other Labs: Laboratory Last Values WBC 17.5 10^3/uL (4.0-10.0) H 06/18/22 03:43 RBC 4.03 10^6/uL (4.1-5.3) L 06/18/22 03:43 Hgb 9.9 g/dL (11.7-16.6) L 06/18/22 03:43 Hct 35.5 % (42.0-52.0) L 06/18/22 03:43 MCV 88.1 fl (80-94) 06/18/22 03:43 MCH 24.6 pg (28.0-34.0) L 06/18/22 03:43 MCHC 27.9 g/dL (30.0-36.0) L 06/18/22 03:43 RDW 17.3 % (12.1-15.1) H 06/18/22 03:43 Plt Count 246 10^3/cmm (130-400) 06/18/22 03:43 MPV 11.1 fL (7.4-10.4) H 06/18/22 03:43 Neut % (Auto) 81.1 % 06/18/22 03:43 Lymph % (Auto) 11.0 % 06/18/22 03:43 [place] % (Auto) 6.8 % 06/18/22 03:43 Eos % (Auto) 0.0 % 06/18/22 03:43 Baso % (Auto) 0.2 % 06/18/22 03:43 Neut # (Auto) 14.17 10^3/uL (1.8-7.7) H 06/18/22 03:43 Lymph # (Auto) 1.9 10^3/uL (0.8-4.8) 06/18/22 03:43 [place] # (Auto) 1.2 10^3/uL (0.2-0.9) H 06/18/22 03:43 Eos # (Auto) 0.0 10^3/uL (0.0-0.8) 06/18/22 03:43 Baso # (Auto) 0.0 10^3/uL (0.0-0.1) 06/18/22 03:43 Nucleated RBC % (auto) 0 % 06/18/22 03:43 Nucleated RBCs # 0.0 /100WBC 06/18/22 03:43 Specimen Type Arterial 06/13/22 00:33 Sample Site Radial, right 04 00:33 ABG pH 7.41 (7.35-7.45) 06/13/22 00:33 ABG pCO2 32.9 mmHg (35-45) L 06/13/22 00:33 ABG pO2 70.4 mmHg (80.0-100.0) L 06/13/22 00:33 ABG HCO3 20.9 mmol/L (22-26) L 06/13/22 00:33 ABG O2 Saturation 95.0 06/13/22 00:33 ABG Base Excess -3.2 mmol/L (-2.0-2.0) L 06/13/22 00:33 Mert Test Pos 06/13/22 00:33 A-a O2 Gradient 78.4 mmHg (5-10) H 06/13/22 00:33 Hematocrit 31.0 % (42-52) L 06/13/22 00:33 Hgb O2 Saturation 93.2 % (95-100) L 06/13/22 00:33 Carboxyhemoglobin 1.4 %THgb (0.4-20.1) 06/13/22 00:33 Methemoglobin 0.5 % (0.4-1.5) 06/13/22 00:33 Total Hemoglobin 10.1 g/dL (14-18) L 06/13/22 00:33 Sodium 135.0 mmol/L (131-143) 06/13/22 00:33 Potassium 4.0 mmol/L (3.5-5.0) 06/13/22 00:33 Glucose 139.0 mg/dL (70-115) H 06/13/22 00:33 Ionized Calcium 1.2 mmol/L (1.1-1.4) 06/13/22 00:33 O2 Delivery Device Bipap 06/13/22 00:33 FiO2 100.0 % 06/13/22 00:33 Ore Sampler ID [email or web address] 06/13/22 00:33 Sodium 146 mmol/L (136-145) H 06/18/22 03:43 Potassium 3.4 mmol/L (3.5-5.1) L 06/18/22 03:43 Chloride 106 mmol/L (98-107) 06/18/22 03:43 Carbon Dioxide 29 mmol/L (22-29) 06/18/22 03:43 Anion Gap 14.4 (5-19) 06/18/22 03:43 BUN 47 mg/dL (6-20) H 06/18/22 03:43 Creatinine 1.6 mg/dL (0.7-1.2) H 06/18/22 03:43 GFR Calculation 46.2 mL/min (90-130) L 06/18/22 03:43 Glucose 104 mg/dL (65-115) 06/18/22 03:43 POC Glucose 131 mg/dL (70-110) H 06/17/22 08:34 Calculated Osmolality 315 mOsm/kg (285-295) H 06/18/22 03:43 Lactic Acid 1.2 mmol/L (0.5-2.2) 06/11/22 13:09 Calcium 7.8 mg/dL (8.5-10.5) L 06/18/22 03:43 Magnesium 2.2 mg/dL (1.7-2.3) 06/17/22 00:45 Magnesium Cancelled 06/17/22 00:45 Iron 17 ug/dL (59-158) L 06/13/22 01:29 TIBC 127 mcg/dl 06/13/22 01:29 % Saturation 13.3 % (20-50) L 06/13/22 01:29 Unsat Iron Binding 110 ug/dL (112-347) L 06/13/22 01:29 Ferritin 433 ng/mL (30-400) H 06/13/22 01:29 Total Bilirubin 0.3 mg/dL (0.15-1.2) 06/18/22 03:43 AST 86 U/L (0-40) H 06/18/22 03:43 ALT 40 U/L (0-41) 06/18/22 03:43 Alkaline Phosphatase 58 U/L (40-130) 06/18/22 03:43 Troponin T Baseline 295 ng/L (0-15) H* 06/13/22 20:42 Troponin T 120 Minute 304.7 ng/L (0-15) H 06/13/22 22:15 Delta Troponin T 9.7 ABS# (0-10) 06/13/22 22:15 Troponin T Hi Sens 6Hr 343.8 ng/L (0-15) H 06/14/22 02:40 Troponin T Hi Sens 6Hr Delta 48.8 ng/L (0-12) H* 06/14/22 02:40 NT-Pro-B Natriuret Pep 77363 pg/mL (0-125) H 06/12/22 02:04 Total Protein 6.6 g/dL (6.6-8.7) 06/18/22 03:43 Albumin 2.5 g/dL (3.5-5.2) L 06/18/22 03:43 Globulin 4.1 g/dL (1.3-4.6) 06/18/22 03:43 Urine Color Yellow (Yellow) 06/11/22 10:50 Urine Appearance Hazy (CLEAR) A 06/11/22 10:50 Urine pH 5 (5-7) 06/11/22 10:50 Ur Specific [place] 1.025 (1.005-1.030) 06/11/22 10:50 Urine Protein 1+ (Negative) H 06/11/22 10:50 Urine Glucose (UA) Norm (Normal) 06/11/22 10:50 Urine Ketones 1+ (Negative) H 06/11/22 10:50 Urine Blood Neg (Negative) 06/11/22 10:50 Urine Nitrate Negative (Negative) 06/11/22 10:50 Urine Bilirubin 1+ (Negative) H 06/11/22 10:50 Urine Urobilinogen 4 mg/dL (Negative) H 06/11/22 10:50 Ur Leukocyte Esterase Trace (Negative) H 06/11/22 10:50 Urine RBC Rare /hpf (0-2) 06/11/22 10:50 Urine WBC Rare /hpf (0-5) 06/11/22 10:50 Ur Squamous Epith Cells 0-4 /hpf (0-5) H 06/11/22 10:50 Calcium Oxalate Crystal 25-40 /hpf H 06/11/22 10:50 Amorphous Sediment 2+ /hpf 06/11/22 10:50 Urine Bacteria None /hpf (NONE) 06/11/22 10:50 Hyaline Casts 0-4 /lpf H 06/11/22 10:50 Urine Mucus 1+ /hpf 06/11/22 10:50 Nasal Influ A H1 2009 PCR Not detected (NOT DETECT) 06/13/22 20:30 Vancomycin Trough 13.7 ug/mL (10-15) 06/17/22 00:45 Adenovirus (PCR) Not detected (NOT DETECT) 06/13/22 20:30 C. pneumoniae DNA (PCR) Not detected (NOT DETECT) 06/13/22 20:30 Coronavirus 229E (PCR) Not detected (NOT DETECT) 06/13/22 20:30 Human Metapneumovir PCR Not detected (NOT DETECT) 06/13/22 20:30 Influenza A (H1) PCR Not detected (NOT DETECT) 06/13/22 20:30 Influenza A (H3) PCR Not detected (NOT DETECT) 06/13/22 20:30 Influenza Type A (PCR) Not detected (NOT DETECT) 06/13/22 20:30 Influenza Type B (PCR) Not detected (NOT DETECT) 06/13/22 20:30 M. pneumoniae (PCR) Not detected (NOT DETECT) 06/13/22 20:30 Parainfluenza 1 (PCR) Not detected (NOT DETECT) 06/13/22 20:30 Parainfluenza 2 (PCR) Not detected (NOT DETECT) 06/13/22 20:30 Parainfluenza 3 (PCR) Not detected (NOT DETECT) 06/13/22 20:30 Parainfluenza 4 (PCR) Not detected (NOT DETECT) 06/13/22 20:30 RSV Type A (PCR) Not detected (NOT DETECT) 06/13/22 20:30 RSV Type B (PCR) Not detected (NOT DETECT) 06/13/22 20:30 Entero/Rhino (PCR) Not detected (NOT DETECT) 06/13/22 20:30 SARS-CoV-2 (PCR) Not detected (NOT DETECT) 06/13/22 20:30 Micro: Microbiology 06/16/22 21:00 Blood Culture - Preliminary Blood NEGATIVE TO DATE 06/16/22 20:51 Blood Culture - Preliminary Blood NEGATIVE TO DATE A&P Assessment and plan (1) Elevated troponin: Most likely this patient had a non-ST elevation myocardial infarction. Currently seems to be stable. May continue on the current medications. (2) Sepsis: Patient has high-grade fever. Etiology is not clear. Family seems to be resorting to only comfort measures (3) Congestive heart failure due to cardiomyopathy: Clinically appears compensated. May be treated with IV Lasix on a as needed basis. (4) Buerger's disease: Patient having extensive ulcerations on both feet on the dorsum. The cyanosis in the peripheral but most likely related to this disease condition. He is on antiplatelet drugs. This may be continued. (5) Chronic foot ulcer, limited to breakdown of skin: May continue on the current management. Qualifiers: Laterality: unspecified laterality Qualified Code(s): L97.501 - Non-pressure chronic ulcer of other part of unspecified foot limited to breakdown of skin (6) Respiratory failure: P please seems to be stable. (7) Hypertension: Currently he is normotensive. May continue on the current medications. Plan Currently on the current management. Attestations Medical Necessity Statement*: Patient requires continued hospital stay for close monitoring and further management Coding Level of Care Code 61822 Diagnoses Elevated troponin R77.8 Sepsis A41.9 Congestive heart failure due to cardiomyopathy I50.9; I42.9 Buerger's disease I73.1 Chronic foot ulcer, limited to breakdown of skin L97.501 Laterality: unspecified laterality Respiratory failure J96.90 Hypertension I10
[2022-06-19] VITALS (12 sets, daily range): BP systolic 74–96; BP diastolic 43–70; PULSE 181–189; RESP 22–53; TEMP 41.2–41.4; O2SAT 88–100
--- NOTE | 2022-06-19 00:05 | PC.NURSE ---
Patient's heart rate has jumped into an SVT rythm ranging from 180s-220s. Mother was notified who plans to try and come in to be with her son. Patient remains unresponsive.
[2022-06-19] MEDS: HYDROmorphone 1 mg/mL INJ 1 mL 0.5 MG IVP ×4 (00:24→09:25)
[2022-06-19] MEDS: LORazepam 2 mg/mL INJ 1 mL 0.5 MG IVP ×2 (00:25→05:27)
--- NOTE | 2022-06-19 01:34 | PC.NURSE ---
Patient's mother arrived on unit approximately 0100. MTS call attempt was made however this nurse was informed to return call when patient is . Heart rate remains elevated in the 180s and MAP is 57. Patient is unresponsive aside from eyes opening.
[2022-06-19] MEDS: blistex lip oint 7 gm Tube 1 APPLIC TOPICAL (05:45)
--- NOTE | 2022-06-19 16:36 | P.DES_ITS ---
Discharge Providers DDS Date of Admission: 06/11/22 16:19 Date Summary Completed: 06/19/22 Attending Provider at Admission: Dennis Gonzalez Time of : 14:27 Attending Provider at Discharge: Dennis Gonzalez Primary Care Provider: Rogelio Reinoso MD DS Diagnoses Hospital Diagnoses (1) Elevated troponin: (2) Sepsis: (3) Congestive heart failure due to cardiomyopathy: (4) Buerger's disease: (5) Chronic foot ulcer, limited to breakdown of skin: Qualifiers: Laterality: unspecified laterality Qualified Code(s): L97.501 - Non- pressure chronic ulcer of other part of unspecified foot limited to breakdown of skin (6) Respiratory failure: (7) Hypertension: Reason for Visit Reason for Visit BILATERAL WOUNDS ON FEET/WEAKNESS Summary Date and Time of Date of : 06/19/22 Time of : 14:27 Summary Summary: 51-year-old gentleman with history of Buerger's disease/microangiopathy, 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 Was brought into the hospital due to bilateral lower extremity wound infection, on presentation also with finding of pneumonia and on assessment with CTA found to have PE. Opacification with concern for possible septic embolization, blood cultures collected, but remained negative. Was treated with broad-spectrum antibiotics, anticoagulation, wound care, podiatry was consulted for assessment and debridement of the wounds. Hospitalization complicated by progression to respiratory failure, need for BiPAP support after found percent FiO2, worsening pneumonia, suspected aspiration, and finding of new cardiomyopathy with low EF, regional wall motion abnormalities, troponin elevation with suspected NSTEMI, suspected underlying coronary disease, however, unable to undergo angiographic assessment due to severity of contractures, continued on medical therapy including diuretics. Antimicrobial coverage broadened, continued on cefepime, vancomycin, with addition of Flagyl and Diflucan. Surgical debridement now pending further cardiac optimization. Oxygenation and mentation gradually improved however mental status continued waxing and waning. His condition condition took a turn for the worse on 06/18, further aggressive management steps were considered and discussed including thoracentesis with possible chest tube, further assessment for other possible sources of infection and high fever, however, his mother did not find further aggressive interventions appropriate given his overall gradual decline, poor quality of life and desire for limited medical care, his condition history discussed also with his primary provider and ethics committee, and transition was made by consensus with his famimly to initially continued medical treatment with addition of comfort, but without improvement, continued high fevers, on discussion of consideration of additional alteration of medical therapy, family elected to proceed with comfort care alone instead. He peacefully with family at his bedside at 14:27. Discharge Plan Discharge Patient Disposition: Condition: Prescriptions: No Action aspirin [Adult Low Dose Aspirin] 81 mg tablet,delayed release (DR/EC) 81 mg PO DAILY cyclobenzaprine 10 mg tablet 10 mg PO TID PRN (Reason: muscle spasm) Qty: 90 3RF (DME) Kerlix gauge wrap See Rx Instructions .Route .MEDSUPPLY Qty: 5 5RF Rx Instructions: As directed (DME) alginate bandage See Rx Instructions .Route .MEDSUPPLY Qty: 30 5RF Rx Instructions: As directed Protonix 40 mg tablet,delayed release (DR/EC) 40 mg PO QAM 90 Days Qty: 90 3RF methadone 40 mg Tablet,Soluble 140 mg PO QAM gentamicin 0.1 % cream 1 applic TOPICAL DAILY Plavix 75 mg tablet 75 mg PO QAM Referrals: Rogelio Reinoso MD [Primary Care Provider] - Patient Instructions: Opioid Safety DS Attestations Time Spent in /Discharge Care*: greater than 30 min Quality - AMI: AMI present?: Yes Quality - Stroke: CVA present?: No Symptom Onset Unknown: No Quality - VTE: VTE present?: No Coding Level of Care Code 36740 Total time (in minutes) for Discharge: 50 Diagnoses Elevated troponin R77.8 Sepsis A41.9 Congestive heart failure due to cardiomyopathy I50.9; I42.9 Buerger's disease I73.1 Chronic foot ulcer, limited to breakdown of skin L97.501 Laterality: unspecified laterality Respiratory failure J96.90 Hypertension I10
--- NOTE | 2022-06-19 17:38 | PC.NURSE ---
TOD 1427 Pt went into sustained SVT then maki. Pt went asystole at 1427 with family at bedside. Two nurse apical check done. Percussion Instrument Tuner contacted and present. MTS declined pt as organ donor. Family chose [facility] for home. Post mortem care done.
--- NOTE | 2022-06-19 19:36 | PM.PN ---
Vitals/I&O/Wt Last Vital Signs Temp 106.5 F H 06/19/22 12:00 Pulse 183 H 06/19/22 09:03 Resp 22 H 06/19/22 09:03 BP 78/43 06/19/22 05:00 Pulse Ox 93 06/19/22 09:03 O2 Del Method Nasal Cannula 06/19/22 09:03 O2 Flow Rate 2 06/19/22 09:03 FiO2 30 06/14/22 02:28 06/19/22 06/19/22 06/19/22 06:59 14:59 22:59 Intake Total 0 / 1091 0 / 0 Output Total 720 / 720 Balance 0 / 691 -720 / -720 Weight last 48 hrs Weight 132 lb 12.8 oz Physical Exam Urinary Catheter Management: David: Cath Placed During This Visit: yes Reason for Continuing Indwelling Catheter: Accurate Measurement of Urinary Output in Critically Ill Patients Urinary Catheter Date of Insertion: 06/11/22 Urinary Catheter Time of Insertion: 11:05 Data 06/18/22 03:43 06/18/22 03:43 Coding Level of Care Code Acute Code for Chg Fwd Diagnoses
== END 2022-06-19 18:15 | disposition expired | DRG 871 ==
LOC: ER 10:21 → ICU 16:19 → MEDSURG 06-12 16:25 → ICU 06-13 00:51 → CSU 06-15 15:34 → ICU 06-17 16:03
PROVIDERS: Internal Medicine; Admitting Provider Internal Medicine; Emergency Provider Family Medicine; PCP Family Medicine Adult Medicine; Visit Provider Internal Medicine
DX: A41.9 Sepsis, unspecified organism (principal); I21.4 Non-ST elevation (NSTEMI) myocardial infarction; I26.99 Other pulmonary embolism without acute cor pulmonale; J18.9 Pneumonia, unspecified organism; J96.90 Respiratory failure, unspecified, unspecified whether with hypoxia or hypercapnia; I50.23 Acute on chronic systolic (congestive) heart failure; R65.21 Severe sepsis with septic shock; E87.1 Hypo-osmolality and hyponatremia; I42.9 Cardiomyopathy, unspecified; J98.11 Atelectasis; N17.9 Acute kidney failure, unspecified; I73.1 Thromboangiitis obliterans [Buerger's disease]; L89.159 Pressure ulcer of sacral region, unspecified stage; L08.9 Local infection of the skin and subcutaneous tissue, unspecified; L97.521 Non-pressure chronic ulcer of other part of left foot limited to breakdown of skin; L97.511 Non-pressure chronic ulcer of other part of right foot limited to breakdown of skin; I11.0 Hypertensive heart disease with heart failure; E87.6 Hypokalemia; R53.81 Other malaise; D64.9 Anemia, unspecified; E83.42 Hypomagnesemia; R77.8 Other specified abnormalities of plasma proteins; R41.0 Disorientation, unspecified; K21.9 Gastro-esophageal reflux disease without esophagitis; R91.1 Solitary pulmonary nodule; G89.29 Other chronic pain; F41.9 Anxiety disorder, unspecified; Z74.2 Need for assistance at home and no other household member able to render care; Z87.891 Personal history of nicotine dependence; Z79.52 Long term (current) use of systemic steroids; Z79.02 Long term (current) use of antithrombotics/antiplatelets; Z89.421 Acquired absence of other right toe(s); Z86.14 Personal history of Methicillin resistant Staphylococcus aureus infection; Z79.891 Long term (current) use of opiate analgesic; Z51.5 Encounter for palliative care
CPT/HCPCS: 36415; 36416; 36591; 36592; 36600; 51702; 71045; 71250; 71275; 80048; 80051; 80053; 80202; 81001; 82330; 82728; 82805; 82962; 83540; 83550; 83605; 83735; 83880; 84295; 84484; 85025; 86403; 87040; 87449; 87486; 87581; 87633; 87635; 87641; 92523; 92610; 93005; 93306; 93922; 94640; 94660; 94664; 96365; 96367; 96372; 96376; 99285; J0131; J0692; J0744; J1170; J1450; J1650; J1885; J1940; J2060; J2250; J2270; J2997; J3370; J3475; J3480; J3490; J7030; J7050; J7120; Q9967